=== PATIENT | female | born 1990 | race Caucasian/White ===

== ENCOUNTER 2023-05-10 10:51 | Outpatient (OUT) | payer OTHER, SELFPAY ==
--- NOTE | 2023-05-10 11:00 | XR_ITS ---
[address] [address] Patient Name: DERICK LUNA MRN: [id number] date: 1990 Sex: F Assigned Patient Location: [facility] Current Patient Location: [facility] Accession/Order Number: [id number] Exam Date: 05/10/2023 11:34 Report Date: 05/10/2023 11:56 At the request of: CASSIE AMAYA Procedure: XR chest 2V EXAM: XR chest 2V HISTORY: Preop exam COMPARISON: None. TECHNIQUE: PA and lateral views of the chest. FINDINGS: The cardiomediastinal silhouette is normal. No focal consolidation is identified. There is no pneumothorax. No pleural effusion is noted. The osseous structures are intact. XR/XR chest 2V IMPRESSION: No acute cardiopulmonary process. Electronically authenticated by: JESSE WARD Date: 05/10/2023 11:56
--- NOTE | 2023-05-10 11:00 | ECG_ITS ---
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
== END 2023-05-10 10:52 | disposition home or self-care (01) ==
PROVIDERS: Visit Provider Obstetrics & Gynecology
DX: Z01.810 Encounter for preprocedural cardiovascular examination (principal); R10.2 Pelvic and perineal pain; Z87.42 Personal history of other diseases of the female genital tract
CPT/HCPCS: 71046; 93005

== ENCOUNTER 2023-05-24 06:57 | Day surgery (SDC) | payer OTHER, SELFPAY ==
[2023-05-10 11:26] VITALS: BP 102/72; PULSE 80; RESP 18; TEMP 36.3; O2SAT 98; BMI 29.2
[2023-05-24] VITALS (9 sets, daily range): BP systolic 84–102; BP diastolic 48–75; PULSE 58–88; RESP 12–22; TEMP 36.5–36.7; O2SAT 95–100; BMI 29.2
[2023-05-24 07:09] LABS: Basophils Absolute Auto 0.1 10^3/uL (0.0-0.1); Basophils Percent Auto 1.8 % (0.2-2.0); Eosinophils Absolute Auto 0.5 10^3/uL (0.0-0.7); Eosinophils Percent Auto 6.9 % (0.9-7.0); Hematocrit 41.5 % (36.0-48.0); Immature Granulocytes Abs Auto 0.01 10^3/uL (0.00-0.03); Immature Granulocytes Pct Auto 0.1 % (0.0-0.5); Lymphocytes Absolute Auto 2.2 10^3/uL (1.2-3.8); Lymphocytes Percent Auto 27.8 % (20.5-60.0); Mean Corpuscular HGB Conc 33.7 g/dL (29.9-35.2); Mean Corpuscular Hemoglobin 29.5 pg (26.7-34.0); Mean Corpuscular Volume 87.4 fL (81.0-99.0); Mean Platelet Volume 9.8 fL (9.5-13.5); Monocytes Absolute Auto 0.6 10^3/uL (0.3-0.8); Monocytes Percent Auto 7.8 % (1.7-12.0); Neutrophils Absolute Auto 4.3 10^3/uL (1.4-6.5); Neutrophils Percent Auto 55.6 % (43.0-75.0); Platelet Count 275 10^3/uL (150-450); Red Blood Count 4.75 10^6/uL (4.20-5.40); Red Cell Distribution Width 12.5 % (11.0-15.0); White Blood Count 7.8 10^3/uL (4.0-11.0)
[2023-05-24 07:25] LABS: HCG Quantitative <1 mIU/mL
[2023-05-24] MEDS: LACTATED RINGER'S SOLUTION 1,000 ML 50 ML IV (07:30)
[2023-05-24] MEDS: SCOPOLAMINE 1 MG/3 DAYS TRANSDERM PATCH 1 PATCH TD (08:16)
[2023-05-24] MEDS: METHYLENE BLUE 50 MG/10 ML AMPULE INJ (09:20)
--- NOTE | 2023-05-24 09:37 | P.ON_ITS ---
Brief Operative Note Date of procedure: 05/24/23 Pre-op diagnosis: pelvic pain Post-op diagnosis: other (severe endometriosis of posterior culdesac and ovaries, adhesion of posterior uterus to rectum and ovaries, with gentle pressure was able to get spillage of dye from both tubes) Procedure: NAME OF PROCEDURE: [diagnostic laparoscopy with chromopertubation ] significant endometriosis with adhesion of rectum to uterus and ovaries, spillage of dye from both tubes PROCEDURE: The patient was taken back to the Operating Room where she was placed in dorsal lithotomy position after given general anesthesia. The patient was prepped and draped in normal sterile fashion. A humi maniupulator was placed into the uterus. Attention was turned to the patient's abdomen, where a small umbilical incision was made. The fascia was tented using Von clamps and the fascia was entered sharply. Confirmation of intraabdominal placement of the 10 mm port was confirmed under direct visualization using a laparoscope. The patient's abdomen was then insufflated using CO2 gas with approximately 4 liters. A second port was placed left laterally, this was done under direct visualization with a 5 mm port. Survey of the patient's abdomen demonstrated normal liver and gallbladder. Survey of the patient's pelvic anatomy demonstrated normal appearing rt and lt ovary and tubes as well as normal appearing uterus. posterior culdesac endometrial implants could be noted, adhesion of uterus to rectum and ovaries, spillage of dye seen from both tubes with gentle pressure during chromopertubation. . All instruments were removed from the patient's abdomen. The patient's abdomen was deinsufflated of CO2 gas. The patient tolerated the procedure well. Sponge stick was removed from the patient's vagina. The patient's infraumbilical fascia was closed using #0 Vicryl on a GI needle. The patient's skin was closed laterally and infraumbilically using 4-0 Vicryl. The patient tolerated the procedure well. Sponge, lap and needle counts were correct x 2. The patient was taken to Recovery Room in stable condition.Clips from prior surgery noted adhered to bladder, the clips were grasped and gently removed Anesthesia: RANDELL Surgeon: Stoney Chance Flat Knitter Helper: Hilary Deutsch Estimated blood loss (mL): 10 Pathology: none sent Condition: stable Disposition: PACU
[2023-05-24] MEDS: PROMETHAZINE HCL 25 MG/ML VIAL 12.5 MG IV (10:13)
[2023-05-24] MEDS: LACTATED RINGER'S SOLUTION 1,000 ML 150 ML IV (10:15)
--- NOTE | 2023-05-24 10:22 | PC.NURSE ---
Scant bloody drainage on peripad; IVcatheter kinked; untaped and catheter readjusted without difficulty and retaped
--- NOTE | 2023-05-24 10:27 | PC.NURSE ---
IV opened wide open
--- NOTE | 2023-05-24 10:30 | PC.NURSE ---
Nauseated; no emesis
--- NOTE | 2023-05-24 10:31 | PC.NURSE ---
Medicated for nausea as ordered
--- NOTE | 2023-05-24 10:35 | PC.NURSE ---
Scant drainage on peripad; still nauseated, but states it's better
--- NOTE | 2023-05-24 11:01 | PC.NURSE ---
no change in peripad assessment
[2023-05-24] MEDS: HYDROCODONE/ACET 5-325 MG TABLET 1 TAB PO (11:07)
--- NOTE | 2023-05-24 11:37 | PC.NURSE ---
Up to bathroom and voids clear yellow without difficulty; scant bloody drainage on peripad; clean pad applied; still slightly nauseated; taking sips without retching or emesis
--- NOTE | 2023-05-24 11:44 | PC.NURSE ---
Medicated for pain with oral medication; drinking sips H2O without emesis
--- NOTE | 2023-05-24 11:50 | PC.NURSE ---
Medicated for pain with oral medication; nauseated, but able to take fluids without emesis
== END 2023-05-24 11:30 | disposition home or self-care (01) ==
PROVIDERS: Visit Provider Obstetrics & Gynecology
PROC: (CPT 840; principal; 2023-05-24 08:05)
DX: R10.2 Pelvic and perineal pain (principal); N80.30 Endometriosis of pelvic peritoneum, unspecified; N83.9 Noninflammatory disorder of ovary, fallopian tube and broad ligament, unspecified; E03.9 Hypothyroidism, unspecified; F41.9 Anxiety disorder, unspecified; K21.9 Gastro-esophageal reflux disease without esophagitis; R53.82 Chronic fatigue, unspecified; M51.26 Other intervertebral disc displacement, lumbar region; E66.9 Obesity, unspecified; F17.290 Nicotine dependence, other tobacco product, uncomplicated; Z90.49 Acquired absence of other specified parts of digestive tract; Z68.28 Body mass index [BMI] 28.0-28.9, adult; Z87.42 Personal history of other diseases of the female genital tract; K66.0 Peritoneal adhesions (postprocedural) (postinfection)
CPT/HCPCS: 49320; 58350; 36415; 84702; 85025; J2704

== ENCOUNTER 2023-09-02 14:06 | Emergency (ER) | payer BC, OTHER, SELFPAY ==
[2023-09-02 14:12] VITALS: BP 111/80; PULSE 97; RESP 16; TEMP 36.8; O2SAT 98; BMI 27.4
--- OUTSIDE RECORDS SUMMARY | 2023-09-02 14:20 | XMS_ITS | CCD ---
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 Name Role Phone HENNY STERN Unavailable Unavailable HENNY STERN Unavailable Unavailable REQUEST, NONE LISTED Unavailable Unavailable HENNY STERN Unavailable Unavailable CHANG LAL V Unavailable Unavailable NovemberJacobo Primary Care Provider [phone] Timo Rodriguez Unavailable Harshad Julien Unavailable Unavailable Stefany Pena Unavailable Unavailable Sol Conti Primary Care Physician [phone] Caren Hogue Unavailable Unavailable Jana ZABALA Primary Care Physician DO Tony Hannon Emergency Provider [phone] RUMA Zabala Primary Care Provider [phone] DO Chaitanya Toure Emergency Provider [phone] RUMA Zabala Primary Care Provider [phone] Chaitanya Toure Admitting Unavailable Chaitanya Toure Attending Unavailable Jana Zabala Primary Care Unavailable Parvez, Tony Admitting Unavailable Tony Hannon Attending Unavailable Jana Zabala Primary Care Unavailable Tony Hannon Attending Unavailable Jana Zabala Primary Care Unavailable Parvez, Tony Admitting Unavailable Christian Juárez Unavailable PRITESH NY Attending Unavailable LUCRETIA GRAVES Attending Unavailable Shannon Golden Attending Unavailable Lucretia Graves Referring Unavailable Shannon Golden Admitting Unavailable Shannon Golden Attending Unavailable Jana ZABALA Referring Unavailable Curtis, Altagracia Admitting Unavailable Curtis, Altagracia Attending Unavailable Jana ZABALA Referring Unavailable Curtis, Altagracia Attending Unavailable Jana ZABALA Referring Unavailable Clyde Alcantar Attending Unavailable MD Clyde Alcantar Admitting Unavailable Curtis, RUMA Altagracia Admitting Unavailabl e Jana ZABALA Referring Unavailable Curtis, Altagracia Attending Unavailable RUMA Curtis Altagracia Admitting Unavailabl e SAGRARIOJANA ANDREW J Referring Unavailable Curtis, Altagracia Attending Unavailable Curtis, Altagracia Admitting Unavailable SAGRARIOJana ANDREW Referring Unavailable Curtis, Altagracia Attending Unavailable MD Clyde Alcantar Admitting Unavailable Clyde Alcantar Attending Unavailable Clyde Alcantar Referring Unavailable MD Clyde Alcantar Admitting Unavailable Clyde Alcantar Attending Unavailable Clyde Alcantar Referring Unavailable Curtis, Altagracia Admitting Unavailable Curtis, Altagracia Attending Unavailable Monika GAO Admitting Unavailab Monika Hua Attending Unavailab Monika Hua Referring Unavailab Kenn Ordoñez Attending Unavailable Kenn Zurita Attending Unavailable Allergies Allergy Classification Reported Allergen(s) Allergy Type Date of Onset Reaction(s) Facility Anticholinergics (3 sources) Dicyclomine Drug Allergy 02-16-20 13 [facility] DOPamine Antagonists (1 source) Metoclopramide Drug Allergy Other [facility] (3 sources) Dicyclomine; Translations: [Bentyl] Drug Allergy Hives/Urticari a [facility] (3 sources) Metoclopramide; Translations: [Reglan] Drug Allergy Other [facility] (20 sources) Bee/Wasp/Ant venom; Translations: [Bee Stings] Allergy to substance swollen at site [facility] (20 sources) Chocolate; Translations: [Chocolate] Propensity to adverse reactions to food Migraine [facility] (20 sources) Dicyclomine; Translations: [dicyclomine] Drug Allergy 01-20-20 22 [facility] (20 sources) Metoclopramide; Translations: [metoclopramide] Drug Allergy 01-20-20 22 twitching, Irritable, Unknown [facility] Comment on above: gives her shakes (19 sources) red sauces 1 Food allergy Migraine (disorder) [facility] Comment on above: migraines (1 source) Dicyclomine Drug Allergy 08-17-19 [facility] (1 source) Metoclopramide Drug Allergy 08-17-19 [facility] (1 source) red sauces; Translations: [red sauces] Food allergy (disorder) [facility] Medications Current Medications Medication Drug Class(es) Dates Sig (Normalized) Sig (Original) acetaminophen 325 mg / butalbital 50 mg oral tablet (8 sources) Barbiturate Start: 11-07-2021 acetaminophen-bu talbital 325 mg-50 mg oral tablet 1 tab(s), Oral, q4hr for headache, 6 tab(s), Refill(s) 0, [id number], 158, cm, 11/07/21 12:07:00 EDT, Height/Length Dosing, 68, kg, 11/07/21 12:07:00 EDT, Weight Dosing Start Date: 11/07/21 Status: Ordered acetaminophen 325 mg / butalbital 50 mg / caffeine 40 mg oral tablet (9 sources) Barbiturate, Central Nervous System Stimulant, Methylxanthine Start: 09-11-2021 take 1 tablet by mouth every four hours for headache APAP/butalbital/ caffeine 325 mg-50 mg-40 mg Tab 1 tab(s), Oral, q4hr for headache, 15 tab(s), Refill(s) 0, [id number], 158, cm, 09/11/21 8:41:00 EST, Height/Length Dosing, 68, kg, 09/11/21 8:41:00 EST, Weight Dosing Start Date: 09/11/21 Status: Ordered Excedrin Tension Headache (18 sources) Central Nervous System Stimulant, Methylxanthine Start: 02-18-2020 Excedrin Tension Headache Oral, q6hr, Refill(s) 0 Start Date: 02/18/20 Status: Ordered Excedrin Tension Headache Active azithromycin 250 mg oral tablet (3 sources) Macrolide Antimicrobial Start: 03-02-2021 take 2 tablets by mouth once, then take 1 tablet by mouth once daily azithromycin 250 mg oral tablet ; Take 2 tabs (500mg) x 1 days, then 1 tab (250mg) once daily x 4 days Quantity: 6 Refills: 0 Ordered: 02-Mar-2021 Harshad Julien Start: 02-Mar-2021 Status: Other Generic Substitution Allowed Comments: Do not take dairy products, antacids, or iron preparations within one hour of this medication.Finish all this medication unless otherwise directed by prescriber. Comment on above: Do not take dairy pr oducts, antacids, or iron preparations within one hour of this medication.Finish all this medication unless otherwise directed by prescriber. Brompheniramine / Pseudoephedrine (1 source) alpha-Adrenergic Agonist Start: 07-29-2020 take 10 mL by mouth four times daily Bromfed DM oral syrup 10 mL, Oral, QID for cold symptoms, 200 mL, Refill(s) 0, [id number], 157, cm, 07/29/20 12:13:00 EST, Height/Length Dosing, 70, kg, 07/29/20 12:13:00 EST, Weight Dosing Start Date: 07/29/20 Status: Ordered 12 hr buPROPion hydrochloride 100 mg extended release oral tablet (3 sources) Aminoketone take 1 tablet by mouth twice daily Wellbutrin SR 100 mg/12 hours oral tablet, extended release ; 1 tab(s) orally 2 times a day Quantity: 0 Refills: 0 Ordered: 28-Oct-2020 Sol Ross Status: Other Generic Substitution Allowed cetirizine hydrochloride 10 mg disintegrating oral tablet (1 source) Histamine-1 Receptor Antagonist Start: 08-17-2022 take 1 tablet by mouth once daily Cetirizine (Zyrtec) 10 mg Tablet,Disintegrating Active 10 MG PO Daily August 17, 2022 12:00am Emgality (1 source) Emgality Active Emgality Prefilled Pen (10 sources) Start: 06-25-2022 Emgality Prefilled Pen SubCutaneous, qMonth, Refills(s) 0 Start Date: 06/25/22 Status: Ordered Flonase Allergy Relief (19 sources) Start: 07-11-2021 Flonase Allergy Relief = 2 spray(s), Daily, Refills(s) 0 Start Date: 07/11/21 Status: Ordered fluconazole 150 mg oral tablet (3 sources) Azole Antifungal Start: 03-02-2021 Diflucan 150 mg oral tablet ; 1 tab(s) orally once a day today and then repeat on last day of antibiotics Quantity: 2 Refills: 0 Ordered: 02-Mar-2021 Harshad Julien Start: 02-Mar-2021 Status: Other Generic Substitution Allowed Comments: Do not take this drug if you are .Finish all this medication unless otherwise directed by prescriber. Comment on above: Do not take this jessica g if you are .Finish all this medication unless otherwise directed by prescriber. 1.5 ml fremanezumab-vfrm 150 mg/ml prefilled syringe (1 source) Start: 06-25-2023 Ajovy 225 mg/1.5 mL subcutaneous solution Refills(s) 0 Start Date: 06/25/23 Status: Ordered levothyroxine sodium 0.025 mg oral tablet (16 sources) l-Thyroxine Start: 04-13-2022 take 1 tablet by mouth once daily levothyroxine 25 mcg (0.025 mg) Tab 25 mcg = 1 tab(s), Oral, Daily, Refills(s) 0 Start Date: 04/13/22 Status: Ordered Start: 04-10-2022 take 25 ug by mouth once daily Levothyroxine Active 25 MCG PO Daily April 09, 2022 11:00pm Levothyroxine So dium Active Claritin (19 sources) Start: 06-07-2021 Claritin See Instructions, PRN allergies, Refills(s) 0 Start Date: 06/07/21 Status: Ordered naproxen 500 mg oral tablet (20 sources) Nonsteroidal Anti-inflammatory Drug Start: 11-17-2019 take 500 mg by mouth twice daily naproxen 500 mg, Oral, BID, Refills(s) 0 Start Date: 11/17/19 Status: Ordered Naproxen Active naproxen 500 mg oral tablet Quantity: 0 Refills: 0 Ordered: 04-Jul-2021 Julieta Yen Generic Substitution Allowed omeprazole 20 mg delayed release oral tablet (20 sources) Proton Pump Inhibitor Start: 01-19-2022 take 20 mg by mouth once daily Omeprazole Active 20 MG PO Daily January 18, 2022 11:00pm Start: 11-17-2019 take 20 mg by mouth once daily omeprazole 20 mg, Oral, Daily, Refills(s) 0 Start Date: 11/17/19 Status: Ordered Omeprazole Activ e take 1 tablet by ronnie once daily omeprazole 20 mg oral delayed release tablet ; 1 tab(s) orally once a day Quantity: 0 Refills: 0 Ordered: 28-Oct-2020 Sol Ross Status: Other Generic Substitution Allowed predniSONE 20 mg oral tablet (10 sources) Start: 10-15-2022 predniSONE 20 mg Tab Daily, PRN Allergy symptoms, Refills(s) 0 Start Date: 10/15/22 Status: Ordered Start: 08-17-2022 take 50 mg by mouth once daily Prednisone Active 50 MG PO Daily 11 23August 17, 2022 12:00am Start: 03-02-2021 End: 03-07-2021 take 6 tablets by mouth once daily at mealtime, then take 1 tablet by mouth once daily, then take 1 tablet by mouth once daily, then take 1 tablet by mouth once daily, then take 1 tablet by mouth once daily, then take 1 tablet by mouth once daily predniSONE 10 mg oral tablet ; 6 tab(s) orally once a day x 1 days5 tab(s) orally once a day x 1 days4 tab(s) orally once a day x 1 days3 tab(s) orally once a day x 1 days2 tab(s) orally once a day x 1 days1 tab(s) orally once a day x 1 days Quantity: 21 Refills: 0 Ordered: 02-Mar-2021 Harshad Julien Start: 02-Mar-2021 End: 07-Mar-2021 Status: Other Generic Substitution Allowed Comments: It is very important that you take or use this exactly as directed. Do not skip doses or discontinue unless directed by your doctor.Obtain medical advice before taking any non-prescription drugs as some may affect the action of this medication.Take with food or milk. Comment on above: It is very important that you take or use this exactly as directed. Do not skip doses or discontinue unless directed by your doctor.Obtain medical advice before taking any non-prescription drugs as some may affect the action of this medication.Take with food or milk. pregabalin 50 mg oral capsule (20 sources) Start: 02-05-20 End: 08-17-19 24 take 1 capsule by mouth once daily pregabalin 50 mg Cap 50 mg = 1 cap(s), Oral, Daily, X 30 day(s), # 30 cap(s), Refills(s) 5, Pharmacy: [id number], 158, cm, 02/18/23 10:35:00 EDT, Height/Length Dosing, 72.5, kg, 02/18/23 10:35:00 EDT, Weight Dosing Start Date: 02/18/23 Stop Date: 08/17/23 Status: Ordered Start: 07-11-2021 End: 11-07-2022 take 1 capsule by mouth once daily pregabalin 50 mg Cap 50 mg = 1 cap(s), Oral, Daily, X 30 day(s), # 30 cap(s), Refills(s) 5, Pharmacy: [id number], 158, cm, 05/11/22 14:58:00 EDT, Height/Length Dosing, 68.5, kg, 05/11/22 14:58:00 EDT, Weight Dosing Start Date: 05/11/22 Stop Date: 11/07/22 Status: Ordered take 1 capsule by mo ut every twelve hours Lyrica 50 MG 1 capsule Orally Twice a day Active promethazine hydrochloride 25 mg oral tablet (3 sources) Phenothiazine Start: 04-16-2017 take 25 mg by mouth every six hours Promethazine Active 25 MG PO Q6H April 15, 2017 11:51pm rimegepant 75 mg disintegrating oral tablet (11 sources) Start: 05-11-2022 Nurtec ODT 75 mg oral tablet, disintegrating Refills(s) 0 Start Date: 05/11/22 Status: Ordered tiZANidine 4 mg oral tablet (20 sources) Central alpha-2 Adrenergic Agonist Start: 02-18-2023 take 1 tablet by mouth three times daily tiZANidine 4 mg Tab 4 mg = 1 tab(s), Oral, TID, # 90 tab(s), Refills(s) 5, Pharmacy: [facility]/pharmacy #[id number], 158, cm, 02/18/23 10:35:00 EDT, Height/Length Dosing, 72.5, kg, 02/18/23 10:35:00 EDT, Weight Dosing Start Date: 02/18/23 Status: Ordered Start: 01-19-2022 take 4 mg by mouth o nce daily at bedtime Tizanidine Active 4 MG PO Daily at bedtime January 18, 2022 11:00pm Start: 06-07-2021 take 1 tablet by ronnie th three times daily tiZANidine 4 mg Tab 4 mg = 1 tab(s), Oral, TID, # 90 tab(s), Refills(s) 5, Pharmacy: [facility]/pharmacy [id number], 158, cm, 05/11/22 14:58:00 EDT, Height/Length Dosing, 68.5, kg, 05/11/22 14:58:00 EDT, Weight Dosing Start Date: 05/11/22 Status: Ordered take 2 capsules by m out three times daily tiZANidine 4 mg oral capsule ; 2 cap(s) orally 3 times a day Quantity: 0 Refills: 0 Ordered: 28-Oct-2020 Sol Ross Generic Substitution Allowed traMADol hydrochloride 50 mg oral tablet (3 sources) Opioid Agonist take 1 tablet by mouth every six hours Ultram 50 mg oral tablet ; 1 tab(s) orally every 6 hours Quantity: 0 Refills: 0 Ordered: 28-Oct-2020 Sol Ross Status: Other Generic Substitution Allowed Zofran ODT 4 mg Tab-Dis (18 sources) Start: 12-12-2022 take 1 tablet by mouth every eight hours as needed for nausea Zofran ODT 4 mg Tab-Dis 4 mg = 1 tab(s), Oral, q8hr, PRN Nausea/Vomiting, # 20 tab(s), Refills(s) 0, Pharmacy: [id number], 158, cm, 12/12/22 20:36:00 EDT, Height/Length Dosing, 74, kg, 12/12/22 20:36:00 EDT, Weight Dosing Start Date: 12/12/22 Status: Ordered Start: 11-07-2021 take 1 tablet by ronnie every eight hours as needed for nausea Zofran ODT 4 mg Tab-Dis 4 mg = 1 tab(s), Oral, q8hr, PRN Nausea/Vomiting, # 12 tab(s), Refills(s) 0, Pharmacy: [id number], 158, cm, 11/07/21 12:07:00 EDT, Height/Length Dosing, 68, kg, 11/07/21 12:07:00 EDT, Weight Dosing Start Date: 11/07/21 Status: Ordered Start: 09-11-2021 take 1 tablet by ronnie three times daily Zofran ODT 4 mg Tab-Dis 4 mg = 1 tab(s), Oral, TID, # 15 tab(s), Refills(s) 0, [id number], cm, 09/11/21 8:41:00 EST, Height/Length Dosing, 68, kg, 09/11/21 8:41:00 EST, Weight Dosing Start Date: 09/11/21 Status: Ordered Start: 12-29-2020 [facility] 1 tablet by [facility] daily Zofran ODT 4 mg Tab-Dis 4 mg = 1 tab(s), Oral, TID, # 15 tab(s), Refills(s) 0, [id number] 157.5, cm, 12/29/20 8:18:00 EDT, Height/Length Dosing, 75.4, kg, 12/29/20 8:18:00 EDT, Weight Dosing Start Date: 12/29/20 Status: Ordered Completed/Discontinued Medications Medication Drug Class(es) Dates Sig (Normalized) Sig (Original) [id number] 200 actuat albuterol 0.09 mg/actuat metered dose inhaler (2 sources) beta2-Adrenergic Agonist Start: 07-04-2021 End: 07-13-2021 take 2 puff(s) by inhalation every four to six hours as needed albuterol 90 mcg/inh inhalation aerosol ; 2 puff(s) inhaled every 4 to 6 hours, As Needed Quantity: 1 Refills: 0 Ordered: 04-Jul-2021 Stefany Pena Start: 04-Jul-2021 End: 13-Jul-2021 Generic Substitution Allowed Comments: For inhalation only.It is very important that you take or use this exactly as directed. Do not skip doses or discontinue unless directed by your doctor.Obtain medical advice before taking any non-prescription drugs as some may affect the action of this medication.Shake well before use. Comment on above: For inhalation only. It is very important that you take or use this exactly as directed. Do not skip doses or discontinue unless directed by your doctor.Obtain medical advice before taking any non-prescription drugs as some may affect the action of this medication.Shake well before use. brompheniramine maleate 0.4 mg/ml / dextromethorphan hydrobromide 2 mg/ml / pseudoephedrine hydrochloride 6 mg/ml oral solution (4 sources) alpha-Adrenergic Agonist, Uncompetitive E-aaoudb-H-aspartat e Receptor Antagonist, Sigma-1 Agonist Start: 07-04-2021 End: 07-13-2021 take 5 mL by mouth every four to six hours brompheniramine/p seudoephedrine/de xtromethorphan [id number]/5 mL oral syrup ; 5 milliliter(s) orally every 4 to 6 hours, As Needed Quantity: 120 Refills: 0 Ordered: 04-Jul-2021 Stefany Pena Start: 04-Jul-2021 End: 13-Jul-2021 Generic Substitution Allowed Comments: May cause drowsiness. Alcohol may intensify this effect. Use care when operating dangerous machinery.Obtain medical advice before taking any non-prescription drugs as some may affect the action of this medication. Start: 04-11-2021 End: 04-20-2021 take 5 mL by mouth every four to six hours brompheniramine/pseudoephedrine/dextrome thorphan [id number]/5 mL oral syrup ; 5 milliliter(s) orally every 4 to 6 hours, As Needed Quantity: 120 Refills: 0 Ordered: 11-Apr-2021 Stefany Pena Start: 11-Apr-2021 End: 20-Apr-2021 Generic Substitution Allowed Comments: May cause drowsiness. Alcohol may intensify this effect. Use care when operating dangerous machinery.Obtain medical advice before taking any non-prescription drugs as some may affect the action of this medication. Comment on above: May cause drowsiness . Alcohol may intensify this effect. Use care when operating dangerous machinery.Obtain medical advice before taking any non-prescription drugs as some may affect the action of this medication. COMPOUNDED PRESCRIPTION (2 sources) Start: 013 COMPOUNDED PRESCRIPTION Chest X ray PA and Lateral 1 Act 0 02/18/2013 Active Comment on above: Chest X ray PA and L ateral cyclobenzaprine hydrochloride 10 mg oral tablet (1 source) Muscle Relaxant Start: take 1 tablet by mouth once daily at bedtime Flexeril 10mg 1 Tablet Oral qhs for 10 days Sep, Not-Taking fluticasone propionate 0.05 mg/actuat metered dose nasal spray (2 sources) Corticosteroid Start: End: take 1 spray(s) nasal route once daily fluticasone 50 mcg/inh nasal spray ; 1 spray(s) in each nostril once a day Quantity: 1 Refills: 0 Ordered: 11-Apr-2021 Stefany Pena Start: 11-Apr-2021 End: 20-Apr-2021 Generic Substitution Allowed Comments: For the nose.It is very important that you take or use this exactly as directed. Do not skip doses or discontinue unless directed by your doctor. Comment on above: For the nose.It is v shraddha important that you take or use this exactly as directed. Do not skip doses or discontinue unless directed by your doctor. ondansetron 4 mg oral tablet (19 sources) Serotonin-3 Receptor Antagonist Start: take 1 tablet by mouth every six hours as needed for nausea Zofran 4 mg Tab 4 mg = 1 tab(s), Oral, q6hr, PRN Nausea, Take one tab by mouth every six hours as needed for nausea, # 10 tab(s), Refills(s) 0, Pharmacy: [id number], 158, cm, 02/05/22 16:14:00 EDT, Height/Length Dosing, 68, kg, 02/05/22 16:14:00 EDT, Weight D... Start Date: 02/05/22 Status: Ordered take 4 mg by mouth e very six hours as needed ondansetron (ZOFRAN) 4 mg/5 mL solution Take 4 mg by mouth every 6 hours as needed. 0 Active Comment on above: Take 4 mg by mouth e very 6 hours as needed. potassium chloride 20 meq extended release oral tablet (1 source) Start: 02-06-20 End: 02-13-20 take 1 tablet by mouth once daily potassium chloride 20 mEq ER Tab 20 mEq = 1 tab(s), Oral, Daily, X 7 day(s), # 7 tab(s), Refills(s) 0, Pharmacy: [facility]/pharmacy #[id number], 158, cm, 02/05/22 16:14:00 EDT, Height/Length Dosing, 68, kg, 02/05/22 16:14:00 EDT, Weight Dosing Start Date: 02/05/22 Stop Date: 02/12/22 Status: Ordered triamcinolone acetonide 1 mg/ml topical cream (3 sources) Corticosteroid Start: 10-29-19 End: 11-04-19 triamcinolone 0.1% topical cream ; Apply topically to affected area 3 times a day Quantity: 1 Refills: 0 Ordered: 28-Oct-2020 JeanBritney fernandezhel Start: 28-Oct-2020 End: 03-Nov-2020 Status: Other Generic Substitution Allowed Comments: For external use only. Comment on above: For external use onl y. Problems Active Problems Problem Classification Problem Date Documented Date Episodic/Chronic Abdominal pain (4 sources) Pelvic and perineal pain; Translations: [PELVIC AND PERINEAL PAIN] Onset: 04-09-2017 Allergic reactions (1 source) Allergic reaction; Translations: [Allergy, unspecified, initial encounter] 08-17-2022 Episodic Anxiety disorders (19 sources) Anxiety 11-17-2019 Chronic Cardiac dysrhythmias (2 sources) Cardiac arrhythmia; Translations: [Cardiac arrhythmia, unspecified] Onset: 02-15-2013 Chronic Deficiency and other anemia (19 sources) Anemia 11-17-2019 Episodic Esophageal disorders (19 sources) Gastroesophageal reflux disease 11-17-2019 Chronic Fluid and electrolyte disorders (1 source) Hypokalemia; Translations: [Hypokalemia] Onset: 02-05-2022 Episodic Headache; including migraine (20 sources) Migraine; Translations: [Migraine, unspecified, not intractable, without status migrainosus] Onset: 11-07-2021 10-02-2013 Chronic Headache; including migraine (20 sources) Headache; Translations: [Headache] 02-18-2020 Episodic Headache; including migraine (1 source) Headache; including migraine; Translations: [Headache, unspecified] Onset: 04-10-2022 Immunizations and screening for infectious disease (2 sources) Contact with or exposure to other viral diseases 07-04-2021 Episodic Mood disorders (19 sources) Depression 10-02-2013 Chronic Nausea and vomiting (20 sources) Vomiting; Translations: [Nausea] Onset: 02-05-2022 02-18-2020 Episodic Nonspecific chest pain (3 sources) Chest wall pain; Translations: [Other chest pain] 01-19-2022 Episodic Other nervous system disorders (1 source) Chronic pain; Translations: [Other chronic pain] Chronic Other screening for suspected conditions (not mental disorders or infectious disease) (1 source) Blood chemistry abnormal; Translations: [Other specified abnormal findings of blood chemistry] Onset: 02-05-2022 Episodic Other upper respiratory disease (2 sources) Loss of voice 03-02-2021 Episodic Comment on above: LOSS OF VOICE Other upper respiratory infections (10 sources) Acute laryngitis; Translations: [Acute laryngitis without mention of obstruction] 03-02-2021 Episodic Comment on above: URI Pneumonia (except that caused by tuberculosis or sexually transmitted disease) (19 sources) Pneumonia 12-16-2013 Episodic Spondylosis; intervertebral disc disorders; other back problems (1 source) Herniation of nucleus pulposus of lumbar intervertebral disc; Translations: [Other intervertebral disc displacement, lumbar region] Chronic Sprains and strains (5 sources) Strain of neck muscle; Translations: [Strain of muscle, fascia and tendon at neck level, initial encounter] 04-16-2017 Episodic Substance-related disorders (19 sources) Smoker 02-15-2014 Chronic Comment on above: Added secondary to d ocumentation in Social History. Unclassified (1 source) Exposure to COVID-19 virus 07-04-2021 Unclassified (2 sources) SOB, ST, DRAIANGE, COUGH X YESTERDAY 08-04-2021 Comment on above: SOB, ST, DRAIANGE, C OUGH X YESTERDAY Unclassified (1 source) Close exposure to COVID-19 virus 08-04-2021 Unclassified (1 source) Allergy, unspecified, initial encounter; Translations: [Allergy, unspecified, initial encounter] Onset: 08-17-2022 Unclassified (1 source) R07.9 - Chest pain, unspecified; Translations: [R07.9 - Chest pain, unspecified] Onset: 01-19-2022 Past or Other Problems Problem Classification Problem Date Documented Da te Episodic/Chronic Other lower respiratory disease (2 sources) Dyspnea; Translations: [Shortness of breath] Onset: 02-15-2013 Episodic Results Test Name Value Interpretation Reference Range Facility Consent for Treatmenton Consent for Treatment [id number] 31 [id number] [facility] Consultation Noteon 06-25-20 Consultation Note Patient: PRABHA LUNA Age: 32 years Sex: Female : 1990 Associated Diagnoses: None Author: Cortez CHEUNG, Clyde [place] Subjective Chief complaint 06/25/2023 7:58 EST Back Pain . 32-year-old female with a work-related injury resulting in lumbar disc displacement with recurrent pain. The pain is in the low back and radiates to the hips. Standing walking, bending twisting exacerbate the pain. Pain is very well-controlled with intermittent L4-5 epidural steroid injections. Her last procedure was done in January of this year which resulted in 80% relief until these past few weeks. During that period of time the patient was much more active and able to work. She currently rates her pain as a 5 out of 10 on the visual analog scale. It can be as bad as a 7 out of 10. MENDEL is 43. Denies red flag symptoms. Denies changes to her pattern of pain. Patient requested a repeat of the epidural steroid injection since it was so helpful for her in the past. The patient is no longer taking the Lyrica as it was causing drowsiness in the morning. Continues to use naproxen and tizanidine. Health Status Allergies: Allergic Reactions (All) Severity Not Documented Bee Stings- Swollen at site. Bentyl- Hives. Chocolate- Migraine. Red sauces- Migraine....... Nonallergic Reactions (All) Severity Not Documented Reglan- Twitching. Current medications: (Selected) Prescriptions Prescribed Zofran ODT 4 mg Tab-Dis: 4 mg = 1 tab(s), Oral, q8hr, PRN Nausea/Vomiting, # 20 tab(s), Refills(s) 0, Pharmacy: [facility]/pharmacy #[id number], 158, cm, 12/12/22 20:36:00 EDT, Height/Length Dosing, 74, kg, 12/12/22 20:36:00 EDT, Weight Dosing pregabalin 50 mg Cap: 50 mg = 1 cap(s), Oral, Daily, X 30 day(s), # 30 cap(s), Refills(s) 5, [id number], cm, 02/18/23 10:35:00 EDT, Height/Length Dosing, 72.5, kg, 02/18/23 10:35:00 EDT, Weight Dosing tiZANidine 4 mg Tab: 4 mg = 1 tab(s), Oral, TID, # 90 tab(s), Refills(s) 5, [id number] 158, cm, 02/18/23 10:35:00 EDT, Height/Length Dosing, 72.5, kg, 02/18/23 10:35:00 EDT, Weight Dosing Documented Medications Documented Ajovy 225 mg/1.5 mL subcutaneous solution: Refills(s) 0 Claritin: See Instructions, PRN allergies, Refills(s) 0 Emgality Prefilled Pen: SubCutaneous, qMonth, Refills(s) 0 Flonase Allergy Relief: = 2 spray(s), Daily, Refills(s) 0 Nurtec ODT 75 mg oral tablet, disintegrating: Refills(s) 0 levothyroxine 25 mcg (0.025 mg) Tab: 25 mcg = 1 tab(s), Oral, Daily, Refills(s) 0 naproxen: 500 mg, Oral, BID, Refills(s) 0 omeprazole: 20 mg, Oral, Daily, Refills(s) 0 Problem list: All Problems Acid reflux / SNOMED CT 161034818 / Confirmed Anemia / SNOMED CT 154254761 / Confirmed Anxiety / SNOMED CT 21158926 / Confirmed Headache / SNOMED CT 57271515 / Confirmed Smoker 21-JAN-2014 12:37:00<$> / SNOMED CT [id number]-[id number] / Confirmed Added secondary to documentation in Social History. Vomiting / SNOMED CT 0171589326 / Confirmed Objective Vital Signs 06/25/2023 7:58 EST Peripheral Pulse Rate 88 bpm Respiratory Rate 14 br/min Systolic Blood Pressure 118 mmHg Diastolic Blood Pressure 88 mmHg Mean Arterial Pressure, Cuff 98 mmHg General: No acute distress. Alert and oriented x 3. Well-nourished. Well-developed. Musculoskeletal: Rises easily from a seated position. No gross deformity or asymmetry. Good range of motion with minimal pain lumbar spine. Sacroiliac joints are nontender to palpation bilaterally. Neuro: 5/5 strength throughout bilateral lower extremities. Ankle clonus absent bilaterally. Straight leg raise bilaterally at 30 degrees creates low back pain. Able to tandem walk without difficulty. Able to heel and toe stand without difficulty. 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 Those procedures provided the patient relief of her pain for 4 months. The pain is returning. The patient experience significant improvement of quality life and activities of daily living as a result of the pain relief she was experiencing. I recommend repeating the injection. The patient will require Valium 10 mg prior to the procedure due to severe anxiety. Risk, benefits, and alternatives were reviewed with the patient. She wishes to proceed. Plan follow-up 2 weeks after the injection to assess response. Patient agrees with plan of care. [facility] Comment on above: Result Comment: Elec tronically Signed By: Cortez CHEUNG, Clyde [place]\.br\Date and Time Signed: 06/25/23 08:46 EST Office/Clinic Note-Physician on 06-25-2023 Office/Clinic Note-Physician [id number] #1.00TIFF [facility] Patient Correspondenceon Patient Correspondence [id number] #1.00TIFF [facility] Patient Correspondence [id number] #1.00TIFF [facility] Patient History Officeon Patient History Office [id number] #1.00TIFF [facility] Prescriptions/Work Noteson 1 08-26-2022 Prescriptions/Work Notes [id number] 9#1.00TIFF [facility] Consent for Treatmenton 01-21 Consent for Treatment ..121.79 [id number] 5#1.00CD:127 [facility] Consultation Noteon 02-19-20 Consultation Note Patient: PRABHA LUNA Age: 32 years Sex: Female : 1990 Associated Diagnoses: None Author: Altagracia Curtis PA-C Subjective Chief complaint 02/18/2023 10:29 EDT low back pain . Patient is a 32 year old female with a past medical history significant for a [facility]. The approved codes are m51.26 and S39.012A. Lumbar annular tear and lumbar strain. She presents today for a follow-up after undergoing an L4-5 epidural steroid injection. This was done on 02/04/2023 and at this time has given her 70% relief. She has had this injection multiple times all with good relief. She has some lower back pain that she rates a 2/10. She states that this is well controlled with her Lyrica 50 mg 3 times daily and tizanidine 4 mg up to 3 times daily as needed pain. She feels at this time things are comfortable and happy. She is overall doing better. She is pleased with how much relief she got from the injection and is back to her normal activities. Health Status Allergies: Allergic Reactions (Selected) Severity Not Documented Bee Stings- Swollen at site. Bentyl- Hives. Chocolate- Migraine. Red sauces- Migraine....... Nonallergic Reactions (Selected) Severity Not Documented Reglan- Twitching., Allergies (5) Active Reaction Bee Stings swollen at site Bentyl Hives Chocolate Migraine red sauces Migraine...... Reglan twitching Current medications: (Selected) Prescriptions Prescribed Zofran 4 mg Tab: 4 mg = 1 tab(s), Oral, q6hr, PRN Nausea, Take one tab by mouth every six hours as needed for nausea, # 10 tab(s), Refills(s) 0, Pharmacy: [facility] #[id number], 158, cm, 02/05/22 16:14:00 EDT, Height/Length Dosing, 68, kg, 02/05/22 16:14:00 EDT, Weight D... Zofran ODT 4 mg Tab-Dis: 4 mg = 1 tab(s), Oral, q8hr, PRN Nausea/Vomiting, # 20 tab(s), Refills(s) 0, [id number], cm, 12/12/22 20:36:00 EDT, Height/Length Dosing, 74, kg, 12/12/22 20:36:00 EDT, Weight Dosing pregabalin 50 mg Cap: 50 mg = 1 cap(s), Oral, Daily, X 30 day(s), # 30 cap(s), Refills(s) 5, [id number] 158, cm, 02/18/23 10:35:00 EDT, Height/Length Dosing, 72.5, kg, 02/18/23 10:35:00 EDT, Weight Dosing tiZANidine 4 mg Tab: 4 mg = 1 tab(s), Oral, TID, # 90 tab(s), Refills(s) 5, [id number] 158, cm, 02/18/23 10:35:00 EDT, Height/Length Dosing, 72.5, kg, 02/18/23 10:35:00 EDT, Weight Dosing Documented Medications Documented Claritin: See Instructions, PRN allergies, Refills(s) 0 Emgality Prefilled Pen: SubCutaneous, qMonth, Refills(s) 0 Flonase Allergy Relief: = 2 spray(s), Daily, Refills(s) 0 Lyrica 50 mg Cap: 50 mg = 1 cap(s), Oral, Daily, Refills(s) 0 Nurtec ODT 75 mg oral tablet, disintegrating: Refills(s) 0 levothyroxine 25 mcg (0.025 mg) Tab: 25 mcg = 1 tab(s), Oral, Daily, Refills(s) 0 naproxen: 500 mg, Oral, BID, Refills(s) 0 omeprazole: 20 mg, Oral, Daily, Refills(s) 0 predniSONE 20 mg Tab: Daily, PRN Allergy symptoms, Refills(s) 0 Problem list: All Problems Smoker 21-JAN-2014 12:37:00<$> / SNOMED CT [id number] [id number] / Confirmed Added secondary to documentation in Social History. Acid reflux / SNOMED CT 772415720 / Confirmed Anxiety / SNOMED CT 63527680 / Confirmed Anemia / SNOMED CT 919476706 / Confirmed Vomiting / SNOMED CT 4413106594 / Confirmed Headache / SNOMED CT 84330682 / Confirmed Resolved: Migraine / SNOMED CT 56764526 Resolved: Depression / SNOMED CT 113210554 Resolved: Pneumonia / SNOMED CT [id number] Canceled: Biliary dyskinesia / SNOMED CT 969560582 Objective Vital Signs 02/18/2023 10:29 EDT Peripheral Pulse Rate 93 bpm Respiratory Rate 16 br/min Systolic Blood Pressure 111 mmHg Diastolic Blood Pressure 78 mmHg Mean Arterial Pressure, Cuff 89 mmHg General: Alert and oriented, No acute distress. Eye: Normal conjunctiva. HENT: Normocephalic, Normal hearing. Cardiovascular: No edema. Musculoskeletal Normal range of motion. Normal strength. 5/5 lower extremity strength Integumentary: Warm, Dry, [place]. Injection site well-healed Neurologic: Alert, Oriented. Psychiatric: Cooperative, Appropriate mood & affect. Impression and Plan Patient is a 32-year-old female with a past medical history significant for a [facility]. The approved codes are m51.26 and S39.012A. Lumbar annular tear and lumbar strain. She presents today for a follow-up after undergoing an L4-5 epidural steroid injection. This was done on 02/04/2023 and at this time has given her 70% relief. She is overall very pleased. She is comfortable and happy. She is back to normal activities. She is continuing on her medications. She is using Lyrica and tizanidine. She is requesting refills of both. A refill of Lyrica 50 mg 3 times daily will be sent to her pharmacy as well as tizanidine 4 mg 3 times daily as needed pain. At this time she will call when she requires any other refills. She is going to follow-up in 2 mo (more content not included)... [facility] Comment on above: Result Comment: Elec tronically Signed By: Altagracia Curtis PA-C\.br\Date and Time Signed: 02/18/23 10:57 EDT\.br\Electronically Co-Signed By: Clyde Alcantar MD\.br\Date and Time Co-Signed: 02/26/23 11:40 EDT Office/Clinic Note-Physician on 02-18-2023 Office/Clinic Note-Physician [id number] 9#1.00CD:127 [facility] Patient Correspondenceon Patient Correspondence [id number] 2#1.00CD:127 [facility] Patient Correspondence [id number] 307 [id number] 4#1.00CD:127 [facility] Patient History Officeon Patient History Office [id number] 307 [id number] 5#1.00CD:127 [facility] Operative Reporton 3 Operative Report Patient: PRABHA LUNA Age: 32 years Sex: Female : 1990 Associated Diagnoses: None Author: Clyde Alcantar MD Procedure Procedure: Lumbar Epidural Steroid Injection with Fluoroscopic Guidance at L4/5 Diagnosis: Lumbar Disc Bulge Anesthesia: Local with Valium 10mg PO prior to the procedure for anxiolysis The patient was identified in the pre-op area. The procedure, including risks benefits and alternatives was discussed with the patient. The patient agreed to proceed. Informed consent was obtained and the site(s) marked. The patient was brought to the procedure room and placed in the prone position with padding under the abdomen to reduce lumbar lordosis. Time out was taken. The back was prepped and draped in sterile fashion with Chloraprep. Skin and subcutaneous tissues were anesthetized with 6 mL of Lidocaine 2% through a 25G needle. An 18G Touhy needle was then advanced under fluoroscopic guidance (A/P and contralateral oblique views) onto the inferior lamina and then advanced cephalad into the L4/5 epidural space using loss of resistance technique with a plastic MELA syringe. Isovue 2mL was injected under live fluoroscopy which demonstrated appropriate epidural spread without vascular uptake. After confirmation of negative aspiration, 6mL of PF normal saline and 10mg of PF dexamethasone (in 1mL) were injected. The needle was removed and a bandage applied. The patient was brought to the recovery area in stable condition and then monitored for an appropriate period of time. The patient was discharged home in good condition with post-procedure instructions. No apparent complications. Epidural injection procedure Physical Exam: vital signs Vital Signs 02/04/2023 10:43 EDT Heart Rate Monitored 76 bpm SpO2 99 % 02/04/2023 10:43 EDT Systolic Blood Pressure 115 mmHg Diastolic Blood Pressure 83 mmHg Mean Arterial Pressure, Monitered 93 mmHg 02/04/2023 10:42 EDT Temperature Oral 36.5 DegC 02/04/2023 10:42 EDT Respiratory Rate 12 br/min LOW . Correction: Dx: Other intervertebral disc displacement, lumbar region AND Srain of muscle, fascia, and tendon of lower back [facility] Comment on above: Result Comment: Elec tronically Signed By: Cortez CHEUNG, Clyde [place]\.br\Date and Time Signed: 02/12/23 12:13 EDT Consent for Procedure/Surger yon 02-04-2023 Consent for Procedure/Surgery [id number] 0#1.00CD:127 [facility] Consent for Treatmenton 01-19 Consent for Treatment [id number] 4#1.00CD:127 [facility] Discharge Instructionson Discharge Instructions [id number] 1#1.00CD:127 [facility] IntraOperative Documentson 0 02-04-2023 IntraOperative Documents [id number] 5#1.00CD:127 [facility] Main OR Intraoperative Recor don 02-04-2023 Main OR Intraoperative Record IntraOp Document Type FTPM Summary Primary Physician: Clyde Alcantar MD Finalized Date/Time: 02/04/23 11:10:40 Pt. Name: PRABHA LUNA Abbie PackB./Sex: 1990 Female Med Rec #: [id number] Physician: Clyde Alcantar MD Financial #: [id number] Pt. Type: P Room/Bed: / Admit/Disch: 02/04/23 10:37:53 - Institution: Case Times FTPM Entry 1 Patient Times In Room 02/04/23 11:03:00 Out Room 02/04/23 11:09:00 Procedure Times Start 02/04/23 11:06:00 Stop 02/04/23 11:08:00 Anesthesia Times Last Modified By: Steffany Benson RN 02/04/23 11:09:03 Case Attendance FTPM Entry 1 Entry 2 Entry 3 Case Attendee Clyde Alcantar MD, RN, Steffany Vasques RN, Kasey Dangelo Role Performed Surgeon - Primary Glue Sprayer - Primary Scrub - Primary Time In 02/04/23 11:03:00 02/04/23 11:03:00 02/04/23 11:03:00 Time Out 02/04/23 11:09:00 02/04/23 11:09:00 02/04/23 11:09:00 Procedure LUMBAR EPIDURAL STEROID LUMBAR EPIDURAL STEROID LUMBAR EPIDURAL STEROID INJECTION(.) INJECTION(.) INJECTION(.) Comments Last Modified By: Marcelino STRINGER, Steffany Benson RN, Steffany Armendariz RN 02/04/23 11:09:03 02/04/23 11:09:03 02/04/23 11:09:03 Entry 4 Case Attendee Chetan Linder Role Performed Music Historian Time In 02/04/23 11:03:00 Time Out 02/04/23 11:09:00 Procedure LUMBAR EPIDURAL STEROID INJECTION(.) Comments Last Modified By: Steffany Benson RN 02/04/23 11:09:03 Perioperative Protocols FTPM Pre-Care Text: Implements protective measures prior to operative or invasive procedure, confirms identity before the operative or invasive procedure, verifies operative procedure, surgical site, and laterality Entry 1 Procedure(s) LUMBAR EPIDURAL STEROID Patient Identity Birthday, ID Band INJECTION(.) Verified (select at Check, Patient least 2): Participation Consents / H and P HandP, Surgery/Procedure Operative Site Present Verified Consent Marking Verified Surgical Site Yes Laterality Verified Yes Verified Procedure Verified Yes Correct Patient Yes Position Verified Availability Equipment, Medication, Prep Dry Yes Verified (If X-ray Applicable) PreOp Antibiotic No Time Out Steffany Benson RN, Myers RN, Cortez Ryder MD, Niyah Ferguson Bryce Time Out Complete 02/04/23 11:04:00 Outcomes Met? Yes Last Modified By: Steffany Benson RN 02/04/23 11:04:08 Post-Care Text: The patient is free from signs and symptoms of injury caused by extraneous objects Allergy Information FTPM Pre-Care Text: Verifies allergies Entry 1 Allergies Reviewed? Yes Allergies Reviewed Self/Patient With Outcomes Met? Yes Last Modified By: Steffany Benson RN 02/04/23 10:49:09 Post-Care Text: The patient received appropriate medication(s) safely administered during the perioperative period Surgical Procedures FTPM Entry 1 Procedure Description Procedure LUMBAR EPIDURAL STEROID Modifiers . INJECTION Surgeon Description L4-5 FLACO Primary Procedure Yes Primary Surgeon Cortez CHEUNG, Clyde [place] Start 02/04/23 11:06:00 Stop 02/04/23 11:08:00 Anesthesia Type None Surgical Service Pain Management Wound Class 1 - Clean Last Modified By: Steffany Benson RN 02/04/23 11:09:05 General Case Data FTPM Pre-Care Text: Classifies surgical wound, implements aseptic technique, initiates traffic control Entry 1 Case Information OR Pain Proc Room Case Level Level 2 Wound Class 1 - Clean Specialty Pain Management Preop Diagnosis M51.26, S39.012A Postop Same As Preop Yes Postop Diagnosis M51.26, S39.012A Outcomes Met? Yes Last Modified By: Steffany Benson RN 02/04/23 11:04:18 Post-Care Text: The patient is free from signs and symptoms of infection Skin Assessment (Pre Procedure) FTPM Pre-Care Text: Implements protective measures to prevent skin/ tissue injury due to thermal or mechanical sources Evaluates for signs and symptoms of physical injury to skin and tissue Entry 1 Skin Integrity Intact, [place], Warm, and Skin Abnormality No Dry Outcomes Met? Yes Last Modified By: Steffany Benson RN 02/04/23 10:49:19 Post-Care Text: The patient is free from signs and symptoms of injury caused by extraneous objects Patient Positioning FTPM Pre-Care Text: Identifies physical alterations that require additional precautions for procedure-specific positioning, verifies presence of prosthetics or corrective devices, positions the patient, evaluates the patient for signs and symptoms of injury as a result of positioning Entry 1 Procedure LUMBAR EPIDURAL STEROID Body Position Prone INJECTION(.) Feet Uncrossed? Yes Left Arm Position Resting at Side Right Arm Position Resting at Side Left Leg Position Extended Right Leg Position Extended Positioning Device Pillow Under Head Large, Safety Strap, Pillow Large Under Knees Press Points Checked Yes By Steffany Benson RN Outcomes (more content not included)... [facility] Main OR Preoperative Recordo n 02-04-2023 Main OR Preoperative Record Holding Area Document Type FTPM Summary Primary Physician: Clyde Alcantar MD Finalized Date/Time: 02/04/23 10:42:56 Pt. Name: JEREMYPRABHA D.O.B./Sex: 1990 Female Med Rec #: [id number] Physician: Clyde Alcantar MD Financial #: [id number] Pt. Type: P Room/Bed: / Admit/Disch: 02/04/23 10:37:53 - Institution: Case Times Holding FTPM Pre-Care Text: Verifies consent for planned procedure, identifies individual values and wishes concerning care, includes family members in perioperative teaching Secures patient's records' belongings, and valuables, maintains patient's dignity and privacy, and maintains patient confidentiality Entry 1 In Holding 02/04/23 10:41:00 Outcomes Met? Yes Last Modified By: Mariah Cates RN 02/04/23 10:41:09 Post-Care Text: The patient participates in decisions affecting his or her perioperative plan of care The patient's right to privacy is maintained Surgery Checklist FTPM Entry 1 Patient Birthday, ID Band Procedure History and Physical, Identification: Check, Patient Verification: Surgical Consent, With Participation Patient NPO after Midnight: Yes Date/Time: 02/04/23 10:41:00 Results Reviewed N/A Personal Items: Jewelry Comments: Personal Items Pt. wearing two rings, Complaints of Pain: Yes Comment: belly button piercing and bilateral earrings. Pain Comment: 01/28 lower back pain Operative Site Yes Marking: Marked By: Dr. Alcantar Location: L4-L5 Availability Equipment, X-Ray Verified: Does Patient Smoke Yes If Yes to Smoking. vapes daily Cigars or Cigarettes. How much per day? Patient states Yes Comment - Adult mom-Alie postop adult Supervision supervision available Case Cancelled in No Holding Area see comments below for reason Last Modified By: Mariah Cates RN 02/04/23 10:42:55 Finalized By: Mariah Cates RN Document Signatures Signed By: Mariah Cates RN 02/04/23 10:42 [facility] Consent for Treatmenton 01-19 Consent for Treatment [id number] #1.00CD:127 [facility] Physician Orderon 01-31-2023 Physician Order [id number] #1.00CD:127 [facility] US Pelvis Non-OB Completeon 01-31-2023 US Pelvis Non-OB Complete Exam Date/Time: 01/31/2023 13:05 EDT Reason for Exam: R10.2 Report IMPRESSION: RETROFLEXED UTERUS WITH NORMAL OVARIES. CLINICAL HISTORY: R10.2. Pelvic pain. History of endometriosis. COMPARISON: 04/12/2016 COMMENT: Transabdominal images were obtained. The uterus measurements and an estimated volume are: Uterus Length: 7.4 cm Uterus Width: 5.0 cm Uterus Height: 3.3 cm Uterus Volume: 64.4 cm3 Endometrium Thickness: 0.5 cm The uterus is retroflexed. No uterine mass is evident. The right ovary measurements and an estimated volume are: Right Ovary Length: 4.9 cm Right Ovary Width: 2.0 cm Right Ovary Height: 3.2 cm Right Ovary Volume: 16.4 cm3 The left ovary measurements and an estimated volume are: Left Ovary Length: 3.4 cm Left Ovary Width: 3.5 cm Left Ovary Height: 1.6 cm Left Ovary Volume: 10.0 cm3 There are small follicular ovarian cysts. No large cyst nor adnexal mass is evident. There is no free fluid in the cul-de-sac. There is color flow into the both ovaries. Ordering Provider: Monika GAO FINAL REPORT Dictated: 01/31/2023 1:21 pm Zack Broderick M.D. Signed (Electronic Signature): 01/31/2023 1:21 pm Signed by: Zack Broderick M.D. Transcribed by: ALFRED Technologist: GONSALO Technical Comments Transabdominal Ultrasound Performed Uterus Position Retroflexed [facility] ED Clinical Summaryon 2022 ED Clinical Summary [place] [id number] ED Clinical Summary Person Information Name: PRABHA LUNA [facility] Age: 32 Years : 1990 Sex: Female Language: Zimbabwean PCP: Jana ZABALA PA-C Marital Status: Single Phone: [phone] Visit Id: Visit Reason: Vomiting; Nausea; Headache; ABDOMINAL PAIN AND HEADACHE Speciality: Acuity: 3 Enc Type: Emergency Med Service: Emergency Arrival: 01/27/2023 21:50:52 Discharge: 01/27/2023 23:02:51 LOS: 000 01:12 Checkin: 01/27/2023 21:50:52 Checkout: 01/27/2023 23:02:51 Dispo Type: Left Without Being Seen EVENTS: Event Name Event Status Request Date/Time Start Date/Time Complete Date/Time Arrive Complete 01/27/2023 21:50:52 01/27/2023 21:50:52 01/27/2023 21:50:52 Document Home Meds Request 01/27/2023 21:50:52 Triage Complete 01/27/2023 21:50:52 01/27/2023 22:23:10 01/27/2023 22:23:10 Registration Complete 01/27/2023 21:55:22 01/27/2023 21:55:22 01/27/2023 21:55:22 Reg Complete Request 01/27/2023 21:55:22 Reg Bed Request Complete 01/27/2023 21:55:22 01/27/2023 21:55:22 01/27/2023 21:55:22 Discharge Complete 01/27/2023 23:03:17 01/27/2023 23:03:17 01/27/2023 23:03:17 Transfer Complete 01/27/2023 23:03:17 01/27/2023 23:03:17 01/27/2023 23:03:17 ADDRESS: [facility] [place] [address] [phone] PHYS DOC NOTES: MEDICAL INFORMATION: Prescriptions Given: Medications to Continue with No Changes Other Medications acetaminophen-caffei ne (Excedrin Tension Headache) By Mouth every 6 hours. fluticasone nasal (Flonase Allergy Relief) 2 Sprays every day. galcanezumab (Emgality Prefilled Pen) Subcutaneous once a month. levothyroxine (levothyroxine 25 mcg (0.025 mg) Tab) 1 Tablets By Mouth every day. loratadine (Claritin) PRN allergies. naproxen 500 Milligram By Mouth 2 times a day. omeprazole 20 Milligram By Mouth every day. ondansetron (Zofran 4 mg Tab) 1 Tablets By Mouth every 6 hours as needed Nausea. Take one tab by mouth every six hours as needed for nausea. Refills: 0. ondansetron (Zofran ODT 4 mg Tab-Dis) 1 Tablets By Mouth every 8 hours as needed Nausea/Vomiting. Refills: 0. predniSONE (predniSONE 20 mg Tab) every day as needed Allergy symptoms. rimegepant (Nurtec ODT 75 mg oral tablet, disintegrating) tizanidine (tiZANidine 4 mg Tab) 1 Tablets By Mouth 3 times a day. Refills: 5. PATIENT EDUCATION INFORMATION: Instructions: Follow up: DIAGNOSIS: [facility] ED Patient Education Noteon 01-28-2023 ED Patient Education Note [facility] ED Patient Summaryon 023 ED Patient Summary [address] [address] Patient Discharge Instructions Person Information Name: PRABHA LUNA Age: 32 Years Arrival Date: 01/27/2023 21:50:52 Discharge Diagnosis: Primary Care Physician: Jana ZABALA PA-C Provider Information Primary Provider: Advanced Tie Loader:None The exam and treatment you received in the Emergency Department were for an urgent problem and are not intended as complete care. It is important that you follow up with a doctor, nurse practitioner, or physician?s assistant center manager for ongoing care. If your symptoms become worse or you do not improve as expected and you are unable to reach your usual health care provider, you should return to the Emergency Department. We are available 24 hours a day. MELISSAPRABHA Mancuso has been given the following list of patient education materials, prescriptions and follow-up instructions: Follow-up Instructions: In the event that this physician does not participate in your insurance network, please consult with your insurance company to find a nearby participating provider. Patient Education Materials: A MESSAGE TO ALL PATIENTS REGARDING OPIOIDS PRESCRIPTION OPIOIDS: WHAT YOU NEED TO KNOW Prescription opioids can be used to help relieve pgvsymop-nl-peaddk pain and are often prescribed following a surgery or injury, or for certain health conditions. These medications can be an important part of the treatment but also come with serious risks. It is important to work with your healthcare provider to make sure you are getting the safest, most effective care. WHAT ARE THE RISKS AND SIDE EFFECTS OF OPIOID USE? Prescription opioids carry serious risks of addiction and overdose, especially with prolonged use. An opioid overdose, often marked by slowed breathing, can cause sudden . The use of prescription opioids can have a number of side effects as well, even when taken as directed: ? Tolerance?meaning you might need to take more of the medication for the same pain relief ? Physical dependence?meaning you have symptoms of withdrawal when a medication is stopped ? Increased sensitivity to pain ? Constipation ? Nausea, vomiting, and dry mouth ? Sleepiness and dizziness ? Confusion ? Depression ? Low levels of testosterone that can result in lower sex drive, energy, and strength ? Itching and sweating RISKS ARE GREATER WITH: ? History of drug misuse, substance use disorder, or overdose ? Mental health conditions (such as depression or anxiety) ? Sleep apnea ? Older age (65 years and older) ? Avoid alcohol while taking prescription opioids. Also, unless specifically advised by your health care provider, medications to avoid include: ? Benzodiazepines (such as Xanax or Valium) ? Muscle relaxants (such as Soma or Flexeril) ? Hypnotics (such as Ambien or Lunesta) ? Other prescription opioids KNOW YOUR OPTIONS Talk to your health care provider about ways to manage your pain that don?t involve prescription opioids. Some of these options may actually work better and have fewer risks and side effects. Options may include: ? Pain relievers such as acetaminophen, ibuprofen, and naproxen ? Some medication that are also used for depression or seizures ? Physical therapy and exercise ? Cognitive behavioral therapy, a psychological, goal-directed approach, in which patients learn how to modify physical, behavioral, and emotional triggers of pain and stress. IF YOU ARE PRESCRIBED OPIOIDS FOR PAIN: ? Never take opioids in greater amounts or more often than prescribed. ? Follow up with your primary health care provider. o Work together to create a plan on how to manage your pain. o Talk about ways to help manage your pain that don?t involve prescription opioids. o Talk about any and all concerns and side effects. ? Help prevent misuse and abuse o Never sell or share prescription opioids. o Never use another person?s prescription opioids. ? Store prescription opioids in a secure place and out of reach of others (this may include visitors, children, friends, and family). ? Safely dispose of unused prescription opioids: Find your community drug take-back program or your pharmacy mail-back program, or flush them down the toilet, following guidance from the Food and Drug Administration (www.fda.gov/Drugs/R esourcesForYou). ? Visit www.cdc.gov/drugover dose to learn about the risks of opioids abuse and overdose. ? If you believe you may be struggling with addiction, tell your health geriatric care manager and ask for guidance or call SAMHSA?S National Helpline at 4-893-564-HELP. v Source: US Department of Health and Human Services/Center for Disease Control & Prevention [facility] Medications Given: Medication Dose Route No medications found. Medication Information: Medica (more content not included)... [facility] Consent for Treatmenton Consent for Treatment [id number] #1.00CD:127 [facility] Patient Correspondenceon Patient Correspondence [id number] #1.00CD:127 [facility] Workers' Comp Officeon 01-10 Workers' Comp Office [id number] 6#2.00CD:127 [facility] Consent for Treatmenton 12-20 Consent for Treatment [id number] 3#1.00CD:127 [facility] Consultation Noteon 01-01-20 Consultation Note Patient: PRABHA LUNA Age: 32 years Sex: Female : 1990 Associated Diagnoses: None Author: Altagracia Curtis PA-C Subjective Chief complaint 12/31/2022 8:45 EDT mid low back pain . Patient is a 32 year old female with a past medical history significant for a [facility]. The approved codes are m51.26 and S39.012A. Lumbar annular tear and lumbar strain. She presents today for a second follow-up after undergoing a repeat L4-5 epidural steroid injection. This was done on 10/15/2022 and gave her 80% relief followed by a continued 50% relief. She still feels at least 50% relief but is noticing that the pain is returning and she wants to stay on top of this. She wants to feel well for the summer. Her lower back pain with intermittent buttock pain is a 5/10. Up from a 2/10. She states that this is always how it starts. She intermittently uses tizanidine with improvement. She feels that since the previous injections worked so well for her she just wants to repeat this. She wants her activities to be improved for the summer. She cannot stand for more than 30 minutes and cannot walk for more than a mile at this time. She feels that it is getting worse as it normally does. Health Status Allergies: Allergic Reactions (Selected) Severity Not Documented Bee Stings- Swollen at site. Bentyl- Hives. Chocolate- Migraine. Red sauces- Migraine....... Nonallergic Reactions (Selected) Severity Not Documented Reglan- Twitching., Allergies (5) Active Reaction Bee Stings swollen at site Bentyl Hives Chocolate Migraine red sauces Migraine...... Reglan twitching Current medications: (Selected) Prescriptions Prescribed Zofran 4 mg Tab: 4 mg = 1 tab(s), Oral, q6hr, PRN Nausea, Take one tab by mouth every six hours as needed for nausea, # 10 tab(s), Refills(s) 0, [id number], cm, 02/05/22 16:14:00 EDT, Height/Length Dosing, 68, kg, 02/05/22 16:14:00 EDT, Weight D... Zofran ODT 4 mg Tab-Dis: 4 mg = 1 tab(s), Oral, q8hr, PRN Nausea/Vomiting, # 20 tab(s), Refills(s) 0, [id number] 158, cm, 12/12/22 20:36:00 EDT, Height/Length Dosing, 74, kg, 12/12/22 20:36:00 EDT, Weight Dosing tiZANidine 4 mg Tab: 4 mg = 1 tab(s), Oral, TID, # 90 tab(s), Refills(s) 5, [id number] 158, cm, 05/11/22 14:58:00 EDT, Height/Length Dosing, 68.5, kg, 05/11/22 14:58:00 EDT, Weight Dosing Documented Medications Documented Claritin: See Instructions, PRN allergies, Refills(s) 0 Emgality Prefilled Pen: SubCutaneous, qMonth, Refills(s) 0 Excedrin Tension Headache: Oral, q6hr, Refill(s) 0 Flonase Allergy Relief: = 2 spray(s), Daily, Refills(s) 0 Nurtec ODT 75 mg oral tablet, disintegrating: Refills(s) 0 levothyroxine 25 mcg (0.025 mg) Tab: 25 mcg = 1 tab(s), Oral, Daily, Refills(s) 0 naproxen: 500 mg, Oral, BID, Refills(s) 0 omeprazole: 20 mg, Oral, Daily, Refills(s) 0 predniSONE 20 mg Tab: Daily, PRN Allergy symptoms, Refills(s) 0 Problem list: All Problems Smoker 21-JAN-2014 12:37:00<$> / SNOMED CT [id number] / Confirmed Added secondary to documentation in Social History. Acid reflux / SNOMED CT 052725674 / Confirmed Anxiety / SNOMED CT 67739194 / Confirmed Anemia / SNOMED CT 804011189 / Confirmed Vomiting / SNOMED CT 3044119177 / Confirmed Headache / SNOMED CT 36682672 / Confirmed Resolved: Migraine / SNOMED CT 58849415 Resolved: Depression / SNOMED CT 668621206 Resolved: Pneumonia / SNOMED CT [id number] Canceled: Biliary dyskinesia / SNOMED CT 097554138 Objective Vital Signs 12/31/2022 8:45 EDT Peripheral Pulse Rate 78 bpm Respiratory Rate 16 br/min Systolic Blood Pressure 106 mmHg Diastolic Blood Pressure 75 mmHg Mean Arterial Pressure, Cuff 85 mmHg General: Alert and oriented, No acute distress. Has a mask on. Eye: Normal conjunctiva. HENT: Normocephalic, Normal hearing. Cardiovascular: No edema. Musculoskeletal Normal range of motion. Normal strength. 5/5 lower extremity strength Integumentary: Warm, Dry, [place]. Neurologic: Alert, Oriented. Psychiatric: Cooperative, Appropriate mood & affect. Impression and Plan Patient is a 32 year old female with a past medical history significant for a [facility] claim. The approved codes are m51.26 and S39.012A. Lumbar annular tear and lumbar strain. Patient underwent previous L4-5 epidural steroid injection. This was done on 10/15/2022 and gave her 80% relief followed by a continued 50% relief. She still feels at least 50% relief but is noticing that the pain is returning. Same pain pattern as previously. It is in the lower back and intermittently into the buttock. She rates it a 5/10. It has increased from her last appointment to now. She wants to feel well for the summer. She states that this is normally how her pain returns Based on her previous imaging findings, her pain pattern, and the significant improvement she got from the pr (more content not included)... [facility] Comment on above: Result Comment: Elec tronically Signed By: Altagracia Curtis PA-C\.br\Date and Time Signed: 12/31/22 09:09 EDT\.br\Electronically Co-Signed By: Clyde Alcantar MD\.br\Date and Time Co-Signed: 01/01/23 14:06 EDT Office/Clinic Note-Physician on 12-31-2022 Office/Clinic Note-Physician [id number] 8#1.00CD:127 [facility] Office/Clinic Note-Physician [id number] 1#1.00CD:127 [facility] Patient Correspondenceon Patient Correspondence [id number] 5#1.00CD:127 [facility] Patient Correspondence [id number] 6#1.00CD:127 [facility] Patient History Officeon Patient History Office [id number] 4#1.00CD:127 [facility] Discharge Instructionson Discharge Instructions [id number]#1.00CD:127 [facility] ED Clinical Summaryon 2022 ED Clinical Summary [place] [id number] ED Clinical Summary Person Information Name: PRABHA LUNA [place] Age: 32 Years : 1990 Sex: Female Language: Zimbabwean PCP: Jana ZABALA PA-C Marital Status: Single Phone: [phone] Visit Id: Visit Reason: Vomiting; Diarrhea; Abdominal pain; ABD PAIN Speciality: Acuity: 3 Enc Type: Emergency Med Service: Emergency Arrival: 12/12/2022 20:29:27 Discharge: 12/12/2022 23:25:38 LOS: 000 02:56 Checkin: 12/12/2022 20:29:27 Checkout: 12/12/2022 23:25:38 Dispo Type: Home (Routine DC) EVENTS: Event Name Event Status Request Date/Time Start Date/Time Complete Date/Time Arrive Complete 12/12/2022 20:29:27 12/12/2022 20:29:27 12/12/2022 20:29:27 Document Home Meds Request 12/12/2022 20:29:27 Triage Complete 12/12/2022 20:29:27 12/12/2022 20:36:47 12/12/2022 20:36:47 Bed Assign Complete 12/12/2022 20:31:39 12/12/2022 20:31:39 12/12/2022 20:31:39 Dr Exam Complete 12/12/2022 20:31:39 12/12/2022 20:34:01 12/12/2022 20:34:01 RN Exam Complete 12/12/2022 20:31:39 12/12/2022 21:07:37 12/12/2022 21:07:37 Registration Complete 12/12/2022 20:31:49 12/12/2022 20:31:49 12/12/2022 20:31:49 Reg Complete Request 12/12/2022 20:31:49 Reg Bed Request Complete 12/12/2022 20:31:49 12/12/2022 20:31:49 12/12/2022 20:31:49 Registration Complete 12/12/2022 20:34:01 12/12/2022 20:45:05 12/12/2022 20:45:05 Meds Admin Complete 12/12/2022 20:50:40 12/12/2022 21:02:25 Pending Labs Complete 12/12/2022 20:50:40 12/12/2022 21:46:58 Lab Complete 12/12/2022 20:50:40 12/12/2022 21:32:33 Urine Collect Complete 12/12/2022 20:50:40 12/12/2022 21:19:07 Pending Labs Complete 12/12/2022 21:10:09 12/12/2022 21:10:09 12/12/2022 21:32:34 Lab Complete 12/12/2022 21:10:09 12/12/2022 21:10:09 12/12/2022 21:32:34 Pending Labs Complete 12/12/2022 21:15:39 12/12/2022 21:15:39 12/12/2022 21:15:48 Lab Complete 12/12/2022 21:15:39 12/12/2022 21:15:39 12/12/2022 21:15:48 Meds Admin Complete 12/12/2022 21:32:17 12/12/2022 22:08:26 Discharge Complete 12/12/2022 23:08:51 12/12/2022 23:25:45 12/12/2022 23:25:45 Transfer Complete 12/12/2022 23:25:45 12/12/2022 23:25:45 12/12/2022 23:25:45 ADDRESS: [employer] [address] [place] [phone] PHYS DOC NOTES: MEDICAL INFORMATION: Prescriptions Given: Medications to Continue Taking That Have Changed [facility]/pharmacy #[id number], [address] [place], [place] [id number], [phone] START: ondansetron (Zofran ODT 4 mg Tab-Dis) 1 Tablets By Mouth every 8 hours as needed Nausea/Vomiting. Refills: 0. Other Medications START: ondansetron (Zofran 4 mg Tab) 1 Tablets By Mouth every 6 hours as needed Nausea. Take one tab by mouth every six hours as needed for nausea. Refills: 0. Medications to Continue with No Changes Other Medications acetaminophen-caffei ne (Excedrin Tension Headache) By Mouth every 6 hours. fluticasone nasal (Flonase Allergy Relief) 2 Sprays every day. galcanezumab (Emgality Prefilled Pen) Subcutaneous once a month. levothyroxine (levothyroxine 25 mcg (0.025 mg) Tab) 1 Tablets By Mouth every day. loratadine (Claritin) PRN allergies. naproxen 500 Milligram By Mouth 2 times a day. omeprazole 20 Milligram By Mouth every day. predniSONE (predniSONE 20 mg Tab) every day as needed Allergy symptoms. rimegepant (Nurtec ODT 75 mg oral tablet, disintegrating) tizanidine (tiZANidine 4 mg Tab) 1 Tablets By Mouth 3 times a day. Refills: 5. PATIENT EDUCATION INFORMATION: Instructions: Nausea and Vomiting, Adult; Abdominal Pain, Adult Follow up: With: Address: When: Jana ZABALA [address] [place] [address] Business (1) In 3 days DIAGNOSIS: AP (abdominal pain); Diarrhea; N&V (nausea and vomiting) [facility] ED Note-Physicianon 12-14-19 ED Note-Physician Basic Information Time Seen: Kenn Zurita DO 12/12/2022 20:34 Chief Complaint Pt started having abdominal pain this morning. Mainly in RUQ. Started with diarrhea and vomiting as well. Stated tonight noticed stool had mucus and red in it. History of Present Illness HPI: Patient is a 32-year-old female with medical history of GERD, anemia, anxiety who presents the ED for abdominal pain nausea and diarrhea. Patient states that this woke her up early this morning and has been persistent throughout the day. She states that she has had multiple loose bowel movements that are slightly mucousy in nature. She states that she is having abdominal discomfort in her mid to right upper abdomen. She is also had nausea but no vomiting throughout the day. She tried taking Pepto-Bismol which did seem to slightly help. This afternoon she then took a dose of Imodium a few hours ago and has not had any bowel movement since that time. She denies any urinary symptoms. She denies any fevers that she is aware of. She reports a past surgical history of prior cholecystectomy. ROS: Pertinent review of systems conducted and is negative except as noted above. Physical exam: General: nontoxic appearing and in no distress HEENT: Mucous membranes moist Neuro: awake and alert Neck: supple, trachea midline Card: Heart regular rate and rhythm no murmur Resp: Lungs clear to auscultation no wheeze or rhonchi Abd: Soft and nondistended. Mild epigastric and right upper quadrant tenderness without rebound or guarding. Ext: No gross deformity or edema Physical Exam Vitals & Measurements T: 36.6 ?C(Tympanic) HR: 84(Peripheral) RR: 16 BP: 127/77 SpO2: 100% HT: 158 cm WT: 74 kg BMI: 29.64 Medical Decision Making MEDICAL DECISION MAKING Number and Complexity of Problems Differential Diagnosis: [] [facility] Data External documents reviewed: N/A My EKG interpretation: Noted in chart if applicable My CT interpretation: N/A My X-ray interpretation: Noted in chart if applicable My Ultrasound interpretation: N/A Decision rules/scores evaluated: N/A Discussed with: N/A Treatment and Disposition ED Course: Patient is nontoxic-appearing and in no distress. She has some mild epigastric and right upper quadrant tenderness without rebound or guarding. She is status postcholecystectomy. We will obtain the lab work and give her IV fluids as well as Zofran. Labs are overall reassuring other than a mild hypokalemia which we will replete here in the ED. We will also give her a GI cocktail for comfort. On my reevaluation she is feeling much better. We discussed the results of her testing tonight. At this time I feel she is stable for discharge with a prescription for Zofran. She will continue oral hydration and eat a easy to digest diet. She will follow-up with her primary care physician on outpatient basis. Shared decision making: As above Code status: N/A Assessment/Plan AP (abdominal pain) (R10.9: Unspecified abdominal pain) Diarrhea (R19.7: Diarrhea, unspecified) N&V (nausea and vomiting) (R11.2: Nausea with vomiting, unspecified) Orders: Al hydroxide/Mg hydroxide/simethicon e, 30 mL, Susp-Oral, Oral, Once, Stop date 12/12/22 21:31:00 EDT, STAT, Start date 12/12/22 21:31:00 EDT famotidine, 20 mg = 2 mL, Soln-IV, IV Push, Once, Stop date 12/12/22 20:50:00 EDT, STAT, Start date 12/12/22 20:50:00 EDT, 12/12/22 20:50:00 EDT famotidine, Soln-IV, Misc, Once, Stop date 12/12/22 20:55:11 EDT, Physician Stop, 12/12/22 20:55:11 EDT lidocaine topical, 200 mg, 10 mL, Soln-Oral, Oral, Once, Stop date 12/12/22 21:31:00 EDT, STAT, Start date 12/12/22 21:31:00 EDT ondansetron, 4 mg = 2 mL, Injection, IV Push, Once, Stop date 12/12/22 20:50:00 EDT, STAT, Start date 12/12/22 20:50:00 EDT, 12/12/22 20:50:00 EDT ondansetron, 4 mg = 1 tab(s), Oral, q8hr, PRN Nausea/Vomiting, # 20 tab(s), Refills(s) 0, Pharmacy: [facility]/pharmacy #[id number], 158, cm, 12/12/22 20:36:00 EDT, Height/Length Dosing, 74, kg, 12/12/22 20:36:00 EDT, Weight Dosing potassium chloride, 40 mEq = 2 tab(s), Tab-ER, Oral, Once, Stop date 12/12/22 21:31:00 EDT, STAT, Start date 12/12/22 21:31:00 EDT, 12/12/22 21:31:00 EDT Sodium Chloride 0.9% intravenous solution, 1,000 mL, Soln-IV, IV, Once, Stop date 12/12/22 20:50:00 EDT, STAT, Start date 12/12/22 20:50:00 EDT, Infuse over 61, minute(s) Automated Diff Basic Metabolic Panel Beta hCG Qual CBC w/ Auto Diff eGFR Hepatic Function Panel Lipase Level UA With Cult Reflex Medications Administered Given Al hydroxide/Mg hydroxide/simethicon e 200 mg-200 mg-20 mg/5 mL oral suspension, 30 mL, Oral famotidine 10 mg/mL IV Josefa, 20 mg, IV Push lidocaine Viscous Top 2% Josefa 15 mL, 200 mg, Oral NS 1000 ml Bolus, 1000 mL, IV ondansetron 4 mg/2 mL Inj, 4 mg, IV Push potassium chloride 20 mEq ER Tab, 40 mEq, Oral Disposition Plan Discharge Prescription List Prescriptions Zofran ODT 4 mg Tab-Dis, 4 mg= 1 tab(s), Oral, q8hr, PRN Follow-up With When Contac (more content not included)... [facility] Comment on above: Result Comment: Elec tronically Signed By: Kenn Zurita DO\.br\Date and Time Signed: 12/12/22 23:10 EDT ED Patient Education Noteon 12-13-2022 ED Patient Education Note Gastroenterology Nausea and Vomiting, Adult Nausea is the feeling that you have an upset stomach or that you are about to vomit. As nausea gets worse, it can lead to vomiting. Vomiting is when stomach contents forcefully come out of your mouth as a result of nausea. Vomiting can make you feel weak and cause you to become dehydrated. Dehydration can make you feel tired and thirsty, cause you to have a dry mouth, and decrease how often you urinate. Older adults and people with other diseases or a weak disease-fighting system (immune system) are at higher risk for dehydration. It is important to treat your nausea and vomiting as told by your health care provider. Follow these instructions at home: Watch your symptoms for any changes. Tell your health care provider about them. Eating and drinking ? Take an oral rehydration solution (ORS). This is a drink that is sold at pharmacies and retail stores. ? Drink clear fluids slowly and in small amounts as you are able. Clear fluids include water, ice chips, low-calorie sports drinks, and fruit juice that has water added (diluted fruit juice). ? Eat bland, rtzd-ny-enfeny foods in small amounts as you are able. These foods include bananas, applesauce, rice, lean meats, toast, and crackers. ? Avoid fluids that contain a lot of sugar or caffeine, such as energy drinks, sports drinks, and soda. ? Avoid alcohol. ? Avoid spicy or fatty foods. General instructions ? Take [place] and prescription medicines only as told by your health care provider. ? Drink enough fluid to keep your urine pale yellow. ? Wash your hands often using soap and water for at least 20 seconds. If soap and water are not available, use hand practical nursing faculty. ? Make sure that everyone in your household washes their hands well and often. ? Rest at home while you recover. ? Watch your condition for any changes. ? Take slow and deep breaths when you feel nauseous. ? Keep all follow-up visits. This is important. Contact a health care provider if: ? Your symptoms get worse. ? You have new symptoms. ? You have a fever. ? You cannot drink fluids without vomiting. ? Your nausea does not go away after 2 days. ? You feel light-headed or dizzy. ? You have a headache. ? You have muscle cramps. ? You have a rash. ? You have pain while urinating. Get help right away if: ? You have pain in your chest, neck, arm, or jaw. ? You feel extremely weak or you faint. ? You have persistent vomiting. ? You have vomit that is bright red or looks like black coffee grounds. ? You have bloody or black stools (feces) or stools that look like tar. ? You have a severe headache, a stiff neck, or both. ? You have severe pain, cramping, or bloating in your abdomen. ? You have difficulty breathing, or you are breathing very quickly. ? Your heart is beating very quickly. ? Your skin feels cold and clammy. ? You feel confused. ? You have signs of dehydration, such as: ? Dark urine, very little urine, or no urine. ? Cracked lips. ? Dry mouth. ? Sunken eyes. ? Sleepiness. ? Weakness. These symptoms may be an emergency. Get help right away. Call 911. ? Do not wait to see if the symptoms will go away. ? Do not drive yourself to the hospital. Summary ? Nausea is the feeling that you have an upset stomach or that you are about to vomit. As nausea gets worse, it can lead to vomiting. Vomiting can make you feel weak and cause you to become dehydrated. ? Follow instructions from your health care provider about eating and drinking to prevent dehydration. ? Take onls-lwe-ibeiauo and prescription medicines only as told by your health care provider. ? Contact your health care provider if your symptoms get worse, or you have new symptoms. ? Keep all follow-up visits. This is important. This information is not intended to replace advice given to you by your health care provider. Make sure you discuss any questions you have with your health care provider. Document Revised: 01/12/2022 Document Reviewed: 01/12/2022 [employer] Patient Education ? 2022 [employer] Abdominal Pain, Adult Pain in the abdomen (abdominal pain) can be caused by many things. Often, abdominal pain is not serious and it gets better with no treatment or by being treated at home. However, sometimes abdominal pain is serious. Your health care provider will ask questions about your medical history and do a physical exam to try to determine the cause of your abdominal pain. Follow these instructions at home: Medicines ? Take palk-vny-bmaysor and prescription medicines only as told by your health care provider. ? Do not take a laxative unless told by your health care provider. General instructions ? Watch your condition for any changes. ? Drink enough fluid to keep your urine pale yellow. ? Keep all follow-up visits as told by your h (more content not included)... Normal [facility] ED Patient Summaryon 023 ED Patient Summary [address] [address] Patient Discharge Instructions Person Information Name: PRABHA LUNA Age: 32 Years Arrival Date: 12/12/2022 20:29:27 Discharge Diagnosis: AP (abdominal pain); Diarrhea; N&V (nausea and vomiting) Primary Care Physician: Jana ZABALA PA-C Provider Information Primary Provider: Kenn Zurita DO Advanced Tie Loader:None The exam and treatment you received in the Emergency Department were for an urgent problem and are not intended as complete care. It is important that you follow up with a doctor, nurse practitioner, or physician?s assistant center manager for ongoing care. If your symptoms become worse or you do not improve as expected and you are unable to reach your usual health care provider, you should return to the Emergency Department. We are available 24 hours a day. PRABHA LUNA has been given the following list of patient education materials, prescriptions and follow-up instructions: Follow-up Instructions: With: Address: When: Jana ZABALA [address] [place] [address] Business (1) In 3 days In the event that this physician does not participate in your insurance network, please consult with your insurance company to find a nearby participating provider. Patient Education Materials: Nausea and Vomiting, Adult; Abdominal Pain, Adult A MESSAGE TO ALL PATIENTS REGARDING OPIOIDS PRESCRIPTION OPIOIDS: WHAT YOU NEED TO KNOW Prescription opioids can be used to help relieve jfoljfkg-nv-fdwuxh pain and are often prescribed following a surgery or injury, or for certain health conditions. These medications can be an important part of the treatment but also come with serious risks. It is important to work with your healthcare provider to make sure you are getting the safest, most effective care. WHAT ARE THE RISKS AND SIDE EFFECTS OF OPIOID USE? Prescription opioids carry serious risks of addiction and overdose, especially with prolonged use. An opioid overdose, often marked by slowed breathing, can cause sudden . The use of prescription opioids can have a number of side effects as well, even when taken as directed: ? Tolerance?meaning you might need to take more of the medication for the same pain relief ? Physical dependence?meaning you have symptoms of withdrawal when a medication is stopped ? Increased sensitivity to pain ? Constipation ? Nausea, vomiting, and dry mouth ? Sleepiness and dizziness ? Confusion ? Depression ? Low levels of testosterone that can result in lower sex drive, energy, and strength ? Itching and sweating RISKS ARE GREATER WITH: ? History of drug misuse, substance use disorder, or overdose ? Mental health conditions (such as depression or anxiety) ? Sleep apnea ? Older age (65 years and older) ? Avoid alcohol while taking prescription opioids. Also, unless specifically advised by your health care provider, medications to avoid include: ? Benzodiazepines (such as Xanax or Valium) ? Muscle relaxants (such as Soma or Flexeril) ? Hypnotics (such as Ambien or Lunesta) ? Other prescription opioids KNOW YOUR OPTIONS Talk to your health care provider about ways to manage your pain that don?t involve prescription opioids. Some of these options may actually work better and have fewer risks and side effects. Options may include: ? Pain relievers such as acetaminophen, ibuprofen, and naproxen ? Some medication that are also used for depression or seizures ? Physical therapy and exercise ? Cognitive behavioral therapy, a psychological, goal-directed approach, in which patients learn how to modify physical, behavioral, and emotional triggers of pain and stress. IF YOU ARE PRESCRIBED OPIOIDS FOR PAIN: ? Never take opioids in greater amounts or more often than prescribed. ? Follow up with your primary health care provider. o Work together to create a plan on how to manage your pain. o Talk about ways to help manage your pain that don?t involve prescription opioids. o Talk about any and all concerns and side effects. ? Help prevent misuse and abuse o Never sell or share prescription opioids. o Never use another person?s prescription opioids. ? Store prescription opioids in a secure place and out of reach of others (this may include visitors, children, friends, and family). ? Safely dispose of unused prescription opioids: Find your community drug take-back program or your pharmacy mail-back program, or flush them down the toilet, following guidance from the Food and Drug Administration (www.fda.gov/Drugs/R esourcesForYou). ? Visit www.cdc.gov/drugover dose to learn about the risks of opioids abuse and overdose. ? If you believe you may be struggling with addiction, tell your health geriatric care manager and ask for guidance or call [facility]?S National Helpline at 1 (more content not included)... Normal [facility] Auto Diffon 12-12-2022 Basophils/100 WBC (Bld) 1.4 % Normal 0.0-2.0 [facility] Comment on above: Order Comment: Order Added by Discern Expert. Performed By: #### 2 419039, 52890883, 9824593, 09794733, 4665397, 4031076, 0955913 ####[facility] [address] [place] [address] Basophils/Leukocytes Auto (Bld) [Pure # fraction] 0.1 E9/L Normal 0.0-0.2 [facility] Comment on above: Order Comment: Order Added by Discern Expert. Performed By: #### 2 872802, 85812842, 1555555, 18226696, 2942219, 2704238, 1085342 ####[facility] [address] [place] [address] Eosinophils/100 WBC (Bld) 3.3 % Normal 0.0-8.0 [facility] Comment on above: Order Comment: Order Added by Discern Expert. Performed By: #### 2 779670, 84014620, 5627922, 66099738, 5814500, 0498440, 9068835 ####[facility] [address] [place] [address] Eosinophils/Leukocytes Auto (Bld) [Pure # fraction] 0.3 E9/L Normal 0.0-0.5 [facility] Comment on above: Order Comment: Order Added by Chavez Expert. Performed By: #### 2 430645, 61722464, 7332784, 39776677, 3942536, 8616565, 7288120 ####[facility] [address] [place] [address] Lymphocytes/100 WBC (Bld) 24.0 % Normal 14.0-50.0 [facility] Comment on above: Order Comment: Order Added by Discern Expert. Performed By: #### 2 365476, 33484024, 1043104, 54585483, 6209665, 4096445, 4076243 ####[address] [place] [address] Lymphocytes/Leukocytes Auto (Bld) [Pure # fraction] 2.5 E9/L Normal 1.0-4.0 [facility] Comment on above: Order Comment: Order Added by Chavez Expert. Performed By: #### 2 098856, 65982067, 6871396, 42045108, 5077191, 6532243, 6271668 ####[address] [place] [address] Monocytes/100 WBC (Bld) 8.9 % Normal 4.0-14.0 [facility] Comment on above: Order Comment: Order Added by Chavez Expert. Performed By: #### 2 195266, 93613893, 4154594, 76538599, 6247659, 7555206, 4049243 ####[address] [address] Monocytes/Leukocytes Auto (Bld) [Pure # fraction] 0.9 E9/L Normal 0.2-1.0 [facility] Comment on above: Order Comment: Order Added by Chavez Expert. Performed By: #### 2 077247, 11729501, 6080920, 85470098, 1314010, 0157687, 7202254 ####[address] [place] [address] Neutrophils/100 WBC (Bld) 62.4 % Normal 36.0-75.0 [facility] Comment on above: Order Comment: Order Added by Discern Expert. Performed By: #### 2 084994, 52052249, 1117235, 44507988, 3031053, 7851783, 7713911 ####[facility] [address] [place] [address] Neutrophils/Leukocytes Auto (Bld) [Pure # fraction] 6.6 E9/L Normal 2.0-7.5 [facility] Comment on above: Order Comment: Order Added by Discern Expert. Performed By: #### 2 981208, 66031087, 2766730, 42323865, 6019312, 0212432, 6053741 ####[address] [place] [address] B hCG Qualon 12-12-2022 Beta hCG Ql Negative Normal [facility] Comment on above: Performed By: #### 2 619527, 45660335, 1138197, 14039972, 8365101, 5605348, 4070317 ####[facility] [address] [place] [address] BMPon 12-12-2022 Creatinine [Mass/Vol] 1.0 mg/dL Normal 0.5-1.3 [facility] Comment on above: Performed By: #### 2 225882, 13320566, 8420242, 89135377, 3248713, 1242098, 5691877 ####[facility] [address] [place] [address] Urea nitrogen [Mass/Vol] 15 mg/dL Normal 5-21 [facility] Comment on above: Performed By: #### 2 407456, 88260013, 0037976, 61439874, 6047465, 2034892, 1523320 ####[facility] [address] [place] [address] Urea nitrogen/Creatinine [Mass ratio] 15 No Units Normal 10-20 [facility] Comment on above: Performed By: #### 2 124849, 21448946, 2656748, 23089342, 5555938, 8748207, 5116979 ####[facility] [address] [place] [address] Anion gap [Moles/Vol] 11 mmol/L Normal 6-16 [facility] Comment on above: Performed By: #### 2 396517, 07918102, 0694512, 56530440, 1595011, 2069345, 6388825 ####[facility] [address] [place] [place] [address] Calcium [Mass/Vol] 9.1 mg/dL Normal 8.9-11.1 [facility] Comment on above: Performed By: #### 2 957423, 20219208, 0694122, 72246553, 8419833, 6637991, 3261399 ####[facility] [address] [place] [address] Chloride [Moles/Vol] 109 mmol/L Normal 101-111 [facility] Comment on above: Performed By: #### 2 417120, 19199554, 1394037, 94967138, 5497770, 1402490, 6234396 ####[facility] [address] [place] [place] [address] CO2 [Moles/Vol] 24 mmol/L Normal 21-31 [facility] Comment on above: Performed By: #### 2 023523, 02121166, 4249356, 32678894, 1849453, 7425885, 7244681 ####[facility] [address] [address] Glucose [Mass/Vol] 94 mg/dL Normal 55-199 [facility] Comment on above: Result Comment: If t his glucose result represents a fasting glucose, interpretation should refer to the following reference range: 55-99 mg/dL Performed By: #### 2 423667, 86845336, 6020480, 42189914, 3420338, 4916190, 6606015 ####[facility] [address] [address] Potassium [Moles/Vol] 3.2 mmol/L Low 3.5-5.3 [facility] Comment on above: Performed By: #### 2 580645, 01669401, 1782321, 18142788, 3583237, 2950406, 7043134 ####[facility] [address] [place] [address] Sodium [Moles/Vol] 141 mmol/L Normal 135-145 [facility] Comment on above: Performed By: #### 2 755253, 30964175, 9061161, 84711165, 2551521, 5485199, 8224633 ####[address] [address] CBC w/ Auto Diffon 3 Erythrocyte distribution width (RBC) [Ratio] 13.2 % Normal 10.9-14.2 [facility] Comment on above: Performed By: #### 2 681592, 23620265, 2937276, 16000616, 1981186, 7071376, 4188725 ####[address] [place] [address] Hematocrit (Bld) [Volume fraction] 41.6 % Normal 34.0-46.0 [facility] Comment on above: Performed By: #### 2 136063, 73084355, 1935581, 93034819, 1270637, 2171100, 5889466 ####[address] [place] [address] Hemoglobin (Bld) [Mass/Vol] 13.9 g/dL Normal 12.0-16.0 [facility] Comment on above: Performed By: #### 2 185641, 83722518, 1759645, 38760899, 9615968, 5719645, 3718429 ####[address] [place] [address] MCH (RBC) [Entitic mass] 29.2 pg Normal 27.0-34.0 [facility] Comment on above: Performed By: #### 2 002692, 00815187, 0057139, 91658561, 2934099, 4716805, 6184378 ####[facility] [address] [place] [address] MCHC (RBC) [Mass/Vol] 33.5 g/dL Normal 31.4-36.0 [facility] Comment on above: Performed By: #### 2 879710, 53095429, 6482898, 95076828, 1808306, 5393252, 4458857 ####[place] [address] MCV (RBC) [Entitic vol] 86.9 fL Normal 80.0-100.0 [facility] Comment on above: Performed By: #### 2 518445, 72840629, 2790858, 07354740, 6669182, 2578994, 0680630 ####[address] [address] Platelet mean volume (Bld) [Entitic vol] 7.9 fL Normal 6.4-10.8 [facility] Comment on above: Performed By: #### 2 119939, 16363867, 6662084, 60160711, 8962544, 5176245, 0129413 ####[address] [address] Platelets (Bld) [#/Vol] 261.0 E9/L Normal 150.0-500.0 [facility] Comment on above: Performed By: #### 2 146176, 76943543, 5907675, 78308062, 7744875, 7402100, 8599665 ####[address] [address] RBC (Bld) [#/Vol] 4.8 E12/L Normal 4.3-5.9 [facility] Comment on above: Performed By: #### 2 010386, 24668946, 6586837, 96063698, 2261454, 4596443, 7861617 ####[address] [address] WBC corrected for nucl RBC Auto (Bld) [#/Vol] 10.5 E9/L Normal 4.0-11.0 [facility] Comment on above: Performed By: #### 2 907940, 15961252, 7082248, 50262573, 6174706, 2379462, 3727134 ####[facility] [address] [place] [address] Consent for Treatmenton 11-20 Consent for Treatment [id number] 30 [id number] #1.00CD:127 Normal [facility] Hep Func Panelon 12-12-2022 Albumin [Mass/Vol] 4.0 g/dL Normal 3.3-5.0 [facility] Comment on above: Performed By: #### 2 480626, 29095461, 5670443, 19563505, 0281832, 8406482, 1089767 ####[address] [place] [address] Albumin/Globulin (S) [Mass conc ratio] 1.4 Normal 1.1-2.2 [facility] Comment on above: Performed By: #### 2 832261, 54455801, 0924713, 71740258, 4915623, 3761540, 5212520 ####[facility] [address] [place] [address] ALP [Catalytic activity/Vol] 46 Int._Unit/L Normal 21-98 [facility] Comment on above: Performed By: #### 2 866057, 78046772, 7036606, 88314457, 8912262, 5202281, 9448496 ####[facility] [address] [place] [address] ALT No additional P-5'-P [Catalytic activity/Vol] 10 Int._Unit/L Normal 6-46 [facility] Comment on above: Performed By: #### 2 177178, 79630275, 7015754, 53384598, 3066452, 9960476, 3593843 ####[address] [place] [address] AST [Catalytic activity/Vol] 14 Int._Unit/L Normal 5-43 [facility] Comment on above: Performed By: #### 2 175098, 62542365, 7394710, 37454519, 7113470, 9680500, 3319660 ####[facility] [address] [place] [address] Bilirubin [Mass/Vol] 0.7 mg/dL Normal 0.0-1.1 [facility] Comment on above: Performed By: #### 2 903917, 66246909, 1526492, 28736834, 4752971, 8046844, 9603259 ####[facility] [address] [place] [address] Bilirubin.direct [Mass/Vol] 0.1 mg/dL Normal 0.1-0.4 [facility] Comment on above: Performed By: #### 2 405913, 31924417, 6539791, 26551398, 4317115, 6452655, 9641334 ####[address] [address] Bilirubin.indirect [Mass or moles/Vol] 0.6 mg/dL Normal 0.1-0.9 [facility] Comment on above: Performed By: #### 2 022526, 48148484, 1974379, 91793667, 1874317, 1388762, 9135513 ####[address] [address] Globulin (S) [Mass/Vol] 2.8 g/dL Normal 1.4-4.0 [facility] Comment on above: Performed By: #### 2 551795, 43791833, 3858061, 32098941, 2361684, 3962605, 0493420 ####[facility] [address] [place] [address] Protein [Mass/Vol] 6.8 g/dL Normal 6.0-7.8 [facility] Comment on above: Performed By: #### 2 052823, 32740626, 8517846, 75422499, 8133223, 9933121, 0884003 ####[facility] [address] [place] [address] Lipase Levelon 12-12-2022 Lipase [Catalytic activity/Vol] 27 U/L Normal 13-58 [facility] Comment on above: Performed By: #### 2 711447, 23537948, 1782120, 57435566, 5506127, 6603401, 3266961 ####[facility] [address] [place] [address] UA With Cult Reflexon 2022 Bacteria LM Ql (Urine sed) 1+ /HPF Abnormal Trace [facility] Comment on above: Performed By: #### 1 8920210 ####[address] [address] Bilirubin Ql (U) Negative Normal Negative [facility] Comment on above: Performed By: #### 1 0308165 ####[address] [address] Clarity (U) CLEAR Normal Clear [facility] Comment on above: Performed By: #### 1 1320261 ####[address] [address] Color (U) YELLOW Normal Yellow [facility] Comment on above: Performed By: #### 1 6278736 ####[address] [address] Crystals LM Ql (Urine sed) Present Normal [facility] Comment on above: Performed By: #### 1 4482042 ####[address] [place] [address] Epithelial cells.squamous LM.HPF (Urine sed) [#/Area] 0-2 Normal 0-2 [facility] Comment on above: Performed By: #### 1 9773464 ####[facility] [address] [place] [address] Glucose Test strip (U) [Mass/Vol] Negative Normal Negative [facility] Comment on above: Performed By: #### 1 6778534 ####[address] [address] Hemoglobin Ql (U) 1+ Abnormal Negative [facility] Comment on above: Performed By: #### 1 3682553 ####[address] [address] Ketones (U) [Mass/Vol] Negative Normal Negative [facility] Comment on above: Performed By: #### 1 9891867 ####[address] [address] Skelp.plasma/Skelp .RBC (Bld) [Mass ratio] 0-3 Normal 0-3 [facility] Comment on above: Performed By: #### 1 5560470 ####[address] [address] Mucus Ql (Urine sed) 1+ Normal Fish [facility] Comment on above: Performed By: #### 1 6447663 ####[address] [address] Nitrite Ql (U) Negative Normal Negative [facility] Comment on above: Performed By: #### 1 6859513 ####[address] [address] pH (U) 5.5 [pH] Invalid Interpretation Code 5.0-9.0 [facility] Comment on above: Performed By: #### 1 5330687 ####[address] [address] Protein (U) [Mass/Vol] Negative Normal Negative [facility] Comment on above: Performed By: #### 1 7963845 ####[address] [address] Specific gravity (U) [Rel density] 1.025 Invalid Interpretation Code 1.005-1.030 [facility] Comment on above: Performed By: #### 1 8258600 ####[address] [address] Type of Urine collection method Clean Catch Normal [facility] Comment on above: Performed By: #### 1 8930958 ####[facility] [address] [place] [address] Urobilinogen Qn (U) 0.2 {Lc'U}/dL Normal 0.0-1.0 [facility] Comment on above: Performed By: #### 1 6083743 ####[facility] [address] [place] [address] WBC Auto Ql (U) Negative Normal Negative [facility] Comment on above: Performed By: #### 1 5814506 ####[facility] [address] [place] [address] WBC LM.HPF (Urine sed) [#/Area] 0-5 Normal 0-5 [facility] Comment on above: Performed By: #### 1 1995471 ####[facility] [address] [place] [address] eGFRon 12-12-2022 GFR/1.73 sq M.predicted among non-blacks MDRD (S/P/Bld) [Vol rate/Area] 76 mL/min/1.73 m2 Normal >=59 [facility] Comment on above: Order Comment: Order added by Discern Expert. Result Comment: [employer] jeramie kidney disease could be indicated at eGFR's of less than 60 mL/min/1.73m2. Kidney failure is indicated at less than 15 mL/min/1.73m2. Performed By: #### 2 868653, 83937714, 6637618, 60463681, 5679732, 6712816, 1548167 ####[facility] [address] [place] [address] HST Home Sleep Testingon HST Home Sleep Testing Please click on l ink to see report [id number] 5ATLyVVDZN5JmdjZmxmT zIDUg QGYHQ55uBSraMv78XWaw SEPqUlBaJRi8Dz7dOgSu e4LzY5KoYZqmYi6idPj8 D3RDLNNMSOS7RKEb Hz1INKEPLgNoYRYfNYHM W2EWAVQHQuHtDwNvOOKm LzIVPYZVRHE3QXJxDx8Y FWXEF8HpHfPyNAET J2PKHEXCQuZaEDUsUVO+ On4WS3BtARJ7CBczMFAt NiAwIFI+Pj4+H7aoj2Tv JUe4L6X6fLPdT4Cb hSKgMa8XkrEtk2GlbxVo P4rrC4IsSGM1kMVuAxaN Pj4+Hi8ZCV9wh3KeNXt7 SPJxf3JuCEk8JM0P HF3siLrjOeyhUYWJT5Nk bHRlciAvRmxhdGVEZWNv ZGU+JkS9xoMweM5WxWoa DnjX4HAqSg3SddaE pVll3GfbTGZTyU7dZ37U 5Ju9FrudY/J6KWaoYdP/ 0G87AyLpRCPYRz36ndq2 KVEaFJBVlfdVRbkQ 2RkasZ96SRlpQqI5jExI 9AL7hAWRahjAVDr7Ud/E YrOwHv+7Tv+NtjBGCKGM rRb5Ef1lpbxqzILK lbSFMxGGRViIQqRfLXh4 BRSBi5eWVeYqra2KdjIa R/oTfPDsP+Ec7A7jS/g9 TDB56+PP1ccSJ+DX k7MLz1pL4u7EoCgTlMXq aFDmCYRlHgI61hTO38zA KxzvB8i46+OFUo1Fjood 4Sc9ngFgwJmmxajE o9n0qOHHK6b4eZv7K11/ lr2RAgTW9cQAM3vou1Fw bkZkzT2WtQ9Nijy1ZMeI N5lZ6Jg/5SAXYW1e naD8HHqqzTpDF6we70BN C4DvRhWnWvMmLrQnd0it FR7/tHjyL/+xb2x7Lwve B/LIm50vbGm/9fth XJ6KCanZsda8/v4/8Ll0 +Oz74I3v9gMsDLvGSFNG +KEPUE3BH/pn2ksr4ETK NyPv03o6gJ9WcOnt PQ0nu8IFUx1jWzGHgKBI SeA5fHj06HOSxggeHRxV Dv6gv5HLkt2bN53JzPdL Aa+9k6PVdD7ZMtwG cikHCVJaVuhYTpYeNp4g 5Ys/aeWr5/YUM6SWZJ8D iEUaWsahxRdv2uP787Xa CG89+NyAHa5c6+v6 Zk+vuBh7S8Fo08tJ0SV8 WFgPYFXm+HfVsdlRGLvm BE2k8dv+iWyj2uAvfLQl JQLO5ZggJ02A+/jg qCC//CNoEbZJqWKhvYsx qFVShY6RnfIk62F9GsYH eKbQLOUMme2T6ODpCYp6 I82jW09ijSwMAJt8 PmsXS55Qa78wSbIQKRIo JswMAfq7rArQKzUgbJOt l+30AykEquhA6LjP0lGl 3mEjJHxeS8V7mxEP j1mHPMnII1MtxFWDGuKn 1O68u8dxF4e0vfSi5j80 d8M+KKulkWPXtxy9Sb7m f3j/5VSMHML7NPRd 4f8D7zH2dbPEKyr772U6 CorRS7P7YoYhAQoFeoP1 A8ZbQhgkB5u+GIQyHZ6b oniv6ID26mYvSfGB MGUPk/TUXZQfWuaM5vPA +VRj6it6FXqXoQKIOxWo xiAb0enkbrUwgxTViZVM MSFGsMAqr1VH5XWR bg/QKWE2gKwKhsokGWEF 2CY/LSZHyPAZRsyn2AZo MiIVReHzP2gduMG5A582 gDVYXQas3ZyzFWkN THK0w8exkKf7bxQRNciz HM9g941W5wLA2hCbXwrX MhTdD+vmN1xMMm61s/mz akIRXEz2IDEKvORV miR4FM9g14kg5hWF/RF1 B2+QIHNSmLQned1Sm+p5 Krl64yTN1TwlcWGmMXmj YLu3bcjUPh3HIhuL W3z/7vV/EbdC+cKCXQRd 3FryGj1+fUz4FeGAMnKK HwE4DLcFMmKz/9BtatTX qESsGm/5Mfg5iqYr gHRjrg2hPmVUFosrsYaI hzcjVjA8NWNhv6KQk6Zc EM64sHHGjcfjd1pbLRGu c8Hw6P+WC+wz/Qxc Um89MGMRV119yu+wwRUC GBqKreCWuH7grgdUVQIa rS1LJbH/POdtpcFLib8A Rrt6+ffBys1t5BdY xfH0CA9Mifwr9X2WNuB5 niLjqUjb3d5OUy4wRbb2 Ylr4TiyNpM2bPV2+fS6H YOf3zHsV2LPKGeL6 eLmX2XIMEGT4Ug5/qdqu quZ3x+hDxMFJ66y+B59e QUgBsfTEi/7l/4lwSBdP ODm9iDlE55+ydCiH XvAJ3uNvwCkgw0zhu0yr vSQxwuTSHES6fX2i59x3 5H9HSbUfFJICteo+IRCX CK/TCRpkn4Spynir 2DXp98zKQ33eBYZJXNGl SMkedLjDREffQ7I6U1KZ l+W+9aLRQoLuBvQI42N5 /blcrcrVSG5/ezpE TStQnbHCb9pZHVa9pmZd gvPLhfurMJGZnjN9BBJ3 DS1TPYT8X8cDRoCm/x8N LTEBKTOPikpIV8M9 biibZciPpRkT/0Q4+uQ8 6bIMlXZ47Lw2YmaDyRUs YNgvSDyjuIM57tKEtZU0 6SZA8sakyJo4Og/O KVNkWZx8n6VlWCE1EslJ 1hwUIzYbOo/aHBQjNxt6 MJ5fxu0rIeQ0Cw2bWYCu 5LbWOx59ZSLZd5nN MVcsVarnC37gXJHfjqT0 7OEFkMHgxyaQaOCjB3BO Ojs1qqCTNRH64VfdwPwV NORc1ZpMJdfdaUbP XnTAxnlRORTuRpUOHPWg PkAcgmBOzVxVLBaWFsXe Hvxi6wy22QHcx7oFeTvL DcoSw5CB3yUp+sAH lyWnabi2blA0jZYJYm6R P2ddg74wJhGVayOpAYer KpzvqyLl67so4iDUOPKP h50b/SSfyQwSiIyF WiYDmIRk9XfeBB9+H7vZ rW9TgY+X3uX9MbzLvu+6 y92uoe4pGGfyNEdmEmCh ezM89uNFA2DaTk+j qnEJrXXRZpmHMFTnl0v9 7iur+pgCUlfkt0rcoaa3 rQVqiEyN/XZHi/wKq6NS UHJKWQ2tKz8khV8P KhL74xKi/vtvuDT9FTuv RB+iHfedkw/bNEoKJaxc vGhEYloT9JWHNlawF37S 816UrFNSbjtpLu70 SPFpeNqyMfEVA1SqBgQU 3iFd1aNiqtLnx/vVcVk1 DyLp5kX5c99sSUOdFfzV Yena3SLl+MLaPx7P ftl78L6SpU2h0WnB/uXJ o8w5TCDlVQVOAGvGfjT3 m1WafIwCuhpRgCvSWSh6 0b/1lz+QkAmGVWat V3MUB+LeB5Dxgss6jcES Q2U2hkcfINWuQADXYPK5 myPamnHPEbttfdhxlsCw VK0OUH4qnfuLBN/7 6Svwq0jq3dPNf2gULIke nKjImQUYbqF4Ha+vdpt6 55FQLrTpE8dAma1BsYvF KRB9qQ+mBAzcdvwQ qKOL3JKW/Gfrt7rr5uFj EXaJsVHQi4Hqv3UQceLM sN9ghBu0pOIuMQBU7Yos bLQ6H4GkzJg5w8FY ofAWwteZT+otyNSh/lKx RYAEwpZcVtdrsB+3+65r nfBjdURgdDudfpANll1Z aabeUiIgjhq3uKgr qAyPeobgXw/2xLXGsjeD D+xXkUEWElsGjEw+FPJ2 c04imT5jg2pW2KSbKrs2 rIyGZrpWJIQQrgf8 uDoBw15gvgkcCNcqEN4e i/wKox3KS6rL0QaT6SJD av7net/T+8dmdiH67SBZ wsPbWuzQuzJDpGHs mHit2msKSDa7YNi5nHxm ZM3PNvYzozNj4Xa7tsZN Q7/Am4CMP4/d5yuvDrR7 1Gcsm62031tdWZVY 2sNVCwUg1w9pIGF0MTsU udTl1MhPlTvreGR2lG7O SFT6HzCKxpLpkgn5TZKc f4cqJ/as/SIp01yI Wyi+Cq4JUV2F6MzOC1yD mVHrOh2Veyamtog/L8Co kkjn6sYMexl/1MvOCGkL GZneXrqkSm1liby5 ZYH/gAHPkiku6cpokiei UapGpm07cGaqLrCAqG8w Bij5nnFRJGf6XByxnRMF 0txK43NFZDKZ+mBH B6VAhjvT02C/Vgy8HHTu a5Om/Y3zL6/KnyH26vo4 eKIi6wJ7GMOKTMnaWZU2 3WRnoMVn294Q1mEc ZvIamJyZCmkpB9NDGjDo qoJoWITjbzm2rU3PAKPR e30E3w2TNXMqoewYRi64 M/UBx9xRozcmxzlt Zgg0qkg12X7BQOxT/Lv5 0kTw4U0pu3GqIZMKuDO7 9qM+7w/P4TTknX5mBpmR L0yMskUitVme+xY3 32otUv79ZuGF0JDjoT0v oKyPBQqBJ2WD1OHkeSJR VhBfWYMNsSkRwkDyoRkD rALZCzsRC3faP28J OqfuERDL8b1YnttCV6/P nl6l3HZuniUlcJ1LKIhj 8+ciHyJoMXpPo2rC5Ujj gOvbzW38Lz5JG4sn 5urzJJre9aHSoelgCbaJ pNtiPfm5pPXZHlfm2rcx ecGLdB8vXBW7/SfMMBAF erGnUuz8l825lH70 mI1vCk1vGQwDvndM/SUx jHhgBoajzqkd/4bZB0or r2GYMmacAFHQr8vLEsrO bTHV5qe3ZKd2DoC5 6AxbPh10IbLDDRGzV8NR 951WUxS7PpNISgLWtxon Dh/g1zv0WC9D7ec4WYg3 ip2U6YIOJ3hNasn5 S1QsExC1woQ4V0ng4i9R JEZBtD6+FvV5qy9FTdOC LSUseHIdGNa7cY5BuSv3 cL/Bfwm/Ie/RGYL+ dFgmGgGxawrVo7s7KyFK nBvlXELCsfqI1I/7HfEB u2sxSgREBrDRL9vdV82k eLZNYqldxNrg5IsY dGErQsOXaSisBbi0KjfW qt5jKM/dDwJHVd1jEKbp vanKwzVbikHXzGFe (more content not included)... [facility] 11-21-2022 Consent [id number] #1.00CD:127 [facility] Consent for Treatmenton Consent for Treatment [id number] #1.00CD:127 [facility] Patient Eval Forms Officeon 11-21-2022 Patient Eval Forms Office [id number] #1.00CD:127 [facility] Coding Summary.on 11-13-2022 Coding Summary. CD:[id number] Ww+PGhlYWQ+JX9DKPLcC 69doZWmvL0cB5KBDUhGM ywgQVBQTElOSyIgbmFtZ D6jgSYsZUOs IC8+ML0jWVLiRdwowZHe v5M5uXT9R34jpv6gTAdo aJO9ZIFxUbFcrxzou3hu uBr1HGkdQcjqDmDg FCDknQ90QMD2iA53Gr16 vNFtmZIbj2ehoXv5OtEt KKYgOOC6zUvhPAkcu7Gk FIAzG09upXNgc0Q5 IGNvbGxhcHNlOyBlbXB0 xQ2oAMjjonkqf1rgxvxa Ngi3tg93zXEzp5O1zVB0 V0YxqxC3LMAlzBNl HfemxGYOhL3ynrqii6ri peyuEnGjTBBdACv1WIc4 FFWrvGjiOmWfPA02PNT6 QSYdzbZyO4CiEULz iNupKhY5v9Q4Rm9SY2WE IrgrF0RSDZPUTBxicVO+ CF74dq86B6QxQxjgAer0 CHMzAFW6hYA1fU0y CSIhFIghe6T1mVG2J8Xq xkGynm3ek4wsWYCkEObb F11ceVGvr3F7BHChkQT4 TALkrXqiYsSqlQ02 Oyc+RXAeuTjqx2BpLvrg d3sxc5kjkRd9SljoSSWf kuKcyZbkRYN9l7XlEy8o LVQnkQN3gPH3jA1x GuIwQtB7PRhpS439TzKt bULhUvsjW03zP2GazUS+ LGOhRbj0ZRQjgXlaTN2n K7XhIWMycigepKVv jAarOS1zCTZfwmfdHATb fY7qUAKiY2u7BlQwZzL0 VLtqF3NnTWHcvicdZn14 dE2qCcSmEtU3UWdn P1XlgrG8XXMkxTLnFMex MIK8F42kr2F4FFZxFUNj ZTW1wYS3iV0mdHhiotqx bGVmdDsgdmVydGlj OMzpJCpnP294CEQueQmv PkNvZGluZyBEYXRlOiAg MDQvMjUvMjAyMzwvdGQ+ PITwDIM6yNchMKFx cABlNOsvAw3rtHzfnUww CK2wNQGcawmpCIGgvQ6l ATHrzTQcbNotUE3qHGXb ncwui927XrBvIYW2 ZIGbzEYsE5QsrZ0eLbXn IBAmQDRrI2NjfTShZAix V381FHliRfP5ZHImdbFo L9SxVHLwxKevKoG6 c6S6Lm2Js5HxeghfN9Mw kICdRlTsIuhhHQi2H8Xl PjwvdHI+QL08UMUxFK61 FVo9VJY9rVzkWMgf AJLtZ4AlwG4bPsVnOZXz ZGRkOyc+PHRhYmxlIHdp ZHRoPScxMDAlJyBzdHls RZ2uEl6aSAQlTSKn xOnliQYbPfTff0jlWPBm IMtfME4xbHpjC7GvzIT6 SAIow7y4Iv84M73eV9Nu dXA+PNYwhKI7iKP1 fT3mDcBjQhC7CAcfK966 XkXpjSDlUtois6nyt3bx cXd1NhU0WLZzmxPptDpb YXF0u9IiTq75U72e IHdpZHRoPSIxNSUiIHZh bEeprv3tbC4tIo5+PGNv eUF4gLG1eZ6oKnZoIdB1 FTgkF937VpKwbKBq Jjokw6hcd2kieOj4RuPs WHPdpySdpGnhXNI9e7Ub Um97C6PzvHccx4PhGug0 pk18tUNbw4A7aVS2 V3QvTWMovtozrMTdfEtx VQ0mIZTldhszZYTmnT2v FCWaB1t9HeTrHjW2ZLon L5EwgeJ7LVJeuQAj EVCkvKCUtZ9qvfmyp8mt woydSwOpVJVaEAa7LIt0 PANqdEmiFpTsHXK3AeF8 KXM4kARgdC1fvSqu ylgvkF6lYxh+SCE5iYDf mLKNPC9dVpsezNU+PHRk SBY2iRzgZQhoZDXxmV3e ADRpV6y4AuVcTpY9 QFwkI2QaslH1BWGndLBh AGJioOBJxD4drggai2xb urdsUkIuXFEfQJg0SVv2 LWFsaWduOiBsZWZ0 XnF8RMK4cGQufZ3hiJom zdjdkJ4xWhz+QmlydGgg OXD7CTb3Q6ArJnh9FNVr tLicYK6kySQaPIeo Hz0poYagjHbqUE5uPLAs ziexr682OkCre4ymNLWy qHQvVKfaDZY8P74ja1E0 TWMwVPCnJON0kDU7 zH8wiVsmhnyxeSCooLtv thBrzNefEZdyQFmvK332 BXLcmWqsMnWmCFr1P4Wd Qsy7GENffGedMC6t cCVkJXfsLe5xxHtnhGsw UJ5qDBEsacstv222SiSu p3dwCUBdvFDkTPdxTPE8 C95gb0M3FBIdZBHn GLV1fTO5gU7ovKiogzru bGVmdDsgdmVydGljYWwt OUquT438NZHsoTjrMzNz rRv8P6ErAjy2KRSs aImhSQ7pvXVoQPjvWx1z rLvkeMohDY0rAXYibuqd a340AkWou8omPBVgzPBh TKzsIEC4K95jq8A7 SAUcZNCpKIM7sVM2rQ7n bGlnbjogbGVmdDsgdmVy lCltDJmwIWmpS866QDMk cDsnPlBhdGllbnQg EDhmZTa8F9HdDbfymDM+ EB35MQAiNR33rPCskRIx g6afxUx3LpWbXOAhJDH7 sMacNAfts4DgTWFq Z34umNHrn8T8CSAixIgn uOPwLjOtjDN1zE1oUNwc angci0lhwufzYfiws9kf ti23xU82G71nTRml ZHRoPSIzMCUiIHZhbGln il9jbD3dSh4+PGNvbCB3 lHL7aP6tZYBkMlC7YHql S953ZoVswMCdHdpy t2vtf5annHy1JrI9UGLd yqEjjNxxDAS7v8IyVy14 G59wZHylXWGyRBGoXVPt XSQlmXudye5xtC8l Ii8+LRRkxFL6hJB9mB3v VqVjShY7KMouS558OwYz iKRuMjkxH09gX0EdhJD+ OILdOvb0UJQnuGqp FH1wdVCbNPzrUk0mXDG4 LpNoBbYtNGcuH9SwCGVu cfcasapvjFR1EOGnWMVz xU37Sm3ngQsrAXZi cTHEoZ4ljlfrs1bbeulh QjRhCWEiSAq9ISv2VXBr jMjaDtTiSJS8LyM1ZZU8 fZYqsN3lwPhuaxrz cA4zD8GgWYXfxxtfUn62 qG2oSpOkIbX1CCasSvc+ K69VPNjrOEFQXwPUCE45 UE23qUNwv9O8wNE1 P4SqJNQhnemeislgcRT3 SVJhDNBmaM51eSWlTEcw Bh1rb3U8f216LFFiFAWn oY55Ub5piNkuTYGp xDLNoJ3wasxsl4mjsgvw ScLuOTQgRXo8SQo2NSPw aJjbYgLcEPG1WdJ9BZT4 rEFhkT6hrDbzkiay hV5tEuf+MTIvMjIvMTk4 OTwvdGQ+CTAtPJP2fOjw FWjcFSDxiN8cIUQjF1z2 QvAeCxB0CJojL7Uo AWXlgremTu16eY1rAiXv BsO1RXcpZ1QecnR1BIYz oBDjHHbsCKH4Y60wl4H0 UVLgCKEiTWC5yUR3 mJ5caHvizvsdwOKacKjb swNazWauNHkzNMhtH325 IHRvcDsnPjMzIFllYXJz VR12KA11oXAjg2L1 fBN4D4ZuAOSbjgbstqyu bWX9QKMbCKXkxA00nUTc NGbeKm0kw2O8t008HPWg TSPwsS53Vx3mzCrw TSKbgSJDoG2kunbnx2ii ldbxFoUaTQBbMHu8EHz4 COJrbVnjBqAjHLS9NsS8 UIL4rWBzvR9wzKib mfbboU9rBlb+RmVtYWxl GG79DH68nHFvk8U8iVO3 D4VeGERuznnkekjbeTX8 JHJuWVAzeG85uFDs QTxzLq3bs3M5z409VNKs GADsfT29Vf4lpMmyKXJm hHGOjA6rqdfkc4hvdqms ViEfQODmBBw9EEs7 OFRagOqzXfDyHFI5LyM4 BJT0aPQvuS9exQceybxt xG6dCiz+DWGhaePCTN2b L1UlDE55UG26LH06 E4DrKtwceTAgiCO+PHRh YmxlIHdpZHRoPScxMDAl JaMhaNyqMB4nHe6xSQWr LWNvbGxhcHNlOiBj y9izUUJsQWfxBJ1knBqi A6WrmBG6YJQgp5y3Vm57 V36sV4UdfOY+PGNvbCB3 yRD1oT1sHwQaSoE7 MUcuH080RhEwlPAlEnoq z1lkr6jlfWs1EyEbTRBk bhBtoDueAVC7a0RpZt20 S15aJYxpNUEbRSMc IBQqASZlmMgrsf8pnH9s Ii8+CEVheIS5zYJ3qC7q AvQcEpK1EMqmQ456IeQp pZTxVdtsE64zQ9Cm dXA+QKIvOsa0TITtrMbi BU2bwVCjXVxdMf1rEHB6 VhCwAhPxHYmvU3CqWQGu cmwnihheiTI0BCHo XMPhoX90Ne2zjHzuCz4f YKCeEQK3HZVgiUKjD5Fn sK1qBmEzZEJnQBWbX3Lg rGDiXWexH962YFqn PmW5ALVmudKxW8KnNPTa yEbvCkK3e5B4Cf3YeDkd xZBfNE6dZqWgSKw2C8Wl Oln3XPJlpAtmWU2j aMAtPIybHu1wmBlsgTqw MW8eYTGkdfriw505LiAi f0cbGUSioORvDJvwZKY8 S83jx6N0ARTtEELd KLT5sVH3pM5mnYczbhlc bGVmdDsgdmVydGljYWwt NMesY238WMWdwQdwJkVY Aae2A5ZuPvz3HQPz dPveIR8uuCQaAThkMj0x iVobfLfqLO1dKUWzjolm z677YwDqu6qaNHJepJHc KOpfLFG0D67gr4A9 GTWtSKHoIKR6tTK7cX2m bGlnbjogbGVmdDsgdmVy rTyhDJuxWAlrO199ILHc cGiaJc5VQls0A0Nh Yxv5QZVmtWhpQX8gfHPz ZEcxSm2xjQpzlQnyQS7i HKDowjoqg268QtVvu6sp IDEwcHQgVGltZXM7 F16kv9P0FQUxTZZrWNJ8 bJS9tF3shSipkkuxsNNa dDsgdmVydGljYWwtYWxp S381YBDhsEbmAsYh eWVyOjwvdGQ+AH60lh50 B1PpTcssXek6RWRtUNV0 cDS6jN2iOPFoVLxio7Y3 bXM0B5WtwtRmnq5p p7kqCXUf (more content not included)... [facility] Consent for Treatmenton 10-21 Consent for Treatment [id number] 0#1.00CD:127 [facility] Consultation Noteon 11-10-19 23 Consultation Note Patient: PRABHA LUNA Age: 32 years Sex: Female : 1990 Associated Diagnoses: None Author: Altagracia Curtis PA-C Subjective Chief complaint 11/09/2022 15:27 EDT lower back pain . Patient is a 32 year old female with a past medical history significant for a [facility] claim. The approved codes are m51.26 and S39.012A. Lumbar annular tear and lumbar strain. She presents today for follow-up after undergoing a repeat L4-5 epidural steroid injection. This was done on 10/15/2022 and has given her 80% relief. Patient states that all of the injections that she has had have given her relief but unfortunate, she only makes it approximately 8 to 10 weeks. The last few weeks are usually fairly miserable for her. At this time she only has back pain that she rates a 2/10. She intermittently uses tizanidine with improvement. She feels that since the injections worked so well for her she just wants to continue to keep a very close eye on this that way we can repeat it when necessary. She states that with the relief she gets from the injections and the tizanidine she is better able to participate in activities and this helps to improve her quality of life. Health Status Allergies: Allergic Reactions (Selected) Severity Not Documented Bee Stings- Swollen at site. Bentyl- Hives. Chocolate- Migraine. Red sauces- Migraine....... Nonallergic Reactions (Selected) Severity Not Documented Reglan- Twitching., Allergies (5) Active Reaction Bee Stings swollen at site Bentyl Hives Chocolate Migraine red sauces Migraine...... Reglan twitching Current medications: (Selected) Prescriptions Prescribed Zofran 4 mg Tab: 4 mg = 1 tab(s), Oral, q6hr, PRN Nausea, Take one tab by mouth every six hours as needed for nausea, # 10 tab(s), Refills(s) 0, Pharmacy: [facility]/pharmacy #[id number], 158, cm, 02/05/22 16:14:00 EDT, Height/Length Dosing, 68, kg, 02/05/22 16:14:00 EDT, Weight D... tiZANidine 4 mg Tab: 4 mg = 1 tab(s), Oral, TID, # 90 tab(s), Refills(s) 5, Pharmacy: [facility]/pharmacy #[id number], 158, cm, 05/11/22 14:58:00 EDT, Height/Length Dosing, 68.5, kg, 05/11/22 14:58:00 EDT, Weight Dosing Documented Medications Documented Claritin: See Instructions, PRN allergies, Refills(s) 0 Emgality Prefilled Pen: SubCutaneous, qMonth, Refills(s) 0 Excedrin Tension Headache: Oral, q6hr, Refill(s) 0 Flonase Allergy Relief: = 2 spray(s), Daily, Refills(s) 0 Nurtec ODT 75 mg oral tablet, disintegrating: Refills(s) 0 levothyroxine 25 mcg (0.025 mg) Tab: 25 mcg = 1 tab(s), Oral, Daily, Refills(s) 0 naproxen: 500 mg, Oral, BID, Refills(s) 0 omeprazole: 20 mg, Oral, Daily, Refills(s) 0 predniSONE 20 mg Tab: Daily, PRN Allergy symptoms, Refills(s) 0 Problem list: All Problems Smoker 21-JAN-2014 12:37:00<$> / SNOMED CT [id number] / Confirmed Added secondary to documentation in Social History. Acid reflux / SNOMED CT 724476619 / Confirmed Anxiety / SNOMED CT 21872726 / Confirmed Anemia / SNOMED CT 800034670 / Confirmed Vomiting / SNOMED CT 7312425854 / Confirmed Headache / SNOMED CT 71818821 / Confirmed Resolved: Migraine / SNOMED CT 91710215 Resolved: Depression / SNOMED CT 071808547 Resolved: Pneumonia / SNOMED CT [id number] Canceled: Biliary dyskinesia / SNOMED CT 223697743 Objective Vital Signs 11/09/2022 15:27 EDT Peripheral Pulse Rate 86 bpm Respiratory Rate 12 br/min LOW Systolic Blood Pressure 104 mmHg Diastolic Blood Pressure 73 mmHg Mean Arterial Pressure, Cuff 83 mmHg General: Alert and oriented, No acute distress. Eye: Normal conjunctiva. HENT: Normocephalic, Normal hearing. Cardiovascular: No edema. Musculoskeletal Normal range of motion. Normal strength. Integumentary: Warm, Dry, [place]. Injection site well-healed Neurologic: Alert, Oriented. Psychiatric: Cooperative, Appropriate mood & affect. Impression and Plan Patient is a 32 year old female with a past medical history significant for a [facility] claim. The approved codes are m51.26 and S39.012A. Lumbar annular tear and lumbar strain. Recent repeat L4-5 epidural steroid injection gave her very significant relief. She states that since undergoing the injection her walking and standing are no longer limited. She can do the things she wants to do and she is overall very pleased. She is comfortable and happy. At this time, she is going to follow-up in mid December [address] that [address] we can repeat discussing the injection should it be necessary. We had a long discussion about how often the injections can be repeated if necessary. She wants to stay on top of this. Follow-up as above mentioned Call the clinic sooner if necessary MENDEL score: 32 [facility] Comment on above: Result Comment: Elec tronically Signed By: Altagracia Curtis PA-C\.br\Date and Time Signed: 11/09/22 15:39 EDT\.br\Electronically Co-Signed By: Cortez CHEUNG, Clyde [place]\.br\Date and Time Co-Signed: 11/20/22 13:24 EDT Office/Clinic Note-Physician on 11-09-2022 Office/Clinic Note-Physician [id number] 0#1.00CD:127 [facility] Patient Correspondenceon Patient Correspondence [id number]#1.00CD:127 [facility] Patient Correspondence [id number] 9#1.00CD:127 [facility] Physician Orderon 10-30-2022 Physician Order [id number] 0#1.00CD:127 [facility] Pre-Certification Formon Pre-Certification Form [id number] #1.00CD:127 [facility] Coding Summary.on 10-23-2022 Coding Summary. CD:[id number] Ww+PGhlYWQ+DM0DWRUzB 10kiIWukZ1mO6HFYOvOQ ywgQVBQTElOSyIgbmFtZ A3yqNVvWIPf IC8+AW8bQCBeJzvpgQIx k8H7cUF4Q49uff8bVVxm iQX9XOPrVjOrkpmgd5dz rIy2GWygGogtYsEq PJBgnK93DFF0oH11Wd44 aWLtxCOco8eqtKw4TqJb KPCaUHL3kAugUCyzy8Ic NPGaE42kgYVsz6P4 IGNvbGxhcHNlOyBlbXB0 sS2sGLeeksncb7wojuiw Qdg1cg15eVKda6I7qQT3 A9QmerE4HRBdkYQk OggrcLHKnR5qgorsy1vr vbejIuBgAOKtWBo9DEj3 IFLdgVaoXbSoHM25ODV9 LIJzcsGqS6RsXGVp fNodJiK7w8U3Do7RM8EM PmriR4YRYQRVPPxpaWJ+ HB68xs68W0SpIjytYys2 XVUwJPL9mBB7bG8o OWOrPWspl7V6sCQ7V9He itBelb9bm1imVWXyZUoa L25fpIOwz8L5NRPhtGM4 HIQigXnfOfVkzB01 Oyc+CJLhpYgxc7UqXthm m3cxm9iujZt7LvrtXZPn idNtfMxqCBK8l7AyAo8d CQRlkUB7vKA6lB5u BrWwQpM2RWkbL242UkJm pMQaRhbxD52iH5NblCQ+ ZSPlXtd7UCYfmZudBC3f P7AxQOHgakiwvHKx aXljDX7mDIBiriufHTXl wR1uBTDdL3i0LqQhAiI9 ZUltV6KfFTPbkhkdSm21 vQ1kTaQhCvE3FDpk F6CafpW7OPCobFJuGXli GMT0N02nn4S5QGFhWQNz DVV3cKG6bO7waOyiaqmr bGVmdDsgdmVydGlj JZpsCAedZ199ZPMvxHau PkNvZGluZyBEYXRlOiAg MDQvMDQvMjAyMzwvdGQ+ DKFiJMZ6qQubDJBj qQQiOIftDi6prQmsvExs CF8lIEVrymziSLWwzG9m FKRqdWZeyWxmIJ0lOHMq iodel277GwZaMVX6 RMSnlNGkS2VbwA6uYoPw DJLyNOEmA9SjuODxOIda A427DBndPxS9NRLfhtGv I1IgKUEsbOjvOvS6 s6A7Zl5Gh5UrdjbfR0Un gEVfOsYySvzdOMl6G8Zf PjwvdHI+MQ30ELUzFK35 SXh1IMX2bVmoPQyu AFBaS2KjcE3uZaNqGYIp ZGRkOyc+PHRhYmxlIHdp ZHRoPScxMDAlJyBzdHls DQ5fAi7oNJRjQOGg jAvrtYNbQoZlu3nbFNMl DJpmOF5kqKmcF0QdzQJ1 QWDow1e5Kn87A67gI8Iv dXA+JWFfkTN0tAG4 eP3fXrInUcH8TYdmZ106 JhHkhTSyYxbga1jyh4pd hDc7JwY6MFRxjvWfwOqm JBM6n7RpWp16O23g IHdpZHRoPSIxNSUiIHZh aYkglj7wcI5zNd6+PGNv mGF4bIL2zM1bFsFmEpY6 UOtkZ367YhVfoWDx Vjhwo6mai3gsjLl0EbQo WSWjbwEznIfaDDF0f5Se Xh03P6GsgZllj9WiSld8 vh40oPEwt3E2zPQ1 H2RpJERevzzexDAozCvy IS0wKXGkzmnsHPNvlJ2l PFVqJ0h1IyDbCwY2GVhj D8BrapO6OKMipHFw QRWqsPHEiD8gryume8bu hktuLqJxSOJpGDc9AAa4 ZSFobHyvIgHkVTK5PdE4 QJP6qBHmaD3ogHdj syayiE6rFxj+YOX3gLTe wAZBVI7nUujnbSW+PHRk YDC2qJxbKXrfUSDewY1c SLTaQ7v5IdExZmB1 OLlpE3LdksI9ZFXykTJt ZKJvhGYKuH3obuvwz5mk elgnHgThRCAuRFx1CKk6 LWFsaWduOiBsZWZ0 BuD5LIV3pEZsbO7hfThf mpoipA8qHiz+QmlydGgg KCN5TAb0E0QjIbc5TQVg sExeRE7lhNUqXGei Hj5yfQuldGtrAB6zXGJi oesfl884KoTzq9ujETNf uAIlOQuqPUV5Y03mj6C7 MICbQJKyHDI4sGM4 iE1hxJhnqhogzSUydTxr wpWbvToqMUwgREcuH807 CHPhcTjnMpYnPKv0K8Qc Rhi2UNQavVieSF1e sUItLCnkCn7sqXfxoUac BM6dCXWrmwqzc682TsDj s4ujVHHxdIHhICqvVFY7 T39sm0D1OZShFWGs QDA4jYL6sD8qcRxmwyca bGVmdDsgdmVydGljYWwt FNfaR567LBNmmDvxBxBg uCn8E6IgUum0KJEy mAofQH7nbGIdSVkaIn4a qVrluNzfPE1iBLLrhpae n984BiZjz0ivMCMdaSYt GOldNFV7D73hk2P7 HAFeBYXiQEZ9rUL2cN4p bGlnbjogbGVmdDsgdmVy lNitYAkaDVjvP417XCUj cDsnPlBhdGllbnQg UImpKBz9D3YvCvdpeGT+ OH60QCWsTZ98jWGtpUXy b9mppJa3ZcFaVEKkAYD8 vWviTHejg4HmRFHw U94nfLQfi1O8WUCswSoc kRXrMnUqxFZ8bC1zCBlg kfmfx4zfopfcTnqen9un di89pV19D52jZJca ZHRoPSIzMCUiIHZhbGln kd8imR9mWg3+PGNvbCB3 bQW5rD2sPXGaHmR7OFqb O538CdZemBAsQhxt b1efz1mjpHc2TsU9ZHMf mmQlkDisGAW9r7NeUt94 A59uJOdkXJNiCMYzDLWo JYMzeRblft7wfI4h Ii8+KDSbxCV2pXP5qE6x FdFjSkZ7KKcuI279DfZl cVTiVvyjW06zV3IrtTE+ VUDlRin5CYJbvCdj WT3wyFWwKTkdZi0aBYU5 JdLvLkBjNHftU8JdOONh omyevsgzoLW8VIAfOHTj wZ61Bg3seReuYXOw wISRkS0ijtytg4oxdncv JwByDAQiIBh5GOk2EMZf qDggObHnCAU5UlA7QKP5 kDPypD6unQhhkysw vY8oG6QsEPNkdxkySd16 jK5mMqVlBvN8XZaqEtu+ Y12KMNfbTZGKQtFKLE10 NU40qUJfl9L3pDL9 F5UqJFWchpsajiqidJE6 CANhFUNseL71oKAaJQvj Rl0ey6M6k265NPXnPEJb bL48Jq9zrMhvSXUf jIZXyV9yvnphb5kolclp BpWqSNWyRXb3MLk3VWGk hBwnDrVnTHD8VzG3GQA8 tMSrbC5wqYdhxloh wO8rYnq+MTIvMjIvMTk4 OTwvdGQ+DKNfFRP5tXgz LVfzRCDckO2yDUXeY3z9 MqXfDdI4MCorH3Sv LHQptrmhNw03dD5uHkRx ZtX5QMfoN4DgycM3KIBk iFHjHLnfVRD5E95yl3U1 FVXsAMDzQJR9lZE9 pE3zyNtwbpwzrWIcdQwk syYwnQecUWnnFItwW871 IHRvcDsnPjMzIFllYXJz QF91PQ65mWGah0O3 oJT6J8XbERLcqvzrwwdc sNL9XURxQVNwyZ38rWLd LOwcQm8hf0I8k258ZFFg YOXxkX53Hm9ugIqt INVikKDSyV7iaikrx3zv zvlpWyUeEFEeQDj5UNw0 IQRqxAbxDnWyMHZ5AjH9 QKB7qSLtlS0yaOqr vgwyiV4hSwd+RmVtYWxl VH26QS19kMMqb5R3bEZ3 S6RwZKOdmeanobxfyUR6 PTMtJOXjoO44sPOi IKllUg1ej9L0g395ZOSs ORXnhN35Qw4meShnKMOn dRWNtL6smzmcc6qpmtol ItIgMJUiXMu9DVl2 IVWueEqdQnQqGRP0CjV4 PKC1uKNgrI3ceKlyjywc gO6hMft+MACjkrZPKH5z P5PkIU14TA81CW66 F8PnKihgrMSdfCK+PHRh YmxlIHdpZHRoPScxMDAl WzRlaQjjMQ7gHs4dXOZh LWNvbGxhcHNlOiBj e1zkPCDfWInpOG0taCcg S8YrjSP6OXEfl6v3Sx33 X96lH6YynWZ+PGNvbCB3 zBG5aY9aGaRfDqJ8 LWlyB955WsSahKInIzih j6ywt6kqySb7ObPyMEEx nmKwsZivISD7j7CsYq38 K05qTDhvWEVcMHWs PHSgRDTnxSeghh3msG0m Ii8+DGXrpRP0sVV4oD2q LeIkVcE0RCauA912NtTm oMZnPwejP17pJ0Uq dXA+HSBjOnn3OKPwcEab XR4vzMDyQSswSz4kKOD0 SvFbUkYcMUueM2HiCNTw nonpkyjdiWJ6ZDLv WQLehI05Qd9lrQhiAy9t NSVlYUU4ZCIwbRUfH4Lr jO1aZrVsHIKnHOUkP6Hs uRBaRKyqE558TKav JrE3TUDrogSyT6BxZWGg bBwyJqX1i5M6Kw5KpQlh oRHbIQ0tKsNyNKc5D6Ak Zqv4CJUkfUpmTI4n bDXvSJqhEo0nvVxlpGlw AT9bJBQmuaggz905AqOb b3xqMSYcwKQhRRseYKM0 K38dp4V9RCHxCIGw OAB9zCB5cS4siWfjoegd bGVmdDsgdmVydGljYWwt XMdsU217XSKnjEylGmJI Wii4T1KdLof7KJHc iMbpGP2xdOWoFSpiFv2h hPhcdSqnJX8tTDYmszvq l551RmXbs2hsCLEsuUQl KBsxSVS3X74ed6M8 OQZxDGNcCYG6pNM6iX0b bGlnbjogbGVmdDsgdmVy rQjgPTdbPOywM875PGZw sVkcOu2CWwl4L2Ml Rfb2OAKndTzfFE2gdOMz RWqsGc7xcHjijGptXA4n VZBgfdeyq316VcMht5ie IDEwcHQgVGltZXM7 J94nl3R9WJMfUZAxTCM9 wEU8eS7dpVjsrgfinPFn dDsgdmVydGljYWwtYWxp T299SERsxQfmPhZb eWVyOjwvdGQ+WH18up46 U9HjUaosVny8KNYyCMC4 cRX1aP8zVTYeTSnog7E7 rFO1B2FcgsFbfz2f f3azGVVc (more content not included)... [facility] Operative Reporton Operative Report Patient: PRABHA LUNA Age: 32 years Sex: Female : 1990 Associated Diagnoses: None Author: Clyde Alcantar MD Procedure Procedure: Lumbar Epidural Steroid Injection with Fluoroscopic Guidance at L4/5 Diagnosis: Lumbar radiculitis Anesthesia: Local The patient was identified in the pre-op area. The procedure, including risks benefits and alternatives was discussed with the patient. The patient agreed to proceed. Informed consent was obtained and the site(s) marked. The patient was brought to the procedure room and placed in the prone position with padding under the abdomen to reduce lumbar lordosis. Time out was taken. The back was prepped and draped in sterile fashion with Chloraprep. Skin and subcutaneous tissues were anesthetized with 6 mL of Lidocaine 2% through a 25G needle. An 18G Touhy needle was then advanced under fluoroscopic guidance (A/P and contralateral oblique views) onto the inferior lamina and then advanced cephalad into the L4/5 epidural space using loss of resistance technique with a plastic MELA syringe. Isovue 2mL was injected under live fluoroscopy which demonstrated appropriate epidural spread without vascular uptake. After confirmation of negative aspiration, 2mL of 2% PF lidocaine, 4mL of PF normal saline, and 10mg of PF dexamethasone (in 1mL) were injected. The needle was removed and a bandage applied. The patient was brought to the recovery area in stable condition and then monitored for an appropriate period of time. The patient was discharged home in good condition with post-procedure instructions. No apparent complications. Epidural injection procedure Physical Exam: vital signs Vital Signs 10/15/2022 9:41 EDT Heart Rate Monitored 72 bpm SpO2 98 % 10/15/2022 9:41 EDT Systolic Blood Pressure 95 mmHg Diastolic Blood Pressure 65 mmHg Mean Arterial Pressure, Monitered 75 mmHg 10/15/2022 9:41 EDT Temperature Oral 36.6 DegC 10/15/2022 9:41 EDT Respiratory Rate 12 br/min LOW . Dx correction: lumbar disc displacement Valium 10mg po prior to procedure Correction: Diagnosis is lumbar strain. (S32.012A) [facility] Comment on above: Result Comment: Elec tronically Signed By: Clyde Alcantar MD\.br\Date and Time Signed: 10/19/22 11:44 EDT Consent for Procedure/Surger yon 10-15-2022 Consent for Procedure/Surgery [id number] 4#1.00CD:127 [facility] Consent for Treatmenton 09-20 Consent for Treatment [id number] 4#1.00CD:127 [facility] Discharge Instructionson Discharge Instructions [id number] 5#1.00CD:127 [facility] IntraOperative Documentson 0 10-15-2022 IntraOperative Documents [id number] 9#1.00CD:127 [facility] Main OR Intraoperative Recor don 10-15-2022 Main OR Intraoperative Record IntraOp Document Type FTPM Summary Primary Physician: Clyde Alcantar MD Finalized Date/Time: 10/15/22 10:29:46 Pt. Name: PRABHA LUNAO.B./Sex: 1990 Female Med Rec #: [id number] Physician: Clyde Alcantar MD Financial #: [id number] Pt. Type: P Room/Bed: / Admit/Disch: 10/15/22 09:18:31 - Institution: Case Times FTPM Entry 1 Patient Times In Room 10/15/22 10:20:00 Out Room 10/15/22 10:25:00 Procedure Times Start 10/15/22 10:23:00 Stop 10/15/22 10:24:00 Anesthesia Times Last Modified By: Steffany Benson RN 10/15/22 10:24:38 Case Attendance FTPM Entry 1 Entry 2 Entry 3 Case Attendee Clyde Alcantar MD, RN, Steffany Vasques RN, Kasey Dangelo Role Performed Surgeon - Primary Glue Sprayer - Primary Scrub - Primary Time In 10/15/22 10:20:00 10/15/22 10:20:00 10/15/22 10:20:00 Time Out 10/15/22 10:25:00 10/15/22 10:25:00 10/15/22 10:25:00 Procedure LUMBAR EPIDURAL STEROID LUMBAR EPIDURAL STEROID LUMBAR EPIDURAL STEROID INJECTION(.) INJECTION(.) INJECTION(.) Comments Last Modified By: Steffany Benson RN, RN, Madison A Pritchard RN, Madison A 10/15/22 10:24:38 10/15/22 10:24:38 10/15/22 10:24:38 Entry 4 Case Attendee Chetan Linder Role Performed Music Historian Time In 10/15/22 10:20:00 Time Out 10/15/22 10:25:00 Procedure LUMBAR EPIDURAL STEROID INJECTION(.) Comments Last Modified By: Steffany Benson RN 10/15/22 10:24:38 Perioperative Protocols FTPM Pre-Care Text: Implements protective measures prior to operative or invasive procedure, confirms identity before the operative or invasive procedure, verifies operative procedure, surgical site, and laterality Entry 1 Procedure(s) LUMBAR EPIDURAL STEROID Patient Identity Birthday, ID Band INJECTION(.) Verified (select at Check, Patient least 2): Participation Consents / H and P HandP, Surgery/Procedure Operative Site Present Verified Consent Marking Verified Surgical Site Yes Laterality Verified Yes Verified Procedure Verified Yes Correct Patient Yes Position Verified Availability Equipment, Medication, Prep Dry Yes Verified (If X-ray Applicable) PreOp Antibiotic No Time Out Steffany Benson RN, Caprice STRINGER, Cortez Ryder MD, Niyah Ferguson Bryce Time Out Complete 10/15/22 10:20:00 Outcomes Met? Yes Last Modified By: Steffany Benson RN 10/15/22 10:20:38 Post-Care Text: The patient is free from signs and symptoms of injury caused by extraneous objects Allergy Information FTPM Pre-Care Text: Verifies allergies Entry 1 Allergies Reviewed? Yes Allergies Reviewed Self/Patient With Outcomes Met? Yes Last Modified By: Steffany Benson RN 10/15/22 09:39:41 Post-Care Text: The patient received appropriate medication(s) safely administered during the perioperative period Surgical Procedures FTPM Entry 1 Procedure Description Procedure LUMBAR EPIDURAL STEROID Modifiers . INJECTION Surgeon Description L4-5 FLACO Primary Procedure Yes Primary Surgeon Clyde Alcantar MD Start 10/15/22 10:23:00 Stop 10/15/22 10:24:00 Anesthesia Type None Surgical Service Pain Management Wound Class 1 - Clean Last Modified By: Steffany Benson RN 10/15/22 10:24:41 General Case Data FTPM Pre-Care Text: Classifies surgical wound, implements aseptic technique, initiates traffic control Entry 1 Case Information OR Pain Proc Room Case Level Level 2 Wound Class 1 - Clean Specialty Pain Management Preop Diagnosis M51.26, S39.012A Postop Same As Preop Yes Postop Diagnosis M51.26, S39.012A Outcomes Met? Yes Last Modified By: Steffany Benson RN 10/15/22 10:20:51 Post-Care Text: The patient is free from signs and symptoms of infection Skin Assessment (Pre Procedure) FTPM Pre-Care Text: Implements protective measures to prevent skin/ tissue injury due to thermal or mechanical sources Evaluates for signs and symptoms of physical injury to skin and tissue Entry 1 Skin Integrity Intact, [place], Warm, and Skin Abnormality No Dry Outcomes Met? Yes Last Modified By: Steffany Benson RN 10/15/22 09:39:49 Post-Care Text: The patient is free from signs and symptoms of injury caused by extraneous objects Patient Positioning FTPM Pre-Care Text: Identifies physical alterations that require additional precautions for procedure-specific positioning, verifies presence of prosthetics or corrective devices, positions the patient, evaluates the patient for signs and symptoms of injury as a result of positioning Entry 1 Procedure LUMBAR EPIDURAL STEROID Body Position Prone INJECTION(.) Feet Uncrossed? Yes Left Arm Position Resting at Side Right Arm Position Resting at Side Left Leg Position Extended Right Leg Position Extended Positioning Device Pillow Under Head Large, Safety Strap, Pillow Large Under Knees Press Points Checked Yes By Steffany Benson RN Outcomes (more content not included)... [facility] Main OR Preoperative Recordo n 10-15-2022 Main OR Preoperative Record Holding Area Document Type FTPM Summary Primary Physician: Clyde Alcantar MD Finalized Date/Time: 10/15/22 09:51:03 Pt. Name: PRABHA LUNAO.B./Sex: 1990 Female Med Rec #: [id number] Physician: Clyde Alcantar MD Financial #: [id number] Pt. Type: P Room/Bed: / Admit/Disch: 10/15/22 09:18:31 - Institution: Case Times Holding FTPM Pre-Care Text: Verifies consent for planned procedure, identifies individual values and wishes concerning care, includes family members in perioperative teaching Secures patient's records' belongings, and valuables, maintains patient's dignity and privacy, and maintains patient confidentiality Entry 1 In Holding 10/15/22 09:48:00 Outcomes Met? Yes Last Modified By: Lexi Pena RN 10/15/22 09:48:50 Post-Care Text: The patient participates in decisions affecting his or her perioperative plan of care The patient's right to privacy is maintained Surgery Checklist FTPM Entry 1 Patient Birthday, ID Band Procedure History and Physical, Identification: Check, Patient Verification: Surgical Consent, With Participation Patient NPO after Midnight: Yes Personal Items: Jewelry Personal Items 2 rings 2 earrings nose Complaints of Pain: Yes Comment: ring belly ring dermal in chest Pain Comment: 01/28 low back Operative Site Yes Marking: Marked By: cortez Location: lumbar Availability Equipment, X-Ray Verified: Does Patient Smoke No If Yes to Smoking. 1/4 pk Cigars or Cigarettes. How much per day? Patient states Yes Comment - Adult dad fauzia postop adult Supervision supervision available Case Cancelled in No Holding Area see comments below for reason Last Modified By: Lexi Pena RN 10/15/22 09:50:39 Finalized By: Lexi Pena RN Document Signatures Signed By: Lexi Pena RN 10/15/22 09:51 [facility] Prescriptions/Work Noteson 0 10-15-2022 Prescriptions/Work Notes [id number] 9#1.00CD:127 [facility] Patient Correspondenceon Patient Correspondence [id number] 7#1.00CD:127 [facility] Workers' Comp Officeon 09-19 Workers' Comp Office [id number] 2#2.00CD:127 [facility] Coding Summary.on 08-24-2022 Coding Summary. CD:[id number] Gh0bWw+PGhlYWQ+PE1FV NPsZ02ebQNhxX8ZZ5bUL Z2HYINEABNNDS4WTA2ep LC2AYeeK9AbweFu QmaroPNlDM10QNe4YGY3 tVtuLMqpmJ5xiABoM1l0 SfJnWP53fP74GXrcRTXb UkC7WcAdavufqZJz P3saIsLriDDsFwu+PHRh YmxlIHdpZHRoPScxMDAl YlDatDpuJV3hNx2aYBGw LWNvbGxhcHNlOiBj d5tqMADzFWvlIH0anIcc U5JdlSD5EWAnk0g4Nm64 dHI+WSZjZPA7uAsvFXjv o137StPjm1mcTCV1 hROkQOmuPFU6I74js4Z7 SUMyQOKaVSN4uVP4rF5y yIsnxsqhQ1EdoPBbXcT5 KZF2nZWzzF5usDsb iotaqK1hUdl+S97VHA1X GETLMY9YLfo3U3DkAvyt dHI+RU92IKNfWJ75iBIf eKIra4zbaIe2HrSj PMVcDQT6lOtfWOjry2Ef UZObB54fzCMrn2E6AETi dBjndAPvExEwqBZ4qX9n KDnnyyfck5jtytoa Pchsi7clto20hO58O67g GBcyCPUkOPH0HCKmUSCd aMfcjy1iqT7cOr9+IDxj t0esb0kyuSq2EoMl SDQfxmFfnPnjXIH1r4Ar Oq23E3LlxQcom1YiBbu1 vi94eHRzj8D4bXK5XPgs WXMllK5nYTevUnS5 XTAbXjImwT31hRNtJIkw Ok3tiGkvjCxlIA2jTOVa wpgsGWQbkF6xAGXftQUj pPtxFS0jSDMwkvsj s154JjAkVZP6ZZYhaEVk X8ItwP5qPnXoQULfRYFd N7EtrOVtYSqeH573FNag AnG4NFLmjhMtX2Kt FOJyaUudRgW5j7D2Yw1W z2KzjwpoMGO2WSfhHZQa SlRlOfZcQlM7D8KbFej7 XLZclSdxNF0iL9Uc TWCcbsyenzcsoEG5TMFy STQvwF00lMBuNWegPc4z v1L9j889LMAlJHXbfR05 Ob1xoOooBNCcfXQV xB6iqygbo6hivbyrYgJg RKGkJCt2BYn3OWZqrQxa LsBfDIU2ClS3SED9pHGm rS2dwQyuviymvK4t Oyc+D90euM1qWUK5TPX5 tuquDHLnzkQrXX10BD84 J2BkYagvaCJotYG+PGRp jfZrwOntGI9mNvNg z2iaa8AhMYipQ2KbIRJm TCbdDxr8SVTsZPZ9hKY0 hL7wODXgAIult9S1tHC7 U3TplcAwol7mv2xg IMJyYHxyT30ydPCvz9R7 YMBplDT9OFUqpGqaLyMx aB81Msi+GSMjrSion3Hh Mbbce4gpm3tqsQa4 IjMwJSIgdmFsaWduPSJ0 t1QvGw35Q01hCDsoVYZx ALUrVCPhHLOwoZhmre5m jZ9qYs9+PGNvbCB3 iPB8uW6xWPNrRiC3PSek R970DiTvgCSuQdzsh4gs z2kraUt4KtVrHGKsoyWa nDfhRTL4x5QsQp31 Q37kWHqsMNXbFUOoIMHg GOTcgOuhxe3ipC7bQz9+ ST7lz3msff02sC53oYI+ PGHtFYI5aUhmQYsn ILNfbP0pGGapNoU1KOVa FuKhtS72aVZzEQigHn3e pFnbxKkeZI0bPLHzicev l326BbOdl3egVYLc dJNuVGdsCCY8R80tl4V7 CYPaVRRyAPK1vEA9iK2a bGlnbjogbGVmdDsgdmVy sFnjRKagXZrdK694 IHRvcDsnPlBhdGllbnQg JlYaNGa8W5RtHnn5YIUe vBotSL0rxDAaLQrvXm3u pNlhyAgfRK2vQPXe zzumr238CzZlh0quCBMk jPJvVOhqXVW1F03os6S4 FMQnFDXuGRN5rES7mH9f bGlnbjogbGVmdDsg uySnuLxnPUrfGTveA288 IHRvcDsnPkJpcnRoIERh tXO0MQ92PI24qXXtp3B3 hEF8M1MrAYPbuqam hcjcoEN9FFRoBVPffK44 Wk2gtZzzOk8qDLXvJXS6 GYGsrEKgH3WfbP5hKbGr LARtISZsB2NupYLb DAdwR480SCtaFwL7IMIo zlHaS9XyQVWiuMiwMoJ8 l1W4Pw6YI3G0DN27RL92 bQDdw2W9xOG5L6Ge GFQapeemhigqaTX6VEAg ENGwuV27Fg7xpDrdTk7c AUQxTTO5YMLmmEZcH2Hr kD5hRlOgOUKoGXVd I5FqbXLiFSykO494SUbw AwG9LVBskpIaJ6FeSHCa cIkcWyY1k0F2Gi6QGEv8 IL73QF74jDFgy2D0 rIK1P6RmFQVefrvvihla uLT1SRArREIkyI01Wo2y jTgoTh6qIPLlKOK1KTZt qQDoU4VnsX3oUpNp HTAuOJSfL5PwwJAeQMpi S350WHnpQgH3LXDwwiHv S8XzAHGzqTqqNxO8i1M9 Bh1HPSZqIW99OXG6 mZH1HR85SI73P2TvGjzx dGFibGU+PHRhYmxlIHdp ZHRoPScxMDAlJyBzdHls HZ1cDm9qDAKhPGBu xJtydVFhNdLmz1bhENUi EMbrCQ8erGamJ0DnySX2 LYFzw3j8Cb90K73qZ5Cq dXA+GOWlqVH4aYD4 vD7aGaEnOxK7CGjaJ924 RlFzyQEaNszly8lyu1yr aTx3VfT1CCJjkxWlrRis GUY1j8IgEi14Q40u IHdpZHRoPSIxNSUiIHZh bCqfza5bzJ5tIw7+PGNv aXV8bND7hT6uIzKsFrS8 VTlhH866GlJbjMHr Rcmbk3gaq4lzeIb9ScAz OYDdpnMumYmiOPV2b7Hr Ne93W8ZxjZbvo4HkYmv6 um49hGBao9K3zUR7 Y3JlDJTcwrvwyWHjhJxn QF4jXOYcrbblZSMvuX5u NYVkD8r3YeShCoL0QQrf L1VjcmT3PADpjOZm HRbuOGD1O47fo1H1CZLe MHVxGXV4rTA4qW9vxZfa bjogbGVmdDsgdmVydGlj AVimAQgoR689PJNk rTwiFBYekU5mZOZteMLx tXilOY4mGPWekbvwRq4V JRgdAYWRP82yEPgklPN+ QGHvWFT0yVbcRVjy PYLvoF1zLJSeE4h1NoPc QsI0IFxdD7ZhHJTxqkos Hq44oB1sJlKlWhH9BHnv A8YflzO6TNEtpYKo VKatJQA3J30et4S9PQOx UNGkZKM5oAD7nT4miIcl bjogbGVmdDsgdmVydGlj SVweMNygJ055YHLm gImmShDlEbClTaJ7GOc7 U6NqKqf4WRCuuJtvNW9y uNWbWTheQt8gaMefnDpl LU0fQCKmvmqkWROz mA7dMXDxbIBacIbgKS3j OVJmqbhnv853BsKtFCE5 CRUspOJsM8OkvC9kJjGr EUGdDJPbG6MnoPEd VMmbI823MMfjFtX8QIAh wbBeD5IbIXGmzYyqCbT7 u8O1Ma2eUqZQPAUfforp dGQ+MNDpBHW6tTrl EOuyCYExwE3jFQQjV1s2 UrJaJiY3FWeoG5PtATIq vtsoSj59hA1eNeItXzF3 QGcjR6WrsaH3ZNBv wHFaEShwXUU9D18jw1B2 APQjODXaTEF7lFP2lM7p bGlnbjogbGVmdDsgdmVy nQusRAlcBJugH359 IHRvcDsnPkZlbWFsZTwv dGQ+QWLiJUK3lZxtZUnb XYEedI0bCIBbH9x0BxRt ZiE4PFghB5HbSDWv ovrcPl39iS4jIuQrOtH4 AWtxA9OmaqN7DFLblVXn SXyzQXY7X93io7Y4YRWk JPImUCU3vIL2eZ6b bGlnbjogbGVmdDsgdmVy vDnmUIbmNEkbN491KWCs xEisCrXdoC2rSEEsXLuw bWVudDwvdGQ+PC90 wj57H8XmGxkyTcg4CCIy OKU5iVX1qT4wBWUcAMkc f7O5sWV0N2JuzkHxgr2o h9ikYANmZUpfG80h bBPhz3E7YYBooNB9YLCk eXugHgDgcS55Fuz+PGNv bSrlg8UrKyxny4kob0lt dVm0ZoQgTDDkqkPr vWgcRMS6d0JmDr19P41o IHdpZHRoPSIzMCUiIHZh dVupid6ftO8yKp3+PGNv zFK4uJI3gN9sGuSi UcJ0IShiO778NhTcfXVw Maaty6jcv0vveZu2HiRw WZFtdvWltYclQDK8n7Bz Ib69M2BynPejv0Jz Hcd4ek11oZDec6L1eFD2 F1YyVVZsiuimaHQtaUec BX9dLHUtuusjTSMjtY3y KZShC2g3TwMkYpD3 KSczG6LtmpB7CSDvmVIl ADLjgEJHrZ3kojeaa5hr ctguJdJkJHDmVJn5NKm8 LWFsaWduOiBsZWZ0 CdZ5GPO1vSFkzJ8qgIlv vovhmC3hZdh+FNm1b1qi sYZhIG3shPG4VW37ME89 xYTcn2I4iNJ8C9Fw SWCxpfnsfbgkdMU9ZWUf HIXgvS65Re8ebJgfXz6s RCBpSTS5JKBqdRTsD4Sy oO4mJiRtWXKlCXMd W0QaiSVqVIexG774FBbm VmH9NMZzsrEiR4JgZRLx uLkqKdB8v0O2Ul7ZHR62 QR53KV86jYMjf6Y9 zRN7F7UtDVBczltxxydy nKH6HBJfEWKimR63Dy2u kOdoSz7eWVYpTFD3OTMj oBHdT0DxdR5vOaPf PFOgDSQpM9HvlCSbDYui E186ATblZcY2IGJxqtTu S6LzGXSwbSgxFjF3n6V2 Ek3KXt29DQ11SF41 lIXoh9Q6zXL8S3FdQREc fwfjvqsczPV6CIBvWAWg jS98Lx4hcSzmAg5qONEh LLJ0ZBPldLCiV8Kk uX9xCuIaJJXvOVNeM6Xk fWTyQWneE427CLjjIgE8 URVxlaFoQ7KjUQMlxUtc CgI8n4C3Og2AAFbv tuh1T9OzXlgvuZI+PC90 FGLxCS91dMZkbLAzg6xh fFn7UoDyNBQmQRO3oQuw KUpdj7KzSPYrN46s bGFw (more content not included)... [facility] Consent for Treatmenton 07-24 Consent for Treatment [id number] 9#1.00CD:127 [facility] Consultation Noteon 08-20-19 Consultation Note Patient: PRABHA LUNA Age: 32 years Sex: Female : 1990 Associated Diagnoses: None Author: Altagracia Curtis PA-C Subjective Chief complaint 08/20/2022 14:57 EST Middle of back pain . Patient is a 32 year old female with a past medical history significant for a [facility] claim. The approved codes are m51.26 and S39.012A. Lumbar annular tear and lumbar strain. She is here today after seeing Dr. Christian Juárez. She states that surgery was not recommended to her. She continues to have back pain and intermittent left-sided lumbar neuritis. She continues to use Lyrica 50 mg twice daily and tizanidine 4 mg as needed pain. These do slightly help. She underwent previous L4-5 epidural steroid injection done on 06/25/2022 that gave her 80% relief for about a month. She still has 50 to 60% relief at this time. She does notices some lower back pain with intermittent left leg pain. She rates it a 3/10. She states that she has difficulty performing certain maneuvers and difficulty doing certain things. Otherwise it is still well controlled with the medications and the intermittent injections. Health Status Allergies: Allergic Reactions (Selected) Severity Not Documented Bee Stings- Swollen at site. Bentyl- Hives. Chocolate- Migraine. Red sauces- Migraine....... Nonallergic Reactions (Selected) Severity Not Documented Reglan- Twitching., Allergies (5) Active Reaction Bee Stings swollen at site Bentyl Hives Chocolate Migraine red sauces Migraine...... Reglan twitching Current medications: (Selected) Prescriptions Prescribed Zofran 4 mg Tab: 4 mg = 1 tab(s), Oral, q6hr, PRN Nausea, Take one tab by mouth every six hours as needed for nausea, # 10 tab(s), Refills(s) 0, [id number], [facility], 02/05/22 16:14:00 EDT, Height/Length Dosing, 68, kg, 02/05/22 16:14:00 EDT, Weight D... Zofran ODT 4 mg Tab-Dis: 4 mg = 1 tab(s), Oral, q8hr, PRN Nausea/Vomiting, # 12 tab(s), Refills(s) 0, [id number], cm, 11/07/21 12:07:00 EDT, Height/Length Dosing, 68, kg, 11/07/21 12:07:00 EDT, Weight Dosing pregabalin 50 mg Cap: 50 mg = 1 cap(s), Oral, Daily, X 30 day(s), # 30 cap(s), Refills(s) 5, [id number], , 05/11/22 14:58:00 EDT, Height/Length Dosing, 68.5, kg, 05/11/22 14:58:00 EDT, Weight Dosing tiZANidine 4 mg Tab: 4 mg = 1 tab(s), Oral, TID, # 90 tab(s), Refills(s) 5, [id number], , 05/11/22 14:58:00 EDT, Height/Length Dosing, 68.5, kg, 05/11/22 14:58:00 EDT, Weight Dosing Documented Medications Documented Claritin: See Instructions, PRN allergies, Refills(s) 0 Emgality Prefilled Pen: SubCutaneous, qMonth, Refills(s) 0 Excedrin Tension Headache: Oral, q6hr, Refill(s) 0 Flonase Allergy Relief: = 2 spray(s), Daily, Refills(s) 0 Nurtec ODT 75 mg oral tablet, disintegrating: Refills(s) 0 levothyroxine 25 mcg (0.025 mg) Tab: 25 mcg = 1 tab(s), Oral, Daily, Refills(s) 0 naproxen: 500 mg, Oral, BID, Refills(s) 0 omeprazole: 20 mg, Oral, Daily, Refills(s) 0 Problem list: All Problems Smoker 21-JAN-2014 12:37:00<$> / SNOMED CT [id number] / Confirmed Added secondary to documentation in Social History. Acid reflux / SNOMED CT 903436625 / Confirmed Anxiety / SNOMED CT 67570130 / Confirmed Anemia / SNOMED CT 025205388 / Confirmed Vomiting / SNOMED CT 6407729745 / Confirmed Headache / SNOMED CT 94617926 / Confirmed Resolved: Migraine / SNOMED CT 81578323 Resolved: Depression / SNOMED CT 594853981 Resolved: Pneumonia / SNOMED CT [id number] Canceled: Biliary dyskinesia / SNOMED CT 443275118 Objective Vital Signs 08/20/2022 14:57 EST Peripheral Pulse Rate 79 bpm Respiratory Rate 14 br/min Systolic Blood Pressure 118 mmHg Diastolic Blood Pressure 75 mmHg Mean Arterial Pressure, Cuff 89 mmHg General: Alert and oriented, No acute distress. Eye: Normal conjunctiva. HENT: Normocephalic, Normal hearing. Cardiovascular: No edema. Musculoskeletal Normal range of motion. Normal strength. Slight pain with compression left-sided sacroiliac joint Slightly positive ELYSIA test on the left Integumentary: Warm, Dry, [place]. Neurologic: Alert, Oriented. Psychiatric: Cooperative, Appropriate mood & affect. Impression and Plan Patient is a 32 year old female with a past medical history significant for a [facility] claim. The approved codes are m51.26 and S39.012A. Lumbar annular tear and lumbar strain. At this time she uses tizanidine as needed and Lyrica 50 mg twice daily. She feels that these help her. The intermittent injections also helped her. Her last injection was almost 2 months ago and she still notices improvement from this. We had a long discussion about this. She is going to call our services should she require a repeat injection. Orders were written for an L4-5 epidural steroid injection every 3 months as needed. She will call should she feel the need to rep (more content not included)... [facility] Comment on above: Result Comment: Elec tronically Signed By: Altagracia Curtis PA-C\.br\Date and Time Signed: 08/20/22 15:19 EST\.br\Electronically Co-Signed By: Cortez CHEUNG, Clyde [place]\.br\Date and Time Co-Signed: 08/28/22 11:53 EST Legal Correspondence Officeo n 08-20-2022 Legal Correspondence Office [id number] 6#1.00CD:127 [facility] Office/Clinic Note-Physician on 08-20-2022 Office/Clinic Note-Physician [id number] 2#1.00CD:127 [facility] Patient Correspondenceon Patient Correspondence [id number] 0#1.00CD:127 [facility] Patient Correspondence [id number] 7#1.00CD:127 [facility] Patient Correspondence [id number] 6#1.00CD:127 [facility] Patient History Officeon Patient History Office [id number] 6#1.00CD:127 [facility] Prescriptions/Work Noteson 0 08-20-2022 Prescriptions/Work Notes [id number] 7#1.00CD:127 [facility] Outside Records Officeon Outside Records Office [id number] #1.00CD:127 [facility] Coding Summary.on 08-03-2022 Coding Summary. CD:[id number] Gh0bWw+PGhlYWQ+PE1FV TClI22ovTBmiH4CT6pEC Y2VDAUVZHHIRI3TYF1ju VU5BXssN4OtvgZf VsyccOCmGJ75ODw7MLR5 pUmdJHmotF8zdWIqK8b2 VgSsDY02wR01ZHdcSXSp BiP4RpOzsqocaICl C4phNnAkmVUnOkc+PHRh YmxlIHdpZHRoPScxMDAl KrHwcPlgSP3kUh4oYEVv LWNvbGxhcHNlOiBj d4kuGKJpZZbrKC0gbYqp A3TodPN4YJMzm4w1Us36 dHI+XRWmUIW1lLncCTvo e916JvMqn4mlWEH5 fKWiXUiwFIS9S64qz2R2 SWLzXHCzCWC0jZV1rL8f pAxiwianD9UneVAmYeC6 WNO8wKPleO2kaIpj ydfdoM3mScg+A33QGZ9U LUFDBV7GUdg4Q6JiBcjk dHI+LL20BTSjSF51gBBa kCFjt2qqsGw9XwWm ROUpWJR3jVwoTAvrt3Qe KIFiH75csUMoq7C8PQJu eXtxaLHwZnPisTM1wY1z UFvzaumyp1tinotu Hezlr4aoir02kV16I74l QJqwXIHrEZL6PADjPVVz yTqqwh0mqC4bZg5+IDxj q5vrh5ijgMv6NzRd WPMmjqHueTrrJSO7d4Yv Aj41H8RnjRdwz0PdEpq1 nt58wYRfa3E3uEK2CQrb CYUhcQ4iZYgwViT5 QCTaStSjyF22fKTeZBxv Nq7jlTkdbAuvKC9eOPWq wxznKHEhoW5rWDSyzMXb aNvfDT9zHQJrozry i792SrUyXLB8JXEjvJHm D7IyaN6fOmLuNMPpPTQt Q7WmoCUoHZzhD014HVlc GgN4DHFsvpPtC4Fl PPBepRrsVsH6n4C3Qt9F x4JnbroeBCS0TPlhCBTi SjUlCwToOgG4M4UlReg5 EWQmhIeoDZ1iE8Tc ITEpbzzwernyhZC9JAOg CVFcoW89pVWwPLpmZx8r t1S1x777FLMjSOFejY23 Sq4pkCsnNJTddSXI sU0wvzpao5euzsqnAsIe PGSpVPx5VMl5AVGzgUws WrCeJTL2LbV9DST6fYZm wJ9jvRcsodvzqZ8c Oyc+Q04neU1kODT6DNT8 tmryETPaviHpPI51DG48 M3LcLfuxsNKacYT+PGRp opLndPuaHY4xVmIy x2xnz9UwYChrX5VrNOGr XBdkQrf2MKRgKHI9kXU0 gV4bFRMeLIyve1R3kBS2 L3XqwcFeeb0ez5hq VXJoFNtgX89qtCMdy0C4 UJHrlDO7CSGhwLycSwYc nI34Iko+EEMitXszv5Yk Rfezj4rug4tkxQn6 IjMwJSIgdmFsaWduPSJ0 s1EsLm82Q49gNRgiSQAy YSNbMGUuVCNeyVntyk4r lA0yZj8+PGNvbCB3 xFE5aR8hLFSkPvE0VHwc S690QzItsJVyYocsq9ov a2vxqKi2AxXfHUBflcGs mNnkBVP7i9IbHq87 R34uJWawYNIvDSWnNPCc BLYvwBjhsh8lqI3zTe8+ FC2kw2dels61oJ53gFE+ QXRtSMP2wAxfDBsp VJOdpL6dFTjbLyD8NZIl XgQgeQ39eAAjRVjxYw5p iZntnFbqZA1rTNHizzxc o830KpSsp4qfLETl xDOsNVvjJQA8T86iq5Q6 QBGlJDHaVKI6kKG5zK4g bGlnbjogbGVmdDsgdmVy lFzlVRgiZMnfS955 IHRvcDsnPlBhdGllbnQg TeElWZk7S5JtXag6SWOp sUawYL8oqAIoFQclRk1s cJdrrTheZB1hPUPe ealtn033TnQtm8gpIEYd qBCxTQkyCVO0H15zy0M2 WTQdXQXcPYD8mVM1eM1l bGlnbjogbGVmdDsg poFflFiwIVulSCwlB242 IHRvcDsnPkJpcnRoIERh uUY7BU23FI50rMMjg8Q2 jQK8G4WeUWCiuyhd ntohePQ8FCQqSUBzgM56 Ep0rtQecEd4yPWFhILY4 HZWcxSBrC7QrjU1pJpJl OPTnWVRkW9JteNNx OSjoF700OFtjVqB5SRKs qaThN5HxJTXsuOtzIjU7 t9U3Px8OX3V8IL03KV39 sZYrz1U6qUC7D5Tl XQYoxdqifuhggES4WIYm TFGfwP19Vs7ebCuwZz3p MTByDAZ7PYFtvONiL1Tm hX3eKxZvKTBiBEHa C0AqiTIpJVszK899HQif YvM2DKHqmtSlW7CmXKUr lXkqPqT1r8N1Jc0YPId3 FP82GW08sDAjl5P0 jJJ4G1VaRKJoeawgcwwb zQN2DTTgYUWlcK03Vq3v vQemKp3qAIPbITS5LLUc oCViF0IbcV0xPmDq NANaOFPwI9YbpTPqGSaf C001CKmfVeP8AFLekgIv H9SbQTGakMlfXpI0r5V9 Cx4BDDVwQI33PAQ9 gBF4ZH96UV90D1XtSmhl dGFibGU+PHRhYmxlIHdp ZHRoPScxMDAlJyBzdHls SQ9bUw9wREVzUMZs fFycfRKcYkUnc7rmDAUf SKtwIU7hqFjjJ4TseGR9 PNDtb0g8Tr28M84jC3Ly dXA+KMNwhEX2dJQ8 mT4qYeUtKeD9MPdhE206 FiQrdGPwIvlni5qhb5qm iVr7XeR6XHVkgrRigZvp LZR6z7RlPi51Y43i IHdpZHRoPSIxNSUiIHZh nTlfnf8dxO8cFt0+PGNv sNP8zRC4rS0dDhNmFuJ5 NPjqX153JqMmmFJs Yjnbf5ayd2tmaQn9EsEn SYYsytOemLvmVFN0n6Cu Nh09D7DlvJskf8PtHyr0 wk93rHNvd0K8aIA8 Q6CcWQSatpxdfXLbxLeo JZ3bSFBgdrrvRBDhjM1c WFEcW6e8WaCtWhP9ETxk Y2DnkdB7ZSFmeNIc KCneVNI1Z33sb8Y1RUPh QMYnMVB8fXP0hT2waFmq bjogbGVmdDsgdmVydGlj NUijEMmaH400JYOo oOaeDJFafO9jEIGlgIZp gLrlLY1uQLFznwbtTp7A WSspZIRTF60fNEzawFZ+ XLZhAQD7tSklYGoy HMDhpZ4cBGQuQ0h8AaQa YsR4ZGodS3AvMWOwntie Fn43rF6iPkUeWzT4BMmc S6YgmzZ9TPGurKBp TJeeLAM3I99se6P5DKLm LXTdDEX3oHH7eG2iyJbw bjogbGVmdDsgdmVydGlj LMjcTUymQ642KTEy uZxcDgHyBxHqFgC2MIo5 I4YjEcn4RWRaqDttYT3e lUHcEOwpSy4xnBdefRjr HQ8mVJWevjmaKSAz yZ3kZJAvcHIocWxdVZ3l DCWmaivoe077VvNzRGF6 QVTfyPCrZ2MigJ2vSjYk GJRkWAUtM0JdzKUz KJomC327FZegJxS4CAAy kiUsX5UfUZIfbLdcOuC4 h3K5Xr0qQaKKUNKjkuxr dGQ+YHCzUOS1zCzw VWbbJUBpzU7yBLBvA9s4 PxJgRkU8RQddA6JiZIJf eictIi47xC9aDgNcLeZ0 VEqbX8PauaM0KKUr oIGqXQjzXTJ6I33nh7N5 XUWhAITlFZM8bKZ5xE5s bGlnbjogbGVmdDsgdmVy mKrgVYxwEIxjR651 IHRvcDsnPkZlbWFsZTwv dGQ+QUEaVMF2nYhjRWkt MWJiwN9aELKlN3j4PmRm HxM1UYdfY6GvXDDg ecwlEl10pT9lBkGyGjT2 HEkaR6GqthR6ABEuxYXl CHusBJQ7T82zg6I8LWMg XZNdLXY3pNY4xE9c bGlnbjogbGVmdDsgdmVy jVokGYblHBonL180VVBc aFvhRc74oAFucCfqpgE1 K2PyCvqzfTR+PC90 JKEsEH73wAFvlXUkq0bl fMe6CrTmOHQjCYX6kEaa FGyfw7AoEZMpS64woVZs l4F4GHRjeWdviVJw XhXehVZ5bF5oKCdynnlt n6qjiotgZlram1ojwi29 iL28A58eVTxyBJHfVGWd YSNnTQOrlGsowr9r pH5vWr9+GEHwhZE7dST6 xE8mRqLdKpS2EOtsP564 NsTdaJJzDefdg5ofd6pz bMg2HkGiZUQtleSp xWjbCPS2i4ZhZr80P90u IHdpZHRoPSIyMCUiIHZh mEuvwc2usX9bXc2+PC9j j4pekb54oG99bRI+ CHJmHQB9rHfzTRbyOMAs lJ7dEXiqFkD3EFEeFlTd sO70uQSbXKxcQf3avAnd wApiIK5oIYIagtgx g393CqCvl3fnVMZmsNYb CIcyTII7I84qd9T1QGMx BYZiMCM5iOL5pZ5yjNhe bjogbGVmdDsgdmVy iYsuBCocIZzgY369NMXx oIkdMkQmxVQnO7ppyeFX OF0zPuhlqZO+PHRkIHN0 rOmuSRsbSBXbwK8j NGQlU5x7PlHlAaW9UKwf Z1HysaI9ATFqlGBdPNXl fMCIpX0exirdu8raacxn ChNbTBPvJPr4VGn4 ZYSpzLzkCyPpEZX9EiY5 BBR1mXWouL9ajSgskwzd aO4hYya+RklOOjwvdGQ+ OKGhSZO7lYcvZHgm GLGloH6lASTvM7a3DwMf BuJ5WVhlD5EptiQ0PGRo zYEwIWJtnQSUrG9tlsdm r1kxcvggXnUpPRAt TOi3ORa3YUAbrDucNvLb HYS8BsS5PWJ6uCRblS3r wXuvpkbjpG3jRmm+TVJO OjwvdGQ+PHRkIHN0 hWbrGJkwUFDeoI6yCQZz B6l6KoYoBuP6BEeiH9Bo wgL7EDRcbWJpENZsmQCN cM1krpxyg6ursgsd BkAvCUIhESc5FNf3DOZg hFouLaZaWBA9TgF2RDS6 kQMmjI0cvKslbedbpS0l Oyc+SWB8DHY0NP98 SL23A4HcPjehwJZnkQP+ PHRhYmxlIHdpZHRoPScx MGBiDxNgkSsfNV3tZq0m ZGVyLWNvbGxhcHNl OiBj (more content not included)... [facility] XR Spine Lumbar Complete Inc macie Bendion 08-01-2022 XR Spine Lumbar Complete Including Bendi Exam Date/Time: 07/31/2022 19:42 EST Reason for Exam: Pain, Non Traumatic Report IMPRESSION: NO SIGNIFICANT ABNORMALITY IS EVIDENT. CLINICAL HISTORY: Pain, Non Traumatic. Chronic low back pain. COMPARISON: 05/07/2022. COMMENT: Eight views. The lumbar spine is unremarkable in appearance. No interspace narrowing is noted. The lumbar vertebral bodies are maintained in height. The facet joints are unremarkable. No significant hypertrophic degenerative changes are noted. No fracture nor subluxation is noted. There is normal motion of the lumbar spine on the flexion and extension lateral views. Of incidental note, there are surgical clips in the right lower quadrant of the abdomen. FINAL REPORT Dictated: 08/01/2022 1:36 pm Madi Tee M.D. Signed (Electronic Signature): 08/01/2022 1:36 pm Signed by: Madi Tee M.D. Transcribed by: ALFRED Technologist: SHERRY [facility] Consent for Treatmenton 07-22 Consent for Treatment [id number] #1.00CD:127 [facility] Physician Orderon 07-31-2022 Physician Order [id number] 1#1.00CD:127 [facility] Physician Order [id number] 0#1.00CD:127 [facility] Workers' Comp Officeon 07-31 Workers' Comp Office [id number] 1#2.00CD:127 [facility] Referrals Officeon Referrals Office [id number] 9#1.00CD:127 [facility] Insurance Correspondence Off iceon 07-20-2022 Workers' Comp Office [id number] #2.00CD:127 [facility] Coding Summary.on 07-13-2022 Coding Summary. CD:[id number] Gh0bWw+PGhlYWQ+PE1FV XHrD00soRZkaB3XW6lJK O2WQBLUSWPTPG4IDI8nq LA1DDieO8SqdcSy PgpnnFTbFE32SZo3KWY6 dXolAKahkX1ltIJkI2m8 MtXyBM92fM51OYugZLPt TaQ7GjSnopfslKQy B9hkOwXguVObGza+PHRh YmxlIHdpZHRoPScxMDAl UgTkcJzxXR4iUw1oBAYr LWNvbGxhcHNlOiBj x2gfIXLgVXltFZ2fmArz G1EncDY2OAUkn1z2Ny93 dHI+CJAzKOJ6pRrhCVwh b661VsSho2wkCRB6 yBDbMKfpPNH2B38rf8Z6 UXRaQTUrYNO2aHR9pD3c nClpywjvJ3BjoLEnYhU7 OOM2lRJsqE1mwKap oorjjL5yUxp+A47BQY0F GWNRFI6LWil0N0NtScha dHI+QN97ZMUcYN21dWHj lNNcb6zpfRx4YoJm SDLfUKD1mEnwOPrkq6Dk QLFiL41mhCJid0F3CEIp mYqrvQYfNdPzvPO8bC9z QZctrchay0yeechm Gyynj5oppk93gG98W92r CZpmULMyKLM3PNTrNGJu qRktqt1bwD2rBp2+IDxj n8srp3agdRp7KzPd OBWrngDlfSqyHNS1y6Tu Ex01Y4EmnYpxs5VpKeu2 ac80cDQwx0Y9uKJ3SHsu SZFlkT4vQNocXvZ5 EWHnLgLhtC16jJRgPJwj Ic4jvMflkUffRV6nHOAz cwkdIUKeiR2nGMTrpERj uOpyTG5yLLZdjwam i459RlHcKDT5TEQgnGTp L1UraW7pFqAiANGcHULh B7XqqBBqRUzxV711HXpb EzQ2MKBvkvChC2Jp KNUxwBkyQdV5h3V1Ij2F r4AavlfsQDQ4PQmnFUEl HcToRjYhShK8G8QsMnp5 OBEceStzJB4bD4Ro YFYmdesvtxytlWN8IWHo NOOsvF92yQZaMYpvYi5y h5P0p528CBMlDOFswC33 Gk8hoSbbMDTqyNHE jG8gyymrs9syscgtPmPc BVWoOIq6VEg4SDSmbWzd YiSfSEC9XsZ6QFS8gYNn qP9iqSicrketcT6a Oyc+Q53qoF5qOVJ4BCR1 kjskAINxrwJnKA18WL69 Q1JpBlmriVRuqGM+PGRp qcJxkImsQU8tCvRk e2yku6MtBIjsA6PjCPUi ALtoAeq8QNTtNPP3wEC2 yR0vBDVaNGpnc6M4tQP7 R8LebrUqfg5ii2un UZKpGYpqI18lqUPpo9D2 ILCmlCP1YSWzkAytAaWn mL53Wxq+YYZczQiyl1Gp Rsyyn1ecb7rbqZh1 IjMwJSIgdmFsaWduPSJ0 f5WlEq94F30fAFmxETPf SVMlZNBuUUIkgMmeow9h iB8gRy3+PGNvbCB3 gUX6nY2eVXUmRzP0AEid H119ClPbhIFeZugxh0ua f0enqPx5XvEbGDBsssLq kWurYZK6c9MxNn70 O71mFWluSNOeFGLxJKCj CEFteTrjuk1vsU0vUg3+ OL6oo7rwpy48kW54wRY+ HMFyTCM2eIycRFvi CCYfqZ1lZChyEtS6UNDc YdTgdQ50lAXhOOxmZi0h zHkxdOgkJT0lFGBjdiwt f663EqVsu4ijUBKb kNKpWVnxZVQ1Q41jn1O2 HZFmTBAxIUX7jNV8qK6a bGlnbjogbGVmdDsgdmVy aKexVVneHQrzD148 IHRvcDsnPlBhdGllbnQg IoTjYHr2P3GlWic1RPFv xAegIJ8lqBGwWPjdVh6n dUadaCnrEC9xIIRo tvlad335IgIhl9raQIXh cKMfFHgcHPB2K54vi4W5 VMVpQCTyEZW4pFH4bE0t bGlnbjogbGVmdDsg cuUkwMipGZtdNKuqP848 IHRvcDsnPkJpcnRoIERh eXL4JG08VA62uHNxl5I4 rZQ7K0MuSRThrvgd lcldjGH1PWPiLLHhhB20 Rf8ndVtrVa7pMNRoHBL0 ZLZrrVRlL7FsgN7iRzRc PTFrLZYsW2QoiVNe GIhoH077NTouNbA2EWVu mrJkY2EwOURwuEurUaT6 p3K1Gb7UJ5Q9MT63HK06 iOBpp1O3aCA1R8Rk XGTlcacyvhdqoYT8HRKb LODtgM75Pl9dmTiuVs4p KAQvGVX7FWOzeNFnK5Se tD8gCvYuVFLkJPLd A3KepKNvRHydY162VTuf BzW0ESTuuxSaW2WpERGe tEbfExF6t3L5Ob0KBBi4 VO73MA67lXHqn8P4 pDV3I5AjMGFndjxcygfg eQC0YFPnXUDxxA31Rn3t fFbyAx8dGAAnVTU7KRUg mZCnO9NvaL2sEfKu BQHvOSNhM9AepQZuTUlo O901LQhmWdI3GIQfonAt N6EjNKOngTzvMnQ6r6P6 Bd2SJDBjTS96DZO6 gEY5PZ23SK89U1NfErvo dGFibGU+PHRhYmxlIHdp ZHRoPScxMDAlJyBzdHls FO2dSn9sFQIjMEEh aXlvxTAuOkWdq5ciOTPm VVdnSA8lrTsgG5FrjUY7 BVBlj6x7Me39P11oL6Zx dXA+WTZkkKG1uMP0 gB2tWqPqKoN8EPabS492 OfCqzUKdEinue1pps3aa eEg9GcU7AMAfisQhnViw RYD8z0OjUs86C59w IHdpZHRoPSIxNSUiIHZh aXiiwe4jdT0tLm5+PGNv qEJ9sSS9cO6vReZgVpH6 RMohM651RoPdaNNn Jetml0igg5oynPr1GqTt YLBttcQttQicDFZ1k7Ze Yh82G2FakOozc6YtQta5 cl67kXFhs5G8iCB8 R8IqVALndxlimKIquBkk IF6uEPYtxkulQOFefM6k NJNtR4r9IlXbZmJ8SQrk L0ZhopO6VIWgzDRg OTjdUDM2Q47mx8X7GJMt HOHtPHA7cZE6eQ5vpXkc bjogbGVmdDsgdmVydGlj MQelWTubE165KLZj tFcbIARtzN4cYZAywBUp hQupZN2yJECjmedaOo1H HGqyQGZME37yHSlqoQG+ KFJfVJR9nNawFOrp GPKisD1nNUCwN0r0NuXi WxM9CRrhI8UiYRIhtqco Dy77aQ1uZrBrDxL8YTfh Z8OyvuH7WUVfoSKh UEdrVUJ1U68oi8O8BQUr OUIyIDB6eUC9dW7guEwe bjogbGVmdDsgdmVydGlj GWwaNGelC030XHVe zFldIaZlTkIfQbR4RBm5 T5SfHog3FDQgwYioMO0t dNIlXOxpWc7huEqtjAtw AH8cGVFrtrbqBRKc zQ5jEMMbuDIxrNlqUQ8t HPEmvwozn112GkAuNAO7 GTSzyMXbY4MlwX3yOlXo AEBoXCTwO5JzfMGi NMmlP631DQkpHdY3YRRv zxOnW1CeMHGxwDkrQwM1 q3Q1Wj3aVtTNIANxihlg dGQ+KWDkIQG2nPiw NXkeGBMcnN6mADKqY8s1 KoCyOdC5OIwiO2SqDJGj psevQc17uR6kTjHnWwO4 DQskB8XmkgU7FJRh yGRsESmjRWY0K30og8R7 XBFfUVKnGGZ2gWF7gA3e bGlnbjogbGVmdDsgdmVy aWdeGJxtMQxdN958 IHRvcDsnPkZlbWFsZTwv dGQ+LQMpYQJ4bNhnPBqv SSZpjO4dTQZjG6y6QuFh LgY1PNkoG7SjXWSd opfqMv89cZ8eXcViXqO4 GAzdF1UkfxM7FDMgsRYy QHekVTE0S41gt2I3LMNy JYDmAZE1aCC8tS5j bGlnbjogbGVmdDsgdmVy gTbiKMptSNuaU811YNTu jSjnKuOiuQ6sJISdGVbh bWVudDwvdGQ+PC90 bm59G1BiVpfpVjp4MOTc DDB8qTG1sI0aODIzICan l6F0wEP6E7BlteBchs1u n2ueBEVrADiqM95v gNJtu3U6RSZxlQP2GFOl jYliUxPstQ23Pvs+PGNv aUqlr5SjZniuj5odh7qv kJn0GbSjLYMnqwPh oHejNAF1w4ItRf17P06h IHdpZHRoPSIzMCUiIHZh tFxkre7grX4gFs0+PGNv oJV2uER8gN2gZsTw GrL6XNwlO561ZfUgxHUo Zkrwj6zfb1fjsTc8TzCt RBQrkhNxeJunXRO6s9Ua Zp89A2KurTtwb6Ej Hfh3xe71dHKoj8U3aJO7 Q4OoFEAnieezxSMjbImo GU9rQVAjugypZDFtxM7i JAMtM8g6AdSzNwR6 OEjkY6ElgzC7LYOsxMOh WWDpkONHnM3sguguj4da rqjlYiIoXSAbBNp2JTu5 LWFsaWduOiBsZWZ0 McW0VER9yWSosV5swJks cfyjtA2hHpd+RZo2f1gv qTMtWU3ttAK9OZ86WI99 gCGcq0U5xEF5U7Rj ENPgcafvwtkohIW0XIZp PYVlcL45Vq2reDbnWe1w BEQdEWS3QAEhzSCeJ4Ur gS3wIyYyHUUiUMBg D5XofVRlSUaqD242EAeq ZuM7DAGeumPmY3UdNFTm kAxdSwR3e0K1Ub0GCJ46 NO85JT44pHOdr3L8 rMR6K8EdJKNpaqdpclcb oPR4UHUoSWPxaN33Zw5m mQxdSx9vNYBvXNE6CZEp jSQtP1AatK2bHsLp JFCkMAJsV5MlaLIcZUfr Q614RJljXfZ3UCBvsvCg H9GxPUFbhOaeCbH1h1D8 Ba1MNo17FQ66SW89 iXMeo5Z9oDR1P7RtWGQy lvyucjndkSA3VBEpNKKg fG41Wk8geNetJu0uOFGs SSL6EKGpjSMhX3Xc lZ8nYgYdCCMqUIEeC1Rb bYMaOWzuL909RHmoUqP1 ZMRxxiEjV1YfEYLneZqz HzV3i6S9Do2GMKtm por6H2AgRmphzKE+PC90 JENkIZ51fMBlqVDlv4ka bAf2SpWzPYImHIE0yUra WAiuy4BkVLRfX70v bGFw (more content not included)... [facility] Insurance Correspondence Off iceon 07-10-2022 Insurance Correspondence Office [id number] #1.00CD:127 [facility] Consent for Treatmenton 06-21 Consent for Treatment [id number] #1.00CD:127 [facility] Consultation Noteon 07-09-20 Consultation Note Patient: PRABHA LUNA Age: 31 years Sex: Female : 1990 Associated Diagnoses: None Author: Altagracia Curtis PA-C Subjective Chief complaint 07/09/2022 7:44 EST lower back pain . Patient is a 31 year old female with a past medical history significant for a [facility] claim. The approved codes are m51.26 and S39.012A. Lumbar annular tear and lumbar strain. She is here today for follow-up after undergoing L4-5 epidural steroid injection. She states that this gave her 75 to 80% relief. She has some minimal back pain but she states that she is overall doing very well. She is much more comfortable. She is much happier. She continues to use Lyrica 50 mg twice daily and tizanidine 4 mg as needed pain. She rates her discomfort a 3/10 in her back only. She unfortunately did not ever hear anything about seeing Dr. Juárez. She would still like to do this. She states that she does not want to have to do injections for forever. She would like to get a more long-term plan in place. She is once again requesting a referral to see a surgeon. Health Status Allergies: Allergic Reactions (Selected) Severity Not Documented Bee Stings- Swollen at site. Bentyl- Hives. Chocolate- Migraine. Red sauces- Migraine....... Nonallergic Reactions (Selected) Severity Not Documented Reglan- Twitching., Allergies (5) Active Reaction Bee Stings swollen at site Bentyl Hives Chocolate Migraine red sauces Migraine...... Reglan twitching Current medications: (Selected) Prescriptions Prescribed Zofran 4 mg Tab: 4 mg = 1 tab(s), Oral, q6hr, PRN Nausea, Take one tab by mouth every six hours as needed for nausea, # 10 tab(s), Refills(s) 0, Pharmacy: [facility]/pharmacy #[id number], 158, cm, 02/05/22 16:14:00 EDT, Height/Length Dosing, 68, kg, 02/05/22 16:14:00 EDT, Weight D... Zofran ODT 4 mg Tab-Dis: 4 mg = 1 tab(s), Oral, q8hr, PRN Nausea/Vomiting, # 12 tab(s), Refills(s) 0, Pharmacy: [facility]/pharmacy #[id number], 158, cm, 11/07/21 12:07:00 EDT, Height/Length Dosing, 68, kg, 11/07/21 12:07:00 EDT, Weight Dosing pregabalin 50 mg Cap: 50 mg = 1 cap(s), Oral, Daily, X 30 day(s), # 30 cap(s), Refills(s) 5, Pharmacy: [facility]/pharmacy #[id number], 158, cm, 05/11/22 14:58:00 EDT, Height/Length Dosing, 68.5, kg, 05/11/22 14:58:00 EDT, Weight Dosing tiZANidine 4 mg Tab: 4 mg = 1 tab(s), Oral, TID, # 90 tab(s), Refills(s) 5, Pharmacy: [facility]/pharmacy #[id number], 158, cm, 05/11/22 14:58:00 EDT, Height/Length Dosing, 68.5, kg, 05/11/22 14:58:00 EDT, Weight Dosing Documented Medications Documented Claritin: See Instructions, PRN allergies, Refills(s) 0 Emgality Prefilled Pen: SubCutaneous, qMonth, Refills(s) 0 Excedrin Tension Headache: Oral, q6hr, Refill(s) 0 Flonase Allergy Relief: = 2 spray(s), Daily, Refills(s) 0 Nurtec ODT 75 mg oral tablet, disintegrating: Refills(s) 0 levothyroxine 25 mcg (0.025 mg) Tab: 25 mcg = 1 tab(s), Oral, Daily, Refills(s) 0 naproxen: 500 mg, Oral, BID, Refills(s) 0 omeprazole: 20 mg, Oral, Daily, Refills(s) 0 Problem list: All Problems Smoker 21-JAN-2014 12:37:00<$> / SNOMED CT [id number]-5970-95A4-4 [id number] / Confirmed Added secondary to documentation in Social History. Acid reflux / SNOMED CT 142454942 / Confirmed Anxiety / SNOMED CT 45470622 / Confirmed Anemia / SNOMED CT 750701940 / Confirmed Vomiting / SNOMED CT 2257640864 / Confirmed Headache / SNOMED CT 20878355 / Confirmed Resolved: Migraine / SNOMED CT 02975092 Resolved: Depression / SNOMED CT 522935287 Resolved: Pneumonia / SNOMED CT [id number] Canceled: Biliary dyskinesia / SNOMED CT 390775410 Objective Vital Signs 07/09/2022 7:44 EST Peripheral Pulse Rate 90 bpm Respiratory Rate 16 br/min Systolic Blood Pressure 116 mmHg Diastolic Blood Pressure 72 mmHg Mean Arterial Pressure, Cuff 87 mmHg General: Alert and oriented, No acute distress. Eye: Normal conjunctiva. HENT: Normocephalic, Normal hearing. Cardiovascular: No edema. Musculoskeletal Normal range of motion. Normal strength. Integumentary: Warm, Dry, [place]. Injection site well-healed Neurologic: Alert, Oriented. Psychiatric: Cooperative, Appropriate mood & affect. Impression and Plan Patient is a 31 year old female with a past medical history significant for a [facility] claim. The approved codes are m51.26 and S39.012A. Lumbar annular tear and lumbar strain. She is here today for follow-up after undergoing L4-5 epidural steroid injection. She states that this gave her 75 to 80% relief. She continues to use Lyrica 50 mg twice daily and tizanidine 4 mg as needed pain. [place]AR[place] was reviewed. She does not require any refills. At this time she states that she is doing much better. She is much more comfortable and happier. At this time, she is going to follow-up with her services in 3 months. She will continue on her medications and call us should she require anything. We once again facilitate a referral to Dr. Juárez. [facility] Comment on above: Result Comment: Elec tronically Signed By: Altagracia Curtis PA-C\.br\Date and Time Signed: 07/09/22 08:01 EST\.br\Electronically Co-Signed By: Cortez CHEUNG, Clyde [place]\.br\Date and Time Co-Signed: 07/17/22 15:22 EST Office/Clinic Note-Physician on 07-09-2022 Office/Clinic Note-Physician [id number]#1.00CD:127 [facility] Patient Correspondenceon Patient Correspondence [id number]#1.00CD:127 [facility] Patient History Officeon Patient History Office [id number]#1.00CD:127 [facility] Prescriptions/Work Noteson 1 09-09-2021 Prescriptions/Work Notes [id number] 3#1.00CD:127 [facility] CHEMISTRYOrdered By: Lab ROP User on 02-05-2022 Glucose [Mass/Vol] 91 mg/dL Normal 55 - 99 mg/dL [facility] POC Subsection Comment on above: Result Comment: Laura owens RN/ POC Device SN [id number] Invalid Interpretation Code [facility] POC Subsection POC User ID [id number] Invalid Interpretation Code [facility] POC Subsection POC Username FELY FOUNTAIN Invalid Interpretation Code [facility] POC Subsection CHEMISTRYOrdered By: SYSTEM SYSTEM on 02-05-2022 Albumin [Mass/Vol] 4.5 g/dL Normal 3.3 - 5.0 gm/dL [facility] Albumin/Globulin [Mass ratio] 1.5 {ratio} Normal 1.1 - 2.2 [facility] ALP [Catalytic activity/Vol] 41 [iU]/d Normal 21 - 98 Int._Unit/L [facility] ALT No additional P-5'-P [Catalytic activity/Vol] 12 [iU]/d Normal 6 - 46 Int._Unit/L [facility] Anion gap [Moles/Vol] 13 mmol/L Normal 6 - 16 mEq/L [facility] AST [Catalytic activity/Vol] 18 [iU]/d Normal 5 - 43 Int._Unit/L [facility] Bilirubin [Mass/Vol] 0.7 mg/dL Normal 0.0 - 1 .1 mg/dL [facility] Bilirubin.direct [Mass/Vol] 0.1 mg/dL Normal 0.1 - 0.4 mg/dL [facility] Bilirubin.indirect [Mass or moles/Vol] 0.6 mg/dL Normal 0.1 - 0.9 mg/dL [facility] Calcium [Mass/Vol] 9.6 mg/dL Normal 8.9 - 11. 1 mg/dL [facility] Chloride [Moles/Vol] 104 mmol/L Normal 101 - 1 11 mmol/L [facility] CO2 [Moles/Vol] 22 mmol/L Normal 21 - 31 mmol/L [facility] Creatinine [Mass/Vol] 0.8 mg/dL Normal 0.5 - 1.3 mg/dL [facility] Free T4 [Mass/Vol] 0.96 ng/dL Normal 0.58 - 1. 64 ng/dL [facility] GFR/1.73 sq M.predicted among blacks MDRD (S/P/Bld) [Vol rate/Area] mL/min/1.73 m2 Normal >=59mL/min/1 .73 m2 [facility] Chem S GFR/1.73 sq M.predicted among non-blacks MDRD (S/P/Bld) [Vol rate/Area] mL/min/1.73 m2 Normal >=59mL/min/1 .73 m2 [facility] Chem S Globulin (S) [Mass/Vol] 3.0 g/dL Normal 1.4 - 4.0 gm/dL [facility] Glucose [Mass/Vol] 92 mg/dL Normal 55 - 199 mg/dL [facility] Lipase [Catalytic activity/Vol] 27 U/L Normal 13 - 58 unit/L [facility] Potassium [Moles/Vol] 3.3 mmol/L Low 3.5 - 5.3 mmol/L [facility] Protein [Mass/Vol] 7.5 g/dL Normal 6.0 - 7.8 gm/dL [facility] Sodium [Moles/Vol] 136 mmol/L Normal 135 - 145 mmol/L [facility] TSH Qn 6.74 m[IU]/L High 0.34 - 5.60 mcIU/mL [facility] Urea nitrogen [Mass/Vol] 13 mg/dL Normal 5 - 21 mg/dL [facility] Urea nitrogen/Creatinine [Mass ratio] 16 mg/mg Normal 10 - 20 [facility] HEMATOLOGYOrdered By: SYSTEM SYSTEM on 02-05-2022 Basophils/100 WBC (Bld) 0.9 % Normal 0.0 - 2.0 % [facility] Basophils/Leukocytes Auto (Bld) [Pure # fraction] 0.1 E9/L Normal 0.0 - 0.2 E9/L [facility] Eosinophils/100 WBC (Bld) 1.5 % Normal 0.0 - 8.0 % [facility] Eosinophils/Leukocytes Auto (Bld) [Pure # fraction] 0.2 E9/L Normal 0.0 - 0.5 E9/L [facility] Lymphocytes/100 WBC (Bld) 19.1 % Normal 14.0 - 50.0 % [facility] Lymphocytes/Leukocytes Auto (Bld) [Pure # fraction] 2.4 E9/L Normal 1.0 - 4.0 E9/L [facility] Monocytes/100 WBC (Bld) 5.6 % Normal 4.0 - 14.0 % [facility]eAuto[facility] Monocytes/Leukocytes Auto (Bld) [Pure # fraction] 0.7 E9/L Normal 0.2 - 1.0 E9/L [facility] Neutrophils/100 WBC (Bld) 72.9 % Normal 36.0 - 75.0 % [facility] Neutrophils/Leukocytes Auto (Bld) [Pure # fraction] 9.0 E9/L High 2.0 - 7.5 E9/L [facility] HEMATOLOGYOrdered By: Stefany Beaulieu on 02-05-2022 Erythrocyte distribution width (RBC) [Ratio] 13.2 % Normal 10.9 - 14.2 % [facility] Hematocrit (Bld) [Volume fraction] 43.6 % Normal 34.0 - 46.0 % [facility] Hemoglobin (Bld) [Mass/Vol] 15.1 g/dL Normal 12.0 - 16.0 gm/dL [facility] MCH (RBC) [Entitic mass] 29.9 pg Normal 27.0 - 34.0 pg [facility] MCHC (RBC) [Mass/Vol] 34.6 g/dL Normal 31.4 - 36.0 gm/dL [facility] MCV (RBC) [Entitic vol] 86.5 fL Normal 80.0 - 100.0 fL [facility] Platelet mean volume (Bld) [Entitic vol] 8.7 fL Normal 6.4 - 10.8 fL [facility] Platelets (Bld) [#/Vol] 246.0 E9/L Normal 150.0 - 500.0 E9/L [facility] RBC (Bld) [#/Vol] 5.0 E12/L Normal 4.3 - 5.9 E12/L [facility] WBC corrected for nucl RBC Auto (Bld) [#/Vol] 12.4 E9/L High 4.0 - 11.0 E9/L [facility] SEROLOGYOrdered By: Mari Miller lps on 02-05-2022 Beta hCG Ql Negative (02/05/22 4:45 PM) Normal [facility] Heterophile Ab LA Ql (S) Negative (02/05/22 4:45 PM) Normal Negative [facility] URINALYSISOrdered By: Mari dai on 02-05-2022 Bacteria LM Ql (Urine sed) Trace /HPF Normal Trace/HPF [facility] UA Auto SS Bilirubin Ql (U) Negative (02/05/22 5:00 PM) Normal Negative [facility] UA Auto SS Clarity (U) Clear (02/05/22 5:00 PM) Normal Clear [facility] UA Auto SS Color (U) STRAW Invalid Interpretation Code [facility] UA Auto SS Epithelial cells.squamous LM.HPF (Urine sed) [#/Area] 0-2 /HPF Normal 0-2/HPF [facility] UA Aut o SS Glucose Test strip (U) [Mass/Vol] Negative (02/05/22 5:00 PM) Normal Negative [facility] UA Auto SS Hemoglobin Ql (U) Negative (02/05/22 5:00 PM) Normal Negative [facility] UA Auto SS Ketones (U) [Mass/Vol] Negative (02/05/22 5:00 PM) Normal Negative [facility] UA Auto SS Skelp.plasma/Skelp .RBC (Bld) [Mass ratio] 0-3 /HPF Normal 0-3/HPF [facility] UA Auto SS Nitrite Ql (U) Negative (02/05/22 5:00 PM) Normal Negative [facility] UA Auto SS pH (U) 5.0 *NA* (02/05/22 5:00 PM) Invalid Interpretation Code 5.0 - 9.0 [facility] UA Auto SS Protein (U) [Mass/Vol] Negative (02/05/22 5:00 PM) Normal Negative [facility] UA Auto SS Specific gravity (U) [Rel density] 1.020 *NA* (02/05/22 5:00 PM) Invalid Interpretation Code 1.005 - 1.030 [facility] UA Auto SS UA Spec Desc Clean Catch (02/05/22 5:00 PM) Normal [facility] UA Auto SS Urobilinogen Qn (U) 0.4981249 {Lc'U}/dL Normal 0.0 - 1.0 EU/dL [facility] UA Auto SS WBC Auto Ql (U) Negative (02/05/22 5:00 PM) Normal Negative [facility] UA Auto SS WBC LM.HPF (Urine sed) [#/Area] 0-5 /HPF Normal 0-5/HPF [facility] UA Auto SS Activated partial thrombopla stin time (aPTT) in platelet poor plasma by coagulation aOrdered By: Tony Hannon on 01-19-2022 aPTT Coag (PPP) [Time] 34.8 s 25.1-36.5 [facility] B-Type Natriuretic Peptideon 01-19-2022 Natriuretic peptide B (Bld) [Mass/Vol] 13.0 pg/mL Normal 5-100 [facility] Comment on above: Result Comment: PERF ORMED BY: [place] [address] PATHOLOGIST MEETING FACILITATOR MIKY WANG M.D. Performed By: #### H S TROP, CBC, PT, PTT, BMP, BNP #### [address] Basic Metabolic Panelon Calcium [Mass/Vol] 9.7 mg/dL Normal 8.2-10.2 [facility] Comment on above: Performed By: #### H S TROP, CBC, PT, PTT, BMP, BNP #### [facility] [address] [place] [address] Chloride [Moles/Vol] 105 mmol/L Normal 95-114 [facility] Comment on above: Performed By: #### H S TROP, CBC, PT, PTT, BMP, BNP #### [address] CO2 [Moles/Vol] 23.2 mmol/L Normal 22.0-30.0 [facility] Comment on above: Performed By: #### H S TROP, CBC, PT, PTT, BMP, BNP #### [facility] [address] [place] [address] Creatinine [Mass/Vol] 1.00 mg/dL Normal 0.44-1.03 [facility] Comment on above: Performed By: #### H S TROP, CBC, PT, PTT, BMP, BNP #### [facility] [address] [place] [address] Creatinine Clr Calc Pharmacy 77.95 Normal [facility] Comment on above: Result Comment: PERF ORMED BY: [place] [address] PATHOLOGIST MEETING FACILITATOR MIKY WANG M.D. Performed By: #### H S TROP, CBC, PT, PTT, BMP, BNP #### [address] Estimated GFR ( [place] > 60 [facility] Comment on above: Result Comment: GFR estimated reference range: According to KDOQI guidelines, <60 ml/min/1.73m2 is sufficient to diagnose a patient with chronic kidney disease. Performed By: #### H S TROP, CBC, PT, PTT, BMP, BNP #### [facility] [address] Estimated GFR (Non- Am > 60 [facility] Comment on above: Performed By: #### H S TROP, CBC, PT, PTT, BMP, BNP #### [address] Glucose [Mass/Vol] 101 mg/dL High 70-100 [facility] Comment on above: Result Comment: [place] Glucose Reference Range is dependent on time and content of last meal. Glucose of more than 200 mg/dL in a nonstressed, ambulatory subject supports the diagnosis of Diabetes Mellitus. ADA recommended reference range Performed By: #### H S TROP, CBC, PT, PTT, BMP, BNP #### [address] Potassium [Moles/Vol] 3.8 mmol/L Normal 3.5-5.1 [facility] Comment on above: Performed By: #### H S TROP, CBC, PT, PTT, BMP, BNP #### [address] Sodium [Moles/Vol] 137 mmol/L Normal 136-146 [facility] Comment on above: Performed By: #### H S TROP, CBC, PT, PTT, BMP, BNP #### [address] Urea nitrogen [Mass/Vol] 15 mg/dL Normal 9-23 [facility] Comment on above: Performed By: #### H S TROP, CBC, PT, PTT, BMP, BNP #### [place] [address] [facility] Basophils Auto (Bld) [#/Vol] Ordered By: Tony Hannon on 01-19-2022 Basophils (Bld) [#/Vol] 0.1 10*3/uL 0.0-0.2 [facility] Basophils/100 WBC Auto (Bld) Ordered By: Tony Hannon on 01-19-2022 Basophils/100 WBC (Bld) 0.7 % . [facility] Blood hemoglobin measurement (mass/volume)Ordered By: Tony Hannon on 01-19-2022 Hemoglobin (Bld) [Mass/Vol] 14.9 g/dL 11.8-15.4 [facility] Blood leukocytes automated c ount (number/volume)Ordered By: Tony Hannon on 01-19-2022 WBC (Bld) [#/Vol] 8.3 10*3/uL 4.5-11.0 [facility] COVID-19 Antigenon COVID-19 Antigen Healthcare Worker?: N Reference Range: Negative Negative results, from patients with symptom onset beyond five days, should be treated as presumptive and confirmation with a molecular assay, if necessary, for patient management, may be performed. Negative results do not rule out COVID-19 and should not be used as the sole basis for treatment or patient management decisions, including infection control decisions. Negative results should be considered in the context of a patient's recent exposures, history and the presence of clinical signs and symptoms consistent with COVID-19. The Brad SARS Antigen OLIVA does not differentiate between SARS-CoV and SARS-CoV-2. This test was developed and its performance characteristic determined by [employer] and validated at [facility]. This test has not been FDA cleared or approved. This test has been authorized by FDA under an Emergency Use Authorization (EUA). This test has been validated in accordance with the FDA's Guidance Document (Policy for Diagnostics Testing in Laboratories Certified to Perform High Complexity Testing under CLIA prior to Emergency Use Authorization for Coronavirus Disease-2019 during the Public Health Emergency) issued on October 22, 2019. This test is only authorized for the duration of time the declaration that circumstances exist justifying the authorization of the emergency use of in vitro diagnostic tests for detection of SARS-CoV-2 virus and/or diagnosis of COVID-19 infection under section 564(b)(1) of the Act, 21 U.S.C. 360bbb-3(b)(1), unless the authorization is terminated or revoked sooner. SARS-CoV+SARS-CoV-2 (COVID-19) Ag [Presence] in Respiratory specimen by Rapid immunoassay Negative for SARS Antigen by [facility] PERFORMED BY: [place] [address] PATHOLOGIST MEETING FACILITATOR MIKY WANG M.D. Normal [facility] Comment on above: Performed By: #### C OVID-19 BRAD, SOFIANEG #### [facility] [address] [place] [address] COVID-19 SOFIAOrdered By: Cecilio Hannon on 01-19-2022 SARS-CoV+SARS-CoV-2 (COVID-19) Ag IA.rapid Ql (Resp) Negative Negative [facility] Comment on above: This is a duplicate Brad SARS Antigen (OLIVA) result to be used for statistical tracking purpose only. Complete Blood Count Auto Di ffon 01-19-2022 Basophils (Bld) [#/Vol] 0.1 10*3/uL Normal 0.0-0.2 [facility] Comment on above: Result Comment: PERF ORMED BY: [place] [address] PATHOLOGIST MEETING FACILITATOR MIKY WANG M.D. Performed By: #### H S TROP, CBC, PT, PTT, BMP, BNP #### [facility] [address] [place] [address] Basophils/100 WBC (Bld) 0.7 % Normal . [facility] Comment on above: Performed By: #### H S TROP, CBC, PT, PTT, BMP, BNP #### [facility] [address] [place] [address] Eosinophils (Bld) [#/Vol] 0.3 10*3/uL Normal 0.0-0.45 [facility] Comment on above: Performed By: #### H S TROP, CBC, PT, PTT, BMP, BNP #### [address] Eosinophils/100 WBC (Bld) 3.3 % Normal . [facility] Comment on above: Performed By: #### H S TROP, CBC, PT, PTT, BMP, BNP #### [address] Erythrocyte distribution width (RBC) [Ratio] 13.4 % Normal 11.9-15.3 [facility] Comment on above: Performed By: #### H S TROP, CBC, PT, PTT, BMP, BNP #### [address] Hematocrit (Bld) [Volume fraction] 43.5 % Normal 34.0-46.4 [facility] Comment on above: Performed By: #### H S TROP, CBC, PT, PTT, BMP, BNP #### [address] Hemoglobin (Bld) [Mass/Vol] 14.9 g/dL Normal 11.8-15.4 [facility] Comment on above: Performed By: #### H S TROP, CBC, PT, PTT, BMP, BNP #### [address] Lymphocytes (Bld) [#/Vol] 1.5 10*3/uL Normal 1.00-4.8 [facility] Comment on above: Performed By: #### H S TROP, CBC, PT, PTT, BMP, BNP #### [address] Lymphocytes/100 WBC (Bld) 17.7 % Normal . [facility] Comment on above: Performed By: #### H S TROP, CBC, PT, PTT, BMP, BNP #### [address] MCH (RBC) [Entitic mass] 30.1 pg Normal 24.7-34.3 [facility] Comment on above: Performed By: #### H S TROP, CBC, PT, PTT, BMP, BNP #### [place] [id number] [place] MCV (RBC) [Entitic vol] 88.2 fL Normal 80-100 [facility] Comment on above: Performed By: #### H S TROP, CBC, PT, PTT, BMP, BNP #### [address] Mean Corpuscular HGB Conc 34.2 g/dL Normal 32.0-35.0 [facility] Comment on above: Performed By: #### H S TROP, CBC, PT, PTT, BMP, BNP #### [address] Monocytes (Bld) [#/Vol] 0.6 10*3/uL Normal 0.0-0.8 [facility] Comment on above: Performed By: #### H S TROP, CBC, PT, PTT, BMP, BNP #### [address] Monocytes/100 WBC (Bld) 7.7 % Normal . [facility] Comment on above: Performed By: #### H S TROP, CBC, PT, PTT, BMP, BNP #### [address] Neutrophils (Bld) [#/Vol] 5.8 10*3/uL Normal 1.8-7.7 [facility] Comment on above: Performed By: #### H S TROP, CBC, PT, PTT, BMP, BNP #### [address] Neutrophils/100 WBC (Bld) 70.6 % Normal . [facility] Comment on above: Performed By: #### H S TROP, CBC, PT, PTT, BMP, BNP #### [address] Nucleated RBC/100 WBC (Bld) [Ratio] 0.0 % Normal 0-0.5 [facility] Comment on above: Performed By: #### H S TROP, CBC, PT, PTT, BMP, BNP #### [address] Platelet mean volume (Bld) [Entitic vol] 9.1 fL Normal 6.3-10.7 [facility] Comment on above: Performed By: #### H S TROP, CBC, PT, PTT, BMP, BNP #### [facility] [address] [place] [address] [place] Platelets (Bld) [#/Vol] 227 10*3/uL Normal 150-450 [facility] Comment on above: Performed By: #### H S TROP, CBC, PT, PTT, BMP, BNP #### [facility] [address] RBC (Bld) [#/Vol] 4.93 10*6/uL Normal 3.60-5.00 [facility] Comment on above: Performed By: #### H S TROP, CBC, PT, PTT, BMP, BNP #### [facility] [address] WBC (Bld) [#/Vol] 8.3 10*3/uL Normal 4.5-11.0 [facility] Comment on above: Performed By: #### H S TROP, CBC, PT, PTT, BMP, BNP #### [address] Creatinine and Glomerular fi ltration rate.predicted panel (S/P/Bld)Ordered By: Tony Hannon on 01-19-2022 Creatinine [Mass/Vol] 1.00 mg/dL 0.44-1.03 [facility] ECG 12 lead ECGon 01-19-2022 ECG 12 lead ECG [facility] [address] [place] [address] [place] [address] Electrocardiograph Report Signed Patient: Prabha Luna MR#: [id number] : 1990 Acct:[id number] Age/Sex: 31 / F ADM Date: 01/19/22 Loc: ER Room: Type: [facility] ER Attending Dr: Ordering Provider: Tony Hannon DO Date of Service: 01/19/2208/12/702 ECG/ECG 12 lead ECG: Chest Pain Copies to: Test Reason : Blood Pressure : 114/070 mmHG Vent. Rate : 077 BPM Atrial Rate : 077 BPM P-R Int : 116 ms QRS Dur : 074 ms QT Int : 364 ms P-R-T Axes : 061 072 052 degrees QTc Int : 411 ms Normal sinus rhythm Normal ECG When compared with ECG of 23-AUG-2016 04:34, No significant change was found Confirmed by TONY HANNON DO ([id number]) on 01/19/2022 4:07:17 PM Referred By: Electronically Signed By:TONY HANNON DO Transcribed By: MUS Signed By Tony Hannon DO 01/19 1607 Normal [facility] Eosinophils Auto (Bld) [#/Vo l]Ordered By: Tony Hannon on 01-19-2022 Eosinophils (Bld) [#/Vol] 0.3 10*3/uL 0.0-0.45 [facility] Eosinophils/100 WBC Auto (Bl d)Ordered By: Tony Hannon on 01-19-2022 Eosinophils/100 WBC (Bld) 3.3 % . [facility] Erythrocyte distribution wid th Auto (RBC) [Ratio]Ordered By: Tony Hannon on 01-19-2022 Erythrocyte distribution width (RBC) [Ratio] 13.4 % 11.9-15.3 [facility] Estimated glomerular filtrat ion rate (GFR) non- AmericanOrdered By: Tony Hannon on 01-19-2022 GFR/1.73 sq M.predicted among non-blacks MDRD (S/P/Bld) [Vol rate/Area] > 60 mL/Min [facility] Hematocrit Auto (Bld) [Volum e fraction]Ordered By: Tony Hannon on 01-19-2022 Hematocrit (Bld) [Volume fraction] 43.5 % 34.0-46.4 [facility] Laboratory - Chemistry and C hemistry - challengeOrdered By: Tony Hannon on 01-19-2022 Natriuretic peptide B (Bld) [Mass/Vol] 13.0 pg/mL 5-100 [facility] Laboratory - CoagulationOrde red By: Tony Hannon on 01-19-2022 PT Coag (PPP) [Time] 13.4 s 9.0-12.9 [facility] Laboratory - Hematology and Cell countsOrdered By: Tony Hannon on 01-19-2022 Nucleated RBC/100 WBC (Bld) [Ratio] 0.0 % 0-0.5 [facility] Lymphocytes Auto (Bld) [#/Vo l]Ordered By: Tony Hannon on 01-19-2022 Lymphocytes (Bld) [#/Vol] 1.5 10*3/uL 1.00-4.8 [facility] Lymphocytes/100 WBC Auto (Bl d)Ordered By: Tony Hannon on 01-19-2022 Lymphocytes/100 WBC (Bld) 17.7 % . [facility] MCH Auto (RBC) [Entitic mass ]Ordered By: Tony Hannon on 01-19-2022 MCH (RBC) [Entitic mass] 30.1 pg 24.7-34.3 [facility] MCHC Auto (RBC) [Mass/Vol]Or dered By: Tony Hannon on 01-19-2022 MCHC (RBC) [Mass/Vol] 34.2 g/dL 32.0-35.0 [facility] MCV Auto (RBC) [Entitic vol] Ordered By: Tony Hannon on 01-19-2022 MCV (RBC) [Entitic vol] 88.2 fL 80-100 [facility] Monocytes Auto (Bld) [#/Vol] Ordered By: Tony Hannon on 01-19-2022 Monocytes (Bld) [#/Vol] 0.6 10*3/uL 0.0-0.8 [facility] Monocytes/100 WBC Auto (Bld) Ordered By: Tony Hannon on 01-19-2022 Monocytes/100 WBC (Bld) 7.7 % . [facility] Neutrophils Auto (Bld) [#/Vo l]Ordered By: Tony Hannon on 01-19-2022 Neutrophils (Bld) [#/Vol] 5.8 10*3/uL 1.8-7.7 [facility] Neutrophils/100 WBC Auto (Bl d)Ordered By: Tony Hannon on 01-19-2022 Neutrophils/100 WBC (Bld) 70.6 % . [facility] No Panel InformationOrdered By: Tony Hannon on 01-19-2022 SARS Antigen (LFIA) [facility] Estimated GFR () > 60 mL/Min [facility] Comment on above: GFR estimated refere nce range: According to KDOQI guidelines, <60 ml/min/1.73m2 is sufficient to diagnose a patient with chronic kidney disease. Pharmacy Creatinine Clearance (Chem 77.95 [facility] SARS Antigen (LFIA) [facility] Partial Thromboplastin Timeo n 01-19-2022 aPTT Coag (Bld) [Time] 34.8 s Normal 25.1-36.[address] [facility] Comment on above: Result Comment: PERF ORMED BY: [facility] [address] [place] [address] PATHOLOGIST MEETING FACILITATOR MIKY WANG M.D. Performed By: #### H S TROP, CBC, PT, PTT, BMP, BNP #### [facility] [address] Platelet mean volume Auto (B ld) [Entitic vol]Ordered By: Tony Hannon on 01-19-2022 Platelet mean volume (Bld) [Entitic vol] 9.1 fL 6.3-10.7 [facility] Platelet poor plasma interna tional normalized ratio (INR) by coagulation assay (relatOrdered By: Tony Hannon on 01-19-2022 INR Coag (PPP) [Relative time] 1.2 {INR} [facility] Comment on above: INR Therapeutic Rang e A) Pre- and Peroperative OAT started two weeks before surgery. NOT HIP SURGERY: 1.5 - 2.5 HIP SURGERY: 2 - 3 B) Primary and secondary prevention of venous THROMBOSIS: 2 - 3 C) Active venous thrombosis, pulmonary embolism and prevention of recurrent venous thrombosis: 2 - 3 D) Prevention of arterial thromboembolism including patients with mechanical heart valves: 3 - 4.5 Platelets Auto (Bld) [#/Vol] Ordered By: Tony Hannon on 01-19-2022 Platelets (Bld) [#/Vol] 227 10*3/uL 150-450 [facility] Prothrombin Time INRon 01-19 INR Coag (PPP) [Relative time] 1.2 {INR} Normal [facility] Comment on above: Result Comment: INR Therapeutic Range A) Pre- and Peroperative OAT started two weeks before surgery. NOT HIP SURGERY: 1.5 - 2.5 HIP SURGERY: 2 - 3 B) Primary and secondary prevention of venous THROMBOSIS: 2 - 3 C) Active venous thrombosis, pulmonary embolism and prevention of recurrent venous thrombosis: 2 - 3 D) Prevention of arterial thromboembolism including patients with mechanical heart valves: 3 - 4.5 Performed By: #### H S TROP, CBC, PT, PTT, BMP, BNP #### [facility] [address] PT Coag (PPP) [Time] 13.4 s High 9.0-12.9 [facility] Comment on above: Performed By: #### H S TROP, CBC, PT, PTT, BMP, BNP #### [facility] [address] RBC Auto (Bld) [#/Vol]Ordere d By: Tony Hannon on 01-19-2022 RBC (Bld) [#/Vol] 4.93 10*6/uL 3.60-5.00 [facility] Serum or plasma calcium ernesto urement (mass/volume)Ordered By: Tony Hannon on 01-19-2022 Calcium [Mass/Vol] 9.7 mg/dL 8.2-10.2 [facility] Serum or plasma chloride syl surement (moles/volume)Ordered By: Tony Hannon on 01-19-2022 Chloride [Moles/Vol] 105 mmol/L 95-114 [facility] Serum or plasma glucose ernesto urement (mass/volume)Ordered By: Tony Hannon on 01-19-2022 Glucose [Mass/Vol] 101 mg/dL 70-100 [facility] Comment on above: ADA recommended refe rence range Random Glucose Reference Range is dependent on time and content of last meal. Glucose of more than 200 mg/dL in a nonstressed, ambulatory subject supports the diagnosis of Diabetes Mellitus. Serum or plasma potassium me asurement (moles/volume)Ordered By: Tony Hannon on 01-19-2022 Potassium [Moles/Vol] 3.8 mmol/L 3.5-5.1 [facility] Serum or plasma sodium measu rement (moles/volume)Ordered By: Tony Hannon on 01-19-2022 Sodium [Moles/Vol] 137 mmol/L 136-146 [facility] Serum or plasma total carbon dioxide measurement (moles/volume)Ordered By: Tony Hannon on 01-19-2022 CO2 [Moles/Vol] 23.2 mmol/L 22.0-30.0 [facility] Serum or plasma urea nitroge n measurement (mass/volume)Ordered By: Tony Hannon on 01-19-2022 Urea nitrogen [Mass/Vol] 15 mg/dL 04-13 [facility] Brad Ag Negativeon 01-20-20 Brad Ag Negative Negative Normal Negative [facility] Comment on above: Result Comment: This is a duplicate Brad SARS Antigen (OLIVA) result to be used for statistical tracking purpose only. PERFORMED BY: [place] [address] PATHOLOGIST MEETING FACILITATOR MIKY WANG M.D. Performed By: #### C OVID-19 BRAD, SOFIANEG #### [facility] [address] [place] [address] [place] Troponin I High Sensitivityo n 01-19-2022 Troponin I High Sensitivity < 3 Normal 0-15 [facility] Comment on above: Result Comment: PERF ORMED BY: [place] [address] PATHOLOGIST MEETING FACILITATOR MIKY WANG M.D. Performed By: #### H S TROP, CBC, PT, PTT, BMP, BNP #### [facility] [address] [place], [place] [id number] [place] Troponin I High Sensitivity < 3 Normal 0-15 [facility] Comment on above: Result Comment: PERF ORMED BY: [place] [address] PATHOLOGIST MEETING FACILITATOR MIKY WANG M.D. Performed By: #### H S TROP, CBC, PT, PTT, BMP, BNP #### [facility] [address] [place] [address] [place] Troponin I.cardiac [Mass/vol ume] in Serum or Plasma by High sensitivity methodOrdered By: Tony Hannon on 01-19-2022 Troponin I.cardiac High sensitivity method [Mass/Vol] < 3 pg/mL 0-15 [facility] XR chest 2V*on 01-19-2022 XR chest 2V* [facility] [address] [place] [address] [place] [id number] XRay Report Signed Patient: Prabha Luna MR#: [id number] : 1990 Acct:[id number] Age/Sex: 31 / F ADM Date: 01/19/22 Loc: ER Room: Type: [facility] ER Attending Dr: Copies to: Tony Hannon DO Ordering Provider: Tony Hannon DO Date of Service: 01/19/22 XR/XR chest 2V*: Chest Pain Plain film chest2 view HISTORY:Midsternal chest pain COMPARISON:08/23/16 FINDINGS: The cardiac, mediastinal and hilar silhouettes are within normal limits. No acute lung process, pleural effusion or pneumothorax identified. Bony structures are intact. XR/XR chest 2V* IMPRESSION: No acute process. Impression dictated by: Sanchez Raza M.D.01/19/2022 8:11 AM Dictation Location: [place] [address] Transcribed By: [facility] 01/19/22 0811 Dictated By: Sanchez Raza DO 01/19/22 0811 Signed By: 01/19/22 0811 Normal [facility] Covid 19 Resultson 2 SARS-CoV-2 (COVID-19) RNA MARIFER+probe Ql (Unsp spec) POSITIVE COVID-19 Test Coronaviruses are common world-wide and are the cause of many common colds. SARS-COV2 is a new coronavirus that began circulating worldwide in 2019 so we are calling it COVID-19. It has been estimated that four out of five patients with COVID-19 will recover at home without the need for medical attention. Symptoms of COVID-19 may include cough, fever, shortness of breath, loss of taste or smell and other flu-like symptoms including chills, sore muscles, sore throat, and headache. Severe illness is more common in older people and people with other health problems such as high blood pressure, obesity, and immune system problems. If the test is positive, you have COVID-19. You will be contacted by the ordering physicians office and instructed to remain on home isolation, in accordance with CDC guidelines. You may also be contacted by the [facility] to see if any of your close contacts may have been exposed to the virus and need to quarantine. If the test is negative, you likely do not have COVID-19 at this time, but you still may have a different illness that can spread to other people (like Influenza, or the Flu) and could still be at risk for getting COVID-19. We recommend that you stay away from other people to limit the spread of illness until your symptoms are improving and you are fever-free for 24 hours without the use of fever lowering medications such as acetaminophen or ibuprofen. No test is 100% accurate so if you are still concerned you may have COVID-19, talk to your doctor about the need to continue to stay away from others. Medicines Unless your provider told you not to use the following: Acetaminophen (Tylenol and others) is generally safe. Anti-inflammatory medications, such as Ibuprofen (Advil or Motrin) or Naproxen (Aleve) can also be used. Gtbi-the-ptqupwu cough and cold medicines can be used according to the instructions on the package. Some akib-kxs-nmeqvzp medicines also contain acetaminophen. Make sure you are not taking more than your recommended dose. For those not hospitalized, there is no specific treatment available for this illness. Antibiotics do not treat Coronaviruses. Follow-Up Follow up with your doctor by scheduling a virtual visit or consider follow-up at one of our urgent care fever clinics. If you are having difficulty breathing, or are very weak and having difficulty standing, this is a medical emergency. Call 911 or have someone take you to the nearest emergency room immediately. If possible, wear a facemask. Additional guidance from the CDC for patients who tested POSITIVE for COVID-19 How to isolate: Isolate yourself in a specific room at home and limit your contact with others. Use a separate bathroom from other members of the household, when possible. Leave home only to get essential medical care. Do not go to work, school or public areas. Avoid using public transportation, ride-sharing, or taxis. Restrict contact with pets and other animals. If you must care for your pet or be around animals while you are sick, wash your hands before and after your interaction and wear a facemask. Make sure that shared spaces in the home have good airflow, such as by an air conditioner or an opened window, weather permitting. Personal Hygiene Procedures: Wear a face mask when in the same room as other people or pets. If a face mask interferes with your breathing, others should wear a mask when sharing space with you. Frequent hand-washing: wash your hands with soap and water for at least 20 seconds. If soap and water are not available, use alcohol-based hand practical nursing faculty. Avoid touching your eyes, nose, and mouth with unwashed hands. Household Hygiene Procedures: Avoid sharing personal household items such as dishes, glassware, cups, eating utensils, towels or bedding with other people or pets in your home. After use, these items should be washed with soap and hot water. Disinfect all high-touch surfaces every day with antibacterial cleaning solutions such as Lysol wipes, bleach, cleansers, etc. High-touch surfaces include tabletops, doorknobs, bathroom fixtures, toilets, phones, keyboards, tablets and bedside tables. Immediately clean any surfaces that may have blood, poop or body fluids on them, using antibacterial cleaning solutions such as Lysol wipes, bleach, cleansers, etc. If clothing or bedding come into contact with blood, poop or body fluids, they should be washed immediately. Follow the directions on the laundry detergent and clothing labels but hot water is recommended when possible. Stopping home isolation precautions: If possible, consult your doctor before stopping home isolation precautions. According to the CDC, you can discontinue home isolation precautions when you have met both of these criteria: Your fever and respiratory symptoms have been gone for 24 arlette (more content not included)... Normal [facility] INFLUENZA A/B, COVID 2019 PC R,SYMPTOMATICon 08-05-2021 INFLUENZA A, PCR Not detected Normal Not Detected [facility] Comment on above: Result Comment: Resp iratory virus testing is performed routinely by PCR for Influenza A/B and RSV. If Influenza and RSV PCR are negative, testing for parainfluenza 1,2,3 viruses and adenovirus is routinely performed for oncology inpatients and intensive care unit patients at [facility] and is available on request on other patients by calling Laboratory Client Services at [phone]. Not Detected results do not preclude Influenza A/B or RSV infections since the adequacy of sample collection or low viral burden may impact the clinical sensitivity of this test method. Performed By: #### C OINP #### [facility] [address] [place] [address] INFLUENZA B, PCR Not detected Normal Not Detected [facility] Comment on above: Result Comment: Resp iratory virus testing is performed routinely by PCR for Influenza A/B and RSV. If Influenza and RSV PCR are negative, testing for parainfluenza 1,2,3 viruses and adenovirus is routinely performed for oncology inpatients and intensive care unit patients at [facility] and is available on request on other patients by calling Laboratory Client Services at [phone] Not Detected results do not preclude Influenza A/B or RSV infections since the adequacy of sample collection or low viral burden may impact the clinical sensitivity of this test method. . The TaqManTM SARS-CoV-2, Flu A, Flu B Multiplex Assay is a multiplex, real-time RT-PCR assay for the detection of RNA from the SARS-CoV-2, Influenza A, and Influenza B viruses. A negative result does not preclude the possibility of SARS-CoV-2, Influenza A, or Influenza B infections, and should not be used as the sole basis for patient management decision as a negative result may be caused by very low levels of infection, collection errors, or testing errors. . This test was developed and its performance characteristics were determined by the Microbiology Laboratory, Department of Pathology, [place], [place]. It has not been cleared or approved by the US Food and Drug Administration; however, FDA clearance or approval is not currently required for clinical use. This test should not be regarded as investigational or for research purposes. Performed By: #### C OINP #### [facility] [address] [place] [address] SARS-CoV-2 (COVID-19) RNA MARIFER+probe Ql (Unsp spec) Detected Abnormal Not Detected [facility] Comment on above: Result Comment: . This assay is designed to detect the N, ORF1ab and/or S genes of SARS-CoV-2 via nucleic acid amplification. A Negative (NOT DETECTED) result does not preclude 2019-nCoV infection since the adequacy of sample collection and/or low viral burden may result in presence of viral nucleic acids below the clinical sensitivity of this test method. Negative (NOT DETECTED) result should not be used as the sole basis for treatment or other patient management decisions. Rather negative results should be combined with clinical observations, patient history, and epidemiological information to make patient management decisions. Fact sheet for providers: https://www.fda.gov/media/266735/download Fact sheet for patients: https://www.fda.gov/media/021962/download This test has received FDA Emergency Use Authorization (EUA) and has been verified by [facility] ([facility]). This test is only authorized for the duration of time that circumstances exist to justify the authorization of the emergency use of in vitro diagnostic tests for the detection of SARS-CoV-2 virus and/or diagnosis of COVID-19 infection under section 564(b)(1) of the Act, 21 U.S.C. 360bbb-3(b)(1), unless the authorization is terminated or revoked sooner. [facility] is certified under CLIA-88 as qualified to perform high complexity testing. Testing is performed in the [facility] laboratories located at [address] [place] [address]. Performed By: #### C OINP #### [address] [place] [address] INFLUENZA A/B, COVID 2019 PC R,SYMPTOMATICon 08-04-2021 DATE OF SYMPTOM ONSET [YYYYMMDD]? [id number] Normal [facility] Comment on above: Performed By: #### C OINP #### [address] [place] [address] Lab Specimen Source Nasal, Nasopharyngeal Normal [facility] Comment on above: Performed By: #### C OINP #### [address] [place] [address] Provider Note - ED v3on 07-22 Provider Note - ED v3 Provider Note: Chart Review HISTORY OF PRESENTING ILLNESS PRABHA is a 31 year old Female and was seen by me at 04-Aug-2021 11:01 for a chief complaint of cold symptoms. The historian is the patient. Additional Details: Patient presents with 1-day history of cold symptoms, and exposure. Patient endorses cough, sinus congestion/drainage, sore throat, headache. Patient denies fever, chills, nausea, vomiting, diarrhea, chest pain, shortness of breath, body aches, loss of sense of smell/taste. She's taken bromfed and albuterol for s/s. Triage Information: Most recent Vital Sign Value Date PAST MEDICAL HISTORY ALLERGIES/INTOLERANC ES: Allergy Allergen: Bentyl Type: Drug Reaction: Hives/Urticaria Allergen: Reglan Type: Drug Reaction: Other HEALTH HISTORY: No documented data. OUTPATIENT MEDICATIONS: Home Medications Review Status for Reconciliation: N/A Med Status: Patient Currently Takes Medications Drug Name: tiZANidine 4 mg oral capsule Instructions: 2 cap(s) orally 3 times a day Drug Name: Lyrica 50 mg oral capsule Instructions: 1 cap(s) orally once a day (at bedtime) Drug Name: brompheniramine/pseu doephedrine/dextrome thorphan [id number]/5 mL oral syrup Instructions: 5 milliliter(s) orally every 4 to 6 hours, As Needed Drug Name: fluticasone 50 mcg/inh nasal spray Instructions: 1 spray(s) in each nostril once a day Drug Name: naproxen 500 mg oral tablet Instructions: null Drug Name: albuterol 90 mcg/inh inhalation aerosol Instructions: 2 puff(s) inhaled every 4 to 6 hours, As Needed Drug Name: brompheniramine/pseu doephedrine/dextrome thorphan [id number]-[id number]/5 mL oral syrup Instructions: 5 milliliter(s) orally every 4 to 6 hours, As Needed SIGNIFICANT EVENTS: Other Description:SMOKER Additional Notes:2-3 EACH A DAY Past Medical History Description:NO CHRONIC HEALTH ISSUE Additional Notes:02/2021 Past Surgical History Description:Cholecys tectomy REVIEW OF SYSTEMS CONSTITUTIONAL: POSITIVE for: malaise Negative for: chills, diaphoresis and fever ENMTNose: POSITIVE for: congestion and discharge Throat/Neck: POSITIVE for: throat pain CARDIOVASCULAR: Negative for: chest pain RESPIRATORY: POSITIVE for: cough Negative for: dyspnea and wheezing GASTROINTESTINAL: Negative for: diarrhea, nausea and vomiting; MUSCULOSKELETAL: Negative for: pain NEUROLOGICAL: POSITIVE for: headache; All other systems reviewed and are negative PHYSICAL EXAM CONSTITUTIONAL: Appearance: well appearing Development: well developed Distress: no apparent Manner: appropriate for situation Mentation: awake and alert Mood: appropriate Nourishment: well HENMT: Head Examination: atraumatic Face: no signs of abnormality Throat: THROAT RED (posterior pharynx injected, cobblestone appearance, no vesicles, no exudates, no uvular deviation) EYES: Bilateral Eyes: clear CARDIOVASCULAR: Cardiac Rhythm: regular Cardiac Rate: normal RESPIRATORY: Respiratory Distress: no respiratory distress Breath Sounds: normal breath sounds Rales: no rales Wheezes: no wheezes Rhonchi: no rhonchi NEUROLOGICAL: Level of Consciousness: alert and follows commands Memory: memory/cognition intact Speech: clear Gait and Weight Bearing: normal SKIN: Skin normal color for race, warm, dry and intact. No evidence of trauma. PSYCHIATRIC: Alert and oriented to person, place, time/situation. normal mood and affect. No apparent risk to self or others. CRITICAL CARE VITAL SIGNS: T PRBP SpO2O2(LPM) %FiO2 Method 04-Aug-2021 10:50:[id number]/ 70 100 MDM MDM/ED COURSE: Differential Diagnosis: (URI, COVID, sinusitis, flu) Discussed Findings with: patient Data Reviewed: vital signs Awaiting: lab results Treatment Plan: Discussed supportive measures, and symptom management. Discussed etiology of more routine viral infection versus COVID infection. Pt declined rx meds. Swabbed for COVID/flu, advised pt turnaround time is about 24 hours, advised self-isolation until results come back. Advised pt to continue monitoring symptoms. Discussed s/s of respiratory distress, and advised f/u if patient develops these s/s or if current s/s increase/worsen. Patient verbalized understanding. The pt's clinical presentation is otherwise unremarkable at this time. Based on exam and clinical findings the pt is stable for discharge with instructions to follow up with primary care or seek emergency medical attention for worsening symptoms or any new concerns. DISPOSITION Diagnosis/Annotation : ED Dx Name:URI (upper respiratory infection) Code:J06.9 Name:Close exposure to COVID-19 virus Code:Z20.822 Disposition: discharged Type: home CONSULT CRITICAL CARE TIME Is this a critically ill patient: no Electronic Signatures for Addendum Section: Stefany Pena (MEDICAL TRANSLATOR-SAP FUNCTIONAL ANALYST) (Signed Addendum 08-Aug-2021 09:38) left voicemail for pt to c (more content not included)... Normal [facility] CORONAVIRUS 2019 BY PCRon DATE OF SYMPTOM ONSET [[id number]]? Canceled Normal [facility] Comment on above: Order Comment: TEST CORONAVIRUS 2019 BY PCR WAS CANCELLED, 07/05/2021 00:58 DUPLICATE ORDER SEE [id number]. Performed By: #### C OV19 #### [facility] [address] [place] [address] SARS-CoV-2 (COVID-19) RNA MARIFER+probe Ql (Unsp spec) Canceled Normal [facility] Comment on above: Order Comment: TEST CORONAVIRUS 2019 BY PCR WAS CANCELLED, 07/05/2021 00:58 DUPLICATE ORDER SEE [id number]. Result Comment: . This assay is designed to detect the N, ORF1ab and/or S genes of SARS-CoV-2 via nucleic acid amplification. A Negative (NOT DETECTED) result does not preclude 2019-nCoV infection since the adequacy of sample collection and/or low viral burden may result in presence of viral nucleic acids below the clinical sensitivity of this test method. Negative (NOT DETECTED) result should not be used as the sole basis for treatment or other patient management decisions. Rather negative results should be combined with clinical observations, patient history, and epidemiological information to make patient management decisions. Fact sheet for providers: https://www.fda.gov/media/489866/download Fact sheet for patients: https://www.fda.gov/media/368699/download This test has received FDA Emergency Use Authorization (EUA) and has been verified by [facility] ([facility]). This test is only authorized for the duration of time that circumstances exist to justify the authorization of the emergency use of in vitro diagnostic tests for the detection of SARS-CoV-2 virus and/or diagnosis of COVID-19 infection under section 564(b)(1) of the Act, 21 U.S.C. 360bbb-3(b)(1), unless the authorization is terminated or revoked sooner. [facility] is certified under CLIA-88 as qualified to perform high complexity testing. Testing is performed in the [facility] laboratories located at [address] [place] [address]. Performed By: #### C OV19 #### [facility] [address] [address] Covid 19 Resultson 1 SARS-CoV-2 (COVID-19) RNA MARIFER+probe Ql (Unsp spec) NEGATIVE COVID-19 Test Coronaviruses are common world-wide and are the cause of many common colds. SARS-COV2 is a new coronavirus that began circulating worldwide in 2019 so we are calling it COVID-19. It has been estimated that four out of five patients with COVID-19 will recover at home without the need for medical attention. Symptoms of COVID-19 may include cough, fever, shortness of breath, loss of taste or smell and other flu-like symptoms including chills, sore muscles, sore throat, and headache. Severe illness is more common in older people and people with other health problems such as high blood pressure, obesity, and immune system problems. If the test is positive, you have COVID-19. You will be contacted by the ordering physicians office and instructed to remain on home isolation, in accordance with CDC guidelines. You may also be contacted by the [facility] to see if any of your close contacts may have been exposed to the virus and need to quarantine. If the test is negative, you likely do not have COVID-19 at this time, but you still may have a different illness that can spread to other people (like Influenza, or the Flu) and could still be at risk for getting COVID-19. We recommend that you stay away from other people to limit the spread of illness until your symptoms are improving and you are fever-free for 24 hours without the use of fever lowering medications such as acetaminophen or ibuprofen. No test is 100% accurate so if you are still concerned you may have COVID-19, talk to your doctor about the need to continue to stay away from others. Medicines Unless your provider told you not to use the following: Acetaminophen (Tylenol and others) is generally safe. Anti-inflammatory medications, such as Ibuprofen (Advil or Motrin) or Naproxen (Aleve) can also be used. Bloi-cus-bkolktc cough and cold medicines can be used according to the instructions on the package. Some awno-jls-raqhcuv medicines also contain acetaminophen. Make sure you are not taking more than your recommended dose. For those not hospitalized, there is no specific treatment available for this illness. Antibiotics do not treat Coronaviruses. Follow-Up Follow up with your doctor by scheduling a virtual visit or consider follow-up at one of our urgent care fever clinics. If you are having difficulty breathing, or are very weak and having difficulty standing, this is a medical emergency. Call 911 or have someone take you to the nearest emergency room immediately. If possible, wear a facemask. Additional guidance from the CDC for patients who tested POSITIVE for COVID-19 How to isolate: Isolate yourself in a specific room at home and limit your contact with others. Use a separate bathroom from other members of the household, when possible. Leave home only to get essential medical care. Do not go to work, school or public areas. Avoid using public transportation, ride-sharing, or taxis. Restrict contact with pets and other animals. If you must care for your pet or be around animals while you are sick, wash your hands before and after your interaction and wear a facemask. Make sure that shared spaces in the home have good airflow, such as by an air conditioner or an opened window, weather permitting. Personal Hygiene Procedures: Wear a face mask when in the same room as other people or pets. If a face mask interferes with your breathing, others should wear a mask when sharing space with you. Frequent hand-washing: wash your hands with soap and water for at least 20 seconds. If soap and water are not available, use alcohol-based hand practical nursing faculty. Avoid touching your eyes, nose, and mouth with unwashed hands. Household Hygiene Procedures: Avoid sharing personal household items such as dishes, glassware, cups, eating utensils, towels or bedding with other people or pets in your home. After use, these items should be washed with soap and hot water. Disinfect all high-touch surfaces every day with antibacterial cleaning solutions such as Lysol wipes, bleach, cleansers, etc. High-touch surfaces include tabletops, doorknobs, bathroom fixtures, toilets, phones, keyboards, tablets and bedside tables. Immediately clean any surfaces that may have blood, poop or body fluids on them, using antibacterial cleaning solutions such as Lysol wipes, bleach, cleansers, etc. If clothing or bedding come into contact with blood, poop or body fluids, they should be washed immediately. Follow the directions on the laundry detergent and clothing labels but hot water is recommended when possible. Stopping home isolation precautions: If possible, consult your doctor before stopping home isolation precautions. According to the CDC, you can discontinue home isolation precautions when you have met both of these criteria: Your fever and respiratory symptoms have been gone for 24 arlette (more content not included)... Normal [facility] INFLUENZA A/B, COVID 2019 PC R,SYMPTOMATICon 07-05-2021 INFLUENZA A, PCR Not detected Normal Not Detected [facility] Comment on above: Result Comment: Resp iratory virus testing is performed routinely by PCR for Influenza A/B and RSV. If Influenza and RSV PCR are negative, testing for parainfluenza 1,2,3 viruses and adenovirus is routinely performed for oncology inpatients and intensive care unit patients at [facility] and is available on request on other patients by calling Laboratory Client Services at [phone]. Not Detected results do not preclude Influenza A/B or RSV infections since the adequacy of sample collection or low viral burden may impact the clinical sensitivity of this test method. Performed By: #### C OINP #### [facility] [address] [place] [address] INFLUENZA B, PCR Not detected Normal Not Detected [facility] Comment on above: Result Comment: Resp iratory virus testing is performed routinely by PCR for Influenza A/B and RSV. If Influenza and RSV PCR are negative, testing for parainfluenza 1,2,3 viruses and adenovirus is routinely performed for oncology inpatients and intensive care unit patients at [facility] and is available on request on other patients by calling Laboratory Client Services at [phone] Not Detected results do not preclude Influenza A/B or RSV infections since the adequacy of sample collection or low viral burden may impact the clinical sensitivity of this test method. . The TaqManTM SARS-CoV-2, Flu A, Flu B Multiplex Assay is a multiplex, real-time RT-PCR assay for the detection of RNA from the SARS-CoV-2, Influenza A, and Influenza B viruses. A negative result does not preclude the possibility of SARS-CoV-2, Influenza A, or Influenza B infections, and should not be used as the sole basis for patient management decision as a negative result may be caused by very low levels of infection, collection errors, or testing errors. . This test was developed and its performance characteristics were determined by the Microbiology Laboratory, Department of Pathology, [facility], [place], [place]. It has not been cleared or approved by the US Food and Drug Administration; however, FDA clearance or approval is not currently required for clinical use. This test should not be regarded as investigational or for research purposes. Performed By: #### C OINP #### [facility] [address] [place] [address] SARS-CoV-2 (COVID-19) RNA MARIFER+probe Ql (Unsp spec) Not detected Normal Not Detected [facility] Comment on above: Result Comment: . This assay is designed to detect the N, ORF1ab and/or S genes of SARS-CoV-2 via nucleic acid amplification. A Negative (NOT DETECTED) result does not preclude 2019-nCoV infection since the adequacy of sample collection and/or low viral burden may result in presence of viral nucleic acids below the clinical sensitivity of this test method. Negative (NOT DETECTED) result should not be used as the sole basis for treatment or other patient management decisions. Rather negative results should be combined with clinical observations, patient history, and epidemiological information to make patient management decisions. Fact sheet for providers: https://www.fda.gov/media/576792/download Fact sheet for patients: https://www.fda.gov/media/493021/download This test has received FDA Emergency Use Authorization (EUA) and has been verified by [facility] ([facility]). This test is only authorized for the duration of time that circumstances exist to justify the authorization of the emergency use of in vitro diagnostic tests for the detection of SARS-CoV-2 virus and/or diagnosis of COVID-19 infection under section 564(b)(1) of the Act, 21 U.S.C. 360bbb-3(b)(1), unless the authorization is terminated or revoked sooner. [facility] is certified under CLIA-88 as qualified to perform high complexity testing. Testing is performed in the [facility] laboratories located at [address] [place] [address]. Performed By: #### C OINP #### [facility] [address] [place] [address] CORONAVIRUS 2019 BY PCRon Lab Specimen Source Nasal, Nasopharyngeal Normal [facility] Comment on above: Order Comment: TEST CORONAVIRUS 2019 BY PCR WAS CANCELLED, 07/05/2021 00:58 DUPLICATE ORDER SEE [id number]. Performed By: #### C OV19 #### [place] [address] [place] [address] INFLUENZA A/B, COVID 2019 PC R,SYMPTOMATICon 07-04-2021 Lab Specimen Source Nasal, Nasopharyngeal Normal [facility] Comment on above: Performed By: #### C OINP #### [place] [address] [place] [address] Provider Note - ED v3on 06-21 Provider Note - ED v3 Provider Note: Chart Review HISTORY OF PRESENTING ILLNESS PRABHA is a 30 year old Female and was seen by me at 04-Jul-2021 15:26 for a chief complaint of cold symptoms. The historian is the patient. Additional Details: Patient presents with 3-day history of cold symptoms, and Covid exposure. Patient endorses cough, sinus congestion/drainage, fatigue, headache. Patient denies fever, chills, nausea, vomiting, diarrhea, chest pain, shortness of breath, body aches, loss of sense of smell/taste. She's taken bromfed, allergy medication, and vitamins for her symptoms. She's been caring for COVID sick family members at home. Triage Information: Most recent Vital Sign Value Date PAST MEDICAL HISTORY ALLERGIES/INTOLERANC ES: Allergy Allergen: Bentyl Type: Drug Reaction: Hives/Urticaria Allergen: Reglan Type: Drug Reaction: Other HEALTH HISTORY: No documented data. OUTPATIENT MEDICATIONS: Home Medications Review Status for Reconciliation: Not Done Med Status: Patient Currently Takes Medications Drug Name: tiZANidine 4 mg oral capsule Instructions: 2 cap(s) orally 3 times a day Drug Name: Lyrica 50 mg oral capsule Instructions: 1 cap(s) orally once a day (at bedtime) Drug Name: brompheniramine/pseu doephedrine/dextrome thorphan [id number]/5 mL oral syrup Instructions: 5 milliliter(s) orally every 4 to 6 hours, As Needed Drug Name: fluticasone 50 mcg/inh nasal spray Instructions: 1 spray(s) in each nostril once a day Drug Name: naproxen 500 mg oral tablet Instructions: null Drug Name: albuterol 90 mcg/inh inhalation aerosol Instructions: 2 puff(s) inhaled every 4 to 6 hours, As Needed Drug Name: brompheniramine/pseu doephedrine/dextrome thorphan [id number]/5 mL oral syrup Instructions: 5 milliliter(s) orally every 4 to 6 hours, As Needed SIGNIFICANT EVENTS: Other Description:SMOKER Additional Notes:2-3 EACH A DAY Past Medical History Description:NO CHRONIC HEALTH ISSUE Additional Notes:02/2021 Past Surgical History Description:Cholecys tectomy HOSPICE ADMINISTRATOR: Is : no Is : no REVIEW OF SYSTEMS CONSTITUTIONAL: POSITIVE for: malaise Negative for: chills, diaphoresis and fever ENMTNose: POSITIVE for: congestion and discharge Throat/Neck: POSITIVE for: throat pain CARDIOVASCULAR: Negative for: chest pain RESPIRATORY: POSITIVE for: cough Negative for: dyspnea and wheezing GASTROINTESTINAL: Negative for: diarrhea, nausea and vomiting; MUSCULOSKELETAL: Negative for: pain NEUROLOGICAL: POSITIVE for: headache; All other systems reviewed and are negative PHYSICAL EXAM CONSTITUTIONAL: Appearance: well appearing Development: well developed Distress: no apparent Manner: appropriate for situation Mentation: awake and alert Mood: appropriate Nourishment: well HENMT: Head Examination: atraumatic Face: no signs of abnormality EYES: Bilateral Eyes: clear Left Conjunctiva: clear Right Conjunctiva: clear CARDIOVASCULAR: Cardiac Rhythm: regular Cardiac Rate: normal RESPIRATORY: Respiratory Distress: no respiratory distress Breath Sounds: normal breath sounds Rales: no rales Wheezes: no wheezes Rhonchi: no rhonchi NEUROLOGICAL: Level of Consciousness: alert and follows commands Memory: memory/cognition intact Speech: clear Gait and Weight Bearing: normal SKIN: Skin normal color for race, warm, dry and intact. No evidence of trauma. PSYCHIATRIC: Alert and oriented to person, place, time/situation. normal mood and affect. No apparent risk to self or others. CRITICAL CARE VITAL SIGNS: T PRBP SpO2O2(LPM) %FiO2 Method 04-Jul-2021 15:05:00-36.72327/64 98 MDM MDM/ED COURSE: Differential Diagnosis: (URI, COVID, sinusitis, influenza) Discussed Findings with: patient Data Reviewed: vital signs Awaiting: lab results Treatment Plan: Discussed supportive measures, and symptom management. Discussed etiology of more routine viral infection versus COVID infection. Ordered bromfed and albuterol. Swabbed for COVID/flu, advised pt turnaround time is about 24 hours, advised self-isolation until results come back. Advised pt to continue monitoring symptoms. Discussed s/s of respiratory distress, and advised f/u if patient develops these s/s or if current s/s increase/worsen. Patient verbalized understanding. The pt's clinical presentation is otherwise unremarkable at this time. Based on exam and clinical findings the pt is stable for discharge with instructions to follow up with primary care or seek emergency medical attention for worsening symptoms or any new concerns. DISPOSITION Diagnosis/Annotation : ED Dx Name:URI (upper respiratory infection) Code:J06.9 Name:Exposure to COVID-19 virus Code:Z20.822 Disposition: discharged Type: home CONSULT CRITICAL CARE TIME Is this a critically ill patient: no Electronic Signatures for Addendum Section: Stefany Pena (more content not included)... Normal [facility] CORONAVIRUS 2019 BY PCRon SARS-CoV-2 (COVID-19) RNA MARIFER+probe Ql (Unsp spec) Not detected Normal Not Detected [facility] Comment on above: Result Comment: . This assay is designed to detect the N, ORF1ab and/or S genes of SARS-CoV-2 via nucleic acid amplification. A Negative (NOT DETECTED) result does not preclude 2019-nCoV infection since the adequacy of sample collection and/or low viral burden may result in presence of viral nucleic acids below the clinical sensitivity of this test method. Negative (NOT DETECTED) result should not be used as the sole basis for treatment or other patient management decisions. Rather negative results should be combined with clinical observations, patient history, and epidemiological information to make patient management decisions. Fact sheet for providers: https://www.fda.gov/media/115158/download Fact sheet for patients: https://www.fda.gov/media/083280/download This test has received FDA Emergency Use Authorization (EUA) and has been verified by [facility] ([facility]). This test is only authorized for the duration of time that circumstances exist to justify the authorization of the emergency use of in vitro diagnostic tests for the detection of SARS-CoV-2 virus and/or diagnosis of COVID-19 infection under section 564(b)(1) of the Act, 21 U.S.C. 360bbb-3(b)(1), unless the authorization is terminated or revoked sooner. [facility] is certified under CLIA-88 as qualified to perform high complexity testing. Testing is performed in the [facility] laboratories located at [address] [place] [address]. Performed By: #### C OV19 #### [address] [place] [address] Covid 19 Resultson 1 SARS-CoV-2 (COVID-19) RNA MARIFER+probe Ql (Unsp spec) NEGATIVE COVID-19 Test Coronaviruses are common world-wide and are the cause of many common colds. SARS-COV2 is a new coronavirus that began circulating worldwide in 2019 so we are calling it COVID-19. It has been estimated that four out of five patients with COVID-19 will recover at home without the need for medical attention. Symptoms of COVID-19 may include cough, fever, shortness of breath, loss of taste or smell and other flu-like symptoms including chills, sore muscles, sore throat, and headache. Severe illness is more common in older people and people with other health problems such as high blood pressure, obesity, and immune system problems. If the test is positive, you have COVID-19. You will be contacted by the ordering physicians office and instructed to remain on home isolation, in accordance with CDC guidelines. You may also be contacted by the [facility] to see if any of your close contacts may have been exposed to the virus and need to quarantine. If the test is negative, you likely do not have COVID-19 at this time, but you still may have a different illness that can spread to other people (like Influenza, or the Flu) and could still be at risk for getting COVID-19. We recommend that you stay away from other people to limit the spread of illness until your symptoms are improving and you are fever-free for 24 hours without the use of fever lowering medications such as acetaminophen or ibuprofen. No test is 100% accurate so if you are still concerned you may have COVID-19, talk to your doctor about the need to continue to stay away from others. Medicines Unless your provider told you not to use the following: Acetaminophen (Tylenol and others) is generally safe. Anti-inflammatory medications, such as Ibuprofen (Advil or Motrin) or Naproxen (Aleve) can also be used. Zwja-ykh-yamhfgc cough and cold medicines can be used according to the instructions on the package. Some zslg-taz-sorugfy medicines also contain acetaminophen. Make sure you are not taking more than your recommended dose. For those not hospitalized, there is no specific treatment available for this illness. Antibiotics do not treat Coronaviruses. Follow-Up Follow up with your doctor by scheduling a virtual visit or consider follow-up at one of our urgent care fever clinics. If you are having difficulty breathing, or are very weak and having difficulty standing, this is a medical emergency. Call 911 or have someone take you to the nearest emergency room immediately. If possible, wear a facemask. Additional guidance from the CDC for patients who tested POSITIVE for COVID-19 How to isolate: Isolate yourself in a specific room at home and limit your contact with others. Use a separate bathroom from other members of the household, when possible. Leave home only to get essential medical care. Do not go to work, school or public areas. Avoid using public transportation, ride-sharing, or taxis. Restrict contact with pets and other animals. If you must care for your pet or be around animals while you are sick, wash your hands before and after your interaction and wear a facemask. Make sure that shared spaces in the home have good airflow, such as by an air conditioner or an opened window, weather permitting. Personal Hygiene Procedures: Wear a face mask when in the same room as other people or pets. If a face mask interferes with your breathing, others should wear a mask when sharing space with you. Frequent hand-washing: wash your hands with soap and water for at least 20 seconds. If soap and water are not available, use alcohol-based hand practical nursing faculty. Avoid touching your eyes, nose, and mouth with unwashed hands. Household Hygiene Procedures: Avoid sharing personal household items such as dishes, glassware, cups, eating utensils, towels or bedding with other people or pets in your home. After use, these items should be washed with soap and hot water. Disinfect all high-touch surfaces every day with antibacterial cleaning solutions such as Lysol wipes, bleach, cleansers, etc. High-touch surfaces include tabletops, doorknobs, bathroom fixtures, toilets, phones, keyboards, tablets and bedside tables. Immediately clean any surfaces that may have blood, poop or body fluids on them, using antibacterial cleaning solutions such as Lysol wipes, bleach, cleansers, etc. If clothing or bedding come into contact with blood, poop or body fluids, they should be washed immediately. Follow the directions on the laundry detergent and clothing labels but hot water is recommended when possible. Stopping home isolation precautions: If possible, consult your doctor before stopping home isolation precautions. According to the CDC, you can discontinue home isolation precautions when you have met both of these criteria: Your fever and respiratory symptoms have been gone for 24 arlette (more content not included)... [facility] CORONAVIRUS 2019 BY PCRon DATE OF SYMPTOM ONSET [YYYYMMDD]? [id number] [facility] Comment on above: Performed By: #### C OV19 #### [facility] [address] [place] [id number] Lab Specimen Source Nasal, Nasopharyngeal [facility] Comment on above: Performed By: #### C OV19 #### [facility] [address] [place] [address] Provider Note - ED v2on 03-23 Provider Note - ED v2 Provider Note - ED v2: Chart Review: HISTORY OF PRESENTING ILLNESS PRABHA is a 30 year old Female and was seen by me at 11-Apr-2021 12:34 for a chief complaint of cold symptoms. The historian is the patient. Additional Details: Patient presents with 4-day history of cold symptoms. Patient endorses sinus congestion/drainage, fatigue, headache, diarrhea, cough. She denies fever, chills, nausea, vomiting, body aches, chest pain, shortness of breath. She is taking Claritin for her symptoms. She is not vaccinated. Triage Information: Most recent Vital Sign Value Date PAST MEDICAL HISTORY ATTESTATION: I have reviewed and confirmed nurse's/medic's notes for patient's medications, allergies, and medical, surgical, family and social history ALLERGIES/INTOLERANC ES: Allergy Allergen: Bentyl Type: Drug Reaction: Hives/Urticaria Allergen: Reglan Type: Drug Reaction: Other HEALTH HISTORY: No documented data. OUTPATIENT MEDICATIONS: Home Medications Review Status for Reconciliation: Complete Med Status: Patient Currently Takes Medications Drug Name: tiZANidine 4 mg oral capsule Instructions: 2 cap(s) orally 3 times a day Drug Name: Lyrica 50 mg oral capsule Instructions: 1 cap(s) orally once a day (at bedtime) Drug Name: brompheniramine/pseu doephedrine/dextrome thorphan [id number]/5 mL oral syrup Instructions: 5 milliliter(s) orally every 4 to 6 hours, As Needed Drug Name: fluticasone 50 mcg/inh nasal spray Instructions: 1 spray(s) in each nostril once a day SIGNIFICANT EVENTS: Other Description:SMOKER Additional Notes:2-3 EACH A DAY Past Medical History Description:NO CHRONIC HEALTH ISSUE Additional Notes:02/2021 Past Surgical History Description:Cholecys tectomy HOSPICE ADMINISTRATOR: Is : no Is : no REVIEW OF SYSTEMS CONSTITUTIONAL: POSITIVE for: malaise Negative for: chills, diaphoresis and fever ENMT Nose: POSITIVE for: congestion and discharge Throat/Neck: Negative for: throat pain CARDIOVASCULAR: Negative for: chest pain RESPIRATORY: POSITIVE for: cough Negative for: dyspnea and wheezing GASTROINTESTINAL: POSITIVE for: diarrhea; Negative for: nausea and vomiting; MUSCULOSKELETAL: Negative for: pain NEUROLOGICAL: POSITIVE for: headache; All other systems reviewed and are negative RESULTS/VITAL SIGNS VITAL SIGNS: T PRBP SpO2O2(LPM) %FiO2 Method 11-Apr-2021 12:27:[id number] /[id number] PHYSICAL EXAM CONSTITUTIONAL: Appearance: well appearing Development: well developed Distress: no apparent Manner: appropriate for situation Mentation: awake and alert Mood: appropriate Nourishment: well HENMT: Head Examination: atraumatic Face: no signs of abnormality EYES: Bilteral Eyes: clear and PERRL Left Conjunctiva: clear Right Conjunctiva: clear CARDIOVASCULAR: Cardiac Rhythm: regular Cardiac Rate: normal RESPIRATORY: Respiratory Distress: no respiratory distress Breath Sounds: normal breath sounds Rales: no rales Wheezes: no wheezes Rhonchi: no rhonchi NEUROLOGICAL: Level of Consciousness: alert and follows commands Memory: memory/cognition intact Speech: clear Gait and Weight Bearing: normal SKIN: Skin normal color for race, warm, dry and intact. No evidence of trauma. PSYCHIATRIC: Alert and oriented to person, place, time/situation. normal mood and affect. No apparent risk to self or others. MEDICAL DECISION MAKING/ED COURSE MDM/ED COURSE: Differential Diagnosis: (URI, COVID, sinusitis) Discussed Findings with: patient Data Reviewed: vital signs Awaiting: lab results Treatment Plan: Discussed supportive measures, and symptom management. Discussed etiology of more routine viral infection versus COVID infection. Ordered bromfed DM and fluticasone nasal. Swabbed for COVID, advised pt turnaround time is about 24 hours, advised self-isolation until results come back. Advised pt to continue monitoring symptoms. Discussed s/s of respiratory distress, and advised f/u if patient develops these s/s or if current s/s increase/worsen. Patient verbalized understanding. The pt's clinical presentation is otherwise unremarkable at this time. Based on exam and clinical findings the pt is stable for discharge with instructions to follow up with primary care or seek emergency medical attention for worsening symptoms or any new concerns. CLINICAL IMPRESSION Diagnosis/Annotation : ED Dx Name:URI (upper respiratory infection) Code:J06.9 Disposition: discharged Type: home ATTESTATION CRITICAL CARE TIME Is this a critically ill patient: no Electronic Signatures: Stefany Pena (MEDICAL TRANSLATOR-SAP FUNCTIONAL ANALYST) (Signed 11-Apr-2021 13:02) Authored: HPI, PMH, ROS, PE, Results/Vital Signs, MDM/ED Course, Clinical Impression, Attestation, Chart Review, Scores Last Updated: 11-Apr-2021 13:02 by Stefany Pena (MEDICAL TRANSLATOR-SAP FUNCTIONAL ANALYST) [facility] CORONAVIRUS 2019 BY PCRon SARS-CoV-2 (COVID-19) RNA MARIFER+probe Ql (Unsp spec) Not detected Normal Not Detected [facility] Comment on above: Result Comment: . This assay is designed to detect the N, ORF1ab and/or S genes of SARS-CoV-2 via nucleic acid amplification. A Negative (NOT DETECTED) result does not preclude 2019-nCoV infection since the adequacy of sample collection and/or low viral burden may result in presence of viral nucleic acids below the clinical sensitivity of this test method. Negative (NOT DETECTED) result should not be used as the sole basis for treatment or other patient management decisions. Rather negative results should be combined with clinical observations, patient history, and epidemiological information to make patient management decisions. Fact sheet for providers: https://www.fda.gov/media/987221/download Fact sheet for patients: https://www.fda.gov/media/466930/download This test has received FDA Emergency Use Authorization (EUA) and has been verified by [facility] ([facility]). This test is only authorized for the duration of time that circumstances exist to justify the authorization of the emergency use of in vitro diagnostic tests for the detection of SARS-CoV-2 virus and/or diagnosis of COVID-19 infection under section 564(b)(1) of the Act, 21 U.S.C. 360bbb-3(b)(1), unless the authorization is terminated or revoked sooner. [facility] is certified under CLIA-88 as qualified to perform high complexity testing. Testing is performed in the [facility] laboratories located at [address] [place] [address]. Performed By: #### C OV19 #### [address] [place] [address] Covid 19 Resultson SARS-CoV-2 (COVID-19) RNA MARIFER+probe Ql (Unsp spec) NEGATIVE COVID-19 Test Coronaviruses are common world-wide and are the cause of many common colds. SARS-COV2 is a new coronavirus that began circulating worldwide in 2019 so we are calling it COVID-19. It has been estimated that four out of five patients with COVID-19 will recover at home without the need for medical attention. Symptoms of COVID-19 may include cough, fever, shortness of breath, loss of taste or smell and other flu-like symptoms including chills, sore muscles, sore throat, and headache. Severe illness is more common in older people and people with other health problems such as high blood pressure, obesity, and immune system problems. If the test is positive, you have COVID-19. You will be contacted by the ordering physicians office and instructed to remain on home isolation, in accordance with CDC guidelines. You may also be contacted by the [facility] to see if any of your close contacts may have been exposed to the virus and need to quarantine. If the test is negative, you likely do not have COVID-19 at this time, but you still may have a different illness that can spread to other people (like Influenza, or the Flu) and could still be at risk for getting COVID-19. We recommend that you stay away from other people to limit the spread of illness until your symptoms are improving and you are fever-free for 24 hours without the use of fever lowering medications such as acetaminophen or ibuprofen. No test is 100% accurate so if you are still concerned you may have COVID-19, talk to your doctor about the need to continue to stay away from others. Medicines Unless your provider told you not to use the following: Acetaminophen (Tylenol and others) is generally safe. Anti-inflammatory medications, such as Ibuprofen (Advil or Motrin) or Naproxen (Aleve) can also be used. Dqxc-kry-aaqwmse cough and cold medicines can be used according to the instructions on the package. Some feia-vsy-kmfynkz medicines also contain acetaminophen. Make sure you are not taking more than your recommended dose. For those not hospitalized, there is no specific treatment available for this illness. Antibiotics do not treat Coronaviruses. Follow-Up Follow up with your doctor by scheduling a virtual visit or consider follow-up at one of our urgent care fever clinics. If you are having difficulty breathing, or are very weak and having difficulty standing, this is a medical emergency. Call 911 or have someone take you to the nearest emergency room immediately. If possible, wear a facemask. Additional guidance from the CDC for patients who tested POSITIVE for COVID-19 How to isolate: Isolate yourself in a specific room at home and limit your contact with others. Use a separate bathroom from other members of the household, when possible. Leave home only to get essential medical care. Do not go to work, school or public areas. Avoid using public transportation, ride-sharing, or taxis. Restrict contact with pets and other animals. If you must care for your pet or be around animals while you are sick, wash your hands before and after your interaction and wear a facemask. Make sure that shared spaces in the home have good airflow, such as by an air conditioner or an opened window, weather permitting. Personal Hygiene Procedures: Wear a face mask when in the same room as other people or pets. If a face mask interferes with your breathing, others should wear a mask when sharing space with you. Frequent hand-washing: wash your hands with soap and water for at least 20 seconds. If soap and water are not available, use alcohol-based hand practical nursing faculty. Avoid touching your eyes, nose, and mouth with unwashed hands. Household Hygiene Procedures: Avoid sharing personal household items such as dishes, glassware, cups, eating utensils, towels or bedding with other people or pets in your home. After use, these items should be washed with soap and hot water. Disinfect all high-touch surfaces every day with antibacterial cleaning solutions such as Lysol wipes, bleach, cleansers, etc. High-touch surfaces include tabletops, doorknobs, bathroom fixtures, toilets, phones, keyboards, tablets and bedside tables. Immediately clean any surfaces that may have blood, poop or body fluids on them, using antibacterial cleaning solutions such as Lysol wipes, bleach, cleansers, etc. If clothing or bedding come into contact with blood, poop or body fluids, they should be washed immediately. Follow the directions on the laundry detergent and clothing labels but hot water is recommended when possible. Stopping home isolation precautions: If possible, consult your doctor before stopping home isolation precautions. According to the CDC, you can discontinue home isolation precautions when you have met both of these criteria: Your fever and respiratory symptoms have been gone for 24 arlette (more content not included)... [facility] CORONAVIRUS 2019 BY PCRon DATE OF SYMPTOM ONSET [YYYYMMDD]? [id number] [facility] Comment on above: Performed By: #### C OV19 #### [facility] [address] [place] [address] Lab Specimen Source Nasal, Nasopharyngeal [facility] Comment on above: Performed By: #### C OV19 #### [facility] [address] [place] [address] Provider Note - ED v3on 02-19 Provider Note - ED v3 Provider Note: Chart Review: ED NOTES ED NOTES: Patient presents for evaluation of hoarseness, cough and sore throat has been present for 1 week. Sh denies any recent excessive voice use. She denies any fever, fatigue, nasal congestion, nausea/vomiting/diar alton, headache or any other constitutional symptoms or complaints. She has not tried any OTC remedies for symptom management. She is not aware of exposure to any sick contacts either. 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 HISTORY OF PRESENTING ILLNESS PRABHA is a 30 year old Female and was seen by me at 02-Mar-2021 16:48. Triage Information: Most recent Vital Sign Value Date PAST MEDICAL HISTORY ALLERGIES/INTOLERANC ES: Allergy Allergen: Bentyl Type: Drug Reaction: Hives/Urticaria Allergen: Reglan Type: Drug Reaction: Other HEALTH HISTORY: No documented data. OUTPATIENT MEDICATIONS: Home Medications Review Status for Reconciliation: Complete Med Status: Patient Currently Takes Medications Drug Name: tiZANidine 4 mg oral capsule Instructions: 2 cap(s) orally 3 times a day Drug Name: triamcinolone 0.1% topical cream Instructions: Apply topically to affected area 3 times a day Drug Name: azithromycin 250 mg oral tablet Instructions: Take 2 tabs (500mg) x 1 days, then 1 tab (250mg) once daily x 4 days SIGNIFICANT EVENTS: Other Description:SMOKER Additional Notes:2-3 EACH A DAY Past Medical History Description:NO CHRONIC HEALTH ISSUE Additional Notes:02/2021 Past Surgical History Description:Cholecys tectomy HOSPICE ADMINISTRATOR: Is : no Is : no REVIEW OF SYSTEMS All other systems reviewed and are negative REVIEW OF SYSTEMS: Comments See HPI PHYSICAL EXAM CONSTITUTIONAL: Hoarse voice noted during exam, well nourished, awake, alert, oriented to person, place, time/situation and in no apparent distress. HENMT: Airway patent, ears with clear tympanic membranes bilaterally. Nasal mucosa clear. Mouth with normal mucosa. Throat has no vesicles, no oropharyngeal exudates and uvula is midline. Face with no lymph node enlargement. EYES: Clear bilaterally, pupils equal, round and reactive to light. CARDIOVASCULAR: Normal rate, regular rhythm. Heart sounds S1, S2. No murmurs, rubs or gallops. PMI non-displaced. RESPIRATORY: Breath sounds clear and equal bilaterally. NEUROLOGICAL: Alert and oriented, no focal deficits, no motor or sensory deficits. SKIN: Skin normal color for race, warm, dry and intact. No evidence of trauma. PSYCHIATRIC: Alert and oriented to person, place, time/situation. normal mood and affect. No apparent risk to self or others. MDM MDM/ED COURSE: Exam consistent with acute pharyngitis. Rx for a Z-kevin and prednisone. Nasal swab obtained for COVID testing. Advised patient Covid result turnaround time is about 24 hours, advised self-isolation until results come back. Discussed signs and symptoms of worsening illness and to seek immediate medical attention if these occur. Patient verbalized understanding and agrees with treatment plan. The patient's clinical presentation is otherwise unremarkable at this time. Based on exam and clinical findings the patient is stable for discharge with instructions to follow-up with primary care or seek immediate medical attention for worsening symptoms or any new concerns. DISPOSITION Diagnosis/Annotation : ED Dx Name:Acute laryngitis Code:J04.0 Name:Acute pharyngitis Code:J02.9 Disposition: discharged Type: home CONSULT CRITICAL CARE TIME Is this a critically ill patient: no Electronic Signatures: Harshad Julien (MEDICAL TRANSLATOR-SAP FUNCTIONAL ANALYST) (Signed 02-Mar-2021 17:06) Authored: ED Notes, HPI, PMH, ROS, PE, MDM/ED Course, Clinical Impression, Attestation, Chart Review, Scores Last Updated: 02-Mar-2021 17:06 by Harshad Julien (MEDICAL TRANSLATOR-SAP FUNCTIONAL ANALYST) [facility] Provider Note - ED v2on 04-0 Provider Note - ED v2 Provider Note - ED v2: Chart Review: HISTORY OF PRESENTING ILLNESS PRABHA is a 30 year old Female and was seen by me at 28-Oct-2020 15:41 for a chief complaint of insect bite. The historian is the patient. Additional Details: Patient presents with concerns for bug bites. She endorses multiple bug bites on the back of her legs, and a couple on her arms. She suspects it may be fleas from her dog as the dog sleeps behind her legs and this seems to be the predominant area for the bug bites. She endorses significant itching that has been keeping her awake at night, she is tried Benadryl oral, and Benadryl cream. With limited improvement. She denies any associated symptoms such as fever, chills, nausea, vomiting, chest pain, shortness of breath. She has treated her down for fleas, washed her bedding vacuumed, and placed a protective mattress cover her bed. Triage Information: Most recent Vital Sign Value Date PAST MEDICAL HISTORY ATTESTATION: I have reviewed and confirmed nurse's/medic's notes for patient's medications, allergies, and medical, surgical, family and social history ALLERGIES/INTOLERANC ES: Allergy Allergen: Bentyl Type: Drug Reaction: Hives/Urticaria Allergen: Reglan Type: Drug Reaction: Other HEALTH HISTORY: No documented data. OUTPATIENT MEDICATIONS: Home Medications Review Status for Reconciliation: Complete Med Status: Patient Currently Takes Medications Drug Name: Wellbutrin SR 100 mg/12 hours oral tablet, extended release Instructions: 1 tab(s) orally 2 times a day Drug Name: Ultram 50 mg oral tablet Instructions: 1 tab(s) orally every 6 hours Drug Name: tiZANidine 4 mg oral capsule Instructions: 2 cap(s) orally 3 times a day Drug Name: omeprazole 20 mg oral delayed release tablet Instructions: 1 tab(s) orally once a day Drug Name: triamcinolone 0.1% topical cream Instructions: Apply topically to affected area 3 times a day SIGNIFICANT EVENTS: Past Surgical History Description:Cholecys tectomy HOSPICE ADMINISTRATOR: Is : no Is : no Order Test: no REVIEW OF SYSTEMS CONSTITUTIONAL: Negative for: chills and fever CARDIOVASCULAR: Negative for: chest pain RESPIRATORY: Negative for: dyspnea GASTROINTESTINAL: Negative for: nausea and vomiting; MUSCULOSKELETAL: Negative for: pain INTEGUMENTARY: POSITIVE for: hives (posterior thighs) and lesions; All other systems reviewed and are negative RESULTS/VITAL SIGNS VITAL SIGNS: T PRBP SpO2O2(LPM) %FiO2 Method 28-Oct-2020 15:20:[id number]/ [id number] 97 PHYSICAL EXAM CONSTITUTIONAL: Appearance: well appearing Distress: no apparent Mentation: awake and alert HENMT: Head Examination: atraumatic Face: no signs of abnormality EYES: Bilteral Eyes: clear and PERRL CARDIOVASCULAR: Cardiac Rhythm: regular Cardiac Rate: normal RESPIRATORY: Respiratory Distress: no respiratory distress Breath Sounds: normal breath sounds SKIN: Skin Color: normal for race Skin Temperature: warm and dry Capillary Refill: less than 2 seconds Signs of Infection: no drainage, no hair loss at the site, INFLAMMATION, REDNESS and WARMTH AT THE SITE Rash Description: BLANCHING; PAPULAR; RAISED; REDDENED and WHEAL Rash Location: several individual raised circular lesions on her lower extremities, one larger on her left upper arm consistent with bug bites. MEDICAL DECISION MAKING/ED COURSE MDM/ED COURSE: Differential Diagnosis: (insect bites, hives, contact dermatitis) Discussed Findings with: patient Data Reviewed: vital signs Treatment Plan: Advised patient I can't say for sure what kind of insect is biting her, but concurrent is likely fleas from her dog. Discussed methods of checking for what kind of bug and is, including sticky traps, expecting her mattress, etc. Provided prescription for steroid cream, discussed oral antihistamines to help reduce itching. Discussed signs and symptoms of infection and advised to follow-up if she experiences them. Patient verbalized understanding. The pt's clinical presentation is otherwise unremarkable at this time. Based on exam and clinical findings the pt is stable for discharge with instructions to follow up with primary care or seek emergency medical attention for worsening symptoms or any new concerns. CLINICAL IMPRESSION Diagnosis/Annotation : ED Dx Name:Insect bite Code:W57.XXXA Disposition: discharged Type: home ATTESTATION CRITICAL CARE TIME Is this a critically ill patient: no Electronic Signatures: Stefany Pena (MEDICAL TRANSLATOR-SAP FUNCTIONAL ANALYST) (Signed 28-Oct-2020 15:55) Authored: HPI, PMH, ROS, PE, Results/Vital Signs, MDM/ED Course, Clinical Impression, Attestation, Chart Review, Scores Last Updated: 28-Oct-2020 15:55 by Stefany Pena (MEDICAL TRANSLATOR-SAP FUNCTIONAL ANALYST) [facility] US PELVIS AND TRANSVAGon PELVIS AND TRANSVAG [address] [place] [id number] Patient: PRABHA LUNA Exam Date: 04/09/2017DOB: 1990 Gender:F : DR HENNY STERN . Admission #: [id number] : Order #: [id number] HERE TO VIEW EXAM RADIOLOGY REPORT PROCEDURE: ULTRASOUND PELVIS AND TRANSVAGINAL COMPARISON: None. INDICATIONS: Chronic pelvic pain R10.2 TECHNIQUE: Transabdominal sonographic examination. Transvaginal sonographic examination.FINDINGS : UTERUS: Normal size and appearance. Uterus: 7.6 x 3.4 x 5.0 cm (66.9 cc) ENDOMETRIUM: Normal homogeneous appearance. Endometrial thickness: 4 mm RIGHT OVARY: Normal size and appearance. Blood flow present within ovary on color Doppler. Right ovary: 3.7 x 1.8 x 3.3 cm (11.3 cc) LEFT OVARY: Small anechoic area noted measuring 15. x 1.4 x 1.2cm Blood flow is present within ovary on Color Doppler. Left ovary: 3.4 x 1.7 x 1.8 cm (5.5 cc) OTHER: None. CONCLUSION: Normal examination. 1. Dictated by: Chang Lal M.D. on 04/09/2017 at 13:31 Approved by: Chang Lal M.D. on 04/09/2017 at 13:32 Normal [facility] Vital Signs Date Time Vital Sign Value Performing Clinician Facility 06-25-2023 07:58-0500 Diastolic blood pressure 88 mm[Hg] [facility] 06-25-2023 07:58-0500 Heart rate 88 /min [facility] 06-25-2023 07:58-0500 Mean blood pressure 98 mm[Hg] [facility] 06-25-2023 07:58-0500 Respiratory rate 14 /min [facility] 06-25-2023 07:58-0500 Systolic blood pressure 118 mm[Hg] [facility] 02-18-2023 10:29-0400 Diastolic blood pressure 78 mm[Hg] [facility] 02-18-2023 10:29-0400 Heart rate 93 /min [facility] 02-18-2023 10:29-0400 Mean blood pressure 89 mm[Hg] [facility] 02-18-2023 10:29-0400 Respiratory rate 16 /min [facility] 02-18-2023 10:29-0400 Systolic blood pressure 111 mm[Hg] [facility] 01-27-2023 22:00-0400 Body temperature 97.88 [degF] [facility] 01-27-2023 22:00-0400 Diastolic blood pressure 69 mm[Hg] [facility] 01-27-2023 22:00-0400 Heart rate 78 /min [facility] 01-27-2023 22:00-0400 Respiratory rate 18 /min [facility] 01-27-2023 22:00-0400 SaO2% (BldA) [Mass fraction] 100 % [facility] 01-27-2023 22:00-0400 Systolic blood pressure 96 mm[Hg] [facility] 11-09-2022 15:27-0400 Diastolic blood pressure 73 mm[Hg] [facility] 11-09-2022 15:27-0400 Heart rate 86 /min [facility] 11-09-2022 15:27-0400 Mean blood pressure 83 mm[Hg] [facility] 11-09-2022 15:27-0400 Respiratory rate 12 /min [facility] 11-09-2022 15:27-0400 Systolic blood pressure 104 mm[Hg] [facility] 10-15-2022 10:27-0400 Heart rate 76 /min [facility] 10-15-2022 10:27-0400 SaO2% (BldA) [Mass fraction] 99 % [facility] 10-15-2022 10:27-0400 Diastolic blood pressure 67 mm[Hg] [facility] 10-15-2022 10:27-0400 Mean blood pressure 77 mm[Hg] [facility] 10-15-2022 10:27-0400 Systolic blood pressure 98 mm[Hg] [facility] 10-15-2022 10:27-0400 Respiratory rate 14 /min [facility] 10-15-2022 10:23-0400 Diastolic blood pressure 73 mm[Hg] [facility] 10-15-2022 10:23-0400 Heart rate 69 /min [facility] 10-15-2022 10:23-0400 Respiratory rate 14 /min [facility] 10-15-2022 10:23-0400 SaO2% (BldA) [Mass fraction] 98 % [facility] 10-15-2022 10:23-0400 Systolic blood pressure 100 mm[Hg] [facility] 10-15-2022 09:41-0400 Heart rate 72 /min [facility] 10-15-2022 09:41-0400 SaO2% (BldA) [Mass fraction] 98 % [facility] 10-15-2022 09:41-0400 Diastolic blood pressure 65 mm[Hg] [facility] 10-15-2022 09:41-0400 Mean blood pressure 75 mm[Hg] [facility] 10-15-2022 09:41-0400 Systolic blood pressure 95 mm[Hg] [facility] 10-15-2022 09:41-0400 Body temperature 97.88 [degF] [facility] 10-15-2022 09:41-0400 Respiratory rate 12 /min [facility] 08-20-2022 14:57-0500 Diastolic blood pressure 75 mm[Hg] [facility] 08-20-2022 14:57-0500 Heart rate 79 /min [facility] 08-20-2022 14:57-0500 Mean blood pressure 89 mm[Hg] [facility] 08-20-2022 14:57-0500 Respiratory rate 14 /min [facility] 08-20-2022 14:57-0500 Systolic blood pressure 118 mm[Hg] [facility] 08-17-2022 11:51-0500 Diastolic blood pressure 66 mm[Hg] DO Chaitanya Tejal Work Phone: [facility] 08-17-2022 11:51-0500 Heart rate 68 /min DO Chaitanya Tejal Work Phone: [facility] 08-17-2022 11:51-0500 Respiratory rate 18 /min DO Chaitanya Tejal Work Phone: [facility] 08-17-2022 11:51-0500 SaO2% (BldA) [Mass fraction] 99 % DO Chaitanya Tejal Work Phone: [facility] 08-17-2022 11:51-0500 Systolic blood pressure 118 mm[Hg] DO Chaitanya Tejal Work Phone: [facility] 08-17-2022 10:40-0500 Body height 157.48 cm DO Chaitanya Tejal Work Phone: [facility] 08-17-2022 10:40-0500 Body temperature 98.2 [degF] DO Chaitanya Tejal Work Phone: [facility] 08-17-2022 10:40-0500 Body weight 73.4 kg DO Chaitanya Tejal Work Phone: [facility] 07-09-2022 07:44-0500 Diastolic blood pressure 72 mm[Hg] [facility] 07-09-2022 07:44-0500 Heart rate 90 /min [facility] 07-09-2022 07:44-0500 Mean blood pressure 87 mm[Hg] [facility] 07-09-2022 07:44-0500 Respiratory rate 16 /min [facility] 07-09-2022 07:44-0500 Systolic blood pressure 116 mm[Hg] [facility] 06-25-2022 09:49-0500 Diastolic blood pressure 75 mm[Hg] [facility] 06-25-2022 09:49-0500 Heart rate 75 /min [facility] 06-25-2022 09:49-0500 Mean blood pressure 87 mm[Hg] [facility] 06-25-2022 09:49-0500 SaO2% (BldA) [Mass fraction] 100 % [facility] 06-25-2022 09:49-0500 Systolic blood pressure 110 mm[Hg] [facility] 06-25-2022 09:44-0500 Diastolic blood pressure 79 mm[Hg] [facility] 06-25-2022 09:44-0500 Heart rate 69 /min [facility] 06-25-2022 09:44-0500 Respiratory rate 16 /min [facility] 06-25-2022 09:44-0500 SaO2% (BldA) [Mass fraction] 98 % [facility] 06-25-2022 09:44-0500 Systolic blood pressure 104 mm[Hg] [facility] 06-25-2022 08:42-0500 Body temperature 98.24 [degF] [facility] 06-25-2022 08:42-0500 Diastolic blood pressure 72 mm[Hg] [facility] 06-25-2022 08:42-0500 Heart rate 85 /min [facility] 06-25-2022 08:42-0500 Mean blood pressure 85 mm[Hg] [facility] 06-25-2022 08:42-0500 Respiratory rate 14 /min [facility] 06-25-2022 08:42-0500 SaO2% (BldA) [Mass fraction] 98 % [facility] 06-25-2022 08:42-0500 Systolic blood pressure 111 mm[Hg] [facility] 04-13-2022 15:21-0400 Diastolic blood pressure 76 mm[Hg] [facility] 04-13-2022 15:21-0400 Heart rate 81 /min [facility] 04-13-2022 15:21-0400 Mean blood pressure 90 mm[Hg] [facility] 04-13-2022 15:21-0400 Respiratory rate 16 /min [facility] 04-13-2022 15:21-0400 Systolic blood pressure 117 mm[Hg] [facility] 04-10-2022 08:50-0400 Diastolic blood pressure 65 mm[Hg] DO Tony Hannon Work Phone: [facility] 04-10-2022 08:50-0400 Heart rate 89 /min DO Tony Hannon Work Phone: [facility] 04-10-2022 08:50-0400 Respiratory rate 20 /min DO Tony Hannon Work Phone: [facility] 04-10-2022 08:50-0400 SaO2% (BldA) [Mass fraction] 99 % DO Tony Hannon Work Phone: [facility] 04-10-2022 08:50-0400 Systolic blood pressure 109 mm[Hg] DO Tony Hannon Work Phone: [facility] 04-10-2022 06:38-0400 Body temperature 97.2 [degF] DO Tony Hannon Work Phone: [facility] 04-10-2022 06:37-0400 Body height 157.48 cm DO Tony Hannon Work Phone: [facility] 04-10-2022 06:37-0400 Body weight 71 kg DO Tony Hannon Work Phone: [facility] 02-05-2022 17:58-0400 Heart rate 73 /min [facility] 02-05-2022 17:58-0400 Respiratory rate 16 /min [facility] 02-05-2022 17:47-0400 Diastolic blood pressure 77 mm[Hg] [facility] 02-05-2022 17:47-0400 Heart rate 70 /min [facility] 02-05-2022 17:47-0400 Mean blood pressure 90 mm[Hg] [facility] 07-18-2022 17:47-0400 Respiratory rate 16 /min [facility] 02-05-2022 17:47-0400 SaO2% (BldA) [Mass fraction] 100 % [facility] 02-05-2022 17:47-0400 Systolic blood pressure 115 mm[Hg] [facility] 02-05-2022 17:11-0400 Diastolic blood pressure 79 mm[Hg] [facility] 02-05-2022 17:11-0400 Heart rate 72 /min [facility] 02-05-2022 17:11-0400 Hourly Rounding [facility] 02-05-2022 17:11-0400 Mean blood pressure 92 mm[Hg] [facility] 02-05-2022 17:11-0400 Promise to Return [facility] 02-05-2022 17:11-0400 Respiratory rate 16 /min [facility] 02-05-2022 17:11-0400 Respiratory rate 79 /min [facility] 02-05-2022 17:11-0400 SaO2% (BldA) [Mass fraction] 97 % [facility] 02-05-2022 17:11-0400 Systolic blood pressure 119 mm[Hg] [facility] 02-05-2022 16:15-0400 gluc 91 mg/dL [facility] 02-05-2022 16:15-0400 gluc [facility] 02-05-2022 16:11-0400 Body temperature 98.6 [degF] [facility] 02-05-2022 16:11-0400 Diastolic blood pressure 80 mm[Hg] [facility] 02-05-2022 16:11-0400 Heart rate 83 /min [facility] 02-05-2022 16:11-0400 SaO2% (BldA) [Mass fraction] 97 % [facility] 02-05-2022 16:11-0400 Systolic blood pressure 115 mm[Hg] [facility] 01-19-2022 10:30-0400 Diastolic blood pressure 63 mm[Hg] DO Tony Hannon Work Phone: [facility] 01-19-2022 10:30-0400 Heart rate 73 /min DO Tony Hannon Work Phone: [facility] 01-19-2022 10:30-0400 Respiratory rate 18 /min DO Tony Hannon Work Phone: [facility] 01-19-2022 10:30-0400 SaO2% (BldA) [Mass fraction] 98 % DO Tony Hannon Work Phone: [facility] 01-19-2022 10:30-0400 Systolic blood pressure 105 mm[Hg] DO Tony Hannon Work Phone: [facility] 01-19-2022 07:02-0400 Body temperature 98.2 [degF] DO Tony Hannon Work Phone: [facility] 01-19-2022 06:58-0400 Body height 157.48 cm DO Tony Hannon Work Phone: [facility] 01-19-2022 06:58-0400 Body mass index (BMI) [Ratio] 31.3 kg/m2 DO Tony Hannon Work Phone: [facility] 01-19-2022 06:58-0400 Body weight 77.7 kg DO Tony Hannon Work Phone: [facility] 12-08-2021 15:00-0400 Diastolic blood pressure 74 mm[Hg] [facility] 12-08-2021 15:00-0400 Heart rate 96 /min [facility] 12-08-2021 15:00-0400 Mean blood pressure 85 mm[Hg] [facility] 12-08-2021 15:00-0400 Respiratory rate 16 /min [facility] 12-08-2021 15:00-0400 Systolic blood pressure 106 mm[Hg] [facility] 11-21-2021 09:43-0400 Diastolic blood pressure 72 mm[Hg] [facility] 11-21-2021 09:43-0400 Heart rate 82 /min [facility] 11-21-2021 09:43-0400 Mean blood pressure 83 mm[Hg] [facility] 11-21-2021 09:43-0400 SaO2% (BldA) [Mass fraction] 99 % [facility] 11-21-2021 09:43-0400 Systolic blood pressure 106 mm[Hg] [facility] 11-21-2021 09:39-0400 Diastolic blood pressure 88 mm[Hg] [facility] 11-21-2021 09:39-0400 Heart rate 78 /min [facility] 11-21-2021 09:39-0400 SaO2% (BldA) [Mass fraction] 100 % [facility] 11-21-2021 09:39-0400 Systolic blood pressure 110 mm[Hg] [facility] 11-21-2021 09:06-0400 Body temperature 98.24 [degF] [facility] 11-21-2021 09:06-0400 Diastolic blood pressure 80 mm[Hg] [facility] 11-21-2021 09:06-0400 Heart rate 78 /min [facility] 11-21-2021 09:06-0400 Mean blood pressure 90 mm[Hg] [facility] 11-21-2021 09:06-0400 Respiratory rate 16 /min [facility] 11-21-2021 09:06-0400 SaO2% (BldA) [Mass fraction] 98 % [facility] 11-21-2021 09:06-0400 Systolic blood pressure 110 mm[Hg] [facility] 11-07-2021 14:32-0400 Diastolic blood pressure 65 mm[Hg] [facility] 11-07-2021 14:32-0400 Heart rate 77 /min [facility] 11-07-2021 14:32-0400 Respiratory rate 16 /min [facility] 11-07-2021 14:32-0400 SaO2% (BldA) [Mass fraction] 100 % [facility] 11-07-2021 14:32-0400 Systolic blood pressure 95 mm[Hg] [facility] 11-07-2021 11:59-0400 Body temperature 98.06 [degF] [facility] 11-07-2021 11:59-0400 Diastolic blood pressure 68 mm[Hg] [facility] 11-07-2021 11:59-0400 Heart rate 78 /min [facility] 11-07-2021 11:59-0400 Respiratory rate 18 /min [facility] 11-07-2021 11:59-0400 SaO2% (BldA) [Mass fraction] 100 % [facility] 11-07-2021 11:59-0400 Systolic blood pressure 111 mm[Hg] [facility] 10-27-2021 11:16-0400 Diastolic blood pressure 73 mm[Hg] [facility] 10-27-2021 11:16-0400 Heart rate 84 /min [facility] 10-27-2021 11:16-0400 Mean blood pressure 89 mm[Hg] [facility] 10-27-2021 11:16-0400 Respiratory rate 18 /min [facility] 10-27-2021 11:16-0400 Systolic blood pressure 121 mm[Hg] [facility] 08-04-2021 12:50-0500 Body height 157.4 cm Timo Rodriguez Other Phone: [facility] 08-04-2021 12:50-0500 Body temperature 98.06 [degF] Timo Rodriguez Other Phone: [facility] 08-04-2021 12:50-0500 Diastolic blood pressure 70 mm[Hg] Timo Rodriguez Other Phone: [facility] 08-04-2021 12:50-0500 Heart rate 105 /min Timo Rodriguez Other Phone: [facility] 08-04-2021 12:50-0500 SaO2% (BldA) [Mass fraction] 100 % Timo Rodriguez Other Phone: [facility] 08-04-2021 12:50-0500 Systolic blood pressure 103 mm[Hg] Timo Rodriguez Other Phone: [facility] 07-04-2021 17:05-0500 Body height 157.4 cm Timo Rodriguez Other Phone: [facility] 07-04-2021 17:05-0500 Body temperature 98.24 [degF] Timo Rodriguez Other Phone: [facility] 07-04-2021 17:05-0500 Diastolic blood pressure 64 mm[Hg] Timo Rodriguez Other Phone: [facility] 07-04-2021 17:05-0500 Heart rate 95 /min Timo Rodriguez Other Phone: [facility] 07-04-2021 17:05-0500 SaO2% (BldA) [Mass fraction] 98 % Timo Rodriguez Other Phone: [facility] 07-04-2021 17:05-0500 Systolic blood pressure 94 mm[Hg] Timo Rodriguez Other Phone: [facility] 03-02-2021 18:47-0400 Body height 157.4 cm Timo Rodriguez Other Phone: [facility] 03-02-2021 18:47-0400 Body temperature 98.06 [degF] Timo Rodriguez Other Phone: [facility] 03-02-2021 18:47-0400 Diastolic blood pressure 78 mm[Hg] Timo Rodriguez Other Phone: [facility] 03-02-2021 18:47-0400 Heart rate 102 /min Timo Rodriguez Other Phone: [facility] 03-02-2021 18:47-0400 Respiratory rate 20 /min Timo Rodriguez Other Phone: [facility] 03-02-2021 18:47-0400 SaO2% (BldA) [Mass fraction] 97 % Timo Rodriguez Other Phone: [facility] 03-02-2021 18:47-0400 Systolic blood pressure 137 mm[Hg] Timo Rodriguez Other Phone: [facility] Encounters Encounter Date Encounter Type Care Provider Facility Start: 06-25-2023 End: 06-26-2023 ambulatory Jana ZABALA Facility:[facility] Start: 06-25-2023 End: 06-25-2023 Pain Management [facility] Start: 06-17-2023 End: 06-17-2023 ambulatory LUCRETIA GRAVES Not Available Start: 06-06-2023 End: 06-06-2023 ambulatory PRITESH [place] Not Available Start: 02-18-2023 End: 02-19-2023 ambulatory PA-C Altagracia Curtis Facility:[facility] Start: 02-18-2023 End: 02-18-2023 [facility] Management [facility] Start: 02-04-2023 End: 02-05-2023 ambulatory MD Clyde Alcantar Facility:[facility] Start: 01-31-2023 End: 02-01-2023 ambulatory Monika GAO Facility:[facility] Start: 01-31-2023 End: 01-31-2023 Patient encounter procedure [facility] Start: 01-27-2023 End: 01-28-2023 Emergency department patient visit Kenn Zurita Facility:[facility] Start: 01-27-2023 End: 01-27-2023 Emergency department patient visit [facility] Start: 12-31-2022 End: 01-01-2023 ambulatory PA-C Altagracia Curtis Facility:[facility] Start: 12-12-2022 End: 12-13-2022 Emergency department patient visit Kenn Zurita Facility:[facility] Start: 11-21-2022 End: 11-22-2022 ambulatory Lucretia Graves Facility:[facility] Start: 11-21-2022 End: 11-22-2022 Pre-admission assessment [facility] Start: 11-09-2022 End: 11-10-2022 ambulatory Altagracia Curtis Facility:[facility] Start: 11-09-2022 End: 11-09-2022 Pain Management [facility] Start: 10-30-2022 ambulatory Shannon Golden Facilit y:[facility] Start: 10-15-2022 End: 10-16-2022 ambulatory MD Clyde Alcantar Facility:[facility] Start: 10-15-2022 End: 10-15-2022 Pain Management [facility] Start: 08-20-2022 End: 08-21-2022 ambulatory Jana ZABALA Facility:[facility] Start: 08-20-2022 End: 08-20-2022 Pain Management [facility] Start: 08-17-2022 End: 08-17-2022 Emergency department patient visit Chaitanya Toure Facility:[facility] Start: 08-17-2022 End: 08-17-2022 Emergency department patient visit DO Chaitanya Toure Work Phone: [facility] Work Phone: Start: 08-06-2022 End: 08-06-2022 ambulatory Christian Juárez Other [facility] [employer] Other Start: 08-06-2022 Telephone encounter Christian Juárez [facility] Start: 07-31-2022 End: 08-01-2022 ambulatory Altagracia Curtis Facility:[facility] Start: 07-09-2022 End: 07-10-2022 ambulatory Jana ZABALA Facility:[facility] Start: 07-09-2022 End: 07-09-2022 Pain Management [facility] Start: 06-25-2022 End: 06-25-2022 Pain Management [facility] Start: 05-08-2022 End: 05-08-2022 Patient encounter procedure [facility] Start: 05-07-2022 End: 05-07-2022 Patient encounter [facility] Start: 04-13-2022 End: 04-13-2022 Pain Management [facility] Start: 04-10-2022 End: 04-10-2022 Emergency department patient visit Tony Hannon Facility:[facility] Start: 04-10-2022 End: 04-10-2022 Emergency department patient visit DO Tony Hannon Work Phone: [facility] Start: 02-14-2022 End: 02-14-2022 Patient encounter [facility] Start: 02-05-2022 End: 02-05-2022 Emergency department patient visit [facility] Start: 01-19-2022 End: 01-19-2022 Emergency department patient visit Tony Hannon Facility:[facility] Start: 01-19-2022 End: 01-19-2022 Emergency department patient visit DO Tony Hannon Work Phone: [facility] Start: 12-08-2021 End: 12-08-2021 Pain Management [facility] Start: 11-21-2021 End: 11-21-2021 Pain Management [facility] Start: 11-07-2021 End: 11-07-2021 Emergency department patient visit [facility] Start: 10-27-2021 End: 10-27-2021 Pain Management [facility] Start: 08-04-2021 End: 08-04-2021 Emergency department patient visit Stefany Pena [facility] Start: 07-04-2021 End: 07-04-2021 Emergency department patient visit Stefany Pena [facility] 01 Start: 03-02-2021 End: 03-02-2021 Emergency department patient visit Harshad Julien [facility] Start: 04-09-2017 End: 04-10-2017 Ambulatory HENNY STERN Facility:[facility] Start: 02-19-2013 End: 02-19-2013 Telephone encounter Otilio Castillo Work Phone: Internal Medicine [facility] Comment on above: Refill Request Procedures Date Procedure Procedure Detail Performing Clinician Start: 05-24-2023 Destructive procedure Noah Alcantar Start: 02-04-2023 Lumbar epidural ster oid injection [employer] Comment on above: L4/5-70% relief. Start: 06-25-2022 Epidural injection o f lumbar spine using fluoroscopic guidance [employer] Comment on above: L4-L5 80% relief Start: 01-19-2022 SARS Antigen (LFIA) DO Tony Hannon Work Phone: Start: 01-19-2022 Plain chest X-ray DO Cecilio Hannon Work Phone: Start: 11-21-2021 Epidural injection o f lumbar spine using fluoroscopic guidance [employer] Comment on above: L4/5 FLACO-50% relief Start: 06-26-2021 Epidural injection o f lumbar spine using fluoroscopic guidance [employer] Comment on above: 50% relief Start: 12-26-2020 Epidural injection o f lumbar spine using fluoroscopic guidance [employer] Comment on above: 50% relief Start: 04-12-2020 Epidural injection o f lumbar spine using fluoroscopic guidance Altagracia Curtis Comment on above: L4/5 50% relief Start: 12-08-2019 Epidural injection o f lumbar spine using fluoroscopic guidance Altagracia Curtis Comment on above: 5% relief if any Start: 03-16-2014 Laparoscopic cholecystectomy Altagracia Curtis Cholecystectomy Altagracia quezada Epidural injection o f lumbar spine using fluoroscopic guidance Altagracia Curtis Comment on above: L4-L5 80% relief Plan of Treatment Date Care Activity Detail Author Patient Education [facility] Work Phone: Patient referral [facility] Work Phone: Immunizations Immunization Date Immunization Notes Care Provider Fa cility NEGATED: Highlighted row has not occurred!02-15-2013 pneumococcal polysaccharide vaccine, 23 valent Otilio Castillo Jr. Work Phone: [facility] Payers Date Payer Category Payer Medicaid [id number] 2022 Private Health Insurance [id number] 2022 Worker's Compensation [id number] 2022 Worker's Compensation [id number] 2022 Medicaid [id number] 2022 Self-pay [id number] 1989 Unknown [id number] 1989 Unknown [id number] 1989 Unknown [id number] 1989 Unknown [id number] 1990 Unknown [id number] 2.16.8 40.1.869624.3.579.2.727 1989 Unknown [id number] 2.16.8 40.1.087713.3.579.2.727 1989 Unknown [id number] 2.16.8 40.1.483249.3.579.2.727 1989 Unknown [id number] 2.16.8 40.1.359728.3.579.2.727 1989 Unknown [id number] 2.16.8 40.1.406095.3.579.2.727 1989 Unknown [id number] 2.16.8 40.1.241332.3.579.2.727 1989 Unknown [id number] 2.16.8 40.1.661249.3.579.2.727 1989 Unknown [id number] 2.16.8 40.1.755835.3.579.2.727 1989 Unknown [id number] 2.16.8 40.1.401440.3.579.2.727 1989 Unknown [id number] 2.16.8 40.1.825164.3.579.2.727 1989 Unknown [id number] 2.16.8 40.1.964787.3.579.2.727 1989 Unknown [id number] 2.16.8 40.1.260327.3.579.2.727 1959 Private Health Insurance [id number] Unknown Unknown [id number] 2.16.8 40.1.412784.3.579.2.531 Unknown [id number] 2.16.8 40.1.438580.3.579.2.531 Unknown [id number] 2.16.8 40.1.350706.3.579.2.531 Unknown [id number] 2.16. 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 alcohol (finding) [facility] Start: 1990 Sex Assigned At Not on file [facility] Tobacco smoking consumption unknown [facility] Start: 09-11-2021 End: 05-11-2022 Tobacco smoking status Light tobacco smoker (finding) [facility] Sex Assigned At Female [facility] Start: 1990 Sex Assigned At Female F [facility] Tobacco [facility] Comment on above: former smoker Start: 04-10-2022 End: 08-17-2022 Tobacco smoking status NHIS Smoker (finding) [facility] Tobacco smoking status No Smoking Status Entered [facility] Start: 11-09-2022 Tobacco smoking status Heavy tobacco smoker (finding) [facility] Functional Status Date Assessment Result Facility 06-25-2023 Functional Status N/A [facility] 02-18-2023 Functional Status N/A [facility] 01-27-2023 Functional Status N/A [facility] 11-09-2022 Functional Status N/A [facility] 10-15-2022 Functional Status N/A [facility] 08-20-2022 Functional Status N/A [facility] 07-09-2022 Functional Status N/A [facility] 06-25-2022 Functional Status N/A [facility] 04-13-2022 Functional Status N/A [facility] 02-05-2022 Functional Status N/A [facility] Clinical Notes 10-27-2021 to 06-25-2023 Note Date & Type Note Facility 06-25-2023 Evaluation + Plan note Extrac danyel from: Title:[facility]UV Author:Clyde Alcantar MD Date :06/25/23 Impression and Plan 32-year-old female with work-related 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 Those procedures provided the patient relief of her pain for 4 months. The pain is returning. The patient experience significant improvement of quality life and activities of daily living as a result of the pain relief she was experiencing. I recommend repeating the injection. The patient will require Valium 10 mg prior to the procedure due to severe anxiety. Risk, benefits, and alternatives were reviewed with the patient. She wishes to proceed. Plan follow-up 2 weeks after the injection to assess response. Patient agrees with plan of care. [facility]07-31-2023 Evaluation + Plan noteExtracted from: Title:Pain Managment Follow up Author:Altagracia Kirby Date:02/18/23 Impression and Plan Patient is a 32-year-old female with a past medical history significant for a [facility]. The approved codes are m51.26 and S39.012A. Lumbar annular tear and lumbar strain. She presents today for a follow-up after undergoing an L4-5 epidural steroid injection. This was done on 02/04/2023 and at this time has given her 70% relief. She is overall very pleased. She is comfortable and happy. She is back to normal activities. She is continuing on her medications. She is using Lyrica and tizanidine. She is requesting refills of both. A refill of Lyrica 50 mg 3 times daily will be sent to her pharmacy as well as tizanidine 4 mg 3 times daily as needed pain. At this time she will call when she requires any other refills. She is going to follow- up in 2 months. She will call the clinic sooner if necessary or should she require anything from our services in the meantime. MENDEL score: 28% [facility]07-17-2023 Note [id number]#[id number]:127[facility] 11-09-2022 Evaluation + Plan noteExtracted from: Title:Pain Managment Follow up Author:Altagracia Kirby Date:11/09/22 Impression and Plan Patient is a 32 year old female with a past medical history significant for a [facility] claim. The approved codes are m51.26 and S39.012A. Lumbar annular tear and lumbar strain. Recent repeat L4-5 epidural steroid injection gave her very significant relief. She states that since undergoing the injection her walking and standing are no longer limited. She can do the things she wants to do and she is overall very pleased. She is comfortable and happy. At this time, she is going to follow-up in mid December [address] we can repeat discussing the injection should it be necessary. We had a long discussion about how often the injections can be repeated if necessary. She wants to stay on top of this. Follow-up as above mentioned Call the clinic sooner if necessary MENDEL score: 32 Future Appointments Appointment Date:11/21/2022 07:45:00 PM Scheduled Provider: Location:.SLEEP LAB_ Appointment Type:[employer] Sleep Study HST () Appointment Date:01/04/2023 03:15:00 PM Scheduled Provider:Altagracia Curtis PA-C Location:.[facility] [place] Appointment Type:Pain Management - Workmans Comp Follow [facility]03-27-2023 Evaluation + Plan noteExtracted from: Title:Epidural Steroid Injec ion - LUMBAR - [place] Author:Clyde Alcantar MD Date:10/15/22 Patient: PRABHA LUNA Age: 32 years Sex: Female : 1990 Associated Diagnoses: None Author: Clyde Alcantar MD Procedure Procedure: Lumbar Epidural Steroid Injection with Fluoroscopic Guidance at L4/5 Diagnosis: Lumbar radiculitis Anesthesia: Local The patient was identified in the pre-op area. The procedure, including risks benefits and alternatives was discussed with the patient. The patient agreed to proceed. Informed consent was obtained and the site(s) marked. The patient was brought to the procedure room and placed in the prone position with padding under the abdomen to reduce lumbar lordosis. Time out was taken. The back was prepped and draped in sterile fashion with Chloraprep. Skin and subcutaneous tissues were anesthetized with 6 mL of Lidocaine 2% through a 25G needle. An 18G Touhy needle was then advanced under fluoroscopic guidance (A/P and contralateral oblique views) onto the inferior lamina and then advanced cephalad into the L4/5 epidural space using loss of resistance technique with a plastic MELA syringe. Isovue 2mL was injected under live fluoroscopy which demonstrated appropriate epidural spread without vascular uptake. After confirmation of negative aspiration, 2mL of 2% PF lidocaine, 4mL of PF normal saline, and 10mg of PF dexamethasone (in 1mL) were injected. The needle was removed and a bandage applied. The patient was brought to the recovery area in stable condition and then monitored for an appropriate period of time. The patient was discharged home in good condition with post-procedure instructions. No apparent complications. Epidural injection procedure Physical Exam: vital signs Vital Signs 10/15/2022 9:41 EDT Heart Rate Monitored 72 bpm SpO2 98 % 10/15/2022 9:41 EDT Systolic Blood Pressure 95 mmHg Diastolic Blood Pressure 65 mmHg Mean Arterial Pressure, Monitered 75 mmHg 10/15/2022 9:41 EDT Temperature Oral 36.6 DegC 10/15/2022 9:41 EDT Respiratory Rate 12 br/min LOW . Addendum by Minh Alcantar MD on October 15, 2022 10:25 EDT Dx correction: lumbar disc displacement Addendum by Minh Alcantar MD on October 15, 2022 10:49 EDT Valium 10mg po prior to procedure Future Appointments Appointment Date:11/09/2022 03:15:00 PM Scheduled Provider:Altagracia Curtis PA-C Location:[facility] Appointment Type:Pain Management - Workmans Comp Follow [facility]03-27-2023 Note [id number]:127[facility] 08-20-2022 Evaluation + Plan noteExtracted from: Title:Pain Managment Follow up Author:Altagracia Kirby Date:08/20/22 Impression and Plan Patient is a 32 year old female with a past medical history significant for a [facility]. The approved codes are m51.26 and S39.012A. Lumbar annular tear and lumbar strain. At this time she uses tizanidine as needed and Lyrica 50 mg twice daily. She feels that these help her. The intermittent injections also helped her. Her last injection was almost 2 months ago and she still notices improvement from this. We had a long discussion about this. She is going to call our services should she require a repeat injection. Orders were written for an L4-5 epidural steroid injection every 3 months as needed. She will call should she feel the need to repeat this. Otherwise she is going to follow-up in 3 months for medication management. She will call the clinic when necessary OARRS reviewed MENDEL score: 23 Future Appointments Appointment Date:11/09/2022 03:15:00 PM Scheduled Provider:Altagracia Curtis PA-C Location[facility] [place] Appointment Type:Pain Management - Workmans Comp Follow [facility]12-19-2022 Evaluation + Plan noteExtracted from: Title:Pain Managment Follow up Author:Altagracia Kirby Date:07/09/22 Impression and Plan Patient is a 31 year old female with a past medical history significant for a [facility]. The approved codes are m51.26 and S39.012A. Lumbar annular tear and lumbar strain. She is here today for follow-up after undergoing L4-5 epidural steroid injection. She states that this gave her 75 to 80% relief. She continues to use Lyrica 50 mg twice daily and tizanidine 4 mg as needed pain. OARRS was reviewed. She does not require any refills. At this time she states that she is doing much better. She is much more comfortable and happier. At this time, she is going to follow- up with her services in 3 months. She will continue on her medications and call us should she require anything. We once again facilitate a referral to Dr. Juárez. Future Appointments Appointment Date:10/08/2022 07:45:00 AM Scheduled Provider:Altagracia Curtis PA-C [facility] [place] App[facility] Type:Pain Management - Workmans Comp Follow [facility]09-23-2022 Evaluation + Plan noteExtracted from: Title:Pain management follow-up Author:Altagracia Curtis PA-C Date:04/13/22 Impression and Plan Patient is a 31 year old female with a past medical history significant for a [facility]. The approved codes are m51.26 and S39.012A. Lumbar annular tear and lumbar strain. She is also noticing increasing lower back pain and lumbar neuritis. She is using tizanidine and Lyrica. These do slightly help but unfortunate, not quite enough. Previous injection also helped but once again not quite enough. She is very bothered by this. She has lower back pain with intermittent left radiating leg pain. She wonders about seeing a surgeon. If we are questioning seeing a surgeon and her pain is changed I would recommend obtaining updated lumbar MRI with follow-up after for possible injection options versus referral to that surgeon. In the meantime she will continue on her medications. OARRS reviewed. She is going to follow-up in 4 months. She will call the clinic sooner if necessary. [facility]07-18-2022 Hospital Discharge instructions Patient Education 02/05/2022 18:02:35 Hypothyroidism Hypothyroidism Hypothyroidism is when the thyroid gland does not make enough of certain hormones (it is underactive). The thyroid gland is a small gland located in the lower front part of the neck, just in front ofthe windpipe (trachea). This gland makes hormones that help control how the body uses food for energy (metabolism) as well as how the heart and brain function. These hormones also play a role in keeping your bones strong. When the thyroid is underactive, it produces too little of the hormones thyroxine (T4) and triiodothyronine (T3). What are the causes? This condition may be caused by: Mark's disease. This is a disease in which the body's disease-fighting system (immune system) attacks the thyroid gland. This is the most common cause. Viral infections. . Certain medicines. defects. Past radiation treatments to the head or neck for cancer. Past treatment with radioactive iodine. Past exposure to radiation in the environment. Past surgical removal of part or all of the thyroid. Problems with a gland in the center of the brain (pituitary gland). Lack of enough iodine in the diet. What increases the risk? You are more likely to develop this condition if: You are female. You have a family history of thyroid conditions. You use a medicine called lithium. You take medicines that affect the immune system (immunosuppressants). What are the signs or symptoms? Symptoms of this condition include: Feeling as though you have no energy (lethargy). Not being able to tolerate cold. Weight gain that is not explained by a change in diet or exercise habits. Lack of appetite. Dry skin. Coarse hair. Menstrual irregularity. Slowing of thought processes. Constipation. Sadness or depression. How is this diagnosed? This condition may be diagnosed based on: Your symptoms, your medical history, and a physical exam. Blood tests. You may also have imaging tests, such as an ultrasound or MRI. How is this treated? This condition is treated with medicine that replaces the thyroid hormones that your body does not make. After you begin treatment, it may take several weeks for symptoms to go away. Follow these instructions at home: Take hvcf-qbt-hfzzcyx and prescription medicines only as told by your health care provider. If you start taking any new medicines, tell your health care provider. Keep all follow-up visits as told by your health care provider. This is important. ?As your condition improves, your dosage of thyroid hormone medicine may change. ?You will need to have blood tests regularly so that your health care provider can monitor your condition. Contact a health care provider if: Your symptoms do not get better with treatment. You are taking thyroid replacement medicine and you: ?Sweat a lot. ?Have tremors. ?Feel anxious. ?Lose weight rapidly. ?Cannot tolerate heat. ?Have emotional swings. ?Have diarrhea. ?Feel weak. Get help right away if you have: Chest pain. An irregular heartbeat. A rapid heartbeat. Difficulty breathing. Summary Hypothyroidism is when the thyroid gland does not make enough of certain hormones (it is underactive). When the thyroid is underactive, it produces too little of the hormones thyroxine (T4) and triiodothyronine (T3). The most common cause is Mark's disease, a disease in which the body's disease-fighting system(immune system) attacks the thyroid gland. The condition can also be caused by viral infections, medicine, , or past radiation treatment to the head or neck. Symptoms may include weight gain, dry skin, constipation, feeling as though you do not have energy,and not being able to tolerate cold. This condition is treated with medicine to replace the thyroid hormones that your body does not make. This information is not intended to replace advice given to you by your health care provider. Make sure you discuss any questions you have with your health care provider. Document Released: 07/08/2006 Document Revised: 06/20/2018 Document Reviewed: 06/18/2018 [employer] Patient Education 2020 [employer]. 02/05/2022 18:02:35 Nausea, Adult, Kzmu-gz-Pmyj Nausea, Adult Nausea is feeling sick to your stomach or feeling that you are about to throw up (vomit). Feeling sick to your stomach is usually not serious, but it may be an early sign of a more serious medical problem. As you feel sicker to your stomach, you may throw up. If you throw up, or if you are not able to drink enough fluids, there is a risk that you may lose too much water in your body (get dehydrated). If you lose too much water in your body, you may: Feel tired. Feel thirsty. Have a dry mouth. Have cracked lips. Go pee (urinate) less often. Older adults and people who have other diseases or a weak body defense system (immune system) have a higher risk of losing too much water in the body. The main goals of treating this condition are: To relieve your nausea. To ensure your nausea occurs less often. To prevent throwing up and losing too much fluid. Follow these instructions at home: Watch your symptoms for any changes. Tell your doctor about them. Follow these instructions as toldby your doctor. Eating and drinking Take an ORS (oral rehydration solution). This is a drink that is sold at pharmacies and stores. Drink clear fluids in small amounts as you are able. These include: ?Water. ?Ice chips. ?Fruit juice that has water added (diluted fruit juice). ?Low-calorie sports drinks. Eat bland, omer-cm-kdkvfl foods in small amounts as you are able, such as: ?Bananas. ?Applesauce. ?Rice. ?Low-fat (lean) meats. ?[place]. ?Crackers. Avoid drinking fluids that have a lot of sugar or caffeine in them. This includes energy drinks, sports drinks, and soda. Avoid alcohol. Avoid spicy or fatty foods. General instructions Take hewz-rag-gljsnrm and prescription medicines only as told by your doctor. Rest at home while you get better. Drink enough fluid to keep your pee (urine) pale yellow. Take slow and deep breaths when you feel sick to your stomach. Avoid food or things that have strong smells. Wash your hands often with soap and water. If you cannot use soap and water, use hand practical nursing faculty. Make sure that all people in your home wash their hands well and often. Keep all follow-up visits as told by your doctor. This is important. Contact a doctor if: You feel sicker to your stomach. You feel sick to your stomach for more than 2 days. You throw up. You are not able to drink fluids without throwing up. You have new symptoms. You have a fever. You have a headache. You have muscle cramps. You have a rash. You have pain while peeing. You feel light-headed or dizzy. Get help right away if: You have pain in your chest, neck, arm, or jaw. You feel very weak or you pass out (faint). You have throw up that is bright red or looks like coffee grounds. You have bloody or black poop (stools) or poop that looks like tar. You have a very bad headache, a stiff neck, or both. You have very bad pain, cramping, or bloating in your belly (abdomen). You have trouble breathing or you are breathing very quickly. Your heart is beating very quickly. Your skin feels cold and clammy. You feel confused. You have signs of losing too much water in your body, such as: ?Dark pee, very little pee, or no pee. ?Cracked lips. ?Dry mouth. ?Sunken eyes. ?Sleepiness. ?Weakness. These symptoms may be an emergency. Do not wait to see if the symptoms will go away. Get medical help right away. Call your local emergency services (911 in the [place] Do not drive yourself to the hospital. Summary Nausea is feeling sick to your stomach or feeling that you are about to throw up (vomit). If you throw up, or if you are not able to drink enough fluids, there is a risk that you may lose too much water in your body (get dehydrated). Eat and drink what your doctor tells you. Take cyre-fjp-gvycmxx and prescription medicines only as told by your doctor. Contact a doctor right away if your symptoms get worse or you have new symptoms. Keep all follow-up visits as told by your doctor. This is important. This information is not intended to replace advice given to you by your health care provider. Make sure you discuss any questions you have with your health care provider. Document Released: 06/26/2012 Document Revised: 12/16/2018 Document Reviewed: 12/16/2018 [employer] Patient Education 2020 [employer]. 02/05/2022 18:02:35 Hypokalemia Hypokalemia Hypokalemia means that the amount of potassium in the blood is lower than normal. Potassium is a chemical (electrolyte) that helps regulate the amount of fluid in the body. It also stimulates muscle tightening (contraction) and helps nerves work properly. Normally, most of the body's potassium is inside cells, and only a very small amount is in the blood. Because the amount in the blood is so small, minor changes to potassium levels in the blood can be life-threatening. What are the causes? This condition may be caused by: Antibiotic medicine. Diarrhea or vomiting. Taking too much of a medicine that helps you have a bowel movement (laxative)can cause diarrhea and lead to hypokalemia. Chronic kidney disease (CKD). Medicines that help the body get rid of excess fluid (diuretics). Eating disorders, such as bulimia. Low magnesium levels in the body. Sweating a lot. What are the signs or symptoms? Symptoms of this condition include: Weakness. Constipation. Fatigue. Muscle cramps. Mental confusion. Skipped heartbeats or irregular heartbeat (palpitations). Tingling or numbness. How is this diagnosed? This condition is diagnosed with a blood test. How is this treated? This condition may be treated by: Taking potassium supplements by mouth. Adjusting the medicines that you take. Eating more foods that contain a lot of potassium. If your potassium level is very low, you may need to get potassium through an IV and be monitored in the hospital. Follow these instructions at home: Take vnrr-yrg-ndttjfk and prescription medicines only as told by your health care provider. This includes vitamins and supplements. Eat a healthy diet. A healthy diet includes fresh fruits and vegetables, whole grains, healthy fats, and lean proteins. If instructed, eat more foods that contain a lot of potassium. This includes: ?Nuts, such as peanuts and pistachios. ?Seeds, such as sunflower seeds and pumpkin seeds. ?Peas, lentils, and san beans. ?Whole grain and bran cereals and breads. ?Fresh fruits and vegetables, such as apricots, avocado, bananas, cantaloupe, kiwi, oranges, tomatoes, asparagus, and potatoes. ?Stone juice. ?Tomato juice. ?Red meats. ?Yogurt. Keep all follow-up visits as told by your health care provider. This is important. Contact a health care provider if you: Have weakness that gets worse. Feel your heart pounding or racing. Vomit. Have diarrhea. Have diabetes (diabetes mellitus) and you have trouble keeping your blood sugar (glucose) in your target range. Get help right away if you: Have chest pain. Have shortness of breath. Have vomiting or diarrhea that lasts for more than 2 days. Faint. Summary Hypokalemia means that the amount of potassium in the blood is lower than normal. This condition is diagnosed with a blood test. Hypokalemia may be treated by taking potassium supplements, adjusting the medicines that you take, or eating more foods that are high in potassium. If your potassium level is very low, you may need to get potassium through an IV and be monitored in the hospital. This information is not intended to replace advice given to you by your health care provider. Make sure you discuss any questions you have with your health care provider. Document Released: 07/08/2006 Document Revised: 02/18/2019 Document Reviewed: 02/18/2019 [employer] Patient Education 2020 [employer]. Follow Up Care 02/05/2022 16:06:23 With:Jana ZABALA Address: [address] [place] [id number] Business (1) When:Within 3 Day(s) [facility]07-18-2022 Evaluation + Plan noteExtracted from: Title:ED Note Author:Noel Acosta DO Date:01/19 03/12 Abnormal thyroid blood test (R79.89: Other specified abnormal findings of blood chemistry) Hypokalemia (E87.6: Hypokalemia) Nausea (R11.0: Nausea) Orders: ondansetron, 4 mg = 1 tab(s), Oral, q6hr, PRN Nausea, Take one tab by mouth every six hours as needed for nausea, # 10 tab(s), Refills(s) 0, Pharmacy: [facility]/pharmacy #[id number], 158, cm, 02/05/22 16:14:00 EDT, Height/Length Dosing, 68, kg, 02/05/22 16:14:00 EDT, Weight D... ondansetron, 4 mg = 2 mL, Injection, IV Push, Once, Stop date 02/05/22 16:31:00 EDT, STAT, Start date 02/05/22 16:31:00 EDT, 02/05/22 16:31:00 EDT potassium chloride, 20 mEq = 1 tab(s), Oral, Daily, X 7 day(s), # 7 tab(s), Refills(s) 0, Pharmacy: [facility]/pharmacy #[id number], 158, cm, 02/05/22 16:14:00 EDT, Height/Length Dosing, 68, kg, 02/05/22 16:14:00 EDT, Weight Dosing Sodium Chloride 0.9% intravenous solution 1,000 mL, 1,000 mL, IV, 20 mL/hr, STAT, Start date 02/05/22 16:31:00 EDT, 50 hour(s), Total volume (mL): 1,000, 68 kg, 1.73, m2 Automated Diff Basic Metabolic Panel Beta hCG Qual Capillary Glucose POC CBC w/ Auto Diff eGFR Free T4 Hepatic Function Panel Lipase Level Mononucleosis Screen TSH With T4fr Reflex UA With Cult Reflex Future Appointments Appointment Date:02/13/2022 08:00:00 AM Scheduled Provider: Location:FT.[facility] Appointment Type:CV Holter/Event (FT) Appointment Date:04/13/2022 03:15:00 PM Scheduled Provider:Altagracia Curtis PA-C Location:[facility] [place] Appointment Type:Pain Management - Workmans Comp [facility]05-20-[facility] Evaluation + Plan noteExtracted from: Title:Pain management follow-up Author:Altagracia Curtis PA-C Date:12/08/21 Impression and Plan Patient is a 31 year old female with a past medical history significant for a [facility]. The approved codes are m51.26 and S39.012A. Lumbar annular tear and lumbar strain. She presents today for follow-up after undergoing L4-5 epidural steroid injection done on 11/21/2021 that she states has given her 50% relief. She continues to use tizanidine 4 mg at bedtime as well as Lyrica 50 mg at bedtime. She uses them sparingly. She is comfortable and happy. She is overall doing very well. At this time she is happy with the amount of relief she has gotten from the injections. She is able to do the things she wants to do. She is going to follow-up in 4 months. She will call the clinic sooner if necessary. Future Appointments Appointment Date:04/13/2022 03:15:00 PM Scheduled Provider:Altagracia Curtis PA-C Location:[facility] Appointment Type:Pain Management - Workmans Comp [facility]05-03-2022 Evaluation + Plan noteExtracted from: Title:Epidural Steroid Injec ion - LUMBAR - [place] Author:Clyde Alcantar MD Date:11/21/21 Patient: PRABHA LUNA Age: 31 years Sex: Female : 1990 Associated Diagnoses: None Author: Clyde Alcantar MD Procedure Procedure: Lumbar Epidural Steroid Injection with Fluoroscopic Guidance at L4/5 Diagnosis: Lumbar Disc Displacement without myelopathy Anesthesia: Local The patient was identified in the pre-op area. The procedure, including risks benefits and alternatives was discussed with the patient. The patient agreed to proceed. Informed consent was obtained and the site(s) marked. The patient was brought to the procedure room and placed in the prone position with padding under the abdomen to reduce lumbar lordosis. Time out was taken. The back was prepped and draped in sterile fashion. Skin and subcutaneous tissues were anesthetized with 6 mL of Lidocaine 2% through a 25G needle. An 18G Touhy needle was then advanced under fluoroscopic guidance (A/P and contralateral oblique views) onto the inferior lamina and then advanced cephalad into the L4/5 epidural space using loss of resistance technique with a plastic MELA syringe. Isovue 2mL was injected under live fluoroscopy which demonstrated appropriate epidural spread without vascular uptake. After confirmation of negative aspiration, 5mL of 0.5% PF lidocaine and 10mg of PF dexamethasone were injected. The needle was removed and a bandage applied. The patient was brought to the recovery area in stable condition and then monitored for an appropriate period of time. The patient was discharged home in good condition with post-procedure instructions. No apparent complications. Epidural injection procedure Physical Exam: vital signs Vital Signs 11/21/2021 9:39 EDT Heart Rate Monitored 78 bpm Systolic Blood Pressure 110 mmHg Diastolic Blood Pressure 88 mmHg SpO2 100 % 11/21/2021 9:06 EDT Temperature Oral 36.8 DegC Heart Rate Monitored 78 bpm Respiratory Rate 16 br/min Systolic Blood Pressure 110 mmHg Diastolic Blood Pressure 80 mmHg Mean Arterial Pressure, Monitered 90 mmHg SpO2 98 % . Addendum by Minh Alcantar MD on November 21, 2021 9:41 EDT Valium 10mg po prior to procedure for anxiolysis Future Appointments Appointment Date:12/08/2021 03:15:00 PM Scheduled Provider:Altagracia Curtis PA-C Location:.[facility] [place] Appointment Type:Pain Management - Follow Up ([facility]) [facility] Hospital Discharge instructions Patient Education 11/07/2021 14:27:38 Migraine Headache Migraine Headache A migraine headache is an intense, throbbing pain on one side or both sides of the head. Migraine headaches may also cause other symptoms, such as nausea, vomiting, and sensitivity to light and noise. A migraine headache can last from 4 hours to 3 days. Talk with your doctor about what things may bring on (trigger) your migraine headaches. What are the causes? The exact cause of this condition is not known. However, a migraine may be caused when nerves in the brain become irritated and release chemicals that cause inflammation of blood vessels. This inflammation causes pain. This condition may be triggered or caused by: Drinking alcohol. Smoking. Taking medicines, such as: ?Medicine used to treat chest pain (nitroglycerin). ? control pills. ?Estrogen. ?Certain blood pressure medicines. Eating or drinking products that contain nitrates, glutamate, aspartame, or tyramine. Aged cheeses,chocolate, or caffeine may also be triggers. Doing physical activity. Other things that may trigger a migraine headache include: Menstruation. . Hunger. Stress. Lack of sleep or too much sleep. Weather changes. Fatigue. What increases the risk? The following factors may make you more likely to experience migraine headaches: Being a certain age. This condition is more common in people who are 25 55 years old. Being female. Having a family history of migraine headaches. Being . Having a mental health condition, such as depression or anxiety. Being obese. What are the signs or symptoms? The main symptom of this condition is pulsating or throbbing pain. This pain may: Happen in any area of the head, such as on one side or both sides. Interfere with daily activities. Get worse with physical activity. Get worse with exposure to bright lights or loud noises. Other symptoms may include: Nausea. Vomiting. Dizziness. General sensitivity to bright lights, loud noises, or smells. Before you get a migraine headache, you may get warning signs (an aura). An aura may include: Seeing flashing lights or having blind spots. Seeing bright spots, halos, or zigzag lines. Having tunnel vision or blurred vision. Having numbness or a tingling feeling. Having trouble talking. Having muscle weakness. Some people have symptoms after a migraine headache (postdromal phase), such as: Feeling tired. Difficulty concentrating. How is this diagnosed? A migraine headache can be diagnosed based on: Your symptoms. A physical exam. Tests, such as: ?CT scan or an MRI of the head. These imaging tests can help rule out other causes of headaches. ?Taking fluid from the spine (lumbar puncture) and analyzing it (cerebrospinal fluid analysis, or CSF analysis). How is this treated? This condition may be treated with medicines that: Relieve pain. Relieve nausea. Prevent migraine headaches. Treatment for this condition may also include: Acupuncture. Lifestyle changes like avoiding foods that trigger migraine headaches. Biofeedback. Cognitive behavioral therapy. Follow these instructions at home: Medicines Take flqv-hcy-pyijmee and prescription medicines only as told by your health care provider. Ask your health care provider if the medicine prescribed to you: ?Requires you to avoid driving or using heavy machinery. ?Can cause constipation. You may need to take these actions to prevent or treat constipation: ?Drink enough fluid to keep your urine pale yellow. ?Take vsef-ihk-npttwgt or prescription medicines. ?Eat foods that are high in fiber, such as beans, whole grains, and fresh fruits and vegetables. ?Limit foods that are high in fat and processed sugars, such as fried or sweet foods. Lifestyle Do not drink alcohol. Do not use any products that contain nicotine or tobacco, such as cigarettes, e- cigarettes, and chewing tobacco. If you need help quitting, ask your health care provider. Get at least 8 hours of sleep every night. Find ways to manage stress, such as meditation, deep breathing, or yoga. General instructions Keep a journal to find out what may trigger your migraine headaches. For example, write down: ?What you eat and drink. ?How much sleep you get. ?Any change to your diet or medicines. If you have a migraine headache: ?Avoid things that make your symptoms worse, such as bright lights. ?It may help to lie down in a dark, quiet room. ?Do not drive or use heavy machinery. ?Ask your health care provider what activities are safe for you while you are experiencing symptoms. Keep all follow-up visits as told by your health care provider. This is important. Contact a health care provider if: You develop symptoms that are different or more severe than your usual migraine headache symptoms. You have more than 15 headache days in one month. Get help right away if: Your migraine headache becomes severe. Your migraine headache lasts longer than 72 hours. You have a fever. You have a stiff neck. You have vision loss. Your muscles feel weak or like you cannot control them. You start to lose your balance often. You have trouble walking. You faint. You have a seizure. Summary A migraine headache is an intense, throbbing pain on one side or both sides of the head. Migraines may also cause other symptoms, such as nausea, vomiting, and sensitivity to light and noise. This condition may be treated with medicines and lifestyle changes. You may also need to avoid certain things that trigger a migraine headache. Keep a journal to find out what may trigger your migraine headaches. Contact your health care provider if you have more than 15 headache days in a month or you develop symptoms that are different or more severe than your usual migraine headache symptoms. This information is not intended to replace advice given to you by your health care provider. Make sure you discuss any questions you have with your health care provider. Document Released: 07/08/2006 Document Revised: 10/30/2019 Document Reviewed: 08/20/2019 [employer] Patient Education 2020 [employer] Follow Up Care 11/07/2021 11:50:26 With:Jana ZABALA Address: [place] [address]- [facility] (1) When:11/10/2021 14:27:24 Comments:Call the office of your primary care doctor to arrange for follow-up within the above-stated timeframe. Follow-up with your primary care doctor about this ED visit. You should review your labs, imaging, and diagnoses from this ED visit with your primary care physician. If you were prescribed medications you should discuss possible side-effects and drug interactions with your pharmacist. Call 911 or go to the nearest Emergency Department if you develop any new or worsening symptoms.Seek immediate medical attention if you develop: worsening headache, nausea, vomiting, confusion, weakness, loss of motion in your arms or legs, loss of control of your urine or stool, difficulty waking from sleep, neck pain, fever, or any new or worsening symptoms. [facility] Evaluation + Plan noteExtracted from: Title:ED Note Author:Davonte Alonzo DO Date: Migraine (G43.909: Migraine, unspecified, not intractable, without status migrainosus) Orders: acetaminophen-butalbital, 1 tab(s), Oral, q4hr for headache, 6 tab(s), Refill(s) 0, [id number], 158, cm, 11/07/21 12:07:00 EDT, Height/Length Dosing, 68, kg, 11/07/21 12:07:00 EDT, Weight Dosing diphenhydrAMINE, 25 mg = 0.5 mL, Injection, IV Push, Once, Stop date 11/07/21 12:26:00 EDT, STAT, Start date 11/07/21 12:26:00 EDT, PUT IN BAG AND GIVE SLOWLY PER PATIENT, 11/07/21 12:26:00 EDT ketorolac, 30 mg = 1 mL, Injection, IV Push, Once, Stop date 11/07/21 13:59:00 EDT, STAT, Start date 11/07/21 13:59:00 EDT, 11/07/21 13:59:00 EDT ondansetron, 4 mg = 1 tab(s), Oral, q8hr, PRN Nausea/Vomiting, # 12 tab(s), Refills(s) 0, Pharmacy: [id number], 158, cm, 11/07/21 12:07:00 EDT, Height/Length Dosing, 68, kg, 11/07/21 12:07:00 EDT, Weight Dosing promethazine, 25 mg = 1 mL, Injection, IV Push, Once, Stop date 11/07/21 12:26:00 EDT, STAT, Start date 11/07/21 12:26:00 EDT, 11/07/21 12:26:00 EDT Sodium Chloride 0.9% intravenous solution, Soln-IV, Misc, Once, Stop date 11/07/21 13:17:34 EDT, Physician Stop, 11/07/21 13:17:34 EDT Sodium Chloride 0.9% intravenous solution, 250 mL, IV, Stop date 11/07/21 13:23:00 EDT, Start date 11/07/21 13:23:[address] Head or Brain w/o Contrast [facility]04[facility] Evaluation + Plan noteExtracted from: Title:Pain management follow-up Author:Altagracia uCrtis PA-C Date:10/27/21 Impression and Plan Patient is a 31 year old female with a past medical history significant for a [facility] claim. The approved codes are m51.26 and S39.012A. Lumbar annular tear and lumbar strain. She underwent previous L4-5 epidural steroid injection done on 06/26/2021 that she states gave her 50 to 75% relief. Unfortunately, it is beginning to return. She states she would like to get it taken care of sooner rather than later before it starts going down her legs like it did before. She is using Lyrica and intermittent tizanidine with some improvement but she states that the medications give her such significant relief. She had 3 months of relief with the most recent 1 and she would like to do this again. She rates her discomfort a 4/10. It is in the lower back and buttocks. Same as before. I discussed with patient repeating the L4-5 epidural steroid injection for both diagnostic and therapeutic purposes. Procedure was discussed. Risk and benefits were discussed. Patient is agreeable. She will follow up 2 weeks after the injection for reevaluation. Call the clinic sooner if necessary. [place] reviewed. She states that she does not need any refills at this time. She will call when she does. [facility] Future Appointments Appointment Date:04/13/2022 03:15:00 PM Scheduled Provider:Altagracia Curtis PA-C Location:[facility] [place] Appointment Type:[facility] Management - Workmans Comp [facility] Future Appointments Appointment Date:07/09/2022 07:30:00 AM Scheduled Provider:Altagracia Curtis PA-C Location:[facility] [place] Appointment Type:[facility] Future Appointments Appointment Date:01/04/2023 03:15:00 PM Scheduled Provider:Altagracia Curtis PA-C Location:[facility] [place] Appointment Type:Pain Management - Workmans Comp Follow [facility] + Plan note Future Appointments Appointment Date:02/04/2023 11:45:00 AM Scheduled Provider: Alysha:[facility] Appointment Type:Surgery FT Appointment Date:02/18/2023 10:30:00 AM Scheduled Provider:Altagracia Curtis PA-C Location:[facility] [place] Appointment Type:Pain Management - Follow Up (FT) [facility] noteNo assessment information available [facility] Work Phone: Evaluation noteNo InformationN[facility]Cl[facility] Other History general Narrative - Reported* Type Description Date Medical History gall bladder disease Medical History migraine headache Medical History thyroid disease Surgical History cholecystectomy Hospitalization History pneumonia [facility] Other Hospital course Narrative No data available for this section [facility] No data available for this section [facility] Additional Instructions Follow-up with your primary care doctor Return to the ED if you develop worsening symptoms or concerns Take the steroids as prescribed, take benadryl as needed for [facility] Work Phone: Progress note No data available for this section [facility] Summary Purpose Family History No Family History Records FoundNo Family History Records FoundNo Family History Records FoundNo Family History Records FoundNo Family History Records Found No data available for this section No Family History Records Found Advance Directives No Advanced Directives Records Found Advance Directive Response Recorded Date/ Time Advance Directives No March 11:08pm Advance Directive Response Recorded Date/ Time Advance Directives No March 10:08pm Chief Complaint and Reason for Visit Chief Complaint CHEST PAIN Chief Complaint CHEST PAIN migraine Chief Complaint Swelling Additional Source Comments INFORMATION SOURCE (unrecogn ized section and content) DATE CREATED AUTHOR 01/15/2018 [facility] DATE CREATED AUTHOR AUTHOR'S ORGANIZ ATION 08/06/[address] [facility] DATE CREATED AUTHOR AUTHOR'S ORGANIZ ATION 08/08/2021 [facility] DATE CREATED AUTHOR AUTHOR'S ORGANIZ ATION 09/06/2022 [facility] DATE CREATED AUTHOR AUTHOR'S ORGANIZ ATION 06/17/2023 [facility] dical [facility] DATE CREATED AUTHOR AUTHOR'S ORGANIZ ATION 06/27/2023 [facility] Source Comments (unrecognize d section and content) In the event this informatio n is protected by the Federal Confidentiality of Alcohol and Drug Abuse Patient Records regulations: The Federal rules restrict any use of the information to criminally investigate or prosecute any alcohol or drug abuse patient.[facility] the event this information is protected by the Federal Confidentiality of Alcohol and Drug Abuse Patient Records regulations: The Federal rules restrict any use of the information to criminally investigate or prosecute any alcohol or drug abuse patient.[facility] Reason for Visit (unrecogniz ed section and content) Reason Comments Refill Request <item><item><item> Privacy Markings (unrecogniz ed section and content) Section Author: Lena Lema PROHIBITION ON REDISCLOSURE OF CONFIDENTIAL INFORMATION This notice accompanies a disclosure of information concerning a client made to you with the consent of such client. Section Author: Lena Lema PROHIBITION ON REDISCLOSURE OF CONFIDENTIAL INFORMATION This notice accompanies a disclosure of information concerning a client made to you with the consent of such client. Section Author: Lena Lema PROHIBITION ON REDISCLOSURE OF CONFIDENTIAL INFORMATION This notice accompanies a disclosure of information concerning a client made to you with the consent of such client. Care Teams (unrecognized sec tion and content) Team Status: Inactive Member Role Status Dates Tony Hannon DO Emergency Provider Active Jana Zabala PA-C Primary Care Provider Active Team Status: Active Member Role Status Dates Jana Zabala PA-C Primary Care Provider Active Team Status: Inactive Member Role Status Dates Jana J Sagrario , PA-C Primary Care Provider Active Tony Hannon DO Emergency Provider Active Team Status: Inactive Member Role Status Dates Chaitanya Toure DO Emergency Provider Active SANJUANITA Nayak-C Primary Care Provider Active Goals (unrecognized section and content) Goals may be documented in a n alternate section FOR RECORDS PERTAINING TO PATIENTS WHO ARE OR HAVE BEEN ENROLLED IN A CHEMICAL DEPENDENCY/SUBSTANCEABUSE PROGRAM, SOME INFORMATION MAY BE OMITTED. This clinical summary was aggregated from multiple sources. Caution should be exercised in using it in the provision of clinical care. This summary normalizes information from multiple sources, and as a consequence, information in this document may materially change the coding, format and clinical context of patient data. In addition, data may be omitted in some cases. CLINICAL DECISIONS SHOULD BE BASED ON THE PRIMARY CLINICAL RECORDS. [employer] provides no warranty or guarantee of the accuracy or completeness of information in this document.
--- NOTE | 2023-09-02 14:30 | US_ITS ---
The [address] [address] Patient Name: DERICK LUNA MRN: [id number] date: 1990 Sex: F Assigned Patient Location: ER Current Patient Location: ER Accession/Order Number: [id number] Exam Date: 09/02/2023 15:20 Report Date: 09/02/2023 16:16 At the request of: ITALO ABE Procedure: US pelvis transvaginal EXAMINATION: US pelvis transvaginal HISTORY: pelvic pain COMPARISON: No relevant comparison available. FINDINGS: Transvaginal images The uterus is normal in size, contour and echotexture measuring 7.6 x 3.8 x 4.8 cm. No focal myometrial mass The endometrium measures 4.4 mm, within normal limits The right ovary measures 4.9 x 2.6 x 3.6 cm. Normal color Doppler flow in the ovary. Area of hypoechogenicity measuring 2 cm with no color flow. Functional cyst favored. Normal follicles The left ovary measures 3.7 x 2.2 x 2.3 cm. Normal color and Doppler flow. Normal follicles No free fluid US/US pelvis transvaginal IMPRESSION: 2 cm right ovarian complex cyst Electronically authenticated by: CHANG LAL Date: 09/02/2023 16:16
--- NOTE | 2023-09-02 14:37 | ED.PREGNANC1 ---
HPI - General Chief complaint: Vaginal Bleeding Stated complaint: Pelvic pain, Abnormal Vaginal Bleeding Time Seen by Provider: 09/02/23 14:26 Source: patient Mode of arrival: walk-in Limitations: no limitations History of Present Illness HPI Narrative: 33 year old female presents to the ED for pelvic pain, vaginal bleeding. Onset was 08/31/23. She is concerned she has a ruptured ovarian cyst. Also reports a [place], N/V since yesterday. Denies fever, chills, dizziness, weakness. Denies CP, SOB. Denies urinary sx. Rates her pain 02/28. Reports hx migraines. States she was sent by her [employer] office. Related Data Home Medications Medication Instructions Recorded Confirmed fremanezumab-vfrm 225 mg/1.5 mL 225 mg subcut .weekly 05/10/23 09/02/23 subcutaneous auto-injector (Ajovy) levothyroxine 25 mcg tablet 25 mcg PO DAILY 05/10/23 09/02/23 rimegepant 75 mg disintegrating 75 mg PO QDAY PRN migraine headache 05/10/23 09/02/23 tablet (Nurtec ODT) tizanidine 4 mg tablet 4 mg PO QPM 05/10/23 09/02/23 Previous Rx's Medication Instructions Recorded ibuprofen 800 mg tablet 800 mg PO TID PRN pain #12 tabs 09/02/23 ondansetron 4 mg disintegrating 4 mg PO Q8H PRN nausea and 09/02/23 tablet vomiting 4 days #12 tabs Allergies Allergy/AdvReac Type Severity Reaction Status Date / Time bee venom protein (honey bee) Allergy swelling Verified 05/24/23 07:26 chocolate flavor Allergy Migraine Verified 05/24/23 07:26 dicyclomine Allergy Hives Verified 05/24/23 07:26 galcanezumab-gnlm Allergy swelling Verified 05/24/23 07:26 [From Emgality Pen] metoclopramide [From Reglan] Allergy dystonia Verified 05/24/23 07:26 tomato Allergy Vomiting Verified 05/24/23 07:26 Review of Systems ROS Constitutional Denies: fever or chills Eyes Denies: change in vision, blurry vision or light sensitivity Cardiovascular Denies: chest pain Respiratory Denies: shortness of breath Gastrointestinal Reports: abdominal pain, nausea and vomiting; Denies: diarrhea Genitourinary Reports: vaginal bleeding; Denies: painful urination, urinary frequency, urinary urgency, urinary incontinence or blood in urine Musculoskeletal Denies: back pain or neck pain Integumentary/Breast Denies: rash Neurological Reports: headache; Denies: numbness in extremities, weakness in extremities, lack of coordination or dizziness [facility] Medical History (Updated 09/02/23 @ 17:00 by Constanza Felix) Back pain ?M54.9 - Dorsalgia, unspecified (ICD-10) Anemia ?D64.9 - Anemia, unspecified (ICD-10) Anxiety ?F41.9 - Anxiety disorder, unspecified (ICD-10) Electronic cigarette use ?Z78.9 - Other specified health status (ICD-10) COVID-19 ?U07.1 - COVID-19 (ICD-10) Migraine ?G43.909 - Migraine, unspecified, not intractable, without status migrainosus (ICD-10) Fallopian tube disorder ?N83.9 - Noninflammatory disorder of ovary, fallopian tube and broad ligament, unspecified (ICD-10) Ovarian cyst ?N83.209 - Unspecified ovarian cyst, unspecified side (ICD-10) Endometriosis ?N80.9 - Endometriosis, unspecified (ICD-10) Dysmenorrhea ?N94.6 - Dysmenorrhea, unspecified (ICD-10) Dyspareunia Pelvic pain ?R10.2 - Pelvic and perineal pain (ICD-10) GERD (gastroesophageal reflux disease) ?K21.9 - Gastro-esophageal reflux disease without esophagitis (ICD-10) Arrhythmia ?I49.9 - Cardiac arrhythmia, unspecified (ICD-10) Pneumonia ?J18.9 - Pneumonia, unspecified organism (ICD-10) Hypotension ?I95.9 - Hypotension, unspecified (ICD-10) Hypothyroidism ?E03.9 - Hypothyroidism, unspecified (ICD-10) Postoperative nausea and vomiting ?R11.2 - Nausea with vomiting, unspecified (ICD-10) ?Z98.890 - Other specified postprocedural states (ICD-10) Delayed recovery from anesthesia Surgical History (Updated 05/10/23 @ 11:20 by Astrid Tomlin NP) History of cholecystectomy ?Z90.49 - Acquired absence of other specified parts of digestive tract (ICD-10) Family History (Updated 05/10/23 @ 11:20 by Astrid Tomlin NP) Other Delayed recovery from anesthesia Family history of breast cancer Family history of diabetes mellitus Family history of stroke PONV (postoperative nausea and vomiting) Social History (Updated 05/10/23 @ 11:15 by Astrid Tomlin NP) Within the past year, how often did you have a drink containing alcohol: never Score interpretation: A score less than 3 is consistent with normal alcohol consumption. 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 Highest level of school completed/degree received: high school graduate Exam Constitutional Vital Signs, click to edit/add: Last Vital Signs Temp 98.2 F 09/02/23 14:12 Pulse 97 H 09/02/23 14:12 Resp 16 09/02/23 14:12 BP 111/80 09/02/23 14:12 Pulse Ox 98 09/02/23 14:12 O2 Del Method Room Air 09/02/23 14:12 Common normals: no apparent distress and oriented x3 General appearance: cooperative; not ill appearing HENMT Face and sinus: normal facial exam Mouth: lip normal Eye Common normals: conjunctivae normal and no scleral icterus Neck & C-Spine Common normals: supple Chest Chest: symmetrical chest wall rise Respiratory Common normals: normal respiratory effort Effort & inspection: able to speak in complete sentences and symmetric chest movement Cardio Common normals: regular rate and regular rhythm GI Common normals: Normal to inspection, nondistended, normoactive bowel sounds present and soft to palpation Palpation: tender Details: suprapubic Neuro Common normals: oriented x3 Sensorium/orientation: awake and alert Speech: speech normal Course Vital Signs Vital signs: Vital Signs Temperature 98.2 F 09/02/23 14:12 Pulse Rate 97 H 09/02/23 14:12 Respiratory Rate 16 09/02/23 14:12 Blood Pressure 111/80 09/02/23 14:12 Pulse Oximetry 98 09/02/23 14:12 Oxygen Delivery Method Room Air 09/02/23 14:12 Temperature 98.2 F 09/02/23 14:12 Pulse Rate 97 H 09/02/23 14:12 Respiratory Rate 16 09/02/23 14:12 Blood Pressure 111/80 09/02/23 14:12 Pulse Oximetry 98 09/02/23 14:12 Oxygen Delivery Method Room Air 09/02/23 14:12 MDM - OB/Uterine Contractions MDM Narrative Medical decision making narrative: CBC and BMP were unremarkable. Urine was negative. Ultrasound showed a 2 cm right ovarian complex cyst. Findings were discussed with the patient. I also spoke with Dr. Chance. The patient is to follow up in his office. OARRS was reviewed. Prescriptions were provided for Zofran, motrin, and norco. Return precautions were discussed. Medical Records Attestation: I reviewed the patient's medical records. Lab Data Attestation: I reviewed the patient's lab results. Labs: Lab Results 09/02/23 09/02/23 Range/Units 14:56 16:00 WBC 6.4 (4.0-11.0) 10^3/uL RBC 4.69 (4.20-5.40) 10^6/uL Hgb 13.8 (12.0-16.0) g/dL Hct 41.4 (36.0-48.0) % MCV 88.3 (81.0-99.0) fL MCH 29.4 (26.7-34.0) pg MCHC 33.3 (29.9-35.2) g/dL RDW 12.3 (11.0-15.0) % Plt Count 239 (150-450) 10^3/uL MPV 10.1 (9.5-13.5) fL Neut % (Auto) 53.2 (43.0-75.0) % Lymph % (Auto) 28.0 (20.5-60.0) % Bailey % (Auto) 10.8 (1.7-12.0) % Eos % (Auto) 6.3 (0.9-7.0) % Baso % (Auto) 1.4 (0.2-2.0) % Neut # (Auto) 3.4 (1.4-6.5) 10^3/uL Lymph # (Auto) 1.8 (1.2-3.8) 10^3/uL Bailey # (Auto) 0.7 (0.3-0.8) 10^3/uL Eos # (Auto) 0.4 (0.0-0.7) 10^3/uL Baso # (Auto) 0.1 (0.0-0.1) 10^3/uL Abs Immat Gran (auto) 0.02 (0.00-0.03) 10^3/uL Imm/Tot Granulo (auto) 0.3 (0.0-0.5) % Sodium 141 (136-145) mmol/L Potassium 3.4 L (3.5-5.1) mmol/L Chloride 105 (98-107) mmol/L Carbon Dioxide 25.3 (21.0-32.0) mmol/L Anion Gap 14.1 BUN 17.0 (7.0-18.0) mg/dL Creatinine 0.88 (0.55-1.02) mg/dL Est GFR ( Amer) >60 (>=60) Est GFR (Non-Af Amer) >60 (>=60) BUN/Creatinine Ratio 19.3 Glucose 88 (74-106) mg/dL Calcium 8.8 (8.5-10.1) mg/dL Urine Color Yellow (YELLOW) Urine Clarity Clear (CLEAR) Urine pH 6.0 (5.0-9.0) Ur Specific [place] 1.025 (1.005-1.025) Urine Protein Negative (NEG/TRACE) mg/dL Urine Glucose (UA) Negative (NEGATIVE) mg/dL Urine Ketones Trace A (NEGATIVE) mg/dL Urine Occult Blood Small A (NEGATIVE) Urine Nitrite Negative (NEGATIVE) Urine Bilirubin Negative (NEGATIVE) Urine Urobilinogen 1.0 (0.2-1.0) EU/dL Ur Leukocyte Esterase Negative (NEGATIVE) Urine RBC 2-5 A (0-2) #/HPF Urine WBC 0-2 A (NONE SEEN) #/HPF Ur Squamous Epith Cells Moderate A (NONE/RARE) #/LPF Urine Crystals None seen (None Seen) #/HPF Urine Bacteria Trace A (NONE SEEN) #/HPF Urine Casts None seen (NONE SEEN) #/LPF Urine Mucus Moderate A (NONE SEEN) Ur Culture Indicated? No Urine HCG, Qual Negative (NEGATIVE) Imaging Data US - abdomen: Attestation: I have reviewed the pertinent imaging results. Radiologist's impression: ITS Impressions Transvaginal US 02/12/24 14:30 IMPRESSION: 2 cm right ovarian complex cyst Electronically authenticated by: CHANG LAL Date: 09/02/2023 16:16 Procedure: US pelvis transvaginal EXAMINATION: US pelvis transvaginal HISTORY: pelvic pain COMPARISON: No relevant comparison available. FINDINGS: Transvaginal images The uterus is normal in size, contour and echotexture measuring 7.6 x 3.8 x 4.8 cm. No focal myometrial mass The endometrium measures 4.4 mm, within normal limits The right ovary measures 4.9 x 2.6 x 3.6 cm. Normal color Doppler flow in the ovary. Area of hypoechogenicity measuring 2 cm with no color flow. Functional cyst favored. Normal follicles The left ovary measures 3.7 x 2.2 x 2.3 cm. Normal color and Doppler flow. Normal follicles No free fluid US/US pelvis transvaginal IMPRESSION: 2 cm right ovarian complex cyst Electronically authenticated by: CHANG LAL Date: 09/02/2023 16:16 Discharge Plan Discharge Chief Complaint: Vaginal Bleeding Clinical Impression: Ovarian cyst, Vaginal bleeding Patient Disposition: Home, Self-Care Time of Disposition Decision: 16:46 Condition: Good Mode of Transportation: Private Vehicle Prescriptions / Home Meds: New ondansetron 4 mg tablet,disintegrating 4 mg PO Q8H PRN (Reason: nausea and vomiting) 4 Days Qty: 12 0RF ibuprofen 800 mg tablet 800 mg PO TID PRN (Reason: pain) Qty: 12 0RF No Action levothyroxine 25 mcg tablet 25 mcg PO DAILY Ajovy Autoinjector 225 mg/1.5 mL auto-injector 225 mg SUBCUT .weekly tizanidine 4 mg tablet 4 mg PO QPM Nurtec ODT 75 mg tablet,disintegrating 75 mg PO QDAY PRN (Reason: migraine headache) Instructions: Abnormal (Dysfunctional) Uterine Bleeding (ED), Ovarian Cyst (ED) Additional Instructions: Return to the ER if your condition worsens. Stand Alone Forms: Portal Instructions Referrals: Stoney Chance DO [Physician] - 1 week Physician,Non-Staff, MD [Primary Care Provider] - 1 week Discharge Date/Time: 09/02/23 17:12
[2023-09-02] MEDS: 0.9 % SODIUM CHLORIDE 1,000 ML 999 ML IV (15:01)
[2023-09-02 15:03] LABS: Basophils Absolute Auto 0.1 10^3/uL (0.0-0.1); Basophils Percent Auto 1.4 % (0.2-2.0); Eosinophils Absolute Auto 0.4 10^3/uL (0.0-0.7); Eosinophils Percent Auto 6.3 % (0.9-7.0); Hematocrit 41.4 % (36.0-48.0); Hemoglobin 13.8 g/dL (12.0-16.0); Immature Granulocytes Abs Auto 0.02 10^3/uL (0.00-0.03); Immature Granulocytes Pct Auto 0.3 % (0.0-0.5); Lymphocytes Absolute Auto 1.8 10^3/uL (1.2-3.8); Mean Corpuscular HGB Conc 33.3 g/dL (29.9-35.2); Mean Corpuscular Hemoglobin 29.4 pg (26.7-34.0); Mean Corpuscular Volume 88.3 fL (81.0-99.0); Mean Platelet Volume 10.1 fL (9.5-13.5); Monocytes Absolute Auto 0.7 10^3/uL (0.3-0.8); Monocytes Percent Auto 10.8 % (1.7-12.0); Neutrophils Absolute Auto 3.4 10^3/uL (1.4-6.5); Neutrophils Percent Auto 53.2 % (43.0-75.0); Platelet Count 239 10^3/uL (150-450); Red Blood Count 4.69 10^6/uL (4.20-5.40); Red Cell Distribution Width 12.3 % (11.0-15.0); White Blood Count 6.4 10^3/uL (4.0-11.0)
[2023-09-02] MEDS: DIPHENHYDRAMINE HCL 50 MG/ML (1ML) VIAL 25 MG IV (15:03)
[2023-09-02] MEDS: DEXAMETHASONE SOD PHOS 10 MG/ML VIAL IV (15:03)
[2023-09-02] MEDS: ONDANSETRON PF 4 MG/2 ML VIAL IV (15:03)
[2023-09-02 15:11] LABS: Anion Gap 14.1; BUN Creatinine Ratio 19.3; Calcium 8.8 mg/dL (8.5-10.1); Carbon Dioxide 25.3 mmol/L (21.0-32.0); Chloride 105 mmol/L (98-107); Estimated GFR (African America >60 (>=60); Estimated GFR (Non-African Ame >60 (>=60); Glucose 88 mg/dL (74-106); Potassium 3.4 mmol/L (3.5-5.1); Sodium 141 mmol/L (136-145)
[2023-09-02 16:38] LABS: Bilirubin Urine NEGATIVE (NEGATIVE); Blood Urine SMALL (NEGATIVE); Clarity Urine CLEAR (CLEAR); Color Urine YELLOW (YELLOW); Glucose Urine UA NEGATIVE (NEGATIVE); Ketones Urine TRACE mg/dL (NEGATIVE); Leukocyte Esterase Urine NEGATIVE (NEGATIVE); Nitrite Urine NEGATIVE (NEGATIVE); Protein Urine NEGATIVE (NEG/TRACE); Specific Gravity Urine 1.025 (1.005-1.025)
[2023-09-02 16:39] LABS: Urine Microscopic Indicated YES
[2023-09-02 16:42] LABS: HCG Qualitative Urine* NEGATIVE (NEGATIVE)
[2023-09-02 16:50] LABS: Bacteria Urine TRACE #/HPF (NONE SEEN); Mucus Urine MODERATE (NONE SEEN); WBC Urine 0-2 #/HPF (NONE SEEN)
[2023-09-02 16:51] LABS: Cast Seen? NONE SEEN #/LPF (NONE SEEN); Crystals Seen? None Seen #/HPF (None Seen); Squamous Epithelial Cell Urine MODERATE #/LPF (NONE/RARE); Urine Culture Indicated NO
== END 2023-09-02 17:12 | disposition home or self-care (01) ==
PROVIDERS: Nurse Practitioner Family; Emergency Provider Emergency Medicine
DX: N83.201 Unspecified ovarian cyst, right side (principal); N93.9 Abnormal uterine and vaginal bleeding, unspecified; K21.9 Gastro-esophageal reflux disease without esophagitis; E03.9 Hypothyroidism, unspecified; F41.9 Anxiety disorder, unspecified; Z87.01 Personal history of pneumonia (recurrent); Z79.899 Other long term (current) drug therapy; Z79.890 Hormone replacement therapy; Z86.16 Personal history of COVID-19; Z90.49 Acquired absence of other specified parts of digestive tract; Z87.891 Personal history of nicotine dependence
CPT/HCPCS: 36415; 76830; 80048; 81001; 84703; 85025; 96361; 96374; 96375; 99285; J1100; J1200; J2405

== ENCOUNTER 2024-08-20 11:49 | Outpatient (OUT) | payer OTHER, SELFPAY ==
--- OUTSIDE RECORDS SUMMARY | 2024-08-20 12:00 | XMS_ITS | CCD ---
Author Organization [facility] ion [facility] Care Team Providers Care Addiction Nurse Name Role Phone JENNTAYOHENNY Unavailable Unavailable HENNY STERN Unavailable Unavailable REQUEST, NONE LISTED Unavailable Unavailable HENNY STERN Unavailable Unavailable CHANG REVELES V Unavailable Unavailable November, Jacobo Parker Primary Care Provider [phone] Timo Rodriguez Unavailable Harshad Julien Unavailable Unavailable Stefany Pena Unavailable Unavailable Sol Conti Primary Care Physician [phone] Caren Hogue Unavailable Unavailable Jana ZABALA Primary Care Physician DO Tony Hannon Emergency Provider RUMA Zabala Primary Care Provider DO Chaitanya Toure Emergency Provider RUMA Zabala Primary Care Provider Chaitanya Toure Admitting Unavailable Chaitanya Toure Attending Unavailable Jana Zabala Primary Care Unavailable Tony Hannon Admitting Unavailable Tony Hannon Attending Unavailable Jana Zabala Primary Care Unavailable Tony Hannon Attending Unavailable Jana Zabala Primary Care Unavailable Tony Hannon Admitting Unavailable Christian Juárez Unavailable Jana Rodriguez Unavailable [phone] Sol Conti MD Primary Care Provider Timo Rodriguez MD Unavailable PRITESH NY Attending Unavailable STONEY CHANCE Attending Unavailable LUCRETIA GRAVES Attending Unavailable CONSTANCE HAIR Attending Unavailable JANA ZABALA Attending Unavailable LUCRETIA GRAVES Attending Unavailable Yovany Madrid Attending Unavailable Yovany Madrid Referring Unavailable Yovany Madrid Admitting Unavailable RUMA Curtis Admitting UnavailJana Diez Referring Unavailable Altagracia Crutis Attending Unavailable Jana ZABALA Referring Unavailable Clyde Alcantar Attending Unavailable MD Clyde Alcantar Admitting Unavailable Sanchez KESSLER Attending Unavailable Constance Hair NP Unavailable [phone] Allergies Allergy Classification Reported Allergen(s) Allergy Type Date of Onset Reaction(s) Facility Anticholinergics (3 sources) [facility] Drug All[facility]-20 [facility] DOPamine Antagonists (1 source) Metoclopramide Drug Allergy Other [facility] (3 sources) Dicyclomine; Translations: [Bentyl] Drug Allergy Hives/Urticari a [facility] (3 sources) Metoclopramide; Translations: [Reglan] Drug Allergy Other [facility] (20 sources) Bee/Wasp/Ant venom; Translations: [Bee Stings] Allergy to substance swollen at site [facility] (20 sources) Chocolate; Translations: [Chocolate] Propensity to adverse reactions to food 12-28-19 Headache [facility] (20 sources) Dicyclomine; Translations: [dicyclomine] Drug Allergy 02-16-20 13 hives, Rash [facility] (20 sources) Metoclopramide; Translations: [metoclopramide] Drug Allergy 11-30-19 20 Rash [facility] Comment on above: gives her shakes (20 sources) red sauces 1 Food allergy Migraine (disorder) [facility] Comment on above: migraines (1 source) Dicyclomine Drug Allergy 08-17-19 [facility] (1 source) Metoclopramide Drug Allergy 08-17-19 [facility] (2 sources) Honey bee venom Allergy to substance 12-28-19 [facility] Work Phone: (2 sources) Galcanezumab-[facility] Drug Allergy 12-28-19 [facility] (2 sources) Other Allergy to substance 12-28-19 Other [facility] (2 sources) Emgality; Translations: [galcanezumab] Drug allergy Other (qualifier value) [facility] (1 source) red sauces; Translations: [red sauces] Food allergy (disorder) [facility] (1 source) Dicyclomine Drug Allergy 02-16-20 13 Hives [facility] Medications Current Medications Medication Drug Class(es) Dates [...] Date: 09/11/21 Status: Ordered Excedrin Tension Headache (19 sources) Central Nervous System Stimulant, Methylxanthine Start: 02-18-2020 Excedrin Tension Headache Oral, q6hr, Refill(s) 0 Start Date: 02/18/20 Status: Ordered Excedrin Tension Headache Active acetaminophen 325 mg / HYDROcodone bitartrate 5 mg oral tablet (1 source) Opioid Agonist Start: 05-24-2023 take 1 tablet by mouth every four hours as needed HYDROcodone-acetaminophen (Agra) 5-325 MG tablet Take 1 tablet by mouth every 4 (four) hours if needed. 0 05/24/2023 Active azithromycin 250 mg oral tablet (3 [...] for cold symptoms, 200 mL, Refill(s) 0, [id number], 157, cm, 07/29/20 12:13:00 EST, Height/Length [...] (1 source) Emgality Active Emgality Prefilled Pen (11 sources) Start: 06-25-2022 Emgality Prefilled Pen SubCutaneous, qMonth, Refills(s) 0 Start Date: 06/25/22 Status: Ordered Flonase Allergy Relief (20 sources) Start: 07-11-2021 Flonase Allergy Relief = [...] 1.5 ml fremanezumab-vfrm 150 mg/ml prefilled syringe (4 sources) Start: 06-25-2023 Ajovy 225 mg/1.5 mL subcutaneous solution Refills(s) 0 Start Date: 06/25/23 Status: Ordered ibuprofen 800 mg oral tablet (1 source) Nonsteroidal Anti-inflammator y Drug Start: 05-24-2023 take 1 tablet by mouth every eight hours ibuprofen 800 MG tablet Take 800 mg by mouth every 8 (eight) hours. 0 05/24/2023 Active levothyroxine sodium 0.025 mg oral tablet (20 sources) l-Thyroxine Start: 12-19-2023 take 1 tablet by mouth once daily in the morning levothyroxine (Synthroid, Levoxyl) 25 MCG tablet Indications: Nontoxic goiter, unspecified (CMS/HCC) TAKE 1 TABLET BY MOUTH EVERY DAY IN THE MORNING ON EMPTY STOMACH FOR 30 DAYS 30 tablet 5 12/19/2023 Active Start: 06-10-2023 take 1 tablet by ronnie th once daily in the morning levothyroxine (Synthroid, Levoxyl) 25 MCG tablet Indications: Nontoxic goiter, unspecified (CMS/HCC) TAKE 1 TABLET BY MOUTH EVERY DAY IN THE MORNING ON EMPTY STOMACH FOR 30 DAYS 30 tablet 5 06/10/2023 Active Start: 04-13-2022 take 1 tablet by ronnie th once daily levothyroxine 25 mcg (0.025 mg) Tab 25 mcg = 1 tab(s), Oral, Daily, Refills(s) 0 Start Date: 04/13/22 Status: Ordered Start: 04-10-2022 take 25 ug by mouth once daily Levothyroxine Active 25 MCG PO Daily April 09, 2022 11:00pm Levothyroxine So dium Active Claritin (20 sources) Start: 06-07-2021 Claritin See Instructions, PRN allergies, Refills(s) 0 Start Date: 06/07/21 Status: Ordered meloxicam 7.5 mg oral tablet (1 source) Nonsteroidal Anti-inflammatory Drug Start: 03-15-2023 End: 03-14-2024 take 1 tablet by mouth in the morning meloxicam (Mobic) 7.5 MG tablet Indications: Intractable migraine without aura and without status migrainosus (CMS/HCC) Take 1 tablet (7.5 mg) by mouth in the morning. 30 tablet 03/15/2023 03/14/2024 Active naproxen 500 mg oral tablet (20 sources) [...] Sol Ross Status: Other Generic Substitution Allowed ondansetron 8 mg oral tablet (20 sources) Serotonin-3 Receptor Antagonist Start: 11-12-2023 take 1 tablet by mouth every eight hours for nausea ondansetron (Zofran) 8 MG tablet Indications: Cyclical vomiting associated with intractable migraine (CMS/HCC) Take 1 tablet (8 mg) by mouth every 8 (eight) hours if needed for nausea or vomiting 30 tablet 2 11/12/2023 Active Start: 01-19-2022 take 1 tablet by ronnie th every six hours as needed for nausea Zofran 4 mg Tab 4 mg = 1 tab(s), Oral, q6hr, PRN Nausea, Take one tab by mouth every six hours as needed for nausea, # 10 tab(s), Refills(s) 0, Pharmacy: [id number], 158, cm, 02/05/22 16:14:00 EDT, Height/Length Dosing, 68, kg, 02/05/22 16:14:00 EDT, Weight D... Start Date: 02/05/22 Status: Ordered take 1 tablet by ronnie th every eight hours as needed ondansetron ODT (Zofran-ODT) 4 MG disintegrating tablet Take 4 mg by mouth every 8 (eight) hours if needed. Active take 4 mg by mouth e very six hours as needed ondansetron (ZOFRAN) 4 mg/5 mL solution Take 4 mg by mouth every 6 hours as needed. 0 Active Comment on above: Take 4 mg by mouth e very 6 hours as needed. predniSONE 20 mg oral tablet (10 sources) [...] capsule (20 sources) Start: 02-05-20 End: 08-17-19 take 1 capsule by mouth once daily pregabalin 50 mg Cap 50 mg = 1 cap(s), Oral, Daily, X 30 day(s), # 30 cap(s), Refills(s) 5, Pharmacy: [facility]/pharmacy [id number], 158, cm, 02/18/23 10:35:00 EDT, Height/Length Dosing, 72.5, kg, 02/18/23 10:35:00 EDT, Weight Dosing Start Date: 02/18/23 Stop Date: 08/17/23 Status: Ordered Start: 07-11-2021 End: 11-07-2022 take 1 capsule by mouth once daily pregabalin 50 mg Cap 50 mg = 1 cap(s), Oral, Daily, X 30 day(s), # 30 cap(s), Refills(s) 5, Pharmacy: [id number], 158, cm, 05/11/22 14:58:00 EDT, Height/Length Dosing, 68.5, kg, 05/11/22 14:58:00 EDT, Weight Dosing Start Date: 05/11/22 Stop Date: 11/07/22 Status: Ordered take 1 capsule by [facility] every twelve hours Lyrica 50 MG 1 capsule Orally Twice a day Active promethazine hydrochloride 25 mg oral tablet (3 sources) Phenothiazine Start: 04-16-2017 take 25 mg by mouth every six hours Promethazine Active 25 MG PO Q6H April 15, 2017 11:51pm rimegepant 75 mg disintegrating oral tablet (17 sources) Start: 05-11-2022 End: 03-16-2025 Nurtec ODT 75 mg oral tablet, disintegrating Refills(s) 0 Start Date: 05/11/22 Status: Ordered tiZANidine 4 mg oral tablet (20 sources) Central alpha-2 Adrenergic Agonist Start: 02-18-2023 take 1 tablet by mouth three times daily tiZANidine 4 mg Tab 4 mg = 1 tab(s), Oral, TID, # 90 tab(s), Refills(s) 5, Pharmacy: [facility]/pharmacy #[id number], 158, cm, 02/18/23 10:35:00 EDT, Height/Length Dosing, 72.5, kg, 02/18/23 10:35:00 EDT, Weight Dosing Start Date: 02/18/23 Status: Ordered Start: 05-11-2022 take 1 tablet by ronnie th every six hours as needed tiZANidine (Zanaflex) 4 MG tablet Take 4 mg by mouth every 6 (six) hours if needed. 05/11/2022 Active Start: 01-19-2022 take 4 mg by mouth o nce daily at bedtime Tizanidine Active 4 MG PO Daily at bedtime January 18, 2022 11:00pm Start: 06-07-2021 take 1 tablet by ronnie th three times daily tiZANidine 4 mg Tab 4 mg = 1 tab(s), Oral, TID, # 90 tab(s), Refills(s) 5, Pharmacy: [facility]/pharmacy #[id number], 158, cm, 05/11/22 14:58:00 EDT, Height/Length Dosing, 68.5, kg, 05/11/22 14:58:00 EDT, Weight Dosing Start Date: 05/11/22 Status: Ordered take 2 capsules by m outh three times daily tiZANidine 4 mg oral capsule ; 2 cap(s) orally 3 times a day Quantity: 0 Refills: 0 Ordered: 28-Oct-2020 Ritz, Sol Generic Substitution Allowed traMADol hydrochloride 50 mg oral tablet (3 sources) Opioid Agonist take 1 tablet by mouth every six hours Ultram 50 mg oral tablet ; 1 tab(s) orally every 6 hours Quantity: 0 Refills: 0 Ordered: 28-Oct-2020 Sol Ross Status: Other Generic Substitution Allowed Zofran ODT 4 mg Tab-Dis (20 sources) Start: 12-12-2022 take 1 tablet by mouth every eight hours as needed for nausea Zofran ODT 4 mg Tab-Dis 4 mg = 1 tab(s), Oral, q8hr, PRN Nausea/Vomiting, # 20 tab(s), Refills(s) 0, Pharmacy: [facility]/pharmacy #[id number], 158, cm, 12/12/22 20:36:00 EDT, Height/Length Dosing, 74, kg, 12/12/22 20:36:00 EDT, Weight Dosing Start Date: 12/12/22 Status: Ordered Start: 11-07-2021 take 1 tablet by ronnie th every eight hours as needed for nausea Zofran ODT 4 mg Tab-Dis 4 mg = 1 tab(s), Oral, q8hr, PRN Nausea/Vomiting, # 12 tab(s), Refills(s) 0, Pharmacy: [facility]/pharmacy #[id number], 158, cm, 11/07/21 12:07:00 EDT, Height/Length Dosing, 68, kg, 11/07/21 12:07:00 EDT, Weight Dosing Start Date: 11/07/21 Status: Ordered Start: 09-11-2021 take 1 tablet by ronnie th three times daily Zofran ODT 4 mg Tab-Dis 4 mg = 1 tab(s), Oral, TID, # 15 tab(s), Refills(s) 0, Pharmacy: [facility]/pharmacy #[id number], 158, cm, 09/11/21 8:41:00 EST, Height/Length Dosing, 68, kg, 09/11/21 8:41:00 EST, Weight Dosing Start Date: 09/11/21 Status: Ordered Start: 12-29-2020 take 1 tablet by ronnie th three times daily Zofran ODT 4 mg Tab-Dis 4 mg = 1 tab(s), Oral, TID, # 15 tab(s), Refills(s) 0, Pharmacy: [facility]/pharmacy #[id number], 157.5, cm, 12/29/20 8:18:00 EDT, Height/Length Dosing, 75.4, kg, 12/29/20 8:18:00 EDT, Weight Dosing Start Date: 12/29/20 Status: Ordered Completed/Discontinued Medications Medication Drug Class(es) Dates Sig (Normalized) Sig (Original) [id number] 200 actuat albuterol 0.09 mg/actuat metered dose [...] oral solution (4 sources) alpha-Adrenergic Agonist, Uncompetitive T-gbanqc-V-aspartat e Receptor Antagonist, Sigma-1 Agonist Start: 07-04-2021 End: 07-13-2021 take 5 mL by mouth every four to six hours brompheniramine/p seudoephedrine/de xtromethorphan [id number]/5 mL oral syrup ; 5 milliliter(s) orally [...] every four to six hours brompheniramine/pseudoephedrine/dextrome thorphan [id number]/5 mL oral syrup ; 5 milliliter(s) orally [...] this medication. COMPOUNDED PRESCRIPTION (2 sources) Start: COMPOUNDED PRESCRIPTION Chest X ray PA and Lateral 1 Act 0 02/18/2013 Active Comment on above: Chest X ray PA and L ateral cyclobenzaprine hydrochloride 10 mg oral tablet (1 source) Muscle Relaxant Start: 016 take 1 tablet by mouth once daily [...] or discontinue unless directed by your doctor. potassium chloride 20 meq extended release oral tablet (1 source) Start: End: take 1 tablet by mouth once daily potassium chloride 20 mEq ER Tab 20 mEq = 1 tab(s), Oral, Daily, X 7 day(s), # 7 tab(s), Refills(s) 0, Pharmacy: [facility]/pharmacy #[id number], 158, cm, 02/05/22 16:14:00 EDT, Height/Length Dosing, 68, kg, 02/05/22 16:14:00 EDT, Weight Dosing Start Date: 02/05/22 Stop Date: 02/12/22 Status: Ordered triamcinolone acetonide 1 mg/ml topical cream (3 sources) Corticosteroid Start: End: triamcinolone 0.1% topical cream ; Apply topically to affected area 3 times a day Quantity: 1 Refills: 0 Ordered: 28-Oct-2020 Stefany Pena Start: 28-Oct-2020 End: 03-Nov-2020 Status: Other Generic Substitution Allowed Comments: For external use only. Comment on above: For external use onl y. Problems Active Problems Problem Classification Problem Date Documented Da te Episodic/Chronic Abdominal pain (4 sources) Pelvic and perineal pain; Translations: [PELVIC AND PERINEAL PAIN] Onset: 7 Anxiety disorders (20 sources) Anxiety; Translations: [Anxiety disorder, unspecified] Onset: 3 11-17-2019 Chronic Cardiac dysrhythmias (4 sources) Cardiac arrhythmia; Translations: [Cardiac arrhythmia, unspecified] Onset: 3 01-29-2023 Chronic Esophageal disorders (20 sources) Gastroesophageal reflux disease; Translations: [Gastroesophageal reflux disease without esophagitis] Onset: 3 11-17-2019 Chronic Fluid and electrolyte disorders (1 source) Hypokalemia; Translations: [Hypokalemia] Onset: 2 Episodic Headache; including migraine (20 sources) Migraine; Translations: [Migraine, unspecified, not intractable, without status migrainosus] Onset: 2 10-02-2013 Chronic Headache; including migraine (1 source) Headache; including migraine; Translations: [Headache, unspecified] Onset: 2 Immunizations and screening for infectious disease (2 sources) Contact with or exposure to other viral diseases 07-04-2021 Episodic Malaise and fatigue (2 sources) Fatigue; Translations: [Chronic fatigue, unspecified] Onset: 3 01-29-2023 Chronic Menstrual disorders (2 sources) Amenorrhea; Translations: [Amenorrhea, unspecified] Onset: 3 01-29-2023 Chronic Mood disorders (20 sources) Depression 10-02-2013 Chronic Other gastrointestinal disorders (2 sources) Chronic idiopathic constipation; Translations: [Chronic idiopathic constipation] Onset: 3 01-29-2023 Chronic Other nervous system disorders (1 source) Chronic pain; Translations: [Other chronic pain] Chronic Other nutritional; endocrine; and metabolic disorders (2 sources) Obesity; Translations: [Obesity, unspecified] Onset: 3 01-29-2023 Chronic Other screening for suspected conditions (not mental disorders or infectious disease) (1 source) Blood chemistry abnormal; Translations: [Other specified abnormal findings of blood chemistry] Onset: 2 Episodic Other upper respiratory disease (2 sources) Seasonal allergic rhinitis; Translations: [Other seasonal allergic rhinitis] Onset: 3 01-29-2023 Chronic Other upper respiratory disease (2 sources) Loss of voice 03-02-2021 Episodic Comment on above: LOSS OF VOICE Other upper respiratory infections (10 sources) Acute laryngitis; Translations: [Acute laryngitis without mention of obstruction] 03-02-2021 Episodic Comment on above: URI Pneumonia (except that caused by tuberculosis or sexually transmitted disease) (20 sources) Pneumonia 12-16-2013 Episodic Residual codes; unclassified (2 sources) Hypersomnia; Translations: [Hypersomnia, unspecified] Onset: 3 01-29-2023 Chronic Spondylosis; intervertebral disc disorders; other back problems (3 sources) Herniation of nucleus pulposus of lumbar intervertebral disc; Translations: [Other intervertebral disc displacement, lumbar region] Onset: 0 01-29-2023 Chronic Substance-related disorders (20 sources) Smoker; Translations: [Nicotine dependence] Onset: 3 02-15-2014 Chronic Comment on above: Added secondary to d ocumentation in Social History. Thyroid disorders (4 sources) Acquired hypothyroidism; Translations: [Hypothyroidism, unspecified] Onset: 3 12-27-2022 Chronic Unclassified (1 source) Exposure to COVID-19 virus 07-04-2021 Unclassified (2 sources) SOB, ST, DRAIANGE, COUGH X YESTERDAY 08-04-2021 Comment on above: SOB, ST, DRAIANGE, C OUGH X YESTERDAY Unclassified (1 source) Close exposure to COVID-19 virus 08-04-2021 Unclassified (1 source) Allergy, unspecified, initial encounter; Translations: [Allergy, unspecified, initial encounter] Onset: 3 Unclassified (1 source) R07.9 - Chest pain, unspecified; Translations: [R07.9 - Chest pain, unspecified] Onset: 2 Past or Other Problems Problem Classification Problem Date Documented Date Episodic/Chronic Allergic reactions (2 sources) Allergic reaction; Translations: [Allergy, unspecified, initial encounter] Onset: 11-18-2023 08-17-2022 Episodic Conditions associated with dizziness or vertigo (2 sources) Vertigo; Translations: [Dizziness and giddiness] Onset: 12-27-2022 12-27-2022 Episodic Deficiency and other anemia (20 sources) Anemia; Translations: [Anemia, unspecified] Onset: 01-29-2023 11-17-2019 Episodic Genitourinary symptoms and ill-defined conditions (1 source) Dysuria; Translations: [Dysuria] Onset: 11-12-2023 11-12-2023 Episodic Headache; including migraine (20 sources) Headache; Translations: [Headache] Onset: 01-29-2023 02-18-2020 Episodic Nausea and vomiting (20 sources) Vomiting; Translations: [Nausea] Onset: 02-05-2022 02-18-2020 Episodic Noninfectious gastroenteritis (2 sources) Acute gastroenteritis; Translations: [Noninfective gastroenteritis and colitis, unspecified] Onset: 12-27-2022 12-27-2022 Episodic Nonspecific chest pain (4 sources) Chest wall pain; Translations: [Other chest pain] Onset: 11-18-2023 01-19-2022 Episodic Other female genital disorders (2 sources) Vaginal discharge; Translations: [Other specified noninflammatory disorders of vagina] Onset: 01-29-2023 01-29-2023 Episodic Other lower respiratory disease (4 sources) Dyspnea; Translations: [Shortness of breath] Onset: 02-15-2013 01-29-2023 Episodic Other lower respiratory disease (2 sources) Snoring; Translations: [Snoring] Onset: 01-29-2023 01-29-2023 Episodic Other skin disorders (2 sources) Loss of hair; Translations: [Nonscarring hair loss, unspecified] Onset: 01-29-2023 01-29-2023 Episodic Residual codes; unclassified (1 source) Family history of Factor V Leiden mutation; Translations: [Family history of diseases of the blood and blood-forming organs and certain disorders involving the immune mechanism] Onset: 11-12-2023 11-12-2023 Episodic Sprains and strains (6 sources) Strain of neck muscle; Translations: [Strain of muscle, fascia and tendon at neck level, initial encounter] Onset: 11-18-2023 04-16-2017 Episodic Results Test Name Value Interpretation Reference Range Facility Consent for Treatmenton 09-20 Consent for Treatment [id number] Normal [facility] Consultation Noteon 10-18-19 Consultation Note Patient: PRABHA CORRIGAN Age: 33 years Sex: Female : 1990 Associated Diagnoses: None Author: Altagracia Curtis PA-C Subjective Chief complaint 10/18/2023 8:10 EDT Back Pain . Patient is a 33 year old female with a past medical history significant for a [facility] claim. The approved codes are M51.26 and S39.012A. Lumbar annular tear and lumbar strain. She presents today for a follow-up after undergoing repeat L4-5 epidural steroid injection. This was done on 10/02/2023. It has given her 85% relief. She is feeling well. She is doing well. She is comfortable. She is happy. She has some back pain that she rates a 1/10 but she states that things are going well. She is intermittently using tizanidine as needed but takes this very sparingly. She feels that things are overall going very well. At this time she is pleased with how she is feeling and doing. Health Status Allergies: Allergic Reactions (Selected) Severity Not Documented Bee Stings- Swollen at site. Bentyl- Hives. Chocolate- Migraine. Emgality- Other. Red sauces- Migraine....... Nonallergic Reactions (Selected) Severity Not Documented Reglan- Twitching., Allergies (6) Active Severity Reaction Bentyl Hives Chocolate Migraine red sauces Migraine...... Reglan twitching Bee Stings swollen at site Emgality Other Current medications: (Selected) Prescriptions Prescribed Zofran ODT 4 mg Tab-Dis: 4 mg = 1 tab(s), Oral, q8hr, PRN Nausea/Vomiting, # 20 tab(s), Refills(s) 0, Pharmacy: [facility]/pharmacy #[id number], 158, cm, 12/12/22 20:36:00 EDT, Height/Length Dosing, 74, kg, 12/12/22 20:36:00 EDT, Weight Dosing tiZANidine 4 mg Tab: 4 mg = 1 tab(s), Oral, TID, # 90 tab(s), Refills(s) 5, Pharmacy: [facility]/pharmacy #[id number], 158, cm, 02/18/23 10:35:00 EDT, Height/Length Dosing, 72.5, kg, 02/18/23 10:35:00 EDT, Weight Dosing Documented Medications Documented Ajovy 225 mg/1.5 mL subcutaneous solution: Refills(s) 0 Claritin: See Instructions, PRN allergies, Refills(s) 0 Flonase Allergy Relief: = 2 spray(s), Daily, Refills(s) 0 Nurtec ODT 75 mg oral tablet, disintegrating: Refills(s) 0 levothyroxine 25 mcg (0.025 mg) Tab: 25 mcg = 1 tab(s), Oral, Daily, Refills(s) 0 naproxen: 500 mg, Oral, BID, Refills(s) 0 omeprazole: 20 mg, Oral, Daily, Refills(s) 0 Problem list: All Problems Smoker 21-JAN-2014 12:37:00<$> / SNOMED CT [id number] / Confirmed Added secondary to documentation in Social History. Acid reflux / SNOMED CT 922554895 / Confirmed Anxiety / SNOMED CT 50917765 / Confirmed Anemia / SNOMED CT 871881834 / Confirmed Vomiting / SNOMED CT [id number] / Confirmed Headache / SNOMED CT 63974879 / Confirmed Resolved: Migraine / SNOMED CT 98860609 Resolved: Depression / SNOMED CT 976980204 Resolved: Pneumonia / SNOMED CT [id number] Canceled: Biliary dyskinesia / SNOMED CT [id number] Objective Vital Signs 10/18/2023 8:10 EDT Peripheral Pulse Rate 79 bpm Respiratory Rate 14 br/min Systolic Blood Pressure 113 mmHg Diastolic Blood Pressure 81 mmHg Mean Arterial Pressure, Cuff 92 mmHg General: Alert and oriented, No acute distress. Eye: Normal conjunctiva. HENT: Normocephalic, Normal hearing. Cardiovascular: No edema. Musculoskeletal Normal range of motion. Normal strength. 5/5 strength Integumentary: Warm, Dry, [place]. Injection site well-healed Neurologic: Alert, Oriented. Psychiatric: Cooperative, Appropriate mood & affect. 14 point review of systems was negative unless otherwise noted. Impression and Plan Patient is a 33 year old female with a past medical history significant for a [facility] claim. The approved codes are M51.26 and S39.012A. Lumbar annular tear and lumbar strain. She presents today for a follow-up after undergoing repeat L4-5 epidural steroid injection. This was done on 10/02/2023. It has given her 85% relief. At this time, she is doing well and feeling well. She is comfortable and happy. She does not have any pain. Does not have any complaints. Does not have any concerns. She is intermittently using tizanidine. She does not require refill. At this time she will call when she does and follow-up in December to discuss repeating the injection should it be necessary. MENDEL score: 26% Normal [facility] Comment on above: Result Comment: Elec tronically Signed By: Kirsten HENDRIX, Altagracia\.br\Date and Time Signed: 10/18/23 08:28 EDT Legal Correspondence Officeo n 10-18-2023 Legal Correspondence Office [id number] 27#1.00TIFF Normal [facility] Office/Clinic Note-Physician on 10-18-2023 Office/Clinic Note-Physician [id number] 70#1.00TIFF Normal [facility] Patient Correspondenceon Patient Correspondence [id number] 03 [id number] 40#1.00TIFF Normal [facility] Patient Correspondence [id number] 03 [id number] 71#1.00TIFF Normal [facility] Patient Correspondence [id number] 03 [id number] 09#1.00TIFF Normal [facility] Patient Correspondence [id number] 03 [id number] 89#1.00TIFF Normal [facility] Patient History Officeon Patient History Office [id number] 03 [id number] 45#1.00TIFF [facility] Prescriptions/Work Noteson 0 10-18-2023 Prescriptions/Work Notes [id number] 51#1.00TIFF Normal [facility] Consent for Procedure/Surger yon 10-02-2023 Consent for Procedure/Surgery [id number] 04#1.00TIFF Normal [facility] Consent for Treatmenton 09-19 Consent for Treatment [id number] 0 [id number] 494#1.00TIFF Normal [facility] Discharge Instructionson Discharge Instructions [id number] 03 [id number] 56#1.00TIFF [facility] IntraOperative Documentson 0 10-02-2023 IntraOperative Documents [id number] 70#1.00TIFF Gloria [facility] Main OR Intraoperative Recor don 10-02-2023 Main OR Intraoperative Record IntraOp Document Type FTPM Summary Primary Physician: Yovany Madrid DO Finalized Date/Time: 10/02/23 12:54:31 Pt. Name: DEZ CORRIGANDoc Watson/Sex: 1990 Female Med Rec #: [id number] Physician: Yovany Madrid DO Financial #: [id number] Pt. Type: P Room/Bed: / Admit/Disch: 10/02/23 12:06:59 - Institution: Case Times FTPM Entry 1 Patient Times In Room 10/02/23 12:49:00 Out Room 10/02/23 12:55:00 Procedure Times Start 10/02/23 12:52:00 Stop 10/02/23 12:54:00 Anesthesia Times Last Modified By: Beatriz Romero RN 10/02/23 12:54:26 Case Attendance FTPM Entry 1 Entry 2 Entry 3 Case Attendee Yovany Madrid DO, RN, Beatriz Benson RN, Steffany Shipman Role Performed Surgeon - Primary Luggage Repairer - Primary Scrub - Primary Time In 10/02/23 12:49:00 10/02/23 12:49:00 10/02/23 12:49:00 Time Out 10/02/23 12:55:00 10/02/23 12:55:00 10/02/23 12:55:00 Procedure LUMBAR EPIDURAL STEROID LUMBAR EPIDURAL STEROID LUMBAR EPIDURAL STEROID INJECTION(.) INJECTION(.) INJECTION(.) Comments Last Modified By: Nick STRINGER, Beatriz Romero RN, Beatriz Moran RN 10/02/23 12:54:27 10/02/23 12:54:27 10/02/23 12:54:27 Entry 4 Case Attendee Sade Dunaway (R) Role Performed Flare Breaker Time In 10/02/23 12:49:00 Time Out 10/02/23 12:55:00 Procedure LUMBAR EPIDURAL STEROID INJECTION(.) Comments Last Modified By: Beatriz Romero RN 10/02/23 12:54:27 Perioperative Protocols FTPM Pre-Care Text: Implements protective [...] X-ray Applicable) PreOp Antibiotic No Time Out Beatriz Romero RN, Given Participants Marcelino STRINGER, Julius Kelly DO, Bradford A., Jessica BALLARD(R), Sade Time Out Complete 10/02/23 12:49:00 Outcomes Met? Yes Last Modified By: Beatriz Roemro RN 10/02/23 12:51:21 Post-Care Text: The patient is free from signs and symptoms of injury caused by extraneous objects Allergy Information FTPM Pre-Care Text: Verifies allergies Entry 1 Allergies Reviewed? Yes Allergies Reviewed Self/Patient With Outcomes Met? Yes Last Modified By: Beatriz Romero RN 10/02/23 12:51:28 Post-Care Text: The patient received appropriate medication(s) safely administered during the perioperative period Surgical Procedures FTPM Entry 1 Procedure Description Procedure LUMBAR EPIDURAL STEROID Modifiers . INJECTION Surgeon Description L4/5 [facility]AC[facility] Primary Procedure Yes Primary Surgeon Yovany Madrid DO Start 10/02/23 12:52:00 Stop 10/02/23 12:54:00 Anesthesia Type None Surgical Service Pain Management Wound Class 1 - Clean Last Modified By: Beatriz Romero RN 10/02/23 12:54:29 General Case Data FTPM Pre-Care Text: Classifies surgical wound, implements aseptic technique, initiates traffic control Entry 1 Case Information OR Pain Proc Room Case Level Level 2 Wound Class 1 - Clean Specialty Pain Management Preop Diagnosis M51.26 Postop Same As Preop Yes Postop Diagnosis M51.26 Outcomes Met? Yes Last Modified By: Beatriz Romero RN 10/02/23 12:52:06 Post-Care Text: The patient is free from signs and symptoms of infection Skin Assessment (Pre Procedure) FTPM Pre-Care Text: Implements protective measures to prevent skin/ tissue injury due to thermal or mechanical sources Evaluates for signs and symptoms of physical injury to skin and tissue Entry 1 Skin Integrity Intact, [place], Warm, and Skin Abnormality No Dry Outcomes Met? Yes Last Modified By: Beatriz Romero RN 10/02/23 12:52:14 Post-Care Text: The patient is free from [...] Under Knees Press Points Checked Yes By Beatriz Romero RN Outcomes Met? Yes Last Modifie (more content not included)... Normal [facility] Main OR Preoperative Recordo n 10-02-2023 Main OR Preoperative Record Holding Area Document Type FTPM Summary Primary Physician: Yovany Madrid DO Finalized Date/Time: 10/02/23 12:17:10 Pt. Name: JEREMYPRABHA/Sex: 1990 Female Med Rec #: [id number] Physician: Yovany Madrid DO Financial #: [id number] Pt. Type: P Room/Bed: / Admit/Disch: 10/02/23 12:06:59 - Institution: Case Times Holding FTPM Pre-Care Text: Verifies consent for planned procedure, identifies individual values and wishes concerning care, includes family members in perioperative teaching Secures patient's records' belongings, and valuables, maintains patient's dignity and privacy, and maintains patient confidentiality Entry 1 In Holding 10/02/23 12:15:00 Outcomes Met? Yes Last Modified By: Leann Henriquez RN 10/02/23 12:15:57 Post-Care Text: The patient participates in decisions affecting his or her perioperative plan of care The patient's right to privacy is maintained Surgery Checklist FTPM Entry 1 Patient Birthday, ID Band Procedure History and Physical, Identification: Check, Patient Verification: Surgical Consent, With Participation Patient NPO after Midnight: Yes Date/Time: 10/02/23 12:16:00 Results Reviewed n/a Personal Items: Jewelry Comments: Personal Items x2 rings, Complaints of Pain: Yes Comment: Pain Comment: 01/28 low back Operative Site Yes Marking: Marked By: Dr Madrid Location: L4/5 [facility] Availability Equipment, X-Ray Verified: Does Patient Smoke Yes If Yes to Smoking. vape Cigars or Cigarettes. How much per day? Patient states Yes Comment - Adult Alie-mom postop adult Supervision supervision available Case Cancelled in No Holding Area see comments below for reason Last Modified By: Leann Henriquez RN 10/02/23 12:17:06 Finalized By: Leann Henriquez RN Document Signatures Signed By: Leann Henriquez RN 10/02/23 12:17 Normal [facility] Patient Correspondenceon Patient Correspondence [id number] 666#1.00TIFF [facility] Workers' Comp Officeon 08-15 Workers' Comp Office [id number] 854#1.00TIFF [facility] Consent for Treatmenton Consent for Treatment [id number] 2349#1.00TIFF [facility] Consultation Noteon 06-25-20 Consultation Note Patient: PRABHA CORRIGAN Age: 32 years Sex: Female : 1990 Associated Diagnoses: None Author: Clyde Alcantar MD Subjective Chief complaint 06/25/2023 7:58 EST Back [...] Nausea/Vomiting, # 20 tab(s), Refills(s) 0, Pharmacy: [facility]/pharmacy #[id number], 158, cm, 12/12/22 20:36:00 EDT, Height/Length Dosing, 74, kg, 12/12/22 20:36:00 EDT, Weight Dosing pregabalin 50 mg Cap: 50 mg = 1 cap(s), Oral, Daily, X 30 day(s), # 30 cap(s), Refills(s) 5, Pharmacy: [facility]/pharmacy #[id number], 158, cm, 02/18/23 10:35:00 EDT, Height/Length Dosing, 72.5, kg, 02/18/23 10:35:00 EDT, Weight Dosing tiZANidine 4 mg Tab: 4 mg = 1 tab(s), Oral, TID, # 90 tab(s), Refills(s) 5, Pharmacy: [facility]/pharmacy #[id number], 158, cm, 02/18/23 10:35:00 EDT, Height/Length [...] All Problems Acid reflux / SNOMED CT 903855366 / Confirmed Anemia / SNOMED CT 319143498 / Confirmed Anxiety / SNOMED CT 50916398 / Confirmed Headache / SNOMED CT 25344711 / Confirmed Smoker 21-JAN-2014 12:37:00<$> / SNOMED CT V486TH6Y-0243-28A3- [id number]-[id number] / Confirmed Added secondary to documentation in Social History. Vomiting / SNOMED CT 3287336271 / Confirmed Objective Vital Signs 06/25/2023 7:58 [...] Patient agrees with plan of care. [facility] Comment on above: Result Comment: Elec tronically Signed By: Ortiz CHEUNG, Clyde Weathers.ra\Date and Time Signed: 06/25/23 08:46 EST Office/Clinic Note-Physician on 06-25-2023 Office/Clinic Note-Physician [id number] 66#1.00TIFF [facility] Patient Correspondenceon Patient Correspondence [id number] 12 [id number] 21#1.00TIFF [facility] Patient Correspondence [id number] 12 [id number] 88#1.00TIFF [facility] Patient History Officeon Patient History Office [id number] 12 [id number] 44#1.00TIFF [facility] Prescriptions/Work Noteson 1 08-26-2022 Prescriptions/Work Notes [id number] 409#1.00TIFF [facility] CHEMISTRYOrdered By: Lab ROP User on 02-05-2022 Glucose [Mass/Vol] 91 mg/dL Normal 55 - 99 mg/dL [facility] POC Subsection Comment on above: Result Comment: Laura owens RN/ POC Device SN [id number] Invalid Interpretation Code [facility] POC Subsection POC User ID [id number] Invalid Interpretation Code [facility] POC Subsection POC Username FELY FOUNTAIN Invalid Interpretation Code [facility] POC Subsection CHEMISTRYOrdered By: SYSTEM SYSTEM on 02-05-2022 Albumin [Mass/Vol] 4.5 g/dL Normal 3.3 - 5.0 gm/dL [facility] Remisol Albumin/Globulin [Mass ratio] 1.5 {ratio} Normal 1.1 - 2.2 FT Remisol ALP [Catalytic activity/Vol] 41 [iU]/d Normal 21 - 98 Int._Unit/L [facility] Remisol ALT No additional P-5'-P [Catalytic activity/Vol] [...] MDRD (S/P/Bld) [Vol rate/Area] mL/min/1.73 m2 Normal >=59mL/min/1. 73 m2 [facility] Chem S GFR/1.73 sq M.predicted among non-blacks MDRD (S/P/Bld) [Vol rate/Area] mL/min/1.73 m2 Normal >=59mL/min/1. 73 m2 [facility] S Globulin (S) [Mass/Vol] 3.0 g/dL [...] 11.0 E9/L [facility] HemeAutoSS SEROLOGYOrdered By: Mari esposito on 02-05-2022 Beta hCG Ql Negative (02/05/22 [...] PM) Normal Negative [facility] UA Auto SS Ucon.plasma/Ucon .RBC (Bld) [Mass ratio] 0-3 /HPF Normal 0-3/HPF [facility] Auto SS Nitrite Ql (U) Negative (02/05/22 5:00 PM) Normal Negative [facility] UA Auto SS pH (U) 5.0 *NA* (02/05/22 5:00 PM) Invalid Interpretation Code 5.0 - 9.0 [facility] Auto SS Protein (U) [Mass/Vol] Negative (02/05/22 5:00 PM) Normal Negative [facility] UA Auto SS Specific gravity (U) [Rel density] 1.020 *NA* (02/05/22 5:00 PM) Invalid Interpretation Code 1.005 - 1.030 [facility] Auto SS UA Spec Desc Clean Catch (02/05/22 5:00 PM) Normal [facility] UA Auto SS Urobilinogen Qn (U) 0.7275350 {Lc'U}/dL Normal 0.0 - 1.0 EU/dL [facility] Auto SS WBC Auto Ql (U) Negative (02/05/22 5:00 PM) Normal Negative [facility] Auto SS WBC LM.HPF (Urine sed) [#/Area] 0-5 /HPF Normal 0-5/HPF [facility] UA Auto SS Activated partial thrombopla stin time (aPTT) in platelet poor plasma by coagulation aOrdered By: Tony Hannon on 01-19-2022 aPTT Coag (PPP) [Time] 34.8 s 25.1-36.5 [facility] B-Type Natriuretic Peptideon 01-19-2022 Natriuretic peptide B (Bld) [Mass/Vol] 13.0 pg/mL Normal 5-100 [facility] Comment on above: Result Comment: PERF ORMED BY: [facility] [place] [address] PATHOLOGIST BROKE BEATER OPERATOR MIKY WANG M.D. Performed By: #### H S TROP, CBC, PT, PTT, BMP, BNP #### [address] Basic Metabolic Panelon 07-0 Calcium [Mass/Vol] 9.7 mg/dL Normal 8.2-10.2 [facility] Comment on above: Performed By: #### H S TROP, CBC, PT, PTT, BMP, BNP #### [facility] [address] [place] [address] Chloride [Moles/Vol] 105 mmol/L Normal 95-114 [facility] Comment on above: Performed By: #### H S TROP, CBC, PT, PTT, BMP, BNP #### [address] CO2 [Moles/Vol] 23.2 mmol/L Normal 22.0-30.0 [facility] Comment on above: Performed By: #### H S TROP, CBC, PT, PTT, BMP, BNP #### [address] Creatinine [Mass/Vol] 1.00 mg/dL Normal 0.44-1.03 [facility] Comment on above: Performed By: #### H S TROP, CBC, PT, PTT, BMP, BNP #### [address] Creatinine Clr Calc Pharmacy 77.95 [facility] Comment on above: Result Comment: PERF ORMED BY: [place] [address] PATHOLOGIST BROKE BEATER OPERATOR MIKY WANG M.D. Performed By: #### H S TROP, CBC, PT, PTT, BMP, BNP #### [address] Estimated GFR ( [place] > 60 [facility] Comment on above: Result Comment: GFR estimated reference range: According to KDOQI guidelines, <60 ml/min/1.73m2 is sufficient to diagnose a patient with chronic kidney disease. Performed By: #### H S TROP, CBC, PT, PTT, BMP, BNP #### [address] Estimated GFR (Non- Am > 60 Normal [facility] Comment on above: Performed By: #### H S TROP, CBC, PT, PTT, BMP, BNP #### [facility] [address] Glucose [Mass/Vol] 101 mg/dL High 70-100 [facility] Comment on above: Result Comment: [facility] [place] Glucose Reference Range is dependent on time and content of last meal. Glucose of more than 200 mg/dL in a nonstressed, ambulatory subject supports the diagnosis of Diabetes Mellitus. ADA recommended reference range Performed By: #### H S TROP, CBC, PT, PTT, BMP, BNP #### [address] Potassium [Moles/Vol] 3.8 mmol/L Normal 3.5-5.1 [facility] Comment on above: Performed By: #### H S TROP, CBC, PT, PTT, BMP, BNP #### [address] Sodium [Moles/Vol] 137 mmol/L Normal 136-146 [facility] Comment on above: Performed By: #### H S TROP, CBC, PT, PTT, BMP, BNP #### [address] Urea nitrogen [Mass/Vol] 15 mg/dL Normal 9-23 [facility] Comment on above: Performed By: #### H S TROP, CBC, PT, PTT, BMP, BNP #### [address] Basophils Auto (Bld) [#/Vol] Ordered By: Tony Hannon on 01-19-2022 Basophils (Bld) [#/Vol] 0.1 10*3/uL 0.0-0.2 [facility] Basophils/100 WBC Auto (Bld) Ordered By: Tony Hannon on 01-19-2022 Basophils/100 WBC (Bld) 0.7 % . [facility] Blood hemoglobin measurement (mass/volume)Ordered By: Tony Hannon on 07-01-2022 Hemoglobin (Bld) [Mass/Vol] 14.9 g/dL 11.8-15.4 [facility] Blood leukocytes automated c ount (number/volume)Ordered By: Tony Hannon on 01-19-2022 WBC (Bld) [#/Vol] 8.3 10*3/uL 4.5-11.0 [facility] COVID-19 Antigenon 2 COVID-19 Antigen Healthcare Worker?: N Reference Range: [...] developed and its performance characteristic determined by [employer] and validated at [facility]. This test has not been FDA cleared [...] for SARS Antigen by OLIVA PERFORMED BY: [facility] [place] [address] PATHOLOGIST BROKE BEATER OPERATOR MIKY WANG M.D. Normal [facility] Comment on above: Performed By: #### C OVID-19 BRAD, SOFIANEG #### [address] COVID-19 SOFIAOrdered By: Cecilio Hannon on 01-19-2022 SARS-CoV+SARS-CoV-2 (COVID-19) Ag IA.rapid Ql (Resp) Negative Negative [facility] Comment on above: This is a duplicate Brad SARS Antigen (OLIVA) result to be used for statistical tracking purpose only. Complete Blood Count Auto Di ffon 01-19-2022 Basophils (Bld) [#/Vol] 0.1 10*3/uL Normal 0.0-0.2 [facility] Comment on above: Result Comment: PERF ORMED BY: [place] [address] PATHOLOGIST BROKE BEATER OPERATOR MIKY WANG M.D. Performed By: #### H S TROP, CBC, PT, PTT, BMP, BNP #### [address] Basophils/100 WBC (Bld) 0.7 % Normal . [facility] Comment on above: Performed By: #### H S TROP, CBC, PT, PTT, BMP, BNP #### [address] Eosinophils (Bld) [#/Vol] 0.3 10*3/uL Normal 0.0-0.45 [facility] Comment on above: Performed By: #### H S TROP, CBC, PT, PTT, BMP, BNP #### [address] Eosinophils/100 WBC (Bld) 3.3 % Normal . [facility] Comment on above: Performed By: #### H S TROP, CBC, PT, PTT, BMP, BNP #### [address] Erythrocyte distribution width (RBC) [Ratio] 13.4 % Normal 11.9-15.3 [facility] Comment on above: Performed By: #### H S TROP, CBC, PT, PTT, BMP, BNP #### [address] Hematocrit (Bld) [Volume fraction] 43.5 % Normal 34.0-46.4 [facility] Comment on above: Performed By: #### H S TROP, CBC, PT, PTT, BMP, BNP #### [address] Hemoglobin (Bld) [Mass/Vol] 14.9 g/dL Normal 11.8-15.4 [facility] Comment on above: Performed By: #### H S TROP, CBC, PT, PTT, BMP, BNP #### [address] Lymphocytes (Bld) [#/Vol] 1.5 10*3/uL Normal 1.00-4.8 [facility] Comment on above: Performed By: #### H S TROP, CBC, PT, PTT, BMP, BNP #### [address] Lymphocytes/100 WBC (Bld) 17.7 % Normal . [facility] Comment on above: Performed By: #### H S TROP, CBC, PT, PTT, BMP, BNP #### [address] MCH (RBC) [Entitic mass] 30.1 pg Normal 24.7-34.3 [facility] Comment on above: Performed By: #### H S TROP, CBC, PT, PTT, BMP, BNP #### [address] MCV (RBC) [Entitic vol] 88.2 fL Normal 80-100 [facility] Comment on above: Performed By: #### H S TROP, CBC, PT, PTT, BMP, BNP #### [address] Mean Corpuscular HGB Conc 34.2 g/dL Normal 32.0-35.0 [facility] Comment on above: Performed By: #### H S TROP, CBC, PT, PTT, BMP, BNP #### [address] Monocytes (Bld) [#/Vol] 0.6 10*3/uL Normal 0.0-0.8 [facility] Comment on above: Performed By: #### H S TROP, CBC, PT, PTT, BMP, BNP #### [address] Monocytes/100 WBC (Bld) 7.7 % Normal . [facility] Comment on above: Performed By: #### H S TROP, CBC, PT, PTT, BMP, BNP #### [address] Neutrophils (Bld) [#/Vol] 5.8 10*3/uL Normal 1.8-7.7 [facility] Comment on above: Performed By: #### H S TROP, CBC, PT, PTT, BMP, BNP #### [address] Neutrophils/100 WBC (Bld) 70.6 % Normal . [facility] Comment on above: Performed By: #### H S TROP, CBC, PT, PTT, BMP, BNP #### [address] Nucleated RBC/100 WBC (Bld) [Ratio] 0.0 % Normal 0-0.5 [facility] Comment on above: Performed By: #### H S TROP, CBC, PT, PTT, BMP, BNP #### [address] Platelet mean volume (Bld) [Entitic vol] 9.1 fL Normal 6.3-10.7 [facility] Comment on above: Performed By: #### H S TROP, CBC, PT, PTT, BMP, BNP #### [place] [address] [place] Platelets (Bld) [#/Vol] 227 10*3/uL Normal 150-450 [facility] Comment on above: Performed By: #### H S TROP, CBC, PT, PTT, BMP, BNP #### [facility] [address] RBC (Bld) [#/Vol] 4.93 10*6/uL Normal 3.60-5.00 [facility] Comment on above: Performed By: #### H S TROP, CBC, PT, PTT, BMP, BNP #### [facility] [address] WBC (Bld) [#/Vol] 8.3 10*3/uL Normal 4.5-11.0 [facility] Comment on above: Performed By: #### H S TROP, CBC, PT, PTT, BMP, BNP #### [facility] [address] Creatinine and Glomerular fi ltration rate.predicted panel (S/P/Bld)Ordered By: Tony Hannon on 01-19-2022 Creatinine [Mass/Vol] 1.00 mg/dL 0.44-1.03 [facility] ECG 12 lead ECGon 01-19-2022 ECG 12 lead ECG [facility] Main [place] [address] [place] [address] Electrocardiograph Report Signed Patient: Prabha Corrigan MR#: [id number] : 1990 Acct:[id number] Age/Sex: 31 / F ADM Date: 01/19/22 Loc: ER Room: Type: [facility] ER Attending Dr: Ordering Provider: Tony Hannon [...] was found Confirmed by TONY HANNON DO ([id number]) on 01/19/2022 4:07:17 PM Referred By: Electronically Signed By:TONY HANNON DO Transcribed By: MUS Signed By Tony Hannon DO 01/19 1607 Normal [facility] Eosinophils Auto (Bld) [#/Vo l]Ordered By: Tony Hannon on 01-19-2022 Eosinophils (Bld) [#/Vol] 0.3 10*3/uL 0.0-0.45 [facility] Eosinophils/100 WBC Auto (Bl d)Ordered By: Tony Hannon on 01-19-2022 Eosinophils/100 WBC (Bld) 3.3 % . [facility] Erythrocyte distribution wid th Auto (RBC) [Ratio]Ordered By: Tony Hannon on 01-19-2022 Erythrocyte distribution width (RBC) [Ratio] 13.4 % 11.9-15.3 [facility] Estimated glomerular filtrat ion rate (GFR) non- AmericanOrdered By: Tony Hannon on 01-19-2022 GFR/1.73 sq M.predicted among non-blacks MDRD (S/P/Bld) [Vol rate/Area] > 60 mL/Min [facility] Hematocrit Auto (Bld) [Volum e fraction]Ordered By: Tony Hannon on 01-19-2022 Hematocrit (Bld) [Volume fraction] 43.5 % 34.0-46.4 [facility] Laboratory - Chemistry and C hemistry - challengeOrdered By: Tony Hannon on 01-19-2022 Natriuretic peptide B (Bld) [Mass/Vol] 13.0 pg/mL 5-100 [facility] Laboratory - CoagulationOrde red By: Tony Hannon on 01-19-2022 PT Coag (PPP) [Time] 13.4 s 9.0-12.9 [facility] Laboratory - Hematology and Cell countsOrdered By: Tony Hannon on 01-19-2022 Nucleated RBC/100 WBC (Bld) [Ratio] 0.0 % 0-0.5 [facility] Lymphocytes Auto (Bld) [#/Vo l]Ordered By: Tony Hannon on 01-19-2022 Lymphocytes (Bld) [#/Vol] 1.5 10*3/uL 1.00-4.8 [facility] Lymphocytes/100 WBC Auto (Bl d)Ordered By: Tony Hannon on 01-19-2022 Lymphocytes/100 WBC (Bld) 17.7 % . [facility] MCH Auto (RBC) [Entitic mass ]Ordered By: Tony Hannon on 01-19-2022 MCH (RBC) [Entitic mass] 30.1 pg 24.7-34.3 [facility] MCHC Auto (RBC) [Mass/Vol]Or dered By: Tony Hannon on 01-19-2022 MCHC (RBC) [Mass/Vol] 34.2 g/dL 32.0-35.0 [facility] MCV Auto (RBC) [Entitic vol] Ordered By: Tony Hannon on 01-19-2022 MCV (RBC) [Entitic vol] 88.2 fL 80-100 [facility] Monocytes Auto (Bld) [#/Vol] Ordered By: Tony Hannon on 01-19-2022 Monocytes (Bld) [#/Vol] 0.6 10*3/uL 0.0-0.8 [facility] Monocytes/100 WBC Auto (Bld) Ordered By: Tony Hannon on 01-19-2022 Monocytes/100 WBC (Bld) 7.7 % . [facility] Neutrophils Auto (Bld) [#/Vo l]Ordered By: Tony Hannon on 01-19-2022 Neutrophils (Bld) [#/Vol] 5.8 10*3/uL 1.8-7.7 [facility] Neutrophils/100 WBC Auto (Bl d)Ordered By: Tony Hannon on 01-19-2022 Neutrophils/100 WBC (Bld) 70.6 % . [facility] No Panel InformationOrdered By: Tony Hannon on 01-19-2022 SARS Antigen (LFIA) [facility] Estimated GFR () > 60 mL/Min [facility] Comment on above: GFR estimated refere nce range: According to KDOQI guidelines, <60 ml/min/1.73m2 is sufficient to diagnose a patient with chronic kidney disease. Pharmacy Creatinine Clearance (Chem 77.95 [facility] SARS Antigen (LFIA) [facility] Partial Thromboplastin Timeo n 01-19-2022 aPTT Coag (Bld) [Time] 34.8 s Normal 25.1-36.5 [facility] Comment on above: Result Comment: PERF ORMED BY: [address] [place] [address] PATHOLOGIST BROKE BEATER OPERATOR MIKY WANG M.D. Performed By: #### H S TROP, CBC, PT, PTT, BMP, BNP #### [facility] [address] Platelet mean volume Auto (B ld) [Entitic vol]Ordered By: Tony Hannon on 01-19-2022 Platelet mean volume (Bld) [Entitic vol] 9.1 fL 6.3-10.7 [facility] Platelet poor plasma interna tional normalized ratio (INR) by coagulation assay (relatOrdered By: Tony Hannon on 01-19-2022 INR Coag (PPP) [Relative time] 1.2 {INR} [facility] Comment on above: INR Therapeutic Rang e [...] 01-19-2022 Platelets (Bld) [#/Vol] 227 10*3/uL 150-450 [facility] Prothrombin Time INRon 01-19 INR Coag (PPP) [Relative time] 1.2 {INR} Normal [facility] Comment on above: Result Comment: INR Therapeutic [...] TROP, CBC, PT, PTT, BMP, BNP #### [facility] [address] [place] [address] [place] PT Coag (PPP) [Time] 13.4 s High 9.0-12.9 [facility] Comment on above: Performed By: #### H S TROP, CBC, PT, PTT, BMP, BNP #### [facility] [address] [place] [address] [facility] RBC Auto (Bld) [#/Vol]Ordere d By: Tony Hannon on 01-19-2022 RBC (Bld) [#/Vol] 4.93 10*6/uL 3.60-5.00 [facility] Serum or plasma calcium ernesto urement (mass/volume)Ordered By: Tony Hannon on 01-19-2022 Calcium [Mass/Vol] 9.7 mg/dL 8.2-10.2 [facility] Serum or plasma chloride syl surement (moles/volume)Ordered By: Tony Hannon on 01-19-2022 Chloride [Moles/Vol] 105 mmol/L 95-114 [facility] Serum or plasma glucose ernesto urement (mass/volume)Ordered By: Tony Hannon on 01-19-2022 Glucose [Mass/Vol] 101 mg/dL 70-100 [facility] Comment on above: ADA recommended refe rence range Random Glucose Reference Range is dependent on time and content of last meal. Glucose of more than 200 mg/dL in a nonstressed, ambulatory subject supports the diagnosis of Diabetes Mellitus. Serum or plasma potassium me asurement (moles/volume)Ordered By: Tony Hannon on 01-19-2022 Potassium [Moles/Vol] 3.8 mmol/L 3.5-5.1 [facility] Serum or plasma sodium measu rement (moles/volume)Ordered By: Tony Hannon on 01-19-2022 Sodium [Moles/Vol] 137 mmol/L 136-146 [facility] Serum or plasma total carbon dioxide measurement (moles/volume)Ordered By: Tony Hannon on 01-19-2022 CO2 [Moles/Vol] 23.2 mmol/L 22.0-30.0 [facility] Serum or plasma urea nitroge n measurement (mass/volume)Ordered By: Tony Hannon on 01-19-2022 Urea nitrogen [Mass/Vol] 15 mg/dL 04-13 [facility] Brad Ag Negativeon 01-20-20 Brad Ag Negative Negative Normal Negative [facility] Comment on above: Result Comment: This is a duplicate Brad SARS Antigen (OLIVA) result to be used for statistical tracking purpose only. PERFORMED BY: [place] [address] PATHOLOGIST BROKE BEATER OPERATOR MIKY WANG M.D. Performed By: #### C OVID-19 BRAD, SOFIANEG #### [place] [address] [place] Troponin I High Sensitivityo n 01-19-2022 Troponin I High Sensitivity < 3 Normal [address] [place] [address] Comment on above: Result Comment: PERF ORMED BY: [place] [address] PATHOLOGIST BROKE BEATER OPERATOR MIKY WANG M.D. Performed By: #### H S TROP, CBC, PT, PTT, BMP, BNP #### [address] Troponin I High Sensitivity < 3 Normal [address] [place] [address] Comment on above: Result Comment: PERF ORMED BY: [place] [address] PATHOLOGIST BROKE BEATER OPERATOR MIKY WANG M.D. Performed By: #### H S TROP, CBC, PT, PTT, BMP, BNP #### [address] Troponin I.cardiac [Mass/vol ume] in Serum or Plasma by High sensitivity methodOrdered By: Tony Hannon on 01-19-2022 Troponin I.cardiac High sensitivity method [Mass/Vol] < 3 pg/mL 0-15 [facility] XR chest 2V*on 01-19-2022 XR chest 2V* [facility] [place] [address] [place], [place] [id number] XRay Report Signed Patient: Prabha Corrigan MR#: [id number] : 1990 Acct:[id number] Age/Sex: 31 / F ADM Date: 01/19/22 Loc: ER Room: Type: [facility] ER Attending Dr: Copies to: Tony Hannon [...] Sanchez Raza M.D.01/19/2022 8:11 AM Dictation Location: [place] [address] Transcribed By: [facility] 01/19/22810 Dictated By: Sanchez Raza DO 01/19/22810 Signed By: 01/19/22810 [facility] Covid 19 Resultson 2 SARS-CoV-2 (COVID-19) RNA [...] contacted by the [facility] to see if any of your [...] or Naproxen (Aleve) can also be used. Ticx-ojl-pbvxsfw cough and cold medicines can be used according to the instructions on the package. Some mlui-rdz-ueuhnnv medicines also contain acetaminophen. Make sure you [...] water are not available, use alcohol-based hand clinical consultant. Avoid touching your eyes, nose, and mouth [...] 24 arlette (more content not included)... Normal [facility] INFLUENZA A/B, COVID 2019 PC R,SYMPTOMATICon 08-05-2021 INFLUENZA A, PCR Not detected Normal Not Detected [facility] Comment on above: Result Comment: Resp iratory virus testing is performed routinely by PCR for Influenza A/B and RSV. If Influenza and RSV PCR are negative, testing for parainfluenza 1,2,3 viruses and adenovirus is routinely performed for oncology inpatients and intensive care unit patients at [facility] and is available on request on other patients by calling Laboratory Client Services at [phone]. Not Detected results do not preclude Influenza A/B or RSV infections since the adequacy of sample collection or low viral burden may impact the clinical sensitivity of this test method. Performed By: #### C OINP #### [facility] [address] [place] [address] INFLUENZA B, PCR Not detected Normal Not Detected [facility] Comment on above: Result Comment: Resp iratory virus testing is performed routinely by PCR for Influenza A/B and RSV. If Influenza and RSV PCR are negative, testing for parainfluenza 1,2,3 viruses and adenovirus is routinely performed for oncology inpatients and intensive care unit patients at [facility] and is available on request on other patients by calling Laboratory Client Services at [phone] Not Detected results do not preclude Influenza [...] by the Microbiology Laboratory, Department of Pathology, [facility], [place], [place]. It has not been cleared or approved by the US Food and Drug Administration; however, FDA clearance or approval is not currently required for clinical use. This test should not be regarded as investigational or for research purposes. Performed By: #### C OINP #### [facility] [address] [place] [address] SARS-CoV-2 (COVID-19) RNA MARIFER+probe Ql (Unsp spec) Detected Abnormal Not Detected [facility] Comment on above: Result Comment: . This [...] patient management decisions. Fact sheet for providers: https://www.fda.gov/media/204850/download Fact sheet for patients: https://www.fda.gov/media/878538/download This test has received FDA Emergency Use Authorization (EUA) and has been verified by [facility] ([facility]). This test is only authorized for the duration of time that circumstances exist to justify the authorization of the emergency use of in vitro diagnostic tests for the detection of SARS-CoV-2 virus and/or diagnosis of COVID-19 infection under section 564(b)(1) of the Act, 21 U.S.C. 360bbb-3(b)(1), unless the authorization is terminated or revoked sooner. [facility] is certified under CLIA-88 as qualified to perform high complexity testing. Testing is performed in the [facility] laboratories located at [address] [place] [address]. Performed By: #### C OINP #### [address] [place] [address] INFLUENZA A/B, COVID 2019 PC R,SYMPTOMATICon 08-04-2021 DATE OF SYMPTOM ONSET [YYYYMMDD]? [id number] Normal [facility] Comment on above: Performed By: #### C OINP #### [address] [place] [address] Lab Specimen Source Nasal, Nasopharyngeal Normal [facility] Comment on above: Performed By: #### C OINP #### [address] [place] [address] Provider Note - ED v3on 07-22 Provider Note - ED v3 Provider Note: Chart Review HISTORY OF PRESENTING ILLNESS PRABHA is a 31 year old Female and was seen by me at 04-Aug-2021 11:01 for a chief complaint of cold symptoms. The historian is the patient. Additional Details: Patient presents with 1-day history of cold symptoms, and exposure. Patient endorses cough, sinus congestion/drainage , sore throat, headache. Patient denies fever, chills, nausea, vomiting, diarrhea, chest pain, shortness of breath, body aches, loss of sense of smell/taste. She's taken bromfed and albuterol for s/s. Triage Information: Most recent Vital Sign Value Date PAST MEDICAL HISTORY ALLERGIES/INTOLERAN SAMI: Allergy Allergen: Bentyl Type: Drug Reaction: Hives/Urticaria [...] once a day (at bedtime) Drug Name: brompheniramine/pse udoephedrine/dextro methorphan 9ll-57vm-26os/5 mL oral syrup Instructions: 5 milliliter(s) orally every 4 to 6 hours, As Needed Drug Name: fluticasone 50 mcg/inh nasal spray Instructions: 1 spray(s) in each nostril once a day Drug Name: naproxen 500 mg oral tablet Instructions: null Drug Name: albuterol 90 mcg/inh inhalation aerosol Instructions: 2 puff(s) inhaled every 4 to 6 hours, As Needed Drug Name: brompheniramine/pse udoephedrine/dextro methorphan 0lt-99hk-51rn/5 mL oral syrup Instructions: 5 milliliter(s) orally every 4 to 6 hours, As Needed SIGNIFICANT EVENTS: Other Description:SMOKER Additional Notes:2-3 EACH A DAY Past Medical History Description:NO CHRONIC HEALTH ISSUE Additional Notes:02/2021 Past Surgical History Description:Cholecy stectomy REVIEW OF SYSTEMS CONSTITUTIONAL: POSITIVE for: malaise [...] SIGNS: T PRBP SpO2O2(LPM) %FiO2 Method 04-Aug-2021 10:50:[id number] /70 100 MDM MDM/ED COURSE: Differential Diagnosis: (URI, [...] worsening symptoms or any new concerns. DISPOSITION Diagnosis/Annotatio n: ED Dx Name:URI (upper respiratory infection) Code:J06.9 Name:Close exposure to COVID-19 virus Code:Z20.822 Disposition: discharged Type: home CONSULT CRITICAL CARE TIME Is this a critically ill patient: no Electronic Signatures for Addendum Section: Stefany Pena (HEALTH CARE MARKETING MANAGER-REPAIR MECHANIC) (Signed Addendum 08-Aug-2021 09:38) left voicemail for pt to c (more content not included)... Normal [facility] CORONAVIRUS 2019 BY PCRon DATE OF SYMPTOM ONSET [YYYYMMDD]? Canceled Normal [facility] Comment on above: Order Comment: TEST CORONAVIRUS 2019 BY PCR WAS CANCELLED, 07/05/2021 00:58 DUPLICATE ORDER SEE [id number]. Performed By: #### C OV19 #### [place] [address] SARS-CoV-2 (COVID-19) RNA MARIFER+probe Ql (Unsp spec) Canceled Normal [facility] Comment on above: Order Comment: TEST CORONAVIRUS 2019 BY PCR WAS CANCELLED, 07/05/2021 00:58 DUPLICATE ORDER SEE [id number]. Result Comment: . This assay is designed [...] patient management decisions. Fact sheet for providers: https://www.fda.gov/media/291531/download Fact sheet for patients: https://www.fda.gov/media/081711/download This test has received FDA Emergency Use Authorization (EUA) and has been verified by [facility] ([facility]). This test is only authorized for the duration of time that circumstances exist to justify the authorization of the emergency use of in vitro diagnostic tests for the detection of SARS-CoV-2 virus and/or diagnosis of COVID-19 infection under section 564(b)(1) of the Act, 21 U.S.C. 360bbb-3(b)(1), unless the authorization is terminated or revoked sooner. [facility] is certified under CLIA-88 as qualified to perform high complexity testing. Testing is performed in the [facility] laboratories located at [address] [place] [address]. Performed By: #### C OV19 #### [place] [address] Covid 19 Resultson 1 SARS-CoV-2 (COVID-19) RNA [...] contacted by the [facility] to see if any of your [...] or Naproxen (Aleve) can also be used. Ruzq-hpf-bdlqsxp cough and cold medicines can be used according to the instructions on the package. Some psph-fxi-yppfyss medicines also contain acetaminophen. Make sure you [...] water are not available, use alcohol-based hand clinical consultant. Avoid touching your eyes, nose, and mouth [...] 24 arlette (more content not included)... Normal [facility] INFLUENZA A/B, COVID 2019 PC R,SYMPTOMATICon 07-05-2021 INFLUENZA A, PCR Not detected Normal Not Detected [facility] Comment on above: Result Comment: Resp iratory virus testing is performed routinely by PCR for Influenza A/B and RSV. If Influenza and RSV PCR are negative, testing for parainfluenza 1,2,3 viruses and adenovirus is routinely performed for oncology inpatients and intensive care unit patients at [facility] and is available on request on other patients by calling Laboratory Client Services at [phone]. Not Detected results do not preclude Influenza A/B or RSV infections since the adequacy of sample collection or low viral burden may impact the clinical sensitivity of this test method. Performed By: #### C OINP #### [facility] [address] [place] [address] INFLUENZA B, PCR Not detected Normal Not Detected [facility] Comment on above: Result Comment: Resp iratory virus testing is performed routinely by PCR for Influenza A/B and RSV. If Influenza and RSV PCR are negative, testing for parainfluenza 1,2,3 viruses and adenovirus is routinely performed for oncology inpatients and intensive care unit patients at [facility] and is available on request on other patients by calling Laboratory Client Services at [phone] Not Detected results do not preclude Influenza [...] by the Microbiology Laboratory, Department of Pathology, [facility], [place], [place]. It has not been cleared or approved by the US Food and Drug Administration; however, FDA clearance or approval is not currently required for clinical use. This test should not be regarded as investigational or for research purposes. Performed By: #### C KEVON #### [place] [address] SARS-CoV-2 (COVID-19) RNA MARIFER+probe Ql (Unsp spec) Not detected Normal Not Detected [facility] Comment on above: Result Comment: . This [...] patient management decisions. Fact sheet for providers: https://www.fda.gov/media/655929/download Fact sheet for patients: https://www.fda.gov/media/390637/download This test has received FDA Emergency Use Authorization (EUA) and has been verified by [facility] ([facility]). This test is only authorized for the duration of time that circumstances exist to justify the authorization of the emergency use of in vitro diagnostic tests for the detection of SARS-CoV-2 virus and/or diagnosis of COVID-19 infection under section 564(b)(1) of the Act, 21 U.S.C. 360bbb-3(b)(1), unless the authorization is terminated or revoked sooner. [facility] is certified under CLIA-88 as qualified to perform high complexity testing. Testing is performed in the [facility] laboratories located at [address] [place] [address]. Performed By: #### C KEVON #### [place] [address] CORONAVIRUS 2019 BY PCRon Lab Specimen Source Nasal, Nasopharyngeal Normal [facility] Comment on above: Order Comment: TEST CORONAVIRUS 2019 BY PCR WAS CANCELLED, 07/05/2021 00:58 DUPLICATE ORDER SEE [id number]. Performed By: #### C OV19 #### [facility] [address] [place] [address] INFLUENZA A/B, COVID 2019 PC R,SYMPTOMATICon 07-04-2021 Lab Specimen Source Nasal, Nasopharyngeal Normal [facility] Comment on above: Performed By: #### C OINP #### [facility] [address] [place] [address] Provider Note - ED v3on 06-21 Provider Note - ED v3 Provider Note: Chart Review HISTORY OF PRESENTING ILLNESS PRABHA is a 30 year old Female and was seen by me at 04-Jul-2021 15:26 for a chief complaint of cold symptoms. The historian is the patient. Additional Details: Patient presents with 3-day history of cold symptoms, and Covid exposure. Patient endorses cough, sinus congestion/drainage , fatigue, headache. Patient denies fever, chills, nausea, vomiting, diarrhea, chest pain, shortness of breath, body aches, loss of sense of smell/taste. She's taken bromfed, allergy medication, and vitamins for her symptoms. She's been caring for COVID sick family members at home. Triage Information: Most recent Vital Sign Value Date PAST MEDICAL HISTORY ALLERGIES/INTOLERAN SAMI: Allergy Allergen: Bentyl Type: Drug Reaction: Hives/Urticaria [...] once a day (at bedtime) Drug Name: brompheniramine/pse udoephedrine/dextro methorphan 9jb-44vj-75lb/5 mL oral syrup Instructions: 5 milliliter(s) orally every 4 to 6 hours, As Needed Drug Name: fluticasone 50 mcg/inh nasal spray Instructions: 1 spray(s) in each nostril once a day Drug Name: naproxen 500 mg oral tablet Instructions: null Drug Name: albuterol 90 mcg/inh inhalation aerosol Instructions: 2 puff(s) inhaled every 4 to 6 hours, As Needed Drug Name: brompheniramine/pse udoephedrine/dextro methorphan 1ex-60nc-97mf/5 mL oral syrup Instructions: 5 milliliter(s) orally every 4 to 6 hours, As Needed SIGNIFICANT EVENTS: Other Description:SMOKER Additional Notes:2-3 EACH A DAY Past Medical History Description:NO CHRONIC HEALTH ISSUE Additional Notes:02/2021 Past Surgical History Description:Cholecy stectomy 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 DISPOSITION Diagnosis/Annotatio n: ED Dx Name:URI (upper respiratory infection) Code:J06.9 Name:Exposure to COVID-19 virus Code:Z20.822 Disposition: discharged Type: home CONSULT CRITICAL CARE TIME Is this a critically ill patient: no Electronic Signatures for Addendum Section: Stefany Pena (more content not included)... Normal [facility] CORONAVIRUS 2019 BY PCRon SARS-CoV-2 (COVID-19) RNA MARIFER+probe Ql (Unsp spec) Not detected Normal Not Detected [facility] Comment on above: Result Comment: . This [...] patient management decisions. Fact sheet for providers: https://www.fda.gov/media/802457/download Fact sheet for patients: https://www.fda.gov/media/658150/download This test has received FDA Emergency Use Authorization (EUA) and has been verified by [facility] ([facility]). This test is only authorized for the duration of time that circumstances exist to justify the authorization of the emergency use of in vitro diagnostic tests for the detection of SARS-CoV-2 virus and/or diagnosis of COVID-19 infection under section 564(b)(1) of the Act, 21 U.S.C. 360bbb-3(b)(1), unless the authorization is terminated or revoked sooner. [facility] is certified under CLIA-88 as qualified to perform high complexity testing. Testing is performed in the [facility] laboratories located at [address] [place] [address]. Performed By: #### C OV19 #### [facility] [id number] [place] [address]. [place] [address] Covid 19 Resultson 1 SARS-CoV-2 (COVID-19) RNA [...] or Naproxen (Aleve) can also be used. Ejfv-iqk-tpdwdzp cough and cold medicines can be used according to the instructions on the package. Some jzzb-eql-nphdsum medicines also contain acetaminophen. Make sure you [...] water are not available, use alcohol-based hand clinical consultant. Avoid touching your eyes, nose, and mouth [...] for 24 arlette (more content not included)... [facility] CORONAVIRUS 2019 BY PCRon DATE OF SYMPTOM ONSET [YYYYMMDD]? [id number] [facility] Comment on above: Performed By: #### C OV19 #### [facility] [address] [place] [address] Lab Specimen Source Nasal, Nasopharyngeal [facility] Comment on above: Performed By: #### C OV19 #### [facility] [address] [place] [address] Provider Note - ED v2on 03-23 Provider Note - ED v2 Provider Note - ED v2: Chart Review: HISTORY OF PRESENTING ILLNESS PRABHA is a 30 year old Female and was seen by me at 11-Apr-2021 12:34 for a chief complaint of cold symptoms. The historian is the patient. Additional Details: Patient presents with 4-day history of cold symptoms. Patient endorses sinus congestion/drainage , fatigue, headache, diarrhea, cough. She denies fever, chills, nausea, vomiting, body aches, chest pain, shortness of breath. She is taking Claritin for her symptoms. She is not vaccinated. Triage Information: Most recent Vital Sign Value Date PAST MEDICAL HISTORY ATTESTATION: I have reviewed and confirmed nurse's/medic's notes for patient's medications, allergies, and medical, surgical, family and social history ALLERGIES/INTOLERAN SAMI: Allergy Allergen: Bentyl Type: Drug Reaction: Hives/Urticaria [...] once a day (at bedtime) Drug Name: brompheniramine/pse udoephedrine/dextro methorphan 9ep-71by-53vz/5 mL oral syrup Instructions: 5 milliliter(s) orally every 4 to 6 hours, As Needed Drug Name: fluticasone 50 mcg/inh nasal spray Instructions: 1 spray(s) in each nostril once a day SIGNIFICANT EVENTS: Other Description:SMOKER Additional Notes:2-3 EACH A DAY Past Medical History Description:NO CHRONIC HEALTH ISSUE Additional Notes:02/2021 Past Surgical History Description:Cholecy stectomy 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 CLINICAL IMPRESSION Diagnosis/Annotatio n: ED Dx Name:URI (upper respiratory infection) Code:J06.9 Disposition: discharged Type: home ATTESTATION CRITICAL CARE TIME Is this a critically ill patient: no Electronic Signatures: Stefany Pena (HEALTH CARE MARKETING MANAGER-REPAIR MECHANIC) (Signed 11-Apr-2021 13:02) Authored: HPI, PMH, ROS, PE, Results/Vital Signs, MDM/ED Course, Clinical Impression, Attestation, Chart Review, Scores Last Updated: 11-Apr-2021 13:02 by Stefany Pena (HEALTH CARE MARKETING MANAGER-REPAIR MECHANIC) Normal [facility] CORONAVIRUS 2019 BY PCRon SARS-CoV-2 (COVID-19) RNA MARIFER+probe Ql (Unsp spec) Not detected Normal Not Detected [facility] Comment on above: Result Comment: . This [...] patient management decisions. Fact sheet for providers: https://www.fda.gov/media/565523/download Fact sheet for patients: https://www.fda.gov/media/503967/download This test has received FDA Emergency Use Authorization (EUA) and has been verified by [facility] ([facility]). This test is only authorized for the duration of time that circumstances exist to justify the authorization of the emergency use of in vitro diagnostic tests for the detection of SARS-CoV-2 virus and/or diagnosis of COVID-19 infection under section 564(b)(1) of the Act, 21 U.S.C. 360bbb-3(b)(1), unless the authorization is terminated or revoked sooner. [facility] is certified under CLIA-88 as qualified to perform high complexity testing. Testing is performed in the [facility] laboratories located at [address] [place] [address]. Performed By: #### C OV19 #### [address] [place] [address] Covid 19 Resultson 1 SARS-CoV-2 (COVID-19) RNA [...] or Naproxen (Aleve) can also be used. Hisc-uwn-ursqqxf cough and cold medicines can be used according to the instructions on the package. Some zifs-rnt-usuwzyl medicines also contain acetaminophen. Make sure you [...] water are not available, use alcohol-based hand clinical consultant. Avoid touching your eyes, nose, and mouth [...] for 24 arlette (more content not included)... [facility] CORONAVIRUS 2019 BY PCRon DATE OF SYMPTOM ONSET [YYYYMMDD]? [id number] [facility] Comment on above: Performed By: #### C OV19 #### [facility] [address] [place] [id number] Lab Specimen Source Nasal, Nasopharyngeal [facility] Comment on above: Performed By: #### C OV19 #### [facility] [address] [place] [address] Provider Note - ED v3on 02-19 Provider Note - ED v3 Provider Note: Chart Review: ED NOTES ED NOTES: Patient presents for evaluation of hoarseness, cough and sore throat has been present for 1 week. Sh denies any recent excessive voice use. 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 DISPOSITION Diagnosis/Annotatio n: ED Dx Name:Acute laryngitis Code:J04.0 Name:Acute pharyngitis Code:J02.9 Disposition: discharged Type: home CONSULT CRITICAL CARE TIME Is this a critically ill patient: no Electronic Signatures: Harshad Julien (HEALTH CARE MARKETING MANAGER-REPAIR MECHANIC) (Signed 02-Mar-2021 17:06) Authored: ED Notes, HPI, PMH, ROS, PE, MDM/ED Course, Clinical Impression, Attestation, Chart Review, Scores Last Updated: 02-Mar-2021 17:06 by Harshad Julien (HEALTH CARE MARKETING MANAGER-REPAIR MECHANIC) [facility] Provider Note - ED v2on 04-0 Provider [...] and medical, surgical, family and social history ALLERGIES/INTOLERAN SAMI: Allergy Allergen: Bentyl Type: Drug Reaction: Hives/Urticaria [...] a day SIGNIFICANT EVENTS: Past Surgical History Description:Cholecy stectomy DRIVER 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 CLINICAL IMPRESSION Diagnosis/Annotatio n: ED Dx Name:Insect bite Code:W57.XXXA Disposition: discharged Type: home ATTESTATION CRITICAL CARE TIME Is this a critically ill patient: no Electronic Signatures: Stefany Pena (HEALTH CARE MARKETING MANAGER-REPAIR MECHANIC) (Signed 28-Oct-2020 15:55) Authored: HPI, PMH, ROS, PE, Results/Vital Signs, MDM/ED Course, Clinical Impression, Attestation, Chart Review, Scores Last Updated: 28-Oct-2020 15:55 by Stefany Pena (HEALTH CARE MARKETING MANAGER-REPAIR MECHANIC) [facility] US PELVIS AND TRANSVAGon US PELVIS AND TRANSVAG [address] [place] [address] Patient: PRABHA CORRIGAN Exam Date: 04/09/2017DOB: 1990 Gender:F : DR HENNY STERN . Admission #: [id number] : Order #: [id number] HERE TO VIEW EXAM RADIOLOGY REPORT PROCEDURE: ULTRASOUND PELVIS AND TRANSVAGINAL COMPARISON: None. INDICATIONS: Chronic pelvic pain R10.2 TECHNIQUE: Transabdominal sonographic examination. Transvaginal sonographic examination.FINDING S: UTERUS: Normal size and appearance. Uterus: 7.6 [...] CONCLUSION: Normal examination. 1. Dictated by: Chang Reveles M.D. on 04/09/2017 at 13:31 Approved by: Chang Reveles M.D. on 04/09/2017 at 13:32 Normal [facility] Vital Signs Date Time Vital Sign Value Performing Clinician Facility 10-18-2023 08:10-0400 Diastolic blood pressure 81 mm[Hg] Altagracia Curtis [facility] 10-18-2023 08:10-0400 Heart rate 79 /min Altagracia [employer] [facility] 10-18-2023 08:10-0400 Mean blood pressure 92 mm[Hg] Altagracia Curtis [facility] 10-18-2023 08:10-0400 Respiratory rate 14 /min Altagracia Curtis [facility] 10-18-2023 08:10-0400 Systolic blood pressure 113 mm[Hg] Altagracia Curtis [facility] 10-02-2023 12:57-0400 Heart rate 81 /min Yovany Madrid [facility] 10-02-2023 12:57-0400 SaO2% (BldA) [Mass fraction] 97 % Yovany Madrid [facility] 10-02-2023 12:57-0400 Respiratory rate 16 /min Yovany Madrid [facility] 10-02-2023 12:56-0400 Diastolic blood pressure 69 mm[Hg] Yovany Madrid [facility] 10-02-2023 12:56-0400 Mean blood pressure 78 mm[Hg] Yovany Madrid [facility] 10-02-2023 12:56-0400 Systolic blood pressure 96 mm[Hg] Yovany Madrid [facility] 10-02-2023 12:53-0400 Diastolic blood pressure 65 mm[Hg] Yovany Madrid [facility] 10-02-2023 12:53-0400 Heart rate 83 /min Yovany Madrid [facility] 10-02-2023 12:53-0400 SaO2% (BldA) [Mass fraction] 99 % Yovany Madrid [facility] 10-02-2023 12:53-0400 Systolic blood pressure 91 mm[Hg] Yovany Madrid [facility] 10-02-2023 12:19-0400 Heart rate 82 /min Yovany Madrid [facility] 10-02-2023 12:19-0400 SaO2% (BldA) [Mass fraction] 98 % Yovany Madrid [facility] 10-02-2023 12:19-0400 Body temperature 98.06 [degF] Yovany Madrid [facility] 10-02-2023 12:18-0400 Diastolic blood pressure 71 mm[Hg] Pedroza Julius [facility] 10-02-2023 12:18-0400 Mean blood pressure 81 mm[Hg] Yovany Julius [facility] 10-02-2023 12:18-0400 Systolic blood pressure 102 mm[Hg] Yovany Madrid [facility] 10-02-2023 12:16-0400 Respiratory rate 14 /min Yovany Madrid [facility] 06-25-2023 07:58-0500 Diastolic blood pressure 88 mm[Hg] Clydedov Alcantar [facility] 06-25-2023 07:58-0500 Heart rate 88 /min Clydedov Alcantar [facility] 06-25-2023 07:58-0500 Mean blood pressure 98 mm[Hg] Clyde Ortiz [facility] 06-25-2023 07:58-0500 Respiratory rate 14 /min Clyde Alcantar [facility] 06-25-2023 07:58-0500 Systolic blood pressure 118 mm[Hg] Clydedov Alcantar [facility] 02-18-2023 10:29-0400 Diastolic blood pressure 78 mm[Hg] Altagracia Curtis [facility] 02-18-2023 10:29-0400 Heart rate 93 /min Altagraciahunter Curtis [facility] 02-18-2023 10:29-0400 Mean blood pressure 89 mm[Hg] Altagracia Curtis [facility] 02-18-2023 10:29-0400 Respiratory rate 16 /min Altagracia Curtis [facility] 02-18-2023 10:29-0400 Systolic blood pressure 111 mm[Hg] Altagraciahunter Curtis [facility] 01-27-2023 22:00-0400 Body temperature 97.88 [degF] Kenn Santaner [facility] 01-27-2023 22:00-0400 Diastolic blood pressure 69 mm[Hg] Kenn Yudith [facility] 01-27-2023 22:00-0400 Heart rate 78 /min Kenn Zurita [facility] 01-27-2023 22:00-0400 Respiratory rate 18 /min Kenn Yudith [facility] 01-27-2023 22:00-0400 SaO2% (BldA) [Mass fraction] 100 % Kenn Zurita [facility] 01-27-2023 22:00-0400 Systolic blood pressure 96 mm[Hg] Kenn Zurita [facility] 11-09-2022 15:27-0400 Diastolic blood pressure 73 mm[Hg] Altagracia Curtis [facility] 11-09-2022 15:27-0400 Heart rate 86 /min Altagracia Curtis [facility] 11-09-2022 15:27-0400 Mean blood pressure 83 mm[Hg] Altagracia Curtis [facility] 11-09-2022 15:27-0400 Respiratory rate 12 /min Altagracia Curtis [facility] 11-09-2022 15:27-0400 Systolic blood pressure 104 mm[Hg] Altagracia Curtis [facility] 10-15-2022 10:27-0400 Heart rate 76 /min Clydedov Piresner [facility] 10-15-2022 10:27-0400 SaO2% (BldA) [Mass fraction] 99 % Clydedov Alcantar [facility] 10-15-2022 10:27-0400 Diastolic blood pressure 67 mm[Hg] Clyde Alcantar [facility] 10-15-2022 10:27-0400 Mean blood pressure 77 mm[Hg] Clyde Ortiz [facility] 10-15-2022 10:27-0400 Systolic blood pressure 98 mm[Hg] Clyde Ortiz [facility] 10-15-2022 10:27-0400 Respiratory rate 14 /min Clyde Ortiz [facility] 10-15-2022 10:23-0400 Diastolic blood pressure 73 mm[Hg] Clyde Ortiz [facility] 10-15-2022 10:23-0400 Heart rate 69 /min Clyde Ortiz [facility] 10-15-2022 10:23-0400 Respiratory rate 14 /min Clyde Ortiz [facility] 10-15-2022 10:23-0400 SaO2% (BldA) [Mass fraction] 98 % Clyde Ortiz [facility] 10-15-2022 10:23-0400 Systolic blood pressure 100 mm[Hg] Clyde Ortiz [facility] 10-15-2022 09:41-0400 Heart rate 72 /min Clyde Ortiz [facility] 10-15-2022 09:41-0400 SaO2% (BldA) [Mass fraction] 98 % Clyde Ortiz [facility] 10-15-2022 09:41-0400 Diastolic blood pressure 65 mm[Hg] Clyde Ortiz [facility] 10-15-2022 09:41-0400 Mean blood pressure 75 mm[Hg] Clyde Ortiz [facility] 10-15-2022 09:41-0400 Systolic blood pressure 95 mm[Hg] Clyde Alcantar [facility] 10-15-2022 09:41-0400 Body temperature 97.88 [degF] Clyde Alcantar [facility] 10-15-2022 09:41-0400 Respiratory rate 12 /min Clyde Alcantar [facility] 08-20-2022 14:57-0500 Diastolic blood pressure 75 mm[Hg] Altagracia Curtis [facility] 08-20-2022 14:57-0500 Heart rate 79 /min Altagracia Curtis [facility] 08-20-2022 14:57-0500 Mean blood pressure 89 mm[Hg] Altagracia Curtis [facility] 08-20-2022 14:57-0500 Respiratory rate 14 /min Altagracia Curtis [facility] 08-20-2022 14:57-0500 Systolic blood pressure 118 mm[Hg] Altagracia Curtis [facility] 08-17-2022 11:51-0500 Diastolic blood pressure 66 mm[Hg] DO Chaitanya Tejal Work Phone: [facility] 08-17-2022 11:51-0500 Heart rate 68 /min DO Chaitanya Tejal Work Phone: [facility] 08-17-2022 11:51-0500 Respiratory rate 18 /min DO Chaitanya Tejal Work Phone: [facility] 08-17-2022 11:51-0500 SaO2% (BldA) [Mass fraction] 99 % DO Chaitanya Tejal Work Phone: [facility] 08-17-2022 11:51-0500 Systolic blood pressure 118 mm[Hg] DO Chaitanya Tejal Work Phone: [facility] 08-17-2022 10:40-0500 Body height 157.48 cm DO Chaitanya Tejal Work Phone: [facility] 08-17-2022 10:40-0500 Body temperature 98.2 [degF] DO Chaitanya Tejal Work Phone: [facility] 08-17-2022 10:40-0500 Body weight 73.4 kg DO Chaitanya Tejal Work Phone: [facility] 07-09-2022 07:44-0500 Diastolic blood pressure 72 mm[Hg] Altagracia Curtis [facility] 07-09-2022 07:44-0500 Heart rate 90 /min Altagracia Curtis [facility] 07-09-2022 07:44-0500 Mean blood pressure 87 mm[Hg] Altagracia Curtis [facility] 07-09-2022 07:44-0500 Respiratory rate 16 /min Altagracia [employer] [facility] 07-09-2022 07:44-0500 Systolic blood pressure 116 mm[Hg] Altagracia Curtis [facility] 06-25-2022 09:49-0500 Diastolic blood pressure 75 mm[Hg] Clyde Ortiz [facility] 06-25-2022 09:49-0500 Heart rate 75 /min Clyde Ortiz [facility] 06-25-2022 09:49-0500 Mean blood pressure 87 mm[Hg] Clyde Ortiz [facility] 06-25-2022 09:49-0500 SaO2% (BldA) [Mass fraction] 100 % Clyde Ortiz [facility] 06-25-2022 09:49-0500 Systolic blood pressure 110 mm[Hg] Clyde Ortiz [facility] 06-25-2022 09:44-0500 Diastolic blood pressure 79 mm[Hg] Clyde Ortiz [facility] 06-25-2022 09:44-0500 Heart rate 69 /min Clyde Ortiz [facility] 06-25-2022 09:44-0500 Respiratory rate 16 /min Clyde Ortiz [facility] 06-25-2022 09:44-0500 SaO2% (BldA) [Mass fraction] 98 % Clyde Ortiz [facility] 06-25-2022 09:44-0500 Systolic blood pressure 104 mm[Hg] Clyde Ortiz [facility] 06-25-2022 08:42-0500 Body temperature 98.24 [degF] Clyde Ortiz [facility] 06-25-2022 08:42-0500 Diastolic blood pressure 72 mm[Hg] Clyde Ortiz [facility] 06-25-2022 08:42-0500 Heart rate 85 /min Clyde Ortiz [facility] 06-25-2022 08:42-0500 Mean blood pressure 85 mm[Hg] Clyde Ortiz [facility] 06-25-2022 08:42-0500 Respiratory rate 14 /min Clyde Ortiz [facility] 06-25-2022 08:42-0500 SaO2% (BldA) [Mass fraction] 98 % Clyde Ortiz [facility] 06-25-2022 08:42-0500 Systolic blood pressure 111 mm[Hg] Clyde Ortiz [facility] 04-13-2022 15:21-0400 Diastolic blood pressure 76 mm[Hg] Altagracia Curtis [facility] 04-13-2022 15:21-0400 Heart rate 81 /min Altagracia Curtis [facility] 04-13-2022 15:21-0400 Mean blood pressure 90 mm[Hg] Altagracia Curtis [facility] 04-13-2022 15:21-0400 Respiratory rate 16 /min Altagracia Curtis [facility] 04-13-2022 15:21-0400 Systolic blood pressure 117 mm[Hg] Altagracia Curtis [facility] 04-10-2022 08:50-0400 Diastolic blood pressure 65 mm[Hg] DO Tony Hannon Work Phone: [facility] 04-10-2022 08:50-0400 Heart rate 89 /min DO Tony Hannon Work Phone: [facility] 04-10-2022 08:50-0400 Respiratory rate 20 /min DO Tony Hannon Work Phone: [facility] 04-10-2022 08:50-0400 SaO2% (BldA) [Mass fraction] 99 % DO Tony Hannon Work Phone: [facility] 04-10-2022 08:50-0400 Systolic blood pressure 109 mm[Hg] DO Tony Hannon Work Phone: [facility] 04-10-2022 06:38-0400 Body temperature 97.2 [degF] DO Tony Hannon Work Phone: [facility] 04-10-2022 06:37-0400 Body height 157.48 cm DO Tony Hannon Work Phone: [facility] 04-10-2022 06:37-0400 Body weight 71 kg DO Tony Hannon Work Phone: [facility] 02-05-2022 17:58-0400 Heart rate 73 /min Noel Acosta [facility] 02-05-2022 17:58-0400 Respiratory rate 16 /min Noel Choe [facility] 02-05-2022 17:47-0400 Diastolic blood pressure 77 mm[Hg] Noel Choe [facility] 02-05-2022 17:47-0400 Heart rate 70 /min Noel Choe [facility] 02-05-2022 17:47-0400 Mean blood pressure 90 mm[Hg] Noel Choe [facility] 02-05-2022 17:47-0400 Respiratory rate 16 /min Noel Choe [facility] 02-05-2022 17:47-0400 SaO2% (BldA) [Mass fraction] 100 % Noel Choe [facility] 02-05-2022 17:47-0400 Systolic blood pressure 115 mm[Hg] Noel Choe [facility] 02-05-2022 17:11-0400 Diastolic blood pressure 79 mm[Hg] Noel Choe [facility] 02-05-2022 17:11-0400 Heart rate 72 /min Noel Choe [facility] 02-05-2022 17:11-0400 Hourly Rounding Noel Acosta [facility] 02-05-2022 17:11-0400 Mean blood pressure 92 mm[Hg] Noel Dave [facility] 02-05-2022 17:11-0400 Promise to Return Noel Acosta [facility] 02-05-2022 17:11-0400 Respiratory rate 16 /min Noel Acosta [facility] 02-05-2022 17:11-0400 Respiratory rate 79 /min Noel Acosta [facility] 02-05-2022 17:11-0400 SaO2% (BldA) [Mass fraction] 97 % Noel Acosta [facility] 02-05-2022 17:11-0400 Systolic blood pressure 119 mm[Hg] Noel Acosta [facility] 02-05-2022 16:15-0400 gluc 91 mg/dL Noel Acosta [facility] 02-05-2022 16:15-0400 gluc Noel Acosta [facility] 02-05-2022 16:11-0400 Body temperature 98.6 [degF] Noel Acosta [facility] 02-05-2022 16:11-0400 Diastolic blood pressure 80 mm[Hg] Noel Acosta [facility] 02-05-2022 16:11-0400 Heart rate 83 /min Noel Acosta [facility] 02-05-2022 16:11-0400 SaO2% (BldA) [Mass fraction] 97 % Noel Choe [facility] 02-05-2022 16:11-0400 Systolic blood pressure 115 mm[Hg] Noel Choe [facility] 01-19-2022 10:30-0400 Diastolic blood pressure 63 mm[Hg] DO Tony Hannon Work Phone: [facility] 01-19-2022 10:30-0400 Heart rate 73 /min DO Tony Hannon Work Phone: [facility] 01-19-2022 10:30-0400 Respiratory rate 18 /min DO Tony Hannon Work Phone: [facility] 01-19-2022 10:30-0400 SaO2% (BldA) [Mass fraction] 98 % DO Tony Hannon Work Phone: [facility] 01-19-2022 10:30-0400 Systolic blood pressure 105 mm[Hg] DO Tony Hannon Work Phone: [facility] 01-19-2022 07:02-0400 Body temperature 98.2 [degF] DO Tony Hannon Work Phone: [facility] 01-19-2022 06:58-0400 Body height 157.48 cm DO Tony Hannon Work Phone: [facility] 01-19-2022 06:58-0400 Body mass index (BMI) [Ratio] 31.3 kg/m2 DO Tony Hannon Work Phone: [facility] 01-19-2022 06:58-0400 Body weight 77.7 kg DO Tony Hannon Work Phone: [facility] 12-08-2021 15:00-0400 Diastolic blood pressure 74 mm[Hg] Altagracia Curtis [facility] 12-08-2021 15:00-0400 Heart rate 96 /min Altagracia Curtis [facility] 12-08-2021 15:00-0400 Mean blood pressure 85 mm[Hg] Altagracia Curtis [facility] 12-08-2021 15:00-0400 Respiratory rate 16 /min Altagracia Curtis [facility] 12-08-2021 15:00-0400 Systolic blood pressure 106 mm[Hg] Altagraciahunter Curtis [facility] 11-21-2021 09:43-0400 Diastolic blood pressure 72 mm[Hg] Clyde Ortiz [facility] 11-21-2021 09:43-0400 Heart rate 82 /min Clyde Ortiz [facility] 11-21-2021 09:43-0400 Mean blood pressure 83 mm[Hg] Clyde Ortiz [facility] 11-21-2021 09:43-0400 SaO2% (BldA) [Mass fraction] 99 % Clyde Ortiz [facility] 11-21-2021 09:43-0400 Systolic blood pressure 106 mm[Hg] Clyde Ortiz [facility] 11-21-2021 09:39-0400 Diastolic blood pressure 88 mm[Hg] Clyde Ortiz [facility] 11-21-2021 09:39-0400 Heart rate 78 /min Clyde Ortiz [facility] 11-21-2021 09:39-0400 SaO2% (BldA) [Mass fraction] 100 % Clyde Ortiz [facility] 11-21-2021 09:39-0400 Systolic blood pressure 110 mm[Hg] Clyde Ortiz [facility] 11-21-2021 09:06-0400 Body temperature 98.24 [degF] Clyde Ortiz [facility] 11-21-2021 09:06-0400 Diastolic blood pressure 80 mm[Hg] Clyde Ortiz [facility] 11-21-2021 09:06-0400 Heart rate 78 /min Clyde Ortiz [facility] 11-21-2021 09:06-0400 Mean blood pressure 90 mm[Hg] Clyde Alcantar [facility] 11-21-2021 09:06-0400 Respiratory rate 16 /min Clyde Alcantar [facility] 11-21-2021 09:06-0400 SaO2% (BldA) [Mass fraction] 98 % Clyde Alcantar [facility] 11-21-2021 09:06-0400 Systolic blood pressure 110 mm[Hg] Clyde Alcantar [facility] 11-07-2021 14:32-0400 Diastolic blood pressure 65 mm[Hg] Davonte Alonzo [facility] 11-07-2021 14:32-0400 Heart rate 77 /min Davonte Clinton [facility] 11-07-2021 14:32-0400 Respiratory rate 16 /min Davonte Clinton [facility] 11-07-2021 14:32-0400 SaO2% (BldA) [Mass fraction] 100 % Davonte Clinton [facility] 11-07-2021 14:32-0400 Systolic blood pressure 95 mm[Hg] Davonte Clinton [facility] 11-07-2021 11:59-0400 Body temperature 98.06 [degF] Davonte Clinton [facility] 11-07-2021 11:59-0400 Diastolic blood pressure 68 mm[Hg] Davonte Clinton [facility] 11-07-2021 11:59-0400 Heart rate 78 /min Davonte Clinton [facility] 11-07-2021 11:59-0400 Respiratory rate 18 /min Davonte Clinton [facility] 11-07-2021 11:59-0400 SaO2% (BldA) [Mass fraction] 100 % Davonte Clinton [facility] 11-07-2021 11:59-0400 Systolic blood pressure 111 mm[Hg] Davonte Clinton [facility] 10-27-2021 11:16-0400 Diastolic blood pressure 73 mm[Hg] Altagracia Curtis [facility] 10-27-2021 11:16-0400 Heart rate 84 /min Altagracia Curtis [facility] 10-27-2021 11:16-0400 Mean blood pressure 89 mm[Hg] Altagracia Curtis [facility] 10-27-2021 11:16-0400 Respiratory rate 18 /min Altagracia Curtis [facility] 10-27-2021 11:16-0400 Systolic blood pressure 121 mm[Hg] Altagracia Curtis [facility] 08-04-2021 12:50-0500 Body height 157.4 cm Timo Rodriguez Other Phone: [facility] 08-04-2021 12:50-0500 Body temperature 98.06 [degF] Timo Rodriguez Other Phone: [facility] 08-04-2021 12:50-0500 Diastolic blood pressure 70 mm[Hg] Timo Rodriguez Other Phone: [facility] 08-04-2021 12:50-0500 Heart rate 105 /min Timo Rodriguez Other Phone: [facility] 08-04-2021 12:50-0500 SaO2% (BldA) [Mass fraction] 100 % Timo Rodriguez Other Phone: [facility] 08-04-2021 12:50-0500 Systolic blood pressure 103 mm[Hg] Timo Rodriguez Other Phone: [facility] 07-04-2021 17:05-0500 Body height 157.4 cm Timo Rodriguez Other Phone: [facility] 07-04-2021 17:05-0500 Body temperature 98.24 [degF] Timo Rodriguez Other Phone: [facility] 07-04-2021 17:05-0500 Diastolic blood pressure 64 mm[Hg] Timo Rodriguez Other Phone: [facility] 07-04-2021 17:05-0500 Heart rate 95 /min Timo Rodriguez Other Phone: [facility] 07-04-2021 17:05-0500 SaO2% (BldA) [Mass fraction] 98 % Timo Rodriguez Other Phone: [facility] 07-04-2021 17:05-0500 Systolic blood pressure 94 mm[Hg] Timo Rodriguez Other Phone: [facility] [facility]2021 18:47-0400 Body height 157.4 cm Timo Rodriguez Other Phone: [facility] 03-02-2021 18:47-0400 Body temperature 98.06 [degF] Timo Rodriguez Other Phone: [facility] 03-02-2021 18:47-0400 Diastolic blood pressure 78 mm[Hg] Timo Rodriguez Other Phone: [facility] 03-02-2021 18:47-0400 Heart rate 102 /min Timo Rodriguez Other Phone: [facility] 03-02-2021 18:47-0400 Respiratory rate 20 /min Timo Rodriguez Other Phone: [facility] 03-02-2021 18:47-0400 SaO2% (BldA) [Mass fraction] 97 % Timo Rodriguez Other Phone: [facility] 03-02-2021 18:47-0400 Systolic blood pressure 137 mm[Hg] Timo Rodriguez Other Phone: [facility] Encounters Encounter Date Encounter Type Care Provider Facility Start: 05-25-2024 End: 05-25-2024 ambulatory Sanchez KESSLER Facility:[facility] Start: 03-14-2024 End: 03-16-2024 Refill Lucretia Graves MD Work Phone: [facility] 210 Comment on above: 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) Start: 11-18-2023 End: 11-18-2023 ambulatory LUCRETIA GRAVES Not Available Start: 11-12-2023 End: 11-12-2023 ambulatory JANA ZABALA Not Available Start: 11-01-2023 End: 11-01-2023 ambulatory CONSTANCE HAIR Not Available Start: 10-18-2023 End: 10-18-2023 ambulatory RUMA Curtis Facility:[facility] Start: 10-18-2023 End: 10-18-2023 Pain Management Altagracia Curtis [facility] Start: 10-02-2023 End: 10-02-2023 ambulatory Yovany Madrid Facility:[facility] Start: 10-02-2023 End: 10-02-2023 Pain Management Yovany Madrid [facility] Start: 09-10-2023 End: 09-10-2023 ambulatory STONEY CHANCE Not Available Start: 09-02-2023 Telephone encounter Stoney morales DO Work Phone: [facility] Start: 06-25-2023 End: 06-25-2023 ambulatory Jana ZABALA Facility:[facility] Start: 06-25-2023 End: 06-25-2023 Pain Management Clyde Alcantar [facility] Start: 06-17-2023 End: 06-17-2023 ambulatory LUCRETIA GRAVES Not Available Start: 06-06-2023 End: 06-06-2023 ambulatory PRITESH [place] Not Available Start: 02-18-2023 End: 02-18-2023 Pain Management Altagracia Curtis [facility] Start: 01-31-2023 End: 01-31-2023 Patient encounter procedure Monika GAO [facility] Start: 01-27-2023 End: 01-27-2023 Emergency department patient visit Kenn Zurita [facility] Start: 11-21-2022 End: 11-22-2022 Pre-admission assessment Shannon Golden [facility] Start: 11-09-2022 End: 11-09-2022 Pain Management Altagracia Curtis [facility] Start: 10-15-2022 End: 10-15-2022 Pain Management Clyde Alcantar [facility] Start: 08-20-2022 End: 08-20-2022 Pain Management Altagracia Curtis [facility] Start: 08-17-2022 End: 08-17-2022 Emergency department patient visit Chaitanya Toure Facility:[facility] Start: 08-17-2022 End: 08-17-2022 Emergency department patient visit DO Chaitanya Toure Work Phone: [facility] Work Phone: Start: 08-06-2022 End: 08-06-2022 ambulatory Christian Juárez Other [facility] [employer] Other Start: 08-06-2022 Telephone encounter Christian Juárez [facility] Start: 07-31-2022 End: 07-31-2022 Patient encounter procedure Altagraciahunter Curtis [facility] Start: 07-09-2022 End: 07-09-2022 Pain Management Altagraciahunter Curtis [facility] Start: 06-25-2022 End: 06-25-2022 Pain Management Clyde Alcantar [facility] Start: 05-08-2022 End: 05-08-2022 Patient encounter procedure Altagraciahunter Curtis [facility] Start: 05-07-2022 End: 05-07-2022 Patient encounter procedure Altagraciahunter Curtis [facility] Start: 04-13-2022 End: 04-13-2022 Pain Management Altagraciahunter Curtis [facility] Start: 04-10-2022 End: 04-10-2022 Emergency department patient visit Tony Hannon Facility:[facility] Start: 04-10-2022 End: 04-10-2022 Emergency department patient visit DO Tony Hannon Work Phone: [facility] Start: 02-14-2022 End: 02-14-2022 Patient encounter procedure Jana ZABALA [facility] Start: 02-05-2022 End: 02-05-2022 Emergency department patient visit Noel Acosta [facility] Start: 01-19-2022 End: 01-19-2022 Emergency department patient visit Tony Hannon Facility:[facility] Start: 01-19-2022 End: 01-19-2022 Emergency department patient visit DO Tony Hannon Work Phone: [facility] Start: 12-08-2021 End: 12-08-2021 Pain Management Altagracia Curtis [facility] Start: 11-21-2021 End: 11-21-2021 Pain Management Clyde Alcantar [facility] Start: 11-07-2021 End: 11-07-2021 Emergency department patient visit Davonte Alonzo [facility] Start: 10-27-2021 End: 10-27-2021 Pain Management Altagracia Curtis [facility] Start: 08-04-2021 End: 08-04-2021 Emergency department patient visit Stefany Pena [facility] Start: 07-04-2021 End: 07-04-2021 Emergency department patient visit Stefany Pena [facility] 01 Start: 03-02-2021 End: 03-02-2021 Emergency department patient visit Harshad Cuellarabelardo [facility] Start: 04-09-2017 End: 04-10-2017 Ambulatory HENNY STERN Facility: Start: 02-19-2013 End: 02-19-2013 Telephone encounter Otilio Castillo Work Phone: Internal Medicine [facility] Comment on above: Refill Request Procedures Date Procedure Procedure Detail Performing Clinician Start: 10-02-2023 Epidural injection o f lumbar spine using fluoroscopic guidance [employer]racia [employer] Comment on above: 85% relief Start: 05-24-2023 Destructive procedure J daniela Alcantar Start: 02-04-2023 Lumbar epidural ster oid injection [employer] Comment on above: L4/5-70% relief. Start: 01-29-2023 Microscopic observat ion [Identifier] in Cervix by Cyto stain Stoney Meronjeet ZHANG Work Phone: Start: 06-25-2022 Epidural injection o f lumbar spine using fluoroscopic guidance [employer] Comment on above: L4-L5 80% relief Start: 01-19-2022 SARS Antigen (LFIA) DO Tony Hannon Work Phone: Start: 01-19-2022 Plain chest X-ray DO Cecilio Hannon Work Phone: Start: 11-21-2021 Epidural injection o f lumbar spine using fluoroscopic guidance [employer] Comment on above: L4/5 FLACO-50% relief Start: 06-26-2021 Epidural injection o f lumbar spine using fluoroscopic guidance Altagracia Curtis Comment on above: 50% relief Start: 12-26-2020 Epidural injection o f lumbar spine using fluoroscopic guidance [employer] Comment on above: 50% relief Start: 04-12-2020 Epidural injection o f lumbar spine using fluoroscopic guidance [employer] Comment on above: L4/5 50% relief Start: 12-08-2019 Epidural injection o f lumbar spine using fluoroscopic guidance [employer] Comment on above: 5% relief if any Start: 03-16-2014 Laparoscopic cholecystectomy Altagracia Curtis Cholecystectomy Altagracia quezada Epidural injection o f lumbar spine using fluoroscopic guidance Altagracia Curtis Comment on above: L4-L5 80% relief Plan of Treatment Date Care Activity Detail Author Start: 01-30-2028 Screening for malign ant neoplasm of cervix [facility] Start: 01-29-2026 Screening for malign ant neoplasm of cervix Pap Smear [facility] Start: 03-22-2024 Influenza vaccination Influenza Vacc ine (#1) [facility] Start: 11-18-2023 End: 11-18-2023 Patient encounter procedure 11/18/2023 8:50 AM EDT Office Visit [facility] [address] [place] [address] Nisreen Martinez APRN-REPAIR MECHANIC [address] [place] [address] [facility] Start: 10-03-2023 End: 10-03-2023 Patient encounter procedure 10/03/2023 3:40 PM EDT Office Visit [facility] [address] [place] [address] Lucretia Graves MD [id number] [facility] [address] [id number] [facility] Start: 03-22-2023 Influenza vaccination Influenza Vacc ine (#1) [facility] Patient Education [facility] Work Phone: Patient referral [facility] Work Phone: Immunizations Immunization Date Immunization Notes Care Provider Fa melany 11-29-2006 meningococcal polysaccharide (groups A, C, Y and W-135) diphtheria toxoid conjugate vaccine (MCV4P) Stoney Chance DO Work Phone: [facility] NEGATED: Highlighted row has not occurred!02-15-2013 pneumococcal polysaccharide vaccine, 23 valent Otilio Castillo Jr. Work Phone: [facility] Payers Date Payer Category Payer Unknown [id number] 2023 Worker's Compensation [id number] 2022 Medicaid [employer] [place] [id number] 2022-Present [address] [place] [address] [id number] 2022 Private Health Insurance [id number] 2022 Unknown 2022 Medicaid [id number] 2022 Self-pay [id number] 2020 Medicaid [id number] 1989 Unknown [id number] [id number] .1259 1989 Unknown [id number] 2.16.840.1.592346.3.579.2 .1259 1989 Unknown [id number] 2.16.840.1.776489.3.579.2 .1259 1989 Unknown [id number] 2.16.840.1.546113.3.579.2 .1259 1989 Unknown [id number] 2.16.840.1.388713.3.579.2 .1259 1989 Unknown [id number] 2.16.840.1.270747.3.579.2 .1259 1989 Unknown [id number] 2.16.840.1.033048.3.579.2 .727 1989 Unknown [id number] 2.16.840.1.400171.3.579.2 .727 1989 Unknown [id number] 2.16.840.1.800381.3.579.2 .727 1989 Unknown [id number] 2.16.840.1.103260.3.579.2 .727 1959 Private Health Insurance [id number] Unknown [id number] 2.16.840.1.322525.3.579.2 .531 Unknown [id number] 2.16.840.1.047843.3.579.2 .531 Unknown [id number] 2.16.840.1.650681.3.579.2 .531 Unknown [id number] [id number] Worker's Compensation [id number] Social History Date Type Detail Facility Start: 02-16-2013 End: 01-19-2022 Tobacco smoking status ORIS Never smoker [facility] Start: 02-16-2013 Alcohol intake 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) [facility] Start: 1990 Sex Assigned At Not on file [facility] Tobacco smoking consumption unknown [facility] Start: 09-11-2021 End: 05-11-2022 Tobacco smoking status Light tobacco smoker (finding) [facility] Start: 06-17-2023 End: 11-18-2023 Sex Assigned At Female [facility] Start: 1990 Sex Assigned At Female F [facility] Tobacco [facility] Comment on above: former smoker Start: 04-10-2022 End: 08-17-2022 Tobacco smoking status NHIS Smoker (finding) [facility] Tobacco smoking status No Smokin g Status Entered [facility] Start: 11-09-2022 Tobacco smoking status Heavy t obacco smoker (finding) [facility] Start: 12-27-2022 Tobacco smoking stat us ORIS Ex-smoker [facility] History of tobacco use Cigarette Smoker [facility] Start: 12-27-2022 End: 11-18-2023 Cigarettes smoked current (pack per day) - Reported 0.5 [facility] Start: 12-27-2022 Tobacco use and exposure Smokeless tobacco non-user [facility] Start: 06-17-2023 End: 11-18-2023 Alcohol intake Lifetime non-drinker (finding) [facility] Start: 06-05-2023 Alcohol Comment Caffeine intak e: 2-3 cups per day A pop a day, tea [facility] Functional Status Date Assessment Result Facility 10-18-2023 Functional Status N/A [facility] 10-02-2023 Functional Status N/A [facility] 06-25-2023 Functional Status N/A [facility] 02-18-2023 Functional Status N/A [facility] 01-27-2023 Functional Status N/A [facility] 11-09-2022 Functional Status N/A [facility] 10-15-2022 Functional Status N/A [facility] 08-20-2022 Functional Status N/A [facility] 07-09-2022 Functional Status N/A [facility] 06-25-2022 Functional Status N/A [facility] 04-13-2022 Functional Status N/A [facility] 02-05-2022 Functional Status N/A [facility] Clinical Notes 10-27-2021 to 10-18-2023 Note Date & Type Note Facility 10-18-2023 Evaluation + Plan note Extrac danyel from: Title:Pain Managment Follow up Author:Altagracia Kirby Date:10/18/23 Impression and Plan Patient is a 33 year old female with a past medical history significant for a [facility] claim. The approved codes are M51.26 and S39.012A. Lumbar annular tear and lumbar strain. She presents today for a follow-up after undergoing repeat L4-5 epidural steroid injection. This was done on 10/02/2023. It has given her 85% relief. At this time, she is doing well and feeling well. She is comfortable and happy. She does not have any pain. Does not have any complaints. Does not have any concerns. She is intermittently using tizanidine. She does not require refill. At this time she will call when she does and follow-up in December to discuss repeating the injection should it be necessary. MENDEL score: 26% Future Appointments Appointment Date:01/10/2024 08:00:00 AM Scheduled Provider:Altagracia Curtis PA-C Location:.[facility] Appointment Type:Pain Management - Workmans Comp Follow U [facility]03-13-2024 Evaluation + Plan noteExtracted from: Title:L4/5 interlaminar epid ural steroid injection Author:Yovany Madrid DO Date:10/02/23 Diagnosis: M51.26, lumbar an nular tear with discogenic lumbar pain Procedure: L4/5 lumbar interlaminar epidural steroid injection under fluoroscopic guidance Anesthesia: Local Complications: none After informed consent was obtained, the patient was brought to the procedure suite and placed in the prone position. Pulse oximetry and blood pressure were monitored throughout. Low back areas prepped and draped in the usual sterile fashion. Using fluoroscopic guidance, the skin and subcutaneous tissue overlying the needle trajectory were anesthetized with 2% lidocaine. A 17-gauge Touhy needle was inserted and directed by fluoroscopy. Entry into the epidural space was confirmed using the xtol-ad-ofqlywhhqx technique and 2 cc of air. Injection of contrast revealed appropriate spread without vascular uptake. 4 mL of normal saline plus 40 mg of methylprednisolone was then injected. The needle was removed and the patient was then transferred to the recovery room in stable condition. The patient tolerated the procedure well. There were no apparent complications. Follow-up: The patient will update us on the response to this procedure, and agrees to continue currently prescribed/recommended therapies. Future Appointments Appointment Date:10/18/2023 08:00:00 AM Scheduled Provider:Altagracia Curtis PA-C Location:.[facility] Appointment Type:Pain Management - Follow Up (FT) [facility]03-13-2024 Note [id number] [facility] 10-02-2023 NoteDiagnosis: M51.26, lumbar annular tear with discogenic lumbar pain Procedure: L4/5 lumbar interlaminar epidural steroid injection under fluoroscopic guidance Anesthesia: Local Complications: none After informed consent was obtained, the patient was brought to the procedure suite and placed in the prone position. Pulse oximetry and blood pressure were monitored throughout. Low back areas prepped and draped in the usual sterile fashion. Using fluoroscopic guidance, the skin and subcutaneous tissue overlying the needle trajectory were anesthetized with 2% lidocaine. A 17-gauge Touhy needle was inserted and directed by fluoroscopy. Entry into the epidural space was confirmed using the klfe-rn-pojkpoypkt technique and 2 cc of air. Injection of contrast revealed appropriate spread without vascular uptake. 4 mL of normal saline plus 40 mg of methylprednisolone was then injected. The needlewas removed and the patient was then transferred to the recovery room in stable condition. The patient tolerated the procedure well. There were no apparent complications. Follow-up: The patient will update us on the response to this procedure, and agrees to continue currently prescribed/recommended therapies.[facility] Comment on above:Result Comment: Electronically Signed By: Yovany Madrid DO.ra\Date and Time Signed: 10/02/23 12:56 [id number] Telephone encounter Note* Telephone Encounter - Emilia Rosenberg - 09/02/2023 1:10 PM EST Patient mother Ana Lilia called for daughter. She feels like she had a ruptured cyst on Saturday. Sheis having pain, bleeding with clots and feels weak. She states she had an ablation May 23, 2023. Per nurse, pt advised to be evaluated at hospital. Pt advised. 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 She feels like she had a ruptured cyst on Saturday. Sheis having pain, bleeding with clots and feels weak. She states she had an ablation May 23, 2023. Per nurse, pt advised to be evaluated at hospital. Pt advised. documented in this encounterKindred [id number] Evaluation + Plan note Extracted from: Title:FUV Author:Clyde Alcantar MD Date :06/25/23 [...] response. Patient agrees with plan of care. [facility]07-31-2023 Evaluation + Plan noteExtracted from: Title:Pain Managment Follow up Author:Altagracia Kirby Date:02/18/23 Impression and Plan Patient is a 32-year-old female with a past medical history significant for a [employer] claim. The approved codes are m51.26 and [...] services in the meantime. MENDEL score: 28% [facility]04-21-2023 Evaluation + Plan noteExtracted from: Title:Pain Managment Follow up Author:Altagracia Kirby Date:11/09/22 Impression and Plan Patient is a 32 year old female with a past medical history significant for a [employer] claim. 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 ([facility]) Appointment Date:01/04/2023 03:15:00 PM Scheduled Provider:Altagracia Curtis PA-C Location:.[facility] [place] Appointment Type:Pain Management - Workmans Comp Follow U [facility]03-27-2023 Evaluation + Plan noteExtracted from: Title:Epidural Steroid Injec ion - LUMBAR - [place] Author:Clyde Alcantar MD Date:10/15/22 Patient: PRABHA CORRIGAN Age: 32 years Sex: Female : 1990 [...] Date:11/09/2022 03:15:00 PM Scheduled Provider:Altagracia Curtis PA-C Location:[facility] Appointment Type:Pain Management - Workmans Comp Follow [facility]01-30-2023 Evaluation + Plan noteExtracted from: Title:Pain Managment Follow up Author:Altagracia Kirby Date:08/20/22 Impression and Plan Patient is a 32 year old female with a past medical history significant for a [facility] claim. The approved codes are m51.26 and [...] Date:11/09/2022 03:15:00 PM Scheduled Provider:Altagracia Curtis PA-C Location:[facility] Appointment Type:Pain Management - Workmans Comp Follow [facility]12-19-2022 Evaluation + Plan noteExtracted from: Title:Pain Managment Follow up Author:Altagracia Kirby Date:07/09/22 Impression and Plan Patient is a 31 year old female with a past medical history significant for a [facility] claim. The approved codes are m51.26 and [...] Date:10/08/2022 07:45:00 AM Scheduled Provider:Altagracia Curtis PA-C Location:[facility] Appointment Type:Pain Management - Workmans Comp Follow [facility]09-23-2022 Evaluation + Plan noteExtracted from: Title:Pain management follow-up Author:Altagracia Curtis PA-C Date:04/13/22 Impression and Plan Patient is a 31 year old female with a past medical history significant for a [facility] claim. The approved codes are m51.26 and [...] will call the clinic sooner if necessary. [facility]07-18-2022 Hospital Discharge instructions Patient Education 02/05/2022 [...] away. Follow these instructions at home: Take weoy-rgg-ncexxzl and prescription medicines only as told by [...] 07/08/2006 Document Revised: 06/20/2018 Document Reviewed: 06/18/2018 [employer] Patient Education 2020 [employer] 02/05/2022 18:02:35 Nausea, Adult, Wsva-xt-Caer Nausea, Adult Nausea is feeling sick to [...] fruit juice). ?Low-calorie sports drinks. Eat bland, csjd-fz-gclqaf foods in small amounts as you are able, such as: ?Bananas. ?Applesauce. ?Rice. ?Low-fat (lean) meats. ?[place]. ?Crackers. Avoid drinking fluids that have a lot of sugar or caffeine in them. This includes energy drinks, sports drinks, and soda. Avoid alcohol. Avoid spicy or fatty foods. General instructions Take dcot-jbx-zctggjv and prescription medicines only as told by your doctor. Rest at home while you get better. Drink enough fluid to keep your pee (urine) pale yellow. Take slow and deep breaths when you feel sick to your stomach. Avoid food or things that have strong smells. Wash your hands often with soap and water. If you cannot use soap and water, use hand clinical consultant. Make sure that all people in your [...] drink what your doctor tells you. Take ypzk-xkc-prhgggm and prescription medicines only as told by [...] 06/26/2012 Document Revised: 12/16/2018 Document Reviewed: 12/16/2018 [employer] Patient Education 2020 [employer] 02/05/2022 18:02:35 Hypokalemia Hypokalemia Hypokalemia means that [...] hospital. Follow these instructions at home: Take bjkk-pfp-pkykyng and prescription medicines only as told by [...] cantaloupe, kiwi, oranges, tomatoes, asparagus, and potatoes. ?[place] juice. ?Tomato juice. ?Red meats. ?Yogurt. Keep [...] 07/08/2006 Document Revised: 02/18/2019 Document Reviewed: 02/18/2019 [employer] Patient Education [employer]. Follow Up Care 02/05/2022 16:06:23 With:Jana ZABALA Address: [address] [place] [phone] (1) When:Within 3 Day(s) [facility]07-18-2022 Evaluation + Plan noteExtracted from: Title:ED Note Author:Noel Acosta DO Date:01/19 03/12 Abnormal thyroid blood test (R79.89: Other specified abnormal findings of blood chemistry) Hypokalemia (E87.6: Hypokalemia) Nausea (R11.0: Nausea) Orders: ondansetron, 4 mg = 1 tab(s), Oral, q6hr, PRN Nausea, Take one tab by mouth every six hours as needed for nausea, # 10 tab(s), Refills(s) 0, Pharmacy: [facility]/pharmacy #[id number], 158, cm, 02/05/22 16:14:00 EDT, Height/Length Dosing, 68, kg, 02/05/22 16:14:00 EDT, Weight D... ondansetron, 4 mg = 2 mL, Injection, IV Push, Once, Stop date 02/05/22 16:31:00 EDT, STAT, Start date 02/05/22 16:31:00 EDT, 02/05/22 16:31:00 EDT potassium chloride, 20 mEq = 1 tab(s), Oral, Daily, X 7 day(s), # 7 tab(s), Refills(s) 0, Pharmacy: [facility]/pharmacy #[id number], 158, cm, 02/05/22 16:14:00 EDT, Height/Length [...] PM Scheduled Provider:Altagracia Curtis PA-C Location:[facility] [place] Appointment Type:Pain Management - Workmans Comp Follow [facility]05-20-2022 Evaluation + Plan noteExtracted from: Title:Pain management follow-up Author:Altagracia Curtis PA-C Date:12/08/21 Impression and Plan Patient is a 31 year old female with a past medical history significant for a [facility] claim. The approved codes are m51.26 and [...] Date:04/13/2022 03:15:00 PM Scheduled Provider:Altagracia Curtis PA-C Location:[facility] Appointment Type:Pain Management - Workmans Comp Follow U [facility]05-03-2022 Evaluation + Plan noteExtracted from: Title:Epidural Steroid Injec ion - LUMBAR - [place] Author:Clyde Alcantar MD Date:11/21/21 Patient: PRABHA CORRIGAN Age: 31 years Sex: Female : 1990 [...] Date:12/08/2021 03:15:00 PM Scheduled Provider:Altagracia Curtis PA-C Location[facility] Appointment Type:Pain Management - Follow Up (FT) [facility]04-19-2022 Hospital Discharge instructions Patient Education 11/07/2021 [...] Follow these instructions at home: Medicines Take occf-swp-fjeywhh and prescription medicines only as told by your health care provider. Ask your health care provider if the medicine prescribed to you: ?Requires you to avoid driving or using heavy machinery. ?Can cause constipation. You may need to take these actions to prevent or treat constipation: ?Drink enough fluid to keep your urine pale yellow. ?Take amsj-kwj-wmqhrrj or prescription medicines. ?Eat foods that are [...] 07/08/2006 Document Revised: 10/30/2019 Document Reviewed: 08/20/2019 [employer] Patient Education 2020 Testif. Follow Up Care 11/07/2021 11:50:26 With:Jana ZABALA Address: [address] [place] [phone] Business (1) When:11/10/2021 14:27:24 Comments:Call the office of [...] fever, or any new or worsening symptoms. [facility]04-19-2022 Evaluation + Plan noteExtracted from: Title:ED Note Author:Davonte Alonzo DO Date: Migraine (G43.909: Migraine, unspecified, not intractable, without status migrainosus) Orders: acetaminophen-butalbital, 1 tab(s), Oral, q4hr for headache, 6 tab(s), Refill(s) 0, [facility]/pharmacy #[id number], 158, cm, 11/07/21 12:07:00 EDT, Height/Length [...] Nausea/Vomiting, # 12 tab(s), Refills(s) 0, Pharmacy: [facility]/pharmacy #[id number], 158, cm, 11/07/21 12:07:00 EDT, Height/Length [...] EDT CT Head or Brain w/o Contrast [facility]04-08-2022 Evaluation + Plan noteExtracted from: Title:Pain management follow-up Author:Altagracia Curtis PA-C Date:10/27/21 Impression and Plan Patient is a 31 year old female with a past medical history significant for a [facility] claim. The approved codes are m51.26 and [...] time. She will call when she does. [facility] Future Appointments Appointment Date:04/13/2022 03:15:00 PM Scheduled Provider:Altagracia Curtis PA-C Location:[facility] [place] Appointment Type:Pain Management - Workmans Comp [facility] Future Appointments Appointment Date:07/09/2022 07:30:00 AM Scheduled Provider:Altagracia Curtis PA-C Location:[facility] [place] Appointment Type:Pain Management - [facility] Future Appointments Appointment Date:01/04/2023 03:15:00 PM Scheduled Provider:Altagracia Curtis PA-C Location:[facility] [place] Appointment Type:Pain Management - Workmans Comp [facility] Future Appointments Appointment Date:02/04/2023 11:45:00 AM Scheduled Provider: Location:[facility] Appointment Type:Surgery FT Appointment Date:02/18/2023 10:30:00 AM Scheduled Provider:Altagracia Curtis PA-C Location:[facility] [place] Appointment Type:[facility] Management - [facility] Future Appointments Appointment Date:10/08/2022 07:45:00 AM Scheduled Provider:Altagracia Curtis PA-C Location:[facility] [place] Appointment Type:Pain Management - Workmans Comp [facility] noteNo assessment information available [facility] Work Phone: Evaluation noteNo InformationNortAdvanced Surgical Hospital [employer] Other evaluation note* Diagnosis Intractable menstrual migraine with status migrainosus (CMS/HCC)- Primary Menstrual migraine, with intractable migraine, so stated, with status migrainosus documented in this encounter [facility] N[facility]ative - Reported* Type Description Date Medical History gall bladder disease Medical History migraine headache Medical History thyroid disease Surgical History cholecystectomy Hospitalization History pneumonia [facility] [employer] Other Hospital course Narrative No data available for this section [facility] No data available for this section [facility] Additional Instructions Follow-up with your primary care doctor Return to the ED if you develop worsening symptoms or concerns Take the steroids as prescribed, take benadryl as needed for [facility]chingPro[facility] Work Phone: Progress note No data available for this section [facility] Summary Purpose Family History No Family History Records FoundNo Family History Records FoundNo Family History Records FoundNo Family History Records Found No data available for this section No data available for this section No data available for this section No Family History Records FoundNo Family History Records Found Advance Directives Advance Directive Response Recorded Date/ Time Advance [...] DATE CREATED AUTHOR AUTHOR'S ORGANIZ ATION 08/06/2021 [facility] DATE CREATED AUTHOR AUTHOR'S ORGANIZ ATION 08/08/2021 [facility] DATE CREATED AUTHOR AUTHOR'S ORGANIZ ATION 09/06/2022 [facility] DATE CREATED AUTHOR AUTHOR'S ORGANIZ ATION 11/19/2023 [facility] DATE CREATED AUTHOR AUTHOR'S ORGANIZ ATION 05/26/2024 [facility] Source Comments (unrecognize d section and content) In the event this informatio n is protected by the Federal Confidentiality of Alcohol and Drug Abuse Patient Records regulations: The Federal rules restrict any use of the information to criminally investigate or prosecute any alcohol or drug abuse patient.[facility] HealthIn the event this information is protected by the Federal Confidentiality of Alcohol and Drug Abuse Patient Records regulations: The Federal rules restrict any use of the information to criminally investigate or prosecute any alcohol or drug abuse patient.[facility] Reason for Visit (unrecogniz ed section and content) Reason Comments Refill Request Reason Comments Med Refill <item><item><item> Privacy Markings (unrecogniz ed section and [...] Care Teams (unrecognized sec tion and content) Personnel Name: SAGRARIO HENDRIX, Jana Zamora Address: Address: [address] [place] [id number] Name: Caren Gar Team Status: Inactive Member Role Status Dates Tony Hannon DO Emergency Provider Active Jana Zabala PA-C Primary Care Provider Active Team Status: Active Member Role Status Dates Jana Zabala PA-C Primary Care Provider Active Team Status: Inactive Member Role Status Dates Jana Zabala PA-C Primary Care Provider Active Tony Hannon DO Emergency Provider Active Team Status: Inactive Member Role Status Dates Chaitanya Toure , Emergency Provider Active Jana Zabala PA-C Primary Care Provider Active Addiction Nurse Relationship Specialty Start Date End Date Sol Conti MD [address] [place] [address] PCP - General Family Medicine 12/27/22 Timo Rodriguez MD [address] [place] [address] PCP - [facility] 10/20/22 Jana Zabala PA [address] [place] [address] Physician Manager [facility] [employer] [facility] 12/27/22 Addiction Nurse Relationship Specialty Start Date End Date Sol Conti MD [address] [place] [address] PCP - [facility] Medicine 12/27/22 Constance Hair NP [address] [place] [address] PCP - [facility] 12/21/23 Jana Zabala PA [address] [place] [address] Physician Manager [facility] 12/27/22 Goals (unrecognized section and content) Goals may [...] BE BASED ON THE PRIMARY CLINICAL RECORDS. [facility] [employer] [facility]. provides no warranty or guarantee of the accuracy or completeness of information in this document.
[2024-08-20 12:36] LABS: Basophils Absolute Auto 0.1 10^3/uL (0.0-0.1); Basophils Percent Auto 1.3 % (0.2-2.0); Eosinophils Absolute Auto 0.3 10^3/uL (0.0-0.7); Eosinophils Percent Auto 3.4 % (0.9-7.0); Hematocrit 43.9 % (36.0-48.0); Hemoglobin 15.1 g/dL (12.0-16.0); Immature Granulocytes Abs Auto 0.03 10^3/uL (0.00-0.03); Immature Granulocytes Pct Auto 0.4 % (0.0-0.5); Lymphocytes Absolute Auto 2.3 10^3/uL (1.2-3.8); Lymphocytes Percent Auto 26.3 % (20.5-60.0); Mean Corpuscular HGB Conc 34.4 g/dL (29.9-35.2); Mean Corpuscular Volume 87.3 fL (81.0-99.0); Mean Platelet Volume 10.9 fL (9.5-13.5); Monocytes Absolute Auto 0.6 10^3/uL (0.3-0.8); Monocytes Percent Auto 6.7 % (1.7-12.0); Neutrophils Absolute Auto 5.3 10^3/uL (1.4-6.5); Neutrophils Percent Auto 61.9 % (43.0-75.0); Platelet Count 220 10^3/uL (150-450); Red Blood Count 5.03 10^6/uL (4.20-5.40); Red Cell Distribution Width 12.4 % (11.0-15.0); White Blood Count 8.6 10^3/uL (4.0-11.0)
[2024-08-20 12:40] LABS: Estimated Average Glucose 94 mg/dL; Glycohemoglobin A1C 4.9 % (4.5-6.2)
[2024-08-20 13:31] LABS: HCG Quantitative <1 mIU/mL
[2024-08-20 13:43] LABS: Free T4 1.19 ng/dL (0.76-1.46)
[2024-08-21 08:13] LABS: DHEA-Sulfate 76.8 ug/dL (57.3-279.2); Luteinizing Hormone(LH) 9.3 mIU/mL (.)
[2024-08-26 01:06] LABS: Anti-Mullerian Hormone (AMH) 5.53 ng/mL (.)
== END 2024-08-20 11:50 | disposition home or self-care (01) ==
LOC: LAB 11:55
PROVIDERS: PCP Physician Assistant; Visit Provider Obstetrics & Gynecology
DX: N92.1 Excessive and frequent menstruation with irregular cycle (principal)
CPT/HCPCS: 36415; 82397; 82626; 82627; 83001; 83002; 83036; 84439; 84443; 84702; 85025

== ENCOUNTER 2024-08-27 08:04 | Outpatient (OUT) | payer OTHER, SELFPAY ==
--- NOTE | 2024-08-27 08:10 | US_ITS ---
Patient Name: DERICK LUNA MR#: [id number] : 1990 Exam Date: 08/27/2024 Ordering Doctor: DR Stoney Chance . RADIOLOGY REPORT PROCEDURE: MM TOMOSYNTHESIS DIAGNOSTIC BI, 08/27/2024, 08:56 US BREAST BI LIMITED, 08/27/2024, 09:33 COMPARISON: None. INDICATIONS: Bilateral Breast Lump, Breast Pain Calculator Name NCI Breast Cancer Risk Assessment Tool 5 Year Breast Cancer Risk Not Reported. Lifetime Breast Cancer Risk Not Reported. Personal Breast Cancer No Personal Ovarian Cancer No Treatments None Family Cancers None LOCATION: [facility] BREAST COMPOSITION: The breasts are extremely dense, which lowers the sensitivity of mammography. FINDINGS: DIAGNOSTIC CATEGORY 2--BENIGN FINDING: The breasts are extremely dense significantly limiting the exam. Scattered benign-appearing lymph nodes are present. No areas of architectural distortion or clustered microcalcifications. RIGHT BREAST: No significant suspicious finding. Ultrasound demonstrates multiple cysts the largest measuring 1.3 x 1.2 x 0.6 cm LEFT BREAST: No significant suspicious finding. Ultrasound demonstrates multiple cysts 1 with septations, the largest measuring 0.4 x 0.7 x 0.4 cm. RECOMMENDATIONS: CLINICAL EVALUATION. PLEASE NOTE: A NORMAL MAMMOGRAM DOES NOT EXCLUDE THE POSSIBILITY OF BREAST CANCER. A CLINICALLY SUSPICIOUS PALPABLE LUMP SHOULD BE BIOPSIED. Dictated by: Danyel Reveles MD on 08/27/2024 at 09:53 Approved by: Danyel Reveles MD on 08/27/2024 at 09:58
--- NOTE | 2024-08-27 08:10 | US_ITS ---
The [address] [address] Patient Name: DERICK LUNA MRN: [id number] date: 1990 Sex: F Assigned Patient Location: Current Patient Location: Accession/Order Number: [id number] Exam Date: 08/27/2024 08:15 Report Date: 08/28/2024 08:49 At the request of: CASSIE AMAYA Procedure: US pelvis w/ transvaginal EXAMINATION: US pelvis w/ transvaginal HISTORY: Menorrhagia With Irregular Cycle COMPARISON: No relevant comparison available. FINDINGS: The uterus is normal in size, contour and echotexture measuring 8.0 x 4.3 x 4.6 cm. No focal myometrial mass. The endometrium measures 11 mm, normal. The right ovary is normal measuring 4.5 x 2.3 x 3.1 cm. Normal color and Doppler flow. The left ovary is normal measuring 4.1 x 2.3 x 3.0 cm. Normal color and Doppler flow US/US pelvis w/ transvaginal IMPRESSION: Normal exam. Electronically authenticated by: CHANG LAL Date: 08/28/2024 08:49
--- OUTSIDE RECORDS SUMMARY | 2024-08-27 08:15 | XMS_ITS | CCD ---
Author Organization [facility] Care Team Providers Care Communications Strategist Name Role Phone HENNY STERN Unavailable Unavailable HENNY STERN Unavailable Unavailable REQUEST, NONE LISTED Unavailable Unavailable JENNTAYOHENNY Unavailable Unavailable CHANG LAL V Unavailable Unavailable NovemberJacobo Primary Care Provider Timo Rodriguez Unavailable Harshad Julien Unavailable Unavailable Stefany Pena Unavailable Unavailable Sol Conti Primary Care Physician Caren Hogue Unavailable Unavailable Jana ZABALA Primary Care Physician [phone] DO Tony Hannon Emergency Provider [phone] RUMA Zabala Primary Care Provider [phone] DO Chaitanya Toure Emergency Provider RUMA Zabala Primary Care Provider Chaitanya Toure Admitting Unavailable Chaitanya Toure Attending Unavailable Jana Zabala Primary Care Unavailable Tony Hannon Admitting Unavailable Tony Hannon Attending Unavailable Jana Zabala Primary Care Unavailable Tony Hannon Attending Unavailable Jana Zabala Primary Care Unavailable Tony Hannon Admitting Unavailable Christian Juárez Unavailable Jana Rodriguez Unavailable Sol Conti MD Primary Care Provider Timo Rodriguez MD Unavailable Yovany Madrid Attending Unavailable Yovany Madrid Referring Unavailable Yovany Madrid Admitting Unavailable RUMA Curtis Admitting Unavailabl e Jana ZABALA Referring Unavailable Altagracia Curtis Attending Unavailable Jana ZABALA Referring Unavailable Clyde Alcantar Attending Unavailable MD Clyde Alcantar Admitting Unavailable Sanchez KESSLER Attending Unavailable Constance Hair NP Unavailable STONEY CHANCE Attending Unavailable STONEY CHANCE Attending Unavailable CONSTANCE HAIR Attending Unavailable JANA ZABALA Attending Unavailable LUCRETIA GRAVES Attending Unavailable Allergies Allergy Classification Reported Allergen(s) Allergy Type Date of Onset Reaction(s) Facility Anticholinergics (3 sources) Dicyclomine Drug Allergy 02-16-[address] [facility] DOPamine Antagonists (1 source) Metoclopramide Drug Allergy Other [facility] (3 sources) Dicyclomine; Translations: [Bentyl] Drug Allergy Hives/Urticari a [facility] (3 sources) Metoclopramide; Translations: [Reglan] Drug Allergy Other [facility] (20 sources) Bee/Wasp/Ant venom; Translations: [Bee Stings] Allergy to substance swollen at site [facility] (20 sources) Chocolate; Translations: [Chocolate] Propensity to adverse reactions to food 12-28-19 Headache [facility] (20 sources) Dicyclomine; Translations: [dicyclomine] Drug Allergy 02-16-20 13 hives, Rash [facility] (20 sources) Metoclopramide; Translations: [metoclopramide] Drug Allergy 11-30-19 20 Rash [facility] Comment on above: gives her shakes (20 sources) red sauces 1 Food allergy Migraine (disorder) [facility] Comment on above: migraines (1 source) Dicyclomine Drug Allergy 08-17-19 [facility] Repository (1 source) Metoclopramide Drug Allergy 08-17-19 [facility] Repository (6 sources) Honey bee venom Allergy to substance 12-28-19 [facility] Healthcare Work Phone: (6 sources) Galcanezumab-Gnlm Drug Allergy 12-28-19 [facility] Healthcare (6 sources) Other Allergy to substance 12-28-19 23 Other [facility] (2 sources) Emgality; Translations: [galcanezumab] Drug allergy Other (qualifier value) [facility] (1 source) red sauces; Translations: [red sauces] Food allergy (disorder) [facility] Repository (5 sources) Dicyclomine Drug Allergy 02-16-20 13 Hives [facility] Medications Current Medications Medication Drug Class(es) Dates Sig (Normalized) Sig (Original) acetaminophen 325 mg / butalbital 50 mg oral tablet (8 sources) Barbiturate Start: 11-07-2021 acetaminophen-bu talbital 325 mg-50 mg oral tablet 1 tab(s), Oral, q4hr for headache, 6 tab(s), Refill(s) 0, [facility] #[id number], 158, cm, 11/07/21 12:07:00 EDT, Height/Length [...] mouth every four hours as needed HYDROcodone-acetaminophen ([place]) 5-325 MG tablet Take 1 tablet by [...] for cold symptoms, 200 mL, Refill(s) 0, [facility]/pharmacy #[id number], 157, cm, 07/29/20 12:13:00 EST, Height/Length [...] antibiotics Quantity: 2 Refills: 0 Ordered: 02-Mar-2021 PoloHarshad zhou Start: 02-Mar-2021 Status: Other Generic Substitution Allowed [...] by mouth in the morning. 30 tablet 11 03/15/2023 03/14/2024 Active naproxen 500 mg oral [...] nausea, # 10 tab(s), Refills(s) 0, Pharmacy: [facility] #[id number], 158, cm, 02/05/22 16:14:00 EDT, Height/Length [...] day(s), # 30 cap(s), Refills(s) 5, Pharmacy: [facility]/pharmacy #[id number], 158, cm, 02/18/23 10:35:00 EDT, Height/Length Dosing, 72.5, kg, 02/18/23 10:35:00 EDT, Weight Dosing Start Date: 02/18/23 Stop Date: 08/17/23 Status: Ordered Start: 07-11-2021 End: 11-07-2022 take 1 capsule by mouth once daily pregabalin 50 mg Cap 50 mg = 1 cap(s), Oral, Daily, X 30 day(s), # 30 cap(s), Refills(s) 5, Pharmacy: [facility]/pharm[facility] #[id number], 158, cm, 05/11/22 14:58:00 EDT, Height/Length [...] 11:51pm rimegepant 75 mg disintegrating oral tablet (20 sources) Start: 05-11-2022 End: 03-16-2025 take 1 tablet by mouth every other day Rimegepant Sulfate (Nurtec) 75 MG tablet dispersible Indications: Intractable menstrual migraine with status migrainosus (CMS/HCC) Take 1 tablet by mouth every other day 16 tablet 11 03/16/2024 03/16/2025 Active tiZANidine 4 mg oral tablet (20 sources) Central alpha-2 Adrenergic Agonist Start: 02-18-2023 take 1 tablet by mouth three times daily tiZANidine 4 mg Tab 4 mg = 1 tab(s), Oral, TID, # 90 tab(s), Refills(s) 5, Pharmacy: [facility] #[id number], 158, cm, 02/18/23 10:35:00 EDT, Height/Length [...] TID, # 90 tab(s), Refills(s) 5, Pharmacy: [facility] #[id number], 158, cm, 05/11/22 14:58:00 EDT, Height/Length [...] Nausea/Vomiting, # 20 tab(s), Refills(s) 0, Pharmacy: [facility] #[id number], 158, cm, 12/12/22 20:36:00 EDT, Height/Length Dosing, 74, kg, 12/12/22 20:36:00 EDT, Weight Dosing Start Date: 12/12/22 Status: Ordered Start: 11-07-2021 take 1 tablet by ronnie th every eight hours as needed for nausea Zofran ODT 4 mg Tab-Dis 4 mg = 1 tab(s), Oral, q8hr, PRN Nausea/Vomiting, # 12 tab(s), Refills(s) 0, Pharmacy: [facility] #[id number], 158, cm, 11/07/21 12:07:00 EDT, Height/Length Dosing, 68, kg, 11/07/21 12:07:00 EDT, Weight Dosing Start Date: 11/07/21 Status: Ordered Start: 09-11-2021 take 1 tablet by ronnie th three times daily Zofran ODT 4 mg Tab-Dis 4 mg = 1 tab(s), Oral, TID, # 15 tab(s), Refills(s) 0, Pharmacy: [facility] #[id number], 158, cm, 09/11/21 8:41:00 EST, Height/Length Dosing, 68, kg, 09/11/21 8:41:00 EST, Weight Dosing Start Date: 09/11/21 Status: Ordered Start: 12-29-2020 take 1 tablet by ronnie th three times daily Zofran ODT 4 mg Tab-Dis 4 mg = 1 tab(s), Oral, TID, # 15 tab(s), Refills(s) 0, Pharmacy: [facility] #[id number], 157.5, cm, 12/29/20 8:18:00 EDT, Height/Length Dosing, 75.4, kg, 12/29/20 8:18:00 EDT, Weight Dosing Start Date: 12/29/20 Status: Ordered Completed/Discontinued Medications Medication Drug Class(es) Dates Sig (Normalized) Sig (Original) [id number] 200 actuat albuterol 0.09 mg/actuat metered dose [...] oral solution (4 sources) alpha-Adrenergic Agonist, Uncompetitive X-ivmbhq-A-aspartat e Receptor Antagonist, Sigma-1 Agonist Start: 07-04-2021 End: 07-13-2021 take 5 mL by mouth every four to six hours brompheniramine/p seudoephedrine/de xtromethorphan [id number]/5 mL oral syrup ; 5 milliliter(s) orally [...] every four to six hours brompheniramine/pseudoephedrine/dextrome thorphan [id number]/5 mL oral syrup ; 5 milliliter(s) orally [...] dose nasal spray (2 sources) Corticosteroid Start: 021 End: take 1 spray(s) nasal route once [...] day(s), # 7 tab(s), Refills(s) 0, Pharmacy: [facility] #[id number], 158, cm, 02/05/22 16:14:00 EDT, Height/Length [...] unspecified] Onset: 3 11-17-2019 Chronic Cardiac dysrhythmias (8 sources) Cardiac arrhythmia; Translations: [Cardiac arrhythmia, unspecified] [...] viral diseases 07-04-2021 Episodic Malaise and fatigue (6 sources) Fatigue; Translations: [Chronic fatigue, unspecified] Onset: 3 01-29-2023 Chronic Menstrual disorders (11 sources) Amenorrhea; Translations: [Amenorrhea, unspecified] Onset: 3 01-29-2023 Chronic Mood disorders (20 sources) Depression 10-02-2013 Chronic Nonmalignant breast conditions (10 sources) Pain of breast; Translations: [Mastodynia] Onset: 5 08-20-2024 Episodic Other gastrointestinal disorders (6 sources) Chronic idiopathic constipation; Translations: [Chronic idiopathic constipation] Onset: 3 01-29-2023 Chronic Other nervous system disorders (1 source) Chronic pain; Translations: [Other chronic pain] Chronic Other nutritional; endocrine; and metabolic disorders (6 sources) Obesity; Translations: [Obesity, unspecified] Onset: 3 01-29-2023 Chronic Other screening for suspected conditions (not mental disorders or infectious disease) (1 source) Blood chemistry abnormal; Translations: [Other specified abnormal findings of blood chemistry] Onset: 2 Episodic Other upper respiratory disease (6 sources) Seasonal allergic rhinitis; Translations: [Other seasonal [...] sources) Pneumonia 12-16-2013 Episodic Residual codes; unclassified (6 sources) Hypersomnia; Translations: [Hypersomnia, unspecified] Onset: 3 01-29-2023 Chronic Spondylosis; intervertebral disc disorders; other back problems (7 sources) Herniation of nucleus pulposus of lumbar intervertebral disc; Translations: [Other intervertebral disc displacement, lumbar region] Onset: 0 01-29-2023 Chronic Substance-related disorders (20 sources) Smoker; Translations: [Nicotine dependence] Onset: 3 02-15-2014 Chronic Comment on above: Added secondary to d ocumentation in Social History. Thyroid disorders (12 sources) Acquired hypothyroidism; Translations: [Hypothyroidism, unspecified] Onset: [...] Problem Date Documented Date Episodic/Chronic Allergic reactions (6 sources) Allergic reaction; Translations: [Allergy, unspecified, initial encounter] Onset: 11-18-2023 08-17-2022 Episodic Conditions associated with dizziness or vertigo (6 sources) Vertigo; Translations: [Dizziness and giddiness] Onset: 12-27-2022 12-27-2022 Episodic Deficiency and other anemia (20 sources) Anemia; Translations: [Anemia, unspecified] Onset: 01-29-2023 11-17-2019 Episodic Genitourinary symptoms and ill-defined conditions (5 sources) Dysuria; Translations: [Dysuria] Onset: 11-12-2023 11-12-2023 Episodic Headache; including migraine (20 sources) Headache; Translations: [Headache] Onset: 01-29-2023 02-18-2020 Episodic Nausea and vomiting (20 sources) Vomiting; Translations: [Nausea] Onset: 02-05-2022 02-18-2020 Episodic Noninfectious gastroenteritis (6 sources) Acute gastroenteritis; Translations: [Noninfective gastroenteritis and colitis, unspecified] Onset: 12-27-2022 12-27-2022 Episodic Nonspecific chest pain (8 sources) Chest wall pain; Translations: [Other chest pain] Onset: 11-18-2023 01-19-2022 Episodic Other female genital disorders (6 sources) Vaginal discharge; Translations: [Other specified noninflammatory disorders of vagina] Onset: 01-29-2023 01-29-2023 Episodic Other lower respiratory disease (8 sources) Dyspnea; Translations: [Shortness of breath] Onset: 02-15-2013 01-29-2023 Episodic Other lower respiratory disease (6 sources) Snoring; Translations: [Snoring] Onset: 01-29-2023 01-29-2023 Episodic Other skin disorders (6 sources) Loss of hair; Translations: [Nonscarring hair loss, unspecified] Onset: 01-29-2023 01-29-2023 Episodic Residual codes; unclassified (5 sources) Family history of Factor V Leiden mutation; Translations: [Family history of diseases of the blood and blood-forming organs and certain disorders involving the immune mechanism] Onset: 11-12-2023 11-12-2023 Episodic Sprains and strains (10 sources) Strain of neck muscle; Translations: [Strain of muscle, fascia and tendon at neck level, initial encounter] Onset: 11-18-2023 04-16-2017 Episodic Results Test Name Value Interpretation Reference Range Facility ALL CBC WITH AUTO DIFFon BASOPHILS ABSOLUTE AUTO 0.1 [facility] Basophils/100 WBC (Bld) 1.3 % 0.2 - 2.0 % [facility] Eosinophils/100 WBC (Bld) 3.4 % 0.9 - 7.0 % [facility] Erythrocyte distribution width (RBC) [Ratio] 12.4 % 11.0 - 15.0 % [facility] Hematocrit (Bld) [Volume fraction] 43.9 % 36.0 - 48.0 % [facility] Hemoglobin (Bld) [Mass/Vol] 15.1 g/dL 12.0 - 16.0 g/dL [facility] IMMATURE GRANULOCYTES ABS AUTO 0.03 [facility] Immature granulocytes/100 WBC (Bld) 0.4 % 0.0 - 0.5 % [facility] LY[facility]OC[facility]TES [facility] Lymphocytes/100 WBC (Bld) 26.3 % 20.5 - 60.0 % [facility] MCH (RBC) [Entitic mass] 30 pg 26.7 - 34.0 pg [facility] MCHC (RBC) [Mass/Vol] 34.4 g/dL 29.9 - 35.2 g/dL [facility] MCV (RBC) [Entitic vol] 87.3 fL 81.0 - 99.0 fL [facility] MONOCYTES ABSOLUTE AUTO 0.6 [facility] Monocytes/100 WBC (Bld) 6.7 % 1.7 - 12.0 % [facility] NEUTROPHILS ABSOLUTE AUTO 5.3 [facility] Neutrophils/100 WBC (Bld) 61.9 % 43.0 - 75.0 % [facility] Platelet mean volume (Bld) [Entitic vol] 10.9 fL 9.5 - 13.5 fL [facility] TBH EO # 0.3 [facility] TBH PLT 220 [facility] TB RBC 5.03 [facility] WBC 8.6 [facility] Consent for Treatmenton 09-20 Consent for Treatment [id number] 632#1.00TIFF Normal [facility] Consultation Noteon 10-18-19 24 Consultation Note Patient: PRABHA LUNA Age: 33 years Sex: Female : 1990 Associated Diagnoses: None Author: Altagracia Curtis PA-C Subjective Chief complaint 10/18/2023 8:10 EDT Back Pain . Patient is a 33 year old female with a past medical history significant for a [facility] claim. The approved codes are M51.26 and [...] Nausea/Vomiting, # 20 tab(s), Refills(s) 0, Pharmacy: [facility]/pharm[facility] #[id number], 158, cm, 12/12/22 20:36:00 EDT, Height/Length Dosing, 74, kg, 12/12/22 20:36:00 EDT, Weight Dosing tiZANidine 4 mg Tab: 4 mg = 1 tab(s), Oral, TID, # 90 tab(s), Refills(s) 5, Pharmacy: [facility]/pharmacy #[id number], 158, cm, 02/18/23 10:35:00 EDT, Height/Length [...] Problems Smoker 21-JAN-2014 12:37:00<$> / SNOMED CT [id number]- [id number] / Confirmed Added secondary to documentation in Social History. Acid reflux / SNOMED CT 744758361 / Confirmed Anxiety / SNOMED CT 13694160 / Confirmed Anemia / SNOMED CT 122090477 / Confirmed Vomiting / SNOMED CT 0178624119 / Confirmed Headache / SNOMED CT 54204878 / Confirmed Resolved: Migraine / SNOMED CT 29260755 Resolved: Depression / SNOMED CT 860098713 Resolved: Pneumonia / SNOMED CT [id number]- [id number] Canceled: Biliary dyskinesia / SNOMED CT 459276395 Objective Vital Signs 10/18/2023 8:10 EDT Peripheral Pulse Rate 79 bpm Respiratory Rate 14 br/min Systolic Blood Pressure 113 mmHg Diastolic Blood Pressure 81 mmHg Mean Arterial Pressure, Cuff 92 mmHg General: Alert and oriented, No acute distress. Eye: Normal conjunctiva. HENT: Normocephalic, Normal hearing. Cardiovascular: No edema. Musculoskeletal Normal range of motion. Normal strength. 5/5 strength Integumentary: Warm, Dry, [place]. Injection site well-healed Neurologic: Alert, Oriented. Psychiatric: Cooperative, Appropriate mood & affect. 14 point review of systems was negative unless otherwise noted. Impression and Plan Patient is a 33 year old female with a past medical history significant for a [facility] claim. The approved codes are M51.26 and [...] it be necessary. MENDEL score: 26% Normal [facility] Comment on above: Result Comment: Elec tronically Signed By: Altagracia Curtis PA-C\.br\Date and Time Signed: 10/18/23 08:28 EDT Legal Correspondence Officeo n 10-18-2023 Legal Correspondence Office [id number] 27#1.00TIFF Normal [facility] Office/Clinic Note-Physician on 10-18-2023 Office/Clinic Note-Physician [id number] 70#1.00TIFF Normal [facility] Patient Correspondenceon Patient Correspondence [id number] 03 [id number] 40#1.00TIFF Normal [facility] Patient Correspondence [id number] 03 [id number] 71#1.00TIFF Normal [facility] Patient Correspondence [id number] 03 [id number] 09#1.00TIFF Normal [facility] Patient Correspondence [id number] 03 [id number] 89#1.00TIFF Normal [facility] Patient History Officeon Patient History Office [id number] 03 [id number] 45#1.00TIFF [facility] Prescriptions/Work Noteson 0 10-18-2023 Prescriptions/Work Notes [id number] 51#1.00TIFF [facility] Consent for Procedure/Surger yon 10-02-2023 Consent for Procedure/Surgery [id number] 04#1.00TIFF [facility] Consent for Treatmenton 09-19 Consent for Treatment [id number] 494#1.00TIFF [facility] Discharge Instructionson Discharge Instructions [id number] 03 [id number] 56#1.00TIFF [facility] IntraOperative Documentson 0 10-02-2023 IntraOperative Documents [id number] 70#1.00TIFF [facility] Main OR Intraoperative Recor don 10-02-2023 Main OR Intraoperative Record IntraOp Document Type FT[facility] Summary Primary Physician: Yovany Madrid DO Finalized Date/Time: 10/02/23 12:54:31 Pt. Name: PRABHA LUNA Walter/Sex: 1990 Female Med Rec #: [id number] Physician: Yovany Madrid DO Financial #: [id number] Pt. Type: P Room/Bed: / Admit/Disch: 10/02/23 [...] Steffany Shipman Role Performed Surgeon - Primary University Archivist - Primary Scrub - Primary Time In 10/02/23 12:49:00 10/02/23 12:49:00 10/02/23 12:49:00 Time Out 10/02/23 12:55:00 10/02/23 12:55:00 10/02/23 12:55:00 Procedure LUMBAR EPIDURAL STEROID LUMBAR EPIDURAL STEROID LUMBAR EPIDURAL STEROID INJECTION(.) INJECTION(.) INJECTION(.) Comments Last Modified By: Nick STRINGER, Beatriz Romero RN, Beatriz Moran RN 10/02/23 12:54:27 10/02/23 12:54:27 10/02/23 12:54:27 Entry 4 Case Attendee Sade Dunaway (R) Role Performed Inspector Fibrous Wallboard Time In 10/02/23 12:49:00 Time Out 10/02/23 [...] STRINGER, Julius Kelly DO, Bradford A., Jessica RT(R), Sade Time Out Complete 10/02/23 12:49:00 Outcomes Met? Yes Last Modified By: Beatriz Romero RN 10/02/23 12:51:21 Post-Care Text: The patient [...] and tissue Entry 1 Skin Integrity Intact, [place], Warm, and Skin Abnormality No Dry Outcomes [...] Last Modifie (more content not included)... Normal [facility] Main OR Preoperative Recordo n 10-02-2023 Main OR Preoperative Record Holding Area Document Type FT[facility] Summary Primary Physician: Yovany Madrid DO Finalized Date/Time: 10/02/23 12:17:10 Pt. Name: PRABHA LUNA/Sex: 1990 Female Med Rec #: [id number] Physician: Yovany Madrid DO Financial #: [id number] Pt. Type: P Room/Bed: / Admit/Disch: 10/02/23 [...] By: Leann Henriquez RN 10/02/23 12:17 Normal [facility] Patient Correspondenceon Patient Correspondence [id number] 666#1.00TIFF Normal [facility] Workers' Comp Officeon 08-15 Workers' Comp Office [id number] 854#1.00TIFF Normal [facility] Consent for Treatmenton Consent for Treatment [id number]#1.00TIFF Normal [facility] Consultation Noteon 06-25-20 Consultation Note Patient: PRABHA LUNA Age: 32 years Sex: Female : 1990 Associated Diagnoses: None Author: Ortiz CHEUNG, Clyde [place] Subjective Chief complaint 06/25/2023 [...] Nausea/Vomiting, # 20 tab(s), Refills(s) 0, Pharmacy: [facility]/pharm[facility] #[id number], 158, cm, 12/12/22 20:36:00 EDT, Height/Length Dosing, 74, kg, 12/12/22 20:36:00 EDT, Weight Dosing pregabalin 50 mg Cap: 50 mg = 1 cap(s), Oral, Daily, X 30 day(s), # 30 cap(s), Refills(s) 5, Pharmacy: [facility]/pharm[facility] #6173, 158, cm, 02/18/23 10:35:00 EDT, Height/Length Dosing, 72.5, kg, 02/18/23 10:35:00 EDT, Weight Dosing tiZANidine 4 mg Tab: 4 mg = 1 tab(s), Oral, TID, # 90 tab(s), Refills(s) 5, Pharmacy: [facility]/pharm[facility] #6173, 158, cm, 02/18/23 10:35:00 EDT, Height/Length [...] All Problems Acid reflux / SNOMED CT 657513492 / Confirmed Anemia / SNOMED CT 673981709 / Confirmed Anxiety / SNOMED CT 75148184 / Confirmed Headache / SNOMED CT 53556316 / Confirmed Smoker 21-JAN-2014 12:37:00<$> / SNOMED CT [id number]- [id number] / Confirmed Added secondary to documentation in Social History. Vomiting / SNOMED CT 0869470773 / Confirmed Objective Vital Signs 06/25/2023 7:58 [...] response. Patient agrees with plan of care. [facility] Comment on above: Result Comment: Elec tronically Signed By: Ortiz CHEUNG, Clyde Weathers.br\Date and Time Signed: 06/25/23 08:46 EST Office/Clinic Note-Physician on 06-25-2023 Office/Clinic Note-Physician [id number] 66#1.00TIFF [facility] Patient Correspondenceon Patient Correspondence [id number] 12 [id number] 21#1.00TIFF Normal [facility] Patient Correspondence [id number] 12 [id number] 88#1.00TIFF [facility] Patient History Officeon Patient History Office [id number] 12 [id number] 44#1.00TIFF [facility] Prescriptions/Work Noteson 1 08-26-2022 Prescriptions/Work Notes [id number] 409#1.00TIFF [facility] CHEMISTRYOrdered By: Lab ROP User on 02-05-2022 Glucose [Mass/Vol] 91 mg/dL Normal 55 - 99 mg/dL [facility] POC Subsection Comment on above: Result Comment: Laura owens RN/ POC Device SN [id number] Invalid Interpretation [place] [facility] [place] Sub[place] POC User ID [id number] Invalid Interpretation Code [facility] [place] Subsection POC Username FELY FOUNTAIN Invalid Interpretation Code [facility] [place] Subsection CHEMISTRYOrdered By: SYSTEM SYSTEM on 02-05-2022 Albumin [Mass/Vol] 4.5 g/dL Normal 3.3 - 5.0 gm/dL FT Remisol Albumin/Globulin [Mass ratio] 1.5 {ratio} Normal [...] Normal >=59mL/min/1. 73 m2 FT Chem S GFR/1.73 sq M.predicted among non-blacks [...] 10 - 20 [facility] Remisol HEMATOLOGYOrdered By: [email or web address] SYSTEM on 02-05-2022 Basophils/100 WBC (Bld) 0.9 [...] PM) Normal Negative [facility] UA Auto SS Nickerson.plasma/Nickerson .RBC (Bld) [Mass ratio] 0-3 /HPF Normal [...] Desc Clean Catch (02/05/22 5:00 PM) Normal [facility] UA Auto SS Urobilinogen Qn (U) 0.8310614 {Lc'U}/dL Normal 0.0 - 1.0 EU/dL [facility] UA Auto SS WBC Auto Ql (U) Negative (02/05/22 5:00 PM) Normal Negative [facility] UA Auto SS WBC LM.HPF (Urine sed) [#/Area] 0-5 /HPF Normal 0-5/HPF [facility] UA Auto SS Activated partial thrombopla stin time (aPTT) in platelet poor plasma by coagulation aOrdered By: Tony Hannon on 01-19-2022 aPTT Coag (PPP) [Time] 34.8 s 25.1-36.5 [facility] B-Type Natriuretic Peptideon 01-19-2022 Natriuretic peptide B (Bld) [Mass/Vol] 13.0 pg/mL Normal 5-100 [facility] Comment on above: Result Comment: PERF ORMED BY: [place] [address] PATHOLOGIST [employer]BLE MECHANIC HELPER MIKY WANG M.D. Performed By: #### H S TROP, CBC, PT, PTT, BMP, BNP #### [address] Basic Metabolic Panelon 07-0 Calcium [Mass/Vol] 9.7 mg/dL Normal 8.2-10.2 [facility] Comment on above: Performed By: #### H S TROP, CBC, PT, PTT, BMP, BNP #### [facility] [address] Chloride [Moles/Vol] 105 mmol/L Normal 95-114 [facility] Comment on above: Performed By: #### H S TROP, CBC, PT, PTT, BMP, BNP #### [facility] [address] CO2 [Moles/Vol] 23.2 mmol/L Normal 22.0-30.0 [facility] Comment on above: Performed By: #### H S TROP, CBC, PT, PTT, BMP, BNP #### [address] Creatinine [Mass/Vol] 1.00 mg/dL Normal 0.44-1.03 [facility] Comment on above: Performed By: #### H S TROP, CBC, PT, PTT, BMP, BNP #### [address] Creatinine Clr Calc Pharmacy 77.95 [facility] Comment on above: Result Comment: PERF ORMED BY: [place] [address] PATHOLOGIST [employer] HEL[employer] MIKY WANG M.D. Performed By: #### H S TROP, CBC, PT, PTT, BMP, BNP #### [address] Estimated GFR ( [place] > 60 [facility] Comment on above: Result Comment: GFR estimated reference range: According to KDOQI guidelines, <60 ml/min/1.73m2 is sufficient to diagnose a patient with chronic kidney disease. Performed By: #### H S TROP, CBC, PT, PTT, BMP, BNP #### [address] Estimated GFR (Non- Am > 60 [facility] Comment on above: Performed By: #### H S TROP, CBC, PT, PTT, BMP, BNP #### [facility] [address] Glucose [Mass/Vol] 101 mg/dL High 70-100 [facility] Comment on above: Result Comment: [facility] Glucose Reference Range is dependent on time and content of last meal. Glucose of more than 200 mg/dL in a nonstressed, ambulatory subject supports the diagnosis of Diabetes Mellitus. ADA recommended reference range Performed By: #### H S TROP, CBC, PT, PTT, BMP, BNP #### [facility] [address] Potassium [Moles/Vol] 3.8 mmol/L Normal 3.5-5.1 [facility] Comment on above: Performed By: #### H S TROP, CBC, PT, PTT, BMP, BNP #### [facility] [address] Sodium [Moles/Vol] 137 mmol/L Normal 136-146 [facility] Comment on above: Performed By: #### H S TROP, CBC, PT, PTT, BMP, BNP #### [facility] [address] Urea nitrogen [Mass/Vol] 15 mg/dL Normal 9-23 [facility] Comment on above: Performed By: #### H S TROP, CBC, PT, PTT, BMP, BNP #### [facility] [address] [place] [address] Basophils Auto (Bld) [#/Vol] Ordered By: Tony Hannon on 01-19-2022 Basophils (Bld) [#/Vol] 0.1 10*3/uL 0.0-0.2 [facility] Basophils/100 WBC Auto (Bld) Ordered By: Tony Hannon on 01-19-2022 Basophils/100 WBC (Bld) 0.7 % . [facility] Blood hemoglobin measurement (mass/volume)Ordered By: Tony Hannon on 01-19-2022 Hemoglobin (Bld) [Mass/Vol] 14.9 g/dL 11.8-15.4 [facility] Blood leukocytes automated c ount (number/volume)Ordered By: Tony Hannon on 01-19-2022 WBC (Bld) [#/Vol] 8.3 10*3/uL 4.5-11.0 [facility] COVID-19 Antigenon 2 COVID-19 Antigen Healthcare Worker?: [...] developed and its performance characteristic determined by [employer] and validated at [facility]. This test has not been FDA [...] for SARS Antigen by OLIVA PERFORMED BY: [facility] [address] [place] [address] PATHOLOGIST [employer]PER MIKY WANG M.D. Normal [facility] Comment on above: Performed By: #### C OVID-19 RUSTY SALINASEG #### [address] COVID-19 SOFIAOrdered By: Cecilio Hannon on 01-19-2022 SARS-CoV+SARS-CoV-2 (COVID-19) Ag IA.rapid Ql (Resp) Negative Negative [facility] Comment on above: This is a duplicate Brad SARS Antigen (OLIVA) result to be used for statistical tracking purpose only. Complete Blood Count Auto Di ffon 01-19-2022 Basophils (Bld) [#/Vol] 0.1 10*3/uL Normal 0.0-0.2 [facility] Comment on above: Result Comment: PERF ORMED BY: [place] [address] PATHOLOGIST [employer]CH[employer] HELPER MIKY WANG M.D. Performed By: #### H S TROP, CBC, PT, PTT, BMP, BNP #### [address] Basophils/100 WBC (Bld) 0.7 % Normal . [facility] Comment on above: Performed By: #### H S TROP, CBC, PT, PTT, BMP, BNP #### [address] Eosinophils (Bld) [#/Vol] 0.3 10*3/uL Normal 0.0-0.45 [facility] Comment on above: Performed By: #### H S TROP, CBC, PT, PTT, BMP, BNP #### [address] Eosinophils/100 WBC (Bld) 3.3 % Normal . [facility] Comment on above: Performed By: #### H S TROP, CBC, PT, PTT, BMP, BNP #### [address] Erythrocyte distribution width (RBC) [Ratio] 13.4 % Normal 11.9-15.3 [facility] Comment on above: Performed By: #### H S TROP, CBC, PT, PTT, BMP, BNP #### [address] Hematocrit (Bld) [Volume fraction] 43.5 % Normal 34.0-46.4 [facility] Comment on above: Performed By: #### H S TROP, CBC, PT, PTT, BMP, BNP #### [address] Hemoglobin (Bld) [Mass/Vol] 14.9 g/dL Normal 11.8-15.4 [facility] Comment on above: Performed By: #### H S TROP, CBC, PT, PTT, BMP, BNP #### [address] Lymphocytes (Bld) [#/Vol] 1.5 10*3/uL Normal 1.00-4.8 [facility] Comment on above: Performed By: #### H S TROP, CBC, PT, PTT, BMP, BNP #### [address] Lymphocytes/100 WBC (Bld) 17.7 % Normal . [facility] Comment on above: Performed By: #### H S TROP, CBC, PT, PTT, BMP, BNP #### [address] MCH (RBC) [Entitic mass] 30.1 pg Normal 24.7-34.3 [facility] Comment on above: Performed By: #### H S TROP, CBC, PT, PTT, BMP, BNP #### [address] MCV (RBC) [Entitic vol] 88.2 fL Normal 80-100 [facility] Comment on above: Performed By: #### H S TROP, CBC, PT, PTT, BMP, BNP #### [address] Mean Corpuscular HGB Conc 34.2 g/dL Normal 32.0-35.0 [facility] Comment on above: Performed By: #### H S TROP, CBC, PT, PTT, BMP, BNP #### [address] Monocytes (Bld) [#/Vol] 0.6 10*3/uL Normal 0.0-0.8 [facility] Comment on above: Performed By: #### H S TROP, CBC, PT, PTT, BMP, BNP #### [facility] [address] [place] [address] [place] Monocytes/100 WBC (Bld) 7.7 % Normal . [facility] Comment on above: Performed By: #### H S TROP, CBC, PT, PTT, BMP, BNP #### [place] [address] [place] Neutrophils (Bld) [#/Vol] 5.8 10*3/uL Normal 1.8-7.7 [facility] Comment on above: Performed By: #### H S TROP, CBC, PT, PTT, BMP, BNP #### [address] Neutrophils/100 WBC (Bld) 70.6 % Normal . [facility] Comment on above: Performed By: #### H S TROP, CBC, PT, PTT, BMP, BNP #### [place] [address] [place] Nucleated RBC/100 WBC (Bld) [Ratio] 0.0 % Normal 0-0.5 [facility] Comment on above: Performed By: #### H S TROP, CBC, PT, PTT, BMP, BNP #### [place] [address] [place] Platelet mean volume (Bld) [Entitic vol] 9.1 fL Normal 6.3-10.7 [facility] Comment on above: Performed By: #### H S TROP, CBC, PT, PTT, BMP, BNP #### [place] [address] [place] Platelets (Bld) [#/Vol] 227 10*3/uL Normal 150-450 [facility] Comment on above: Performed By: #### H S TROP, CBC, PT, PTT, BMP, BNP #### [place] [address] [place] RBC (Bld) [#/Vol] 4.93 10*6/uL Normal 3.60-5.00 [facility] Comment on above: Performed By: #### H S TROP, CBC, PT, PTT, BMP, BNP #### [facility] [address] WBC (Bld) [#/Vol] 8.3 10*3/uL Normal 4.5-11.0 [facility] Comment on above: Performed By: #### H S TROP, CBC, PT, PTT, BMP, BNP #### [facility] [address] Creatinine and Glomerular fi ltration rate.predicted panel (S/P/Bld)Ordered By: Tony Hannon on 01-19-2022 Creatinine [Mass/Vol] 1.00 mg/dL 0.44-1.03 [facility] ECG 12 lead ECGon 01-19-2022 ECG 12 lead ECG [facility] Main [address] [place] [address] Electrocardiograph Report Signed Patient: Prabha Luna MR#: [id number] : 1990 Acct:[id number] Age/Sex: 31 / F ADM Date: 01/19/22 Loc: ER Room: Type: [facility] ER Attending Dr: Ordering Provider: Tony [...] was found Confirmed by TONY HANNON DO ([id number]) on 01/19/2022 4:07:17 PM Referred By: Electronically Signed By:TONY HANNON DO Transcribed By: MUS Signed By Tony Hannon DO 01/19 1607 Normal [facility] Eosinophils Auto (Bld) [#/Vo l]Ordered By: Tony Hannon on 01-19-2022 Eosinophils (Bld) [#/Vol] 0.3 10*3/uL 0.0-0.45 [facility] Eosinophils/100 WBC Auto (Bl d)Ordered By: Tony Hannon on 01-19-2022 Eosinophils/100 WBC (Bld) 3.3 % . [facility] Erythrocyte distribution wid th Auto (RBC) [Ratio]Ordered By: Tony Hannon on 01-19-2022 Erythrocyte distribution width (RBC) [Ratio] 13.4 % 11.9-15.3 [facility] Estimated glomerular filtrat ion rate (GFR) non- AmericanOrdered By: Tony Hannon on 01-19-2022 GFR/1.73 sq M.predicted among non-blacks MDRD (S/P/Bld) [Vol rate/Area] > 60 mL/Min [facility] Hematocrit Auto (Bld) [Volum e fraction]Ordered By: Tony Hannon on 01-19-2022 Hematocrit (Bld) [Volume fraction] 43.5 % 34.0-46.4 [facility] Laboratory - Chemistry and C hemistry - challengeOrdered By: Tony Hannon on 01-19-2022 Natriuretic peptide B (Bld) [Mass/Vol] 13.0 pg/mL 5-100 [facility] Laboratory - CoagulationOrde red By: Tony Hannon on 01-19-2022 PT Coag (PPP) [Time] 13.4 s 9.0-12.9 [facility] Laboratory - Hematology and Cell countsOrdered By: Tony Hannon on 01-19-2022 Nucleated RBC/100 WBC (Bld) [Ratio] 0.0 % 0-0.5 [facility] Lymphocytes Auto (Bld) [#/Vo l]Ordered By: Tony Hannon on 01-19-2022 Lymphocytes (Bld) [#/Vol] 1.5 10*3/uL 1.00-4.8 [facility] Lymphocytes/100 WBC Auto (Bl d)Ordered By: Tony Hannon on 01-19-2022 Lymphocytes/100 WBC (Bld) 17.7 % . [facility] MCH Auto (RBC) [Entitic mass ]Ordered By: Tony Hannon on 01-19-2022 MCH (RBC) [Entitic mass] 30.1 pg 24.7-34.3 [facility] MCHC Auto (RBC) [Mass/Vol]Or dered By: Tony Hannon on 01-19-2022 MCHC (RBC) [Mass/Vol] 34.2 g/dL 32.0-35.0 [facility] MCV Auto (RBC) [Entitic vol] Ordered By: Tony Hannon on 01-19-2022 MCV (RBC) [Entitic vol] 88.2 fL 80-100 [facility] Monocytes Auto (Bld) [#/Vol] Ordered By: Tony Hannon on 01-19-2022 Monocytes (Bld) [#/Vol] 0.6 10*3/uL 0.0-0.8 [facility] Monocytes/100 WBC Auto (Bld) Ordered By: Tony Hannon on 01-19-2022 Monocytes/100 WBC (Bld) 7.7 % . [facility] Neutrophils Auto (Bld) [#/Vo l]Ordered By: Tony Hannon on 01-19-2022 Neutrophils (Bld) [#/Vol] 5.8 10*3/uL 1.8-7.7 [facility] Neutrophils/100 WBC Auto (Bl d)Ordered By: Tony Hannon on 01-19-2022 Neutrophils/100 WBC (Bld) 70.6 % . [facility] No Panel InformationOrdered By: Tony Hannon on 01-19-2022 SARS Antigen (LFIA) [facility] Estimated GFR () > 60 mL/Min [facility] Comment on above: GFR estimated refere nce range: According to KDOQI guidelines, <60 ml/min/1.73m2 is sufficient to diagnose a patient with chronic kidney disease. Pharmacy Creatinine Clearance (Chem 77.95 [facility] SARS Antigen (LFIA) [facility] Partial Thromboplastin Timeo n 01-19-2022 aPTT Coag (Bld) [Time] 34.8 s Normal 25.1-36.5 [facility] Comment on above: Result Comment: PERF ORMED BY: [facility] [address] [place] [address] PATHOLOGIST [employer] HELPER MIKY WANG M.D. Performed By: #### H S TROP, CBC, PT, PTT, BMP, BNP #### [facility] [address] Platelet mean volume Auto (B ld) [Entitic vol]Ordered By: Tony Hannon on 01-19-2022 Platelet mean volume (Bld) [Entitic vol] 9.1 fL 6.3-10.7 [facility] Platelet poor plasma interna tional normalized ratio (INR) by coagulation assay (relatOrdered By: Tony Hannon on 01-19-2022 INR Coag (PPP) [Relative time] 1.2 {INR} [facility] Comment on above: INR Therapeutic Rang [...] 01-19-2022 Platelets (Bld) [#/Vol] 227 10*3/uL 150-450 [facility] Prothrombin Time INRon 01-19 INR Coag (PPP) [Relative time] 1.2 {INR} Normal [facility] Comment on above: Result Comment: INR [...] TROP, CBC, PT, PTT, BMP, BNP #### [facility] [address] PT Coag (PPP) [Time] 13.4 s High 9.0-12.9 [facility] Comment on above: Performed By: #### H S TROP, CBC, PT, PTT, BMP, BNP #### [facility] [address] RBC Auto (Bld) [#/Vol]Ordere d By: Tony Hannon on 01-19-2022 RBC (Bld) [#/Vol] 4.93 10*6/uL 3.60-5.00 [facility] Serum or plasma calcium ernesto urement (mass/volume)Ordered By: Tony Hannon on 01-19-2022 Calcium [Mass/Vol] 9.7 mg/dL 8.2-10.2 [facility] Serum or plasma chloride syl surement (moles/volume)Ordered By: Tony Hannon on 01-19-2022 Chloride [Moles/Vol] 105 mmol/L 95-114 [facility] Serum or plasma glucose ernesto urement (mass/volume)Ordered By: Tony Hannon on 01-19-2022 Glucose [Mass/Vol] 101 mg/dL 70-100 [facility] Comment on above: ADA recommended refe rence range Random Glucose Reference Range is dependent on time and content of last meal. Glucose of more than 200 mg/dL in a nonstressed, ambulatory subject supports the diagnosis of Diabetes Mellitus. Serum or plasma potassium me asurement (moles/volume)Ordered By: Tony Hannon on 01-19-2022 Potassium [Moles/Vol] 3.8 mmol/L 3.5-5.1 [facility] Serum or plasma sodium measu rement (moles/volume)Ordered By: Tony Hannon on 01-19-2022 Sodium [Moles/Vol] 137 mmol/L 136-146 [facility] Serum or plasma total carbon dioxide measurement (moles/volume)Ordered By: Tony Hannon on 01-19-2022 CO2 [Moles/Vol] 23.2 mmol/L 22.0-30.0 [facility] Serum or plasma urea nitroge n measurement (mass/volume)Ordered By: Tony Hannon on 01-19-2022 Urea nitrogen [Mass/Vol] 15 mg/dL 9-23 [facility] Brad Ag Negativeon 01-20-20 Brad Ag Negative Negative Normal Negative [facility] Comment on above: Result Comment: This is a duplicate Brad SARS Antigen (OLIVA) result to be used for statistical tracking purpose only. PERFORMED BY: [place] [phone] PATHOLOGIST [employer]CH[employer] HELPER MIKY WANG M.D. Performed By: #### C OVID-19 BRAD, SOFIANEG #### [facility] [address] [place] [address] [place] Troponin I High Sensitivityo n 01-19-2022 Troponin I High Sensitivity < 3 Normal [address] [place] [address] Comment on above: Result Comment: PERF ORMED BY: [place] [phone] PATHOLOGIST [employer] MECH[employer] HELPER MIKY WANG M.D. Performed By: #### H S TROP, CBC, PT, PTT, BMP, BNP #### [place] [address] [place] Troponin I High Sensitivity < 3 Normal 0-15 [facility] Comment on above: Result Comment: PERF ORMED BY: [place] [address] PATHOLOGIST [employer] MECH[employer]IC HELPER MIKY WANG M.D. Performed By: #### H S TROP, CBC, PT, PTT, BMP, BNP #### [place] [address] [place] Troponin I.cardiac [Mass/vol ume] in Serum or Plasma by High sensitivity methodOrdered By: Tony Hannon on 01-19-2022 Troponin I.cardiac High sensitivity method [Mass/Vol] < 3 pg/mL 0-15 [facility] XR chest 2V*on 01-19-2022 XR chest 2V* [facility] [place] [address] XRay Report Signed Patient: Prabha Luna MR#: [id number] : 1990 Acct:[id number] Age/Sex: 31 / F ADM Date: 01/19/22 Loc: ER Room: Type: [facility] ER Attending Dr: Copies to: Tony [...] Sanchez Raza M.D.01/19/2022 8:11 AM Dictation Location: [place] [address] Transcribed By: [facility] 01/19/22810 Dictated By: Sanchez Raza DO 01/19/22810 Signed By: 01/19/22810 [facility] Covid 19 Resultson 2 SARS-CoV-2 (COVID-19) RNA [...] You may also be contacted by the [facility] to see if any of [...] or Naproxen (Aleve) can also be used. Iiwy-dsq-bkoenub cough and cold medicines can be used according to the instructions on the package. Some xmew-wrb-rxwjkpg medicines also contain acetaminophen. Make sure you [...] water are not available, use alcohol-based hand insulation helper. Avoid touching your eyes, nose, and mouth [...] 24 arlette (more content not included)... Normal [facility] INFLUENZA A/B, COVID 2019 PC R,SYMPTOMATICon 08-05-2021 INFLUENZA A, PCR Not detected Normal Not Detected [facility] Comment on above: Result Comment: Resp iratory virus testing is performed routinely by PCR for Influenza A/B and RSV. If Influenza and RSV PCR are negative, testing for parainfluenza 1,2,3 viruses and adenovirus is routinely performed for oncology inpatients and intensive care unit patients at [facility] and is available on request on other patients by calling Laboratory Client Services at [phone]. Not Detected results do not preclude Influenza A/B or RSV infections since the adequacy of sample collection or low viral burden may impact the clinical sensitivity of this test method. Performed By: #### C OIAMIRAH #### [facility] [address] [place] [address] INFLUENZA B, PCR Not detected Normal Not Detected [facility] Comment on above: Result Comment: Resp iratory virus testing is performed routinely by PCR for Influenza A/B and RSV. If Influenza and RSV PCR are negative, testing for parainfluenza 1,2,3 viruses and adenovirus is routinely performed for oncology inpatients and intensive care unit patients at [facility] and is available on request on other patients by calling Laboratory Client Services at [phone] Not Detected results do not preclude Influenza [...] by the Microbiology Laboratory, Department of Pathology, [facility], [place], [place]. It has not been cleared or approved by the US Food and Drug Administration; however, FDA clearance or approval is not currently required for clinical use. This test should not be regarded as investigational or for research purposes. Performed By: #### C OINP #### [facility] [address] [place] [address] SARS-CoV-2 (COVID-19) RNA MARIFER+probe Ql (Unsp spec) Detected Abnormal Not Detected [facility] Comment on above: Result Comment: . This [...] patient management decisions. Fact sheet for providers: https://www.fda.gov/media/683409/download Fact sheet for patients: https://www.fda.gov/media/671930/download This test has received FDA Emergency Use Authorization (EUA) and has been verified by [facility] ([facility]). This test is only authorized for the duration of time that circumstances exist to justify the authorization of the emergency use of in vitro diagnostic tests for the detection of SARS-CoV-2 virus and/or diagnosis of COVID-19 infection under section 564(b)(1) of the Act, 21 U.S.C. 360bbb-3(b)(1), unless the authorization is terminated or revoked sooner. [facility] is certified under CLIA-88 as qualified to perform high complexity testing. Testing is performed in the [facility] laboratories located at [address] [place] [address]. Performed By: #### C OINP #### [address] [place] [address] INFLUENZA A/B, COVID 2019 PC R,SYMPTOMATICon 08-04-2021 DATE OF SYMPTOM ONSET [YYYYMMDD]? [id number] Normal [facility] Comment on above: Performed By: #### C OINP #### [address] [place] [address] Lab Specimen Source Nasal, Nasopharyngeal Normal [facility] Comment on above: Performed By: #### C OINP #### [address] [place] [address] Provider Note - ED v3on 01- Provider Note - ED v3 Provider Note: [...] (at bedtime) Drug Name: brompheniramine/pse udoephedrine/dextro methorphan [id number]/5 mL oral syrup Instructions: 5 milliliter(s) orally every 4 to 6 hours, As Needed Drug Name: fluticasone 50 mcg/inh nasal spray Instructions: 1 spray(s) in each nostril once a day Drug Name: naproxen 500 mg oral tablet Instructions: null Drug Name: albuterol 90 mcg/inh inhalation aerosol Instructions: 2 puff(s) inhaled every 4 to 6 hours, As Needed Drug Name: brompheniramine/pse udoephedrine/dextro methorphan [id number]/5 mL oral syrup Instructions: 5 milliliter(s) orally [...] SIGNS: T PRBP SpO2O2(LPM) %FiO2 Method 04-Aug-2021 10:50:[id number] /70 100 MDM MDM/ED COURSE: Differential Diagnosis: [...] Electronic Signatures for Addendum Section: Stefany Pena (COTTON TIER-BAIT TIER) (Signed Addendum 08-Aug-2021 09:38) left voicemail for pt to c (more content not included)... Normal [facility] CORONAVIRUS 2019 BY PCRon DATE OF SYMPTOM ONSET [YYYYMMDD]? Canceled Normal [facility] Comment on above: Order Comment: TEST CORONAVIRUS 2019 BY PCR WAS CANCELLED, 07/05/2021 00:58 DUPLICATE ORDER SEE [id number]. Performed By: #### C OV19 #### [facility] [address] [facility] [place] [address] SARS-CoV-2 (COVID-19) RNA MARIFER+probe Ql (Unsp spec) Canceled Normal [facility] Comment on above: Order Comment: TEST CORONAVIRUS 2019 BY PCR WAS CANCELLED, 07/05/2021 00:58 DUPLICATE ORDER SEE [id number]. Result Comment: . This assay is designed [...] patient management decisions. Fact sheet for providers: https://www.fda.gov/media/731070/download Fact sheet for patients: https://www.fda.gov/media/245850/download This test has received FDA Emergency Use Authorization (EUA) and has been verified by [facility] ([facility]). This test is only authorized for the duration of time that circumstances exist to justify the authorization of the emergency use of in vitro diagnostic tests for the detection of SARS-CoV-2 virus and/or diagnosis of COVID-19 infection under section 564(b)(1) of the Act, 21 U.S.C. 360bbb-3(b)(1), unless the authorization is terminated or revoked sooner. [facility] is certified under CLIA-88 as qualified to perform high complexity testing. Testing is performed in the [facility] laboratories located at [id number] [place] [address]. Performed By: #### C OV19 #### [place] [address] Covid 19 Resultson 1 SARS-CoV-2 (COVID-19) RNA [...] You may also be contacted by the [facility] to see if any of your [...] or Naproxen (Aleve) can also be used. Jzje-bfy-rgwtmrb cough and cold medicines can be used according to the instructions on the package. Some qzgm-ipj-yjqasnt medicines also contain acetaminophen. Make sure you [...] water are not available, use alcohol-based hand insulation helper. Avoid touching your eyes, nose, and mouth [...] 24 arlette (more content not included)... Normal [facility] INFLUENZA A/B, COVID 2019 PC R,SYMPTOMATICon 07-05-2021 INFLUENZA A, PCR Not detected Normal Not Detected [facility] Comment on above: Result Comment: Resp iratory virus testing is performed routinely by PCR for Influenza A/B and RSV. If Influenza and RSV PCR are negative, testing for parainfluenza 1,2,3 viruses and adenovirus is routinely performed for oncology inpatients and intensive care unit patients at [facility] and is available on request on other patients by calling Laboratory Client Services at [phone]. Not Detected results do not preclude Influenza A/B or RSV infections since the adequacy of sample collection or low viral burden may impact the clinical sensitivity of this test method. Performed By: #### C OIAMIRAH #### [facility] [address] [place] [address] INFLUENZA B, PCR Not detected Normal Not Detected [facility] Comment on above: Result Comment: Resp iratory virus testing is performed routinely by PCR for Influenza A/B and RSV. If Influenza and RSV PCR are negative, testing for parainfluenza 1,2,3 viruses and adenovirus is routinely performed for oncology inpatients and intensive care unit patients at [facility] and is available on request on other patients by calling Laboratory Client Services at [phone] Not Detected results do not preclude Influenza [...] by the Microbiology Laboratory, Department of Pathology, [facility], [place], [place]. It has not been cleared or approved by the US Food and Drug Administration; however, FDA clearance or approval is not currently required for clinical use. This test should not be regarded as investigational or for research purposes. Performed By: #### C OINP #### [place] [address] SARS-CoV-2 (COVID-19) RNA MARIFER+probe Ql (Unsp spec) Not detected Normal Not Detected [facility] Comment on above: Result Comment: . This [...] patient management decisions. Fact sheet for providers: https://www.fda.gov/media/446516/download Fact sheet for patients: https://www.fda.gov/media/695882/download This test has received FDA Emergency Use Authorization (EUA) and has been verified by [facility] ([facility]). This test is only authorized for the duration of time that circumstances exist to justify the authorization of the emergency use of in vitro diagnostic tests for the detection of SARS-CoV-2 virus and/or diagnosis of COVID-19 infection under section 564(b)(1) of the Act, 21 U.S.C. 360bbb-3(b)(1), unless the authorization is terminated or revoked sooner. [facility] is certified under CLIA-88 as qualified to perform high complexity testing. Testing is performed in the [facility] laboratories located at [address] [place] [address]. Performed By: #### C OINP #### [place] [address] CORONAVIRUS 2019 BY PCRon Lab Specimen Source Nasal, Nasopharyngeal Normal [facility] Comment on above: Order Comment: TEST CORONAVIRUS 2019 BY PCR WAS CANCELLED, 07/05/2021 00:58 DUPLICATE ORDER SEE [id number]. Performed By: #### C OV19 #### [facility] [address] [place] [address] INFLUENZA A/B, COVID 2019 PC R,SYMPTOMATICon 07-04-2021 Lab Specimen Source Nasal, Nasopharyngeal Normal [facility] Comment on above: Performed By: #### C OINP #### [facility] [address] [place] [address] Provider Note - ED v3on 06-21 Provider [...] (at bedtime) Drug Name: brompheniramine/pse udoephedrine/dextro methorphan 7kt-10uo-24nb/5 mL oral syrup Instructions: 5 milliliter(s) orally every 4 to 6 hours, As Needed Drug Name: fluticasone 50 mcg/inh nasal spray Instructions: 1 spray(s) in each nostril once a day Drug Name: naproxen 500 mg oral tablet Instructions: null Drug Name: albuterol 90 mcg/inh inhalation aerosol Instructions: 2 puff(s) inhaled every 4 to 6 hours, As Needed Drug Name: brompheniramine/pse udoephedrine/dextro methorphan 7yd-43ot-34nj/5 mL oral syrup Instructions: 5 milliliter(s) orally every 4 to 6 hours, As Needed SIGNIFICANT EVENTS: Other Description:SMOKER Additional Notes:2-3 EACH A DAY Past Medical History Description:NO CHRONIC HEALTH ISSUE Additional Notes:02/2021 Past Surgical History Description:Cholecy stectomy 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 Normal [facility] CORONAVIRUS 2019 BY PCRon SARS-CoV-2 (COVID-19) RNA MARIFER+probe Ql (Unsp spec) Not detected Normal Not Detected [facility] Comment on above: Result Comment: . This [...] patient management decisions. Fact sheet for providers: https://www.fda.gov/media/438748/download Fact sheet for patients: https://www.fda.gov/media/676238/download This test has received FDA Emergency Use Authorization (EUA) and has been verified by [facility] ([facility]). This test is only authorized for the duration of time that circumstances exist to justify the authorization of the emergency use of in vitro diagnostic tests for the detection of SARS-CoV-2 virus and/or diagnosis of COVID-19 infection under section 564(b)(1) of the Act, 21 U.S.C. 360bbb-3(b)(1), unless the authorization is terminated or revoked sooner. [facility] is certified under CLIA-88 as qualified to perform high complexity testing. Testing is performed in the [facility] laboratories located at [id number] [place] [address]. Performed By: #### C OV19 #### [facility] [id number] [place] [address]. [place] [address] Covid 19 Resultson 1 SARS-CoV-2 (COVID-19) RNA [...] You may also be contacted by the [facility] to see if any of [...] or Naproxen (Aleve) can also be used. Kxyq-kte-fwdjitl cough and cold medicines can be used according to the instructions on the package. Some jnsw-pxf-vswzgad medicines also contain acetaminophen. Make sure you [...] water are not available, use alcohol-based hand insulation helper. Avoid touching your eyes, nose, and mouth [...] for 24 arlette (more content not included)... [facility] CORONAVIRUS 2019 BY PCRon DATE OF SYMPTOM ONSET [YYYYMMDD]? [id number] [facility] Comment on above: Performed By: #### C OV19 #### [facility] [address] [place] [id number] Lab Specimen Source Nasal, Nasopharyngeal [facility] Comment on above: Performed By: #### C OV19 #### [facility] [address] 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: Is : no Is : no REVIEW [...] SIGNS: T PRBP SpO2O2(LPM) %FiO2 Method 11-Apr-2021 12:27:[id number] 96 PHYSICAL EXAM CONSTITUTIONAL: Appearance: well appearing [...] ill patient: no Electronic Signatures: Stefany Pena (COTTON TIER-BAIT TIER) (Signed 11-Apr-2021 13:02) Authored: HPI, PMH, ROS, PE, Results/Vital Signs, MDM/ED Course, Clinical Impression, Attestation, Chart Review, Scores Last Updated: 11-Apr-2021 13:02 by Stefany Pena (COTTON TIER-BAIT TIER) Normal [facility] CORONAVIRUS 2019 BY PCRon SARS-CoV-2 (COVID-19) RNA MARIFER+probe Ql (Unsp spec) Not detected Normal Not Detected [facility] Comment on above: Result Comment: . This [...] patient management decisions. Fact sheet for providers: https://www.fda.gov/media/848309/download Fact sheet for patients: https://www.fda.gov/media/787235/download This test has received FDA Emergency Use Authorization (EUA) and has been verified by [facility] ([facility]). This test is only authorized for the duration of time that circumstances exist to justify the authorization of the emergency use of in vitro diagnostic tests for the detection of SARS-CoV-2 virus and/or diagnosis of COVID-19 infection under section 564(b)(1) of the Act, 21 U.S.C. 360bbb-3(b)(1), unless the authorization is terminated or revoked sooner. [facility] is certified under CLIA-88 as qualified to perform high complexity testing. Testing is performed in the [facility] laboratories located at [address] [place] [address]. Performed By: #### C OV19 #### [address] [place] [address] Covid 19 Resultson 1 SARS-CoV-2 (COVID-19) RNA [...] You may also be contacted by the [facility] to see if any of your [...] or Naproxen (Aleve) can also be used. Owhf-ych-nvbcdyg cough and cold medicines can be used according to the instructions on the package. Some pajl-euj-ywtxczb medicines also contain acetaminophen. Make sure you [...] water are not available, use alcohol-based hand insulation helper. Avoid touching your eyes, nose, and mouth [...] for 24 arlette (more content not included)... [facility] CORONAVIRUS 2019 BY PCRon DATE OF SYMPTOM ONSET [YYYYMMDD]? [id number] [facility] Comment on above: Performed By: #### C OV19 #### [facility] [address] [place] [id number] Lab Specimen Source Nasal, Nasopharyngeal [facility] Comment on above: Performed By: #### C OV19 #### [facility] [address] 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: Is : no Is : no REVIEW [...] ill patient: no Electronic Signatures: Harshad Julien (COTTON TIER-BAIT TIER) (Signed 02-Mar-2021 17:06) Authored: ED Notes, HPI, PMH, ROS, PE, MDM/ED Course, Clinical Impression, Attestation, Chart Review, Scores Last Updated: 02-Mar-2021 17:06 by Harshad Julien (COTTON TIER-BAIT TIER) [facility] Provider Note - ED v2on 04-0 Provider [...] SIGNIFICANT EVENTS: Past Surgical History Description:Cholecy stectomy 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: Is : no Is : no Order Test: no REVIEW OF SYSTEMS CONSTITUTIONAL: Negative for: chills and fever CARDIOVASCULAR: Negative for: chest pain RESPIRATORY: Negative for: dyspnea GASTROINTESTINAL: Negative for: nausea and vomiting; MUSCULOSKELETAL: Negative for: pain INTEGUMENTARY: POSITIVE for: hives (posterior thighs) and lesions; All other systems reviewed and are negative RESULTS/VITAL SIGNS VITAL SIGNS: T PRBP SpO2O2(LPM) %FiO2 Method 28-Oct-2020 15:20:[id number] /68 97 PHYSICAL EXAM CONSTITUTIONAL: Appearance: well [...] ill patient: no Electronic Signatures: Stefany Pena (COTTON TIER-BAIT TIER) (Signed 28-Oct-2020 15:55) Authored: HPI, PMH, ROS, PE, Results/Vital Signs, MDM/ED Course, Clinical Impression, Attestation, Chart Review, Scores Last Updated: 28-Oct-2020 15:55 by Stefany Pena (COTTON TIER-BAIT TIER) [facility] [address] [place] [address] Patient: PRABHA LUNA Exam Date: 04/09/2017DOB: 1990 Gender:F : DR HENNY STERN . Admission #: [id number] : Order #: [id number] HERE TO VIEW EXAM RADIOLOGY REPORT PROCEDURE: [...] Lal M.D. on 04/09/2017 at 13:32 Normal [facility] Vital Signs Date Time Vital Sign Value Performing Clinician Facility 08-20-2024 10:49-0500 Body mass index (BMI) [Ratio] 29.04 kg/m2 [employer] Work Phone: [facility] 08-20-2024 10:49-0500 Body weight 72.03 kg [employer] Work Phone: [facility] 08-20-2024 10:49-0500 Diastolic blood pressure 70 mm[Hg] [employer] [facility] [employer] Work Phone: [facility] 08-20-2024 10:49-0500 Systolic blood pressure 104 mm[Hg] [facility] [employer] Work Phone: [facility] 10-18-2023 08:10-0400 Diastolic blood pressure 81 mm[Hg] [facility] 10-18-2023 08:10-0400 Heart rate 79 /min [facility] 10-18-2023 08:10-0400 Mean blood pressure 92 mm[Hg] [facility]rac[facility] 10-18-2023 08:10-0400 Respiratory rate 14 /min [place] [facility] 10-18-2023 08:10-0400 Systolic blood pressure 113 mm[Hg] Altagracia [facility] 10-02-2023 12:57-0400 Heart rate 81 /min Pedroza [facility] 10-02-2023 12:57-0400 SaO2% (BldA) [Mass fraction] 97 % Yovany [facility] 10-02-2023 12:57-0400 Respiratory rate 16 /min Yovany [facility] 10-02-2023 12:56-0400 Diastolic blood pressure 69 mm[Hg] Yovany [facility] 10-02-2023 12:56-0400 Mean blood pressure 78 mm[Hg] Yovany [facility] 10-02-2023 12:56-0400 Systolic blood pressure 96 mm[Hg] Yovany [facility] 10-02-2023 12:53-0400 Diastolic blood pressure 65 mm[Hg] Yovany [facility] 10-02-2023 12:53-0400 Heart rate 83 /min Yovany [facility] 10-02-2023 12:53-0400 SaO2% (BldA) [Mass fraction] 99 % Yovany [facility] 10-02-2023 12:53-0400 Systolic blood pressure 91 mm[Hg] Yovany [facility] 10-02-2023 12:19-0400 Heart rate 82 /min Yovany [facility] 10-02-2023 12:19-0400 SaO2% (BldA) [Mass fraction] 98 % Yovany [facility] 10-02-2023 12:19-0400 Body temperature 98.06 [degF] Y[facility]any [facility] 10-02-2023 12:18-0400 Diastolic blood pressure 71 mm[Hg] Yovany [facility] 10-02-2023 12:18-0400 Mean blood pressure 81 mm[Hg] Yovany [facility] 10-02-2023 12:18-0400 Systolic blood pressure 102 mm[Hg] Yovany [facility] 10-02-2023 12:16-0400 Respiratory rate 14 /min Yovany [facility] 06-25-2023 07:58-0500 Diastolic blood pressure 88 mm[Hg] Clyde Ortiz [facility] 06-25-2023 07:58-0500 Heart rate 88 /min Clyde Ortiz [facility] 06-25-2023 07:58-0500 Mean blood pressure 98 mm[Hg] Clyde Ortiz [facility] 06-25-2023 07:58-0500 Respiratory rate 14 /min Clyde Ortiz [facility] 06-25-2023 07:58-0500 Systolic blood pressure 118 mm[Hg] Clyde Otriz [facility] 02-18-2023 10:29-0400 Diastolic blood pressure 78 mm[Hg] Altagracia Curtis [facility] 02-18-2023 10:29-0400 Heart rate 93 /min Altagracia Curtis [facility] 02-18-2023 10:29-0400 Mean blood pressure 89 mm[Hg] Altagracia Curtis [facility] 02-18-2023 10:29-0400 Respiratory rate 16 /min Altagracia Curtis [facility] 02-18-2023 10:29-0400 Systolic blood pressure 111 mm[Hg] Altagraciahunter Curtis [facility] 01-27-2023 22:00-0400 Body temperature 97.88 [degF] Kenn Yudith [facility] 01-27-2023 22:00-0400 Diastolic blood pressure 69 mm[Hg] Kenn Yudith [facility] 01-27-2023 22:00-0400 Heart rate 78 /min Kenn Yudith [facility] 01-27-2023 22:00-0400 Respiratory rate 18 /min Kenn Yudith [facility] 01-27-2023 22:00-0400 SaO2% (BldA) [Mass fraction] 100 % Kenn Yudith [facility] 01-27-2023 22:00-0400 Systolic blood pressure 96 mm[Hg] Kenn Yudith [facility] 11-09-2022 15:27-0400 Diastolic blood pressure 73 mm[Hg] Altagraciahunter Curtis [facility] 11-09-2022 15:27-0400 Heart rate 86 /min Altagraciahunter Curtis [facility] 11-09-2022 15:27-0400 Mean blood pressure 83 mm[Hg] Altagracia Curtis [facility] 11-09-2022 15:27-0400 Respiratory rate 12 /min Altagracia Curtis [facility] 11-09-2022 15:27-0400 Systolic blood pressure 104 mm[Hg] Altagracia Curtis [facility] 10-15-2022 10:27-0400 Heart rate 76 /min Clyde Ortiz [facility] 10-15-2022 10:27-0400 SaO2% (BldA) [Mass fraction] 99 % Clyde Ortiz [facility] 10-15-2022 10:27-0400 Diastolic blood pressure 67 mm[Hg] Clyde Ortiz [facility] 10-15-2022 10:27-0400 Mean blood pressure 77 mm[Hg] Clyde Ortiz [facility] 10-15-2022 10:27-0400 Systolic blood pressure 98 mm[Hg] Clyde Ortiz [facility] 10-15-2022 10:27-0400 Respiratory rate 14 /min Clyde Ortiz [facility] 10-15-2022 10:23-0400 Diastolic blood pressure 73 mm[Hg] Clyde Ortiz [facility] 10-15-2022 10:23-0400 Heart rate 69 /min Clyde Ortiz [facility] 10-15-2022 10:23-0400 Respiratory rate 14 /min Clyde Ortiz [facility] 10-15-2022 10:23-0400 SaO2% (BldA) [Mass fraction] 98 % Clyde Ortiz [facility] 10-15-2022 10:23-0400 Systolic blood pressure 100 mm[Hg] Clyde Ortiz [facility] 10-15-2022 09:41-0400 Heart rate 72 /min Clyde Ortiz [facility] 10-15-2022 09:41-0400 SaO2% (BldA) [Mass fraction] 98 % Clyde Alcantar [facility] 10-15-2022 09:41-0400 Diastolic blood pressure 65 mm[Hg] Clyde Alcantar [facility] 10-15-2022 09:41-0400 Mean blood pressure 75 mm[Hg] Clydedov Alcantar [facility] 10-15-2022 09:41-0400 Systolic blood pressure 95 mm[Hg] Clyde Alcantar [facility] 10-15-2022 09:41-0400 Body temperature 97.88 [degF] Clyde Alacntar [facility] 10-15-2022 09:41-0400 Respiratory rate 12 /min Clyde [facility]cant[facility] 08-20-2022 14:57-0500 Diastolic blood pressure 75 mm[Hg] Altagracia Curtis [facility] 08-20-2022 14:57-0500 Heart rate 79 /min Altagraciahunter [facility] 08-20-2022 14:57-0500 Mean blood pressure 89 mm[Hg] Altagracia Curtis [facility] 08-20-2022 14:57-0500 Respiratory rate 14 /min Altagraciahunter [facility] 08-20-2022 14:57-0500 Systolic blood pressure 118 mm[Hg] Altagracia [facility] 08-17-2022 11:51-0500 Diastolic blood pressure 66 mm[Hg] DO Chaitanya Tejal Work Phone: [facility] 08-17-2022 11:51-0500 Heart rate 68 /min DO Chaitanya Tejal Work Phone: [facility] 08-17-2022 11:51-0500 Respiratory rate 18 /min DO Chaitanya Tejal Work Phone: [facility] 08-17-2022 11:51-0500 SaO2% (BldA) [Mass fraction] 99 % DO Chaitanya Tejal Work Phone: [facility] 08-17-2022 11:51-0500 Systolic blood pressure 118 mm[Hg] DO Chaitanya Tejal Work Phone: [facility] 08-17-2022 10:40-0500 Body height 157.48 cm DO Chaitanya Tejal Work Phone: [facility] 08-17-2022 10:40-0500 Body temperature 98.2 [degF] DO Chaitanya Tejal Work Phone: [facility] 08-17-2022 10:40-0500 Body weight 73.4 kg DO Chaitanya Tejal Work Phone: [facility] 07-09-2022 07:44-0500 Diastolic blood pressure 72 mm[Hg] Altagraciahunter [facility] 07-09-2022 07:44-0500 Heart rate 90 /min Altagracia [facility] 07-09-2022 07:44-0500 Mean blood pressure 87 mm[Hg] Altagracia [facility] 07-09-2022 07:44-0500 Respiratory rate 16 /min Altagracia [facility] 07-09-2022 07:44-0500 Systolic blood pressure 116 mm[Hg] Altagracia [facility] 06-25-2022 09:49-0500 Diastolic blood pressure 75 mm[Hg] Clyde Alcantar [facility] 06-25-2022 09:49-0500 Heart rate 75 /min Clyde Ortiz [facility] 06-25-2022 09:49-0500 Mean blood pressure 87 mm[Hg] Clyde Ortiz [facility] 06-25-2022 09:49-0500 SaO2% (BldA) [Mass fraction] 100 % Clyde Ortiz [facility] 06-25-2022 09:49-0500 Systolic blood pressure 110 mm[Hg] Clyde Ortiz [facility] 06-25-2022 09:44-0500 Diastolic blood pressure 79 mm[Hg] Clyde Ortiz [facility] 06-25-2022 09:44-0500 Heart rate 69 /min Clyde Ortiz [facility] 06-25-2022 09:44-0500 Respiratory rate 16 /min Clyde Ortiz [facility] 06-25-2022 09:44-0500 SaO2% (BldA) [Mass fraction] 98 % Clyde Ortiz [facility] 06-25-2022 09:44-0500 Systolic blood pressure 104 mm[Hg] Clyde Ortiz [facility] 06-25-2022 08:42-0500 Body temperature 98.24 [degF] Clyde Ortiz [facility] 06-25-2022 08:42-0500 Diastolic blood pressure 72 mm[Hg] Clyde Ortiz [facility] 06-25-2022 08:42-0500 Heart rate 85 /min Clyde Ortiz [facility] 06-25-2022 08:42-0500 Mean blood pressure 85 mm[Hg] Clyde Alcantar [facility] 06-25-2022 08:42-0500 Respiratory rate 14 /min Clyde Alcantar [facility] 06-25-2022 08:42-0500 SaO2% (BldA) [Mass fraction] 98 % Clyde Alcantar [facility] 06-25-2022 08:42-0500 Systolic blood pressure 111 mm[Hg] Clyde Alcantar [facility] 04-13-2022 15:21-0400 Diastolic blood pressure 76 mm[Hg] Altagracia Curtis [facility] 04-13-2022 15:21-0400 Heart rate 81 /min Altagraciahunter [facility] 04-13-2022 15:21-0400 Mean blood pressure 90 mm[Hg] Altagracia [facility] 04-13-2022 15:21-0400 Respiratory rate 16 /min Altagracia Curtis [facility] 04-13-2022 15:21-0400 Systolic blood pressure 117 mm[Hg] Altagracia [facility] 04-10-2022 08:50-0400 Diastolic blood pressure 65 mm[Hg] DO Tony Hannon Work Phone: [facility] 04-10-2022 08:50-0400 Heart rate 89 /min DO Tony Hannon Work Phone: [facility] 04-10-2022 08:50-0400 Respiratory rate 20 /min DO Tony Hannon Work Phone: [facility] 04-10-2022 08:50-0400 SaO2% (BldA) [Mass fraction] 99 % DO Tony Hannon Work Phone: [facility] 04-10-2022 08:50-0400 Systolic blood pressure 109 mm[Hg] DO Tony Hannon Work Phone: [facility] 04-10-2022 06:38-0400 Body temperature 97.2 [degF] DO Tony Hannon Work Phone: [facility] 04-10-2022 06:37-0400 Body height 157.48 cm DO Tony Hannon Work Phone: [facility] 04-10-2022 06:37-0400 Body weight 71 kg DO Tony Hannon Work Phone: [facility] 02-05-2022 17:58-0400 Heart rate 73 /min Noel Acosta [facility] 02-05-2022 17:58-0400 Respiratory rate 16 /min Noel Acosta [facility] 02-05-2022 17:47-0400 Diastolic blood pressure 77 mm[Hg] Noel Choe [facility] 02-05-2022 17:47-0400 Heart rate 70 /min Noel Acosta [facility] 02-05-2022 17:47-0400 Mean blood pressure 90 mm[Hg] Noel Acosta [facility] 02-05-2022 17:47-0400 Respiratory rate 16 /min Noel Acosta [facility] 02-05-2022 17:47-0400 SaO2% (BldA) [Mass fraction] 100 % Noel Choe [facility] 02-05-2022 17:47-0400 Systolic blood pressure 115 mm[Hg] Noel Choe [facility] 02-05-2022 17:11-0400 Diastolic blood pressure 79 mm[Hg] Noel Dave [facility] 02-05-2022 17:11-0400 Heart rate 72 /min Noel Dave [facility] 02-05-2022 17:11-0400 Hourly Rounding Noel Choe [facility] 02-05-2022 17:11-0400 Mean blood pressure 92 mm[Hg] Noel Dave [facility] 02-05-2022 17:11-0400 Promise to Return Noel Dave [facility] 02-05-2022 17:11-0400 Respiratory rate 16 /min Noel Dave [facility] 02-05-2022 17:11-0400 Respiratory rate 79 /min Noel Choe [facility] 02-05-2022 17:11-0400 SaO2% (BldA) [Mass fraction] 97 % Noel Dave [facility] 02-05-2022 17:11-0400 Systolic blood pressure 119 mm[Hg] Noel Dave [facility] 02-05-2022 16:15-0400 gluc 91 mg/dL Noel Dave [facility] 02-05-2022 16:15-0400 gluc Noel Dave [facility] 02-05-2022 16:11-0400 Body temperature 98.6 [degF] Noel Dave [facility] 02-05-2022 16:11-0400 Diastolic blood pressure 80 mm[Hg] Noel Dave [facility] 02-05-2022 16:11-0400 Heart rate 83 /min Noel Dave [facility] 02-05-2022 16:11-0400 SaO2% (BldA) [Mass fraction] 97 % Noel Acosta [facility] 02-05-2022 16:11-0400 Systolic blood pressure 115 mm[Hg] Noel Acosta [facility] 01-19-2022 10:30-0400 Diastolic blood pressure 63 mm[Hg] DO Tony Hannon Work Phone: [facility] 01-19-2022 10:30-0400 Heart rate 73 /min DO Tony Hannon Work Phone: [facility] [facility] 01-19-2022 10:30-0400 Respiratory rate 18 /min DO Tony Hannon Work Phone: [facility] 01-19-2022 10:30-0400 SaO2% (BldA) [Mass fraction] 98 % DO Tony Hannon Work Phone: [facility] 01-19-2022 10:30-0400 Systolic blood pressure 105 mm[Hg] DO Tony Hannon Work Phone: [facility] 01-19-2022 07:02-0400 Body temperature 98.2 [degF] DO Tony Hannon Work Phone: [facility] 01-19-2022 06:58-0400 Body height 157.48 cm DO Tony Hannon Work Phone: [facility] 01-19-2022 06:58-0400 Body mass index (BMI) [Ratio] 31.3 kg/m2 DO Tony Hannon Work Phone: [facility] 01-19-2022 06:58-0400 Body weight 77.7 kg DO Tony Hannon Work Phone: [facility] 12-08-2021 15:00-0400 Diastolic blood pressure 74 mm[Hg] Altagracia Curtis [facility] 12-08-2021 15:00-0400 Heart rate 96 /min Altagracia Curtis [facility] 12-08-2021 15:00-0400 Mean blood pressure 85 mm[Hg] Altagracia Curtis [facility] 12-08-2021 15:00-0400 Respiratory rate 16 /min Altagracia Curtis [facility] 12-08-2021 15:00-0400 Systolic blood pressure 106 mm[Hg] Altagracia Curtis [facility] 11-21-2021 09:43-0400 Diastolic blood pressure 72 mm[Hg] Clyde Ortiz [facility] 11-21-2021 09:43-0400 Heart rate 82 /min Clyde Ortiz [facility] 11-21-2021 09:43-0400 Mean blood pressure 83 mm[Hg] Clyde Ortiz [facility] 11-21-2021 09:43-0400 SaO2% (BldA) [Mass fraction] 99 % Clyde Ortiz [facility] 11-21-2021 09:43-0400 Systolic blood pressure 106 mm[Hg] Clyde Ortiz [facility] 11-21-2021 09:39-0400 Diastolic blood pressure 88 mm[Hg] Clyde Ortiz [facility] 11-21-2021 09:39-0400 Heart rate 78 /min Clyde Ortiz [facility] 11-21-2021 09:39-0400 SaO2% (BldA) [Mass fraction] 100 % Clyde Ortiz [facility] 11-21-2021 09:39-0400 Systolic blood pressure 110 mm[Hg] Clyde Ortiz [facility] 11-21-2021 09:06-0400 Body temperature 98.24 [degF] Clyde Alcantar [facility] 11-21-2021 09:06-0400 Diastolic blood pressure 80 mm[Hg] Clyde Alcantar [facility] 11-21-2021 09:06-0400 Heart rate 78 /min Clyde Alcantar [facility] 11-21-2021 09:06-0400 Mean blood pressure 90 mm[Hg] Clyde Alcantar [facility] 11-21-2021 09:06-0400 Respiratory rate 16 /min Clyde Alcantar [facility] 11-21-2021 09:06-0400 SaO2% (BldA) [Mass fraction] 98 % Clyde Alcantar [facility] 11-21-2021 09:06-0400 Systolic blood pressure 110 mm[Hg] Clyde Alcantar [facility] 11-07-2021 14:32-0400 Diastolic blood pressure 65 mm[Hg] Davonte Alonzo [facility] 11-07-2021 14:32-0400 Heart rate 77 /min Davonte Alonzo [facility] 11-07-2021 14:32-0400 Respiratory rate 16 /min Davonte Alonzo [facility] 11-07-2021 14:32-0400 SaO2% (BldA) [Mass fraction] 100 % Davonte Alonzo [facility] 11-07-2021 14:32-0400 Systolic blood pressure 95 mm[Hg] Davonte Alonzo [facility] 11-07-2021 11:59-0400 Body temperature 98.06 [degF] Davonte Alonzo [facility] 11-07-2021 11:59-0400 Diastolic blood pressure 68 mm[Hg] Davonte Alonzo [facility] 11-07-2021 11:59-0400 Heart rate 78 /min Davonte Alonzo [facility] 11-07-2021 11:59-0400 Respiratory rate 18 /min Davonte Alonzo [facility] 11-07-2021 11:59-0400 SaO2% (BldA) [Mass fraction] 100 % Davonte Alonzo [facility] 11-07-2021 11:59-0400 Systolic blood pressure 111 mm[Hg] Davonte Alonzo [facility] 10-27-2021 11:16-0400 Diastolic blood pressure 73 mm[Hg] Altagracia Curtis [facility] 10-27-2021 11:16-0400 Heart rate 84 /min Altagracia Curtis [facility] 10-27-2021 11:16-0400 Mean blood pressure 89 mm[Hg] Altagracia Curtis [facility] 10-27-2021 11:16-0400 Respiratory rate 18 /min Altagracia Curtis [facility] 10-27-2021 11:16-0400 Systolic blood pressure 121 mm[Hg] Altagracia Curtis [facility] 08-04-2021 12:50-0500 Body height 157.4 cm Timo Rodriguez Other Phone: [facility] 08-04-2021 12:50-0500 Body temperature 98.06 [degF] Timo Rodriguez Other Phone: [facility] 08-04-2021 12:50-0500 Diastolic blood pressure 70 mm[Hg] Timo Rodriguez Other Phone: [facility] 08-04-2021 12:50-0500 Heart rate 105 /min Timo Rodriguez Other Phone: [facility] 08-04-2021 12:50-0500 SaO2% (BldA) [Mass fraction] 100 % Timo Rodriguez Other Phone: [facility] 08-04-2021 12:50-0500 Systolic blood pressure 103 mm[Hg] Timo Rodriguez Other Phone: [facility] 07-04-2021 17:05-0500 Body height 157.4 cm Timo Rodriguez Other Phone: [facility] 07-04-2021 17:05-0500 Body temperature 98.24 [degF] Timo Rodriguez Other Phone: [facility] 07-04-2021 17:05-0500 Diastolic blood pressure 64 mm[Hg] Timo Rodriguez Other Phone: [facility] 07-04-2021 17:05-0500 Heart rate 95 /min Timo Rodriguez Other Phone: [facility] 07-04-2021 17:05-0500 SaO2% (BldA) [Mass fraction] 98 % Timo Rodriguez Other Phone: [facility] 07-04-2021 17:05-0500 Systolic blood pressure 94 mm[Hg] Timo Rodriguez Other Phone: [facility] 03-02-2021 18:47-0400 Body height 157.4 cm Timo Rodriguez Other Phone: [facility] 03-02-2021 18:47-0400 Body temperature 98.06 [degF] Timo Rodriguez Other Phone: [facility] 03-02-2021 18:47-0400 Diastolic blood pressure 78 mm[Hg] Timo Rodriguez Other Phone: [facility] 03-02-2021 18:47-0400 Heart rate 102 /min Timo Rodriguez Other Phone: [facility] 03-02-2021 18:47-0400 Respiratory rate 20 /min Timo Rodriguez Other Phone: [facility] 03-02-2021 18:47-0400 SaO2% (BldA) [Mass fraction] 97 % Timo Rodriguez Other Phone: [facility] 03-02-2021 18:47-0400 Systolic blood pressure 137 mm[Hg] Timo Rodriguez Other Phone: [facility] Encounters Encounter Date Encounter Type Care Provider Facility Start: 08-20-2024 End: 08-20-2024 Bamboo flowsheet Stoney Meron DO Work Phone: [facility] Start: 08-20-2024 End: 08-20-2024 Bamboo flowsheet Stoney Meron DO Work Phone: [facility] Start: 08-20-2024 End: 08-20-2024 Clinisync Result Encounter Generic External Data Provider [facility] Department Unsolicited Start: 08-20-2024 End: 08-20-2024 Office outpatient visit 15 minutes Stoney Meron DO Work Phone: [facility] Comment on above: Menorrhagia with irr egular cycle; Breast pain in female; Bilateral breast lump Start: 08-20-2024 End: 08-20-2024 ambulatory STONEY MERON Not Available Start: 05-25-2024 End: 05-25-2024 ambulatory [facility] Facility[facility] Start: 03-14-2024 End: 03-16-2024 Refill Lucretia Graves MD Work Phone: [facility] 210 Comment on above: 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) Start: 11-18-2023 End: 11-18-2023 ambulatory LUCRETIA GRAVES Not Available Start: 11-12-2023 End: 11-12-2023 ambulatory JANA ZABALA Not Available Start: 11-01-2023 End: 11-01-2023 ambulatory CONSTANCE HAIR Not Available Start: 10-18-2023 End: 10-18-2023 ambulatory RUMA Curtis [place] Start: 10-18-2023 End: 10-18-2023 Pain Management Altagracia Curtis [facility] Start: 10-02-2023 End: 10-02-2023 ambulatory Yovany Madrid [place] Start: 10-02-2023 End: 10-02-2023 Pain Management Yovany Madrid [facility] Start: 09-10-2023 End: 09-10-2023 ambulatory STONEY CHANCE Not Available Start: 09-02-2023 Telephone encounter Stoney morales DO Work Phone: [facility] Start: 06-25-2023 End: 06-25-2023 ambulatory Jana ZABALA [place] Start: 06-25-2023 End: 06-25-2023 Pain Management Clyde Alcantar [facility] Start: 02-18-2023 End: 02-18-2023 Pain Management Altagracia Curtis [facility] Start: 01-31-2023 End: 01-31-2023 Patient encounter procedure Monika GAO [facility] Start: 01-27-2023 End: 01-27-2023 Emergency department patient visit Kenn GarciaThiago Yudith [facility] Start: 11-21-2022 End: 11-22-2022 Pre-admission assessment Shannon Golden [facility] Start: 11-09-2022 End: 11-09-2022 Pain Management Altagracia Curtis [facility] Start: 10-15-2022 End: 10-15-2022 Pain Management Clyde Alcantar [facility] Start: 08-20-2022 End: 08-20-2022 Pain Management Altagracia Curtis [facility] Start: 08-17-2022 End: 08-17-2022 Emergency department patient visit Chaitanyasaulo Oliveirazi Facility:[facility] Start: 08-17-2022 End: 08-17-2022 Emergency department patient visit DO Chaitanya Toure Work Phone: [facility] Work Phone: Start: 08-06-2022 End: 08-06-2022 ambulatory Christian Juárez Other [facility] [employer] Other Start: 08-06-2022 Telephone encounter Christian Juárez [facility] Neurosurgery Start: 07-31-2022 End: 07-31-2022 Patient encounter procedure Altagracia Curtis [facility] Start: 07-09-2022 End: 07-09-2022 Pain Management Altagracia Curtis [facility] Start: 06-25-2022 End: 06-25-2022 Pain Management Clyde Alcantar [facility] Start: 05-08-2022 End: 05-08-2022 Patient encounter procedure Altagracia Curtis [facility] Start: 05-07-2022 End: 05-07-2022 Patient encounter procedure Altagraciahunter Curtis [facility] Start: 04-13-2022 End: 04-13-2022 Pain Management Altagracia Curtis [facility] Start: 04-10-2022 End: 04-10-2022 Emergency department patient visit Tony Hannon Facility:[facility] Start: 04-10-2022 End: 04-10-2022 Emergency department patient visit DO Tony Hannon Work Phone: [facility] Start: 02-14-2022 End: 02-14-2022 Patient encounter procedure Jana ZABALA [facility] Start: 02-05-2022 End: 02-05-2022 Emergency department patient visit Noel Acosta [facility] Start: 01-19-2022 End: 01-19-2022 Emergency department patient visit Tony Hannon Facility:[facility] Start: 01-19-2022 End: 01-19-2022 Emergency department patient visit DO Tony Hannon Work Phone: [facility] Start: 12-08-2021 End: 12-08-2021 Pain Management Altagracia Curtis [facility] Start: 11-21-2021 End: 11-21-2021 Pain Management Clyde Alcantar [facility] Start: 11-07-2021 End: 11-07-2021 Emergency department patient visit Davonte AbbieThiago Alonzo [facility] Start: 10-27-2021 End: 10-27-2021 Pain Management Altagracia Curtis [facility] Start: 08-04-2021 End: 08-04-2021 Emergency department patient visit [facility] Start: 07-04-2021 End: 07-04-2021 Emergency department patient visit Stefany [facility] Start: 03-02-2021 End: 03-02-2021 Emergency department patient visit Harshad Julien [facility] Start: 04-09-2017 End: 04-10-2017 Ambulatory HENNY STERN Facility: Start: 02-19-2013 End: 02-19-2013 Telephone encounter Otilio Castillo Work Phone: Internal Medicine [facility] Comment on above: Refill Request Procedures Date Procedure Procedure Detail Performing Clinician Start: 08-20-2024 ALL CBC WITH AUTO DIFF Stoney Chance DO Work Phone: Start: 10-02-2023 Epidural injection o f lumbar spine using fluoroscopic guidance Altagracia [employer] Comment on above: 85% relief Start: 05-24-2023 Destructive procedure J daniela Alcantar Start: 02-04-2023 Lumbar epidural ster oid injection Altagracia [employer] Comment on above: L4/5-70% relief. Start: 01-29-2023 Microscopic observat ion [Identifier] in Cervix by Cyto stain Stoney Chance DO Work Phone: Start: 06-25-2022 Epidural injection o f lumbar spine using fluoroscopic guidance [employer] Comment on above: L4-L5 80% relief Start: 01-19-2022 SARS Antigen (LFIA) DO Tony Hannon Work Phone: Start: 01-19-2022 Plain chest X-ray DO Cecilio Hannon Work Phone: Start: 11-21-2021 Epidural injection o f lumbar spine using fluoroscopic guidance [employer] Comment on above: L4/5 FLACO-50% relief Start: 06-26-2021 Epidural injection o f lumbar spine using fluoroscopic guidance [employer] Comment on above: 50% relief Start: 12-26-2020 Epidural injection o f lumbar spine using fluoroscopic guidance [employer] Comment on above: 50% relief Start: 04-12-2020 Epidural injection o f lumbar spine using fluoroscopic guidance [employer] Comment on above: L4/5 50% relief Start: 12-08-2019 Epidural injection o f lumbar spine using fluoroscopic guidance [employer] Comment on above: 5% relief if any Start: 03-16-2014 Laparoscopic cholecystectomy Altagracia [employer] Cholecystectomy Altagracia Arcadio quezada Epidural injection o f lumbar spine using fluoroscopic guidance [employer] Comment on above: L4-L5 80% relief Plan of Treatment Date Care Activity Detail Author Start: 01-30-2028 Screening for malign ant neoplasm of cervix [facility] Start: 01-29-2026 Screening for malign ant neoplasm of cervix Pap Smear [facility] Start: 09-10-2024 End: 09-10-2024 Patient encounter procedure 09/10/2024 9:10 AM EST Office Visit [facility] [address] [place] [address] Stoney Chance, DO [address] [place] [address] [facility] Start: 08-20-2024 End: 08-20-2025 Antimullerian hormone (AMH) Antimullerian hormone (AMH) Lab Routine Menorrhagia with irregular cycle Expected: 08/20/2024 (Approximate), Expires: 08/20/2025 [facility] Comment on above: Expected: 08/20/2024 (Approximate), Expires: 08/20/2025 Start: 08-20-2024 End: 08-20-2025 DHEA DHEA Lab Routine Menorrhagia with irregular cycle Expected: 08/20/2024 (Approximate), Expires: 08/20/2025 [facility] Comment on above: Expected: 08/20/2024 (Approximate), Expires: 08/20/2025 Start: 08-20-2024 End: 10-18-2025 MG Breast - bilateral Diagnostic Bilateral diagnostic mammogram Imaging Routine Breast pain in female Bilateral breast lump Expected: 08/20/2024 (Approximate), Expires: 10/18/2025 [facility] Comment on above: Expected: 08/20/2024 (Approximate), Expires: 10/18/2025 Start: 08-20-2024 End: 08-20-2025 US Pelvis US Pelvis w/ TV Imaging Routine Menorrhagia with irregular cycle Expected: 08/20/2024, Expires: 08/20/2025 [facility] Comment on above: Expected: 08/20/2024 , Expires: 08/20/2025 Start: 08-20-2024 End: 08-20-2024 Patient encounter procedure 08/20/2024 10:50 AM EST Office Visit [facility] [address] [place] [id number] Stoney Chance, DO [address] [place] [address] Arrived [facility] Comment on above: Arrived Start: 03-22-2024 Influenza vaccination Influenza Vacc ine (#1) [facility] Start: 11-18-2023 End: 11-18-2023 Patient encounter procedure 11/18/2023 8:50 AM EDT Office Visit [facility] [address] [place] [address] Nisreen Martinez, [employer]IT TIER [address] [place] [address] [facility] Start: 10-03-2023 End: 10-03-2023 Patient encounter procedure 10/03/2023 3:40 PM EDT Office Visit [facility] [address] [place] [address] Lucretia Graves MD [address] [facility] [address] [address] [facility] Start: 03-22-2023 Influenza vaccination Influenza Vacc ine (#1) [facility] CBC W Auto Different ial panel - Blood CBC and differential Lab Routine Menorrhagia with irregular cycle Ordered: 08/20/2024 [facility] Comment on above: Ordered: 08/20/2024 DHEA-sulfate DHEA-sulfate Lab Routine Menorrhagia with irregular cycle Ordered: 08/20/2024 [facility] Comment on above: Ordered: 08/20/2024 Follicle stimulating hormone Follicle stimulating hormone Lab Routine Menorrhagia with irregular cycle Ordered: 08/20/2024 [facility] Comment on above: Ordered: 08/20/2024 hCG, quantitative, hCG, quantitative, Lab Routine Menorrhagia with irregular cycle Ordered: 08/20/2024 [facility] Work Phone: Comment on above: Ordered: 08/20/2024 Hemoglobin A1c/Hemoglobin.total in Blood Hemoglobin A1c Lab Routine Menorrhagia with irregular cycle Ordered: 08/20/2024 [facility] Comment on above: Ordered: 08/20/2024 Luteinizing hormone Luteinizing hormone Lab Routine Menorrhagia with irregular cycle Ordered: 08/20/2024 [facility] Comment on above: Ordered: 08/20/2024 Patient Education [facility] Work Phone: Patient referral [facility] Work Phone: Thyrotropin [Units/volume] in Serum or Plasma TSH Lab Routine Menorrhagia with irregular cycle Ordered: 08/20/2024 [facility] Comment on above: Ordered: 08/20/2024 Thyroxine (T4) free [Mass/volume] in Serum or Plasma T4, free Lab Routine Menorrhagia with irregular cycle Ordered: 08/20/2024 [facility] Comment on above: Ordered: 08/20/2024 Immunizations Immunization Date Immunization Notes Care Provider Daniel mosley 11-29-2006 meningococcal polysaccharide (groups A, C, Y and W-135) diphtheria toxoid conjugate vaccine (MCV4P) Stoney Chance Work Phone: [facility] NEGATED: Highlighted row has not occurred!02-15-2013 pneumococcal polysaccharide vaccine, 23 valent Otilio Castillo Jr. Work Phone: [facility] Payers Date Payer Category Payer Private Health Insurance JESSICA BRAVO [id number] 2024 Unknown [id number] 2023 Unknown [id number] 2023 Worker's Compensation [id number] 2022 Medicaid [employer] [place] [id number] 2022-Present [address] [place] [address] [id number] 2022 Private Health Insurance [id number] 2022 Unknown 2022 Medicaid [id number] 2022 Self-pay [id number] 2020 Medicaid [id number] 1989 Unknown [id number] 1989 Unknown [id number] 1989 Unknown [id number] 1989 Unknown [id number] 1989 Unknown [id number] .[id number] 1989 Unknown [id number] 1989 Unknown [id number] .[id number] 1989 Unknown [id number] .[id number] 1989 Unknown [id number] .[id number] 1959 Private Health Insurance [id number] Unknown [id number] Unknown [id number] .[id number] Unknown [id number] Unknown [id number] Worker's Compensation [id number] Social History Date Type Detail Facility Start: 02-16-2013 End: 01-19-2022 Tobacco smoking status NHIS Never smoker [facility] Start: 02-16-2013 Alcohol intake Current 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 Start: 1990 Sex Assigned At Not on file [facility] Tobacco smoking consumption unknown [facility] Start: 09-11-2021 End: 05-11-2022 Tobacco smoking status Light tobacco smoker (finding) [facility] Start: 06-17-2023 End: 11-18-2023 Sex Assigned At Female [facility] Start: 1990 Sex Assigned At Female F [facility] Tobacco [facility] Comment on above: former smoker Start: 04-10-2022 End: 08-17-2022 Tobacco smoking status NHIS Smoker (finding) [facility] Tobacco smoking status No Smokin g Status Entered [facility] Start: 11-09-2022 Tobacco smoking status Heavy t obacco smoker (finding) [facility] Start: 12-27-2022 Tobacco smoking stat us NCIS Ex-smoker [facility] History of tobacco use Cigarette Smoker [facility] Start: 12-27-2022 End: 11-18-2023 Cigarettes smoked current (pack per day) - Reported 0.5 [facility] Start: 12-27-2022 Tobacco use and exposure Smokeless tobacco non-user [facility] Start: 06-17-2023 End: 08-20-2024 Alcohol intake Lifetime non-drinker (finding) [facility] Start: 06-05-2023 Alcohol Comment Caffeine intak e: 2-3 cups per day A pop a day, tea [facility] Functional Status Date Assessment Result Facility 10-18-2023 Functional Status N/A [facility] 10-02-2023 Functional Status N/A [facility] 06-25-2023 Functional Status N/A [facility] 02-18-2023 Functional Status N/A [facility] 01-27-2023 Functional Status N/A [facility] 11-09-2022 Functional Status N/A [facility] 10-15-2022 Functional Status N/A [facility] 08-20-2022 Functional Status N/A [facility] 07-09-2022 Functional Status N/A [facility] 06-25-2022 Functional Status N/A [facility] 04-13-2022 Functional Status N/A [facility] 02-05-2022 Functional Status N/A [facility] Clinical Notes 10-27-2021 to 08-20-2024 Solange CamposLISSY haines - 08/20/2024 10:50 AM EST Note Date & Type Note Facility 08-20-2024 History of Presen t illness Narrative Reason for Appointment: Patient ID: Prabha Luna is a 34 y.o. female who presents for Menstrual Problem Patient presents today for Consult appointment. MEDICATIONS Current Outpatient Medications Medication Instructions levothyroxine (Synthroid, Levoxyl) 25 MCG tablet TAKE 1 TABLET BY MOUTH EVERY DAY IN THE MORNING ON EMPTY STOMACH FOR 30 DAYS naproxen (NAPROSYN) 500 mg, Oral, 2 times daily with meals ondansetron (ZOFRAN) 8 mg, Oral, Every 8 hours PRN ondansetron ODT (ZOFRAN-ODT) 4 mg, Oral, Every 8 hours PRN Rimegepant Sulfate (Nurtec) 75 MG tablet dispersible 1 tablet, Oral, Every other day tiZANidine (ZANAFLEX) 4 mg, Oral, Every 6 hours PRN ALLERGIES Allergies Allergen Reactions Bee Venom Other Reaction(s): swollen at site Chocolate Headache Dicyclomine Hcl Hives Galcanezumab-Gnlm Other Reaction(s): redness and swelling Other Other migraines Dicyclomine Hives and Rash Metoclopramide Rash Other Reaction(s): twitching gives her shakes PROBLEMS Active Ambulatory Problems Diagnosis Date Noted Acquired hypothyroidism ([facility]) 12/27/2022 Anxiety 12/27/2022 Gastroesophageal reflux disease without esophagitis 12/27/2022 Acute gastroenteritis 12/27/2022 Migraine without status migrainosus, not intractable (CMS/HCC) 12/27/2022 Vertigo 12/27/2022 Intractable migraine without aura and without status migrainosus ([facility]/HCC) 12/27/2022 Amenorrhea 01/29/2023 Anemia 01/29/2023 Arrhythmia 02/15/2013 Chronic fatigue 01/29/2023 Chronic idiopathic constipation 01/29/2023 Cigarette nicotine dependence without complication 01/29/2023 Current smoker 01/29/2023 Displacement of lumbar intervertebral disc without myelopathy 10/27/2019 Enlarged thyroid ([facility]/HCC) 01/29/2023 Hair thinning 01/29/2023 Headache 01/29/2023 Hypersomnia 01/29/2023 Obesity 01/29/2023 Seasonal allergic rhinitis 01/29/2023 Snoring 01/29/2023 SOB (shortness of breath) 02/15/2013 Vaginal discharge 01/29/2023 Vomiting 01/29/2023 Acid reflux 01/29/2023 Intractable menstrual migraine with status migrainosus ([facility]/HCC) 01/29/2023 Migraine without aura and with status migrainosus, not intractable ([facility]/HCC) 01/29/2023 Dysuria 11/12/2023 Family history of factor V Leiden mutation 11/12/2023 Chest wall pain 11/18/2023 Cervical myofascial strain 11/18/2023 Allergic reaction 11/18/2023 Resolved Ambulatory Problems Diagnosis Date Noted No Resolved Ambulatory Problems Past Medical History: Diagnosis Date Cyst, ovarian History of being hospitalized 02/05/2022 Migraine ([facility]) Papanicolaou smear 04/05/2017 HISTORY PAST MEDICAL HISTORY SOCIAL HISTORY Past Medical History: Diagnosis Date Cyst, ovarian [place] of being [place] [facility] [place]raine [place]) Papanicolaou smear 04/05/2017 neg Social History Tobacco Use Smoking status: Former Current packs/day: 0.50 Types: Cigarettes Smokeless tobacco: Never Vaping Use Vaping status: Some Days Substances: Nicotine, Flavoring Devices: Disposable Substance Use Topics Alcohol use: Never Comment: Caffeine intake: 2-3 cups per day A pop a day, tea Drug use: Never FAMILY HISTORY Family History Problem Relation Name Age of Onset Diabetes Mother Diabetes Father SURGICAL HISTORY Past Surgical History: Procedure Laterality Date CHOLECYSTECTOMY LAPAROSCOPY DIAGNOSTIC / BIOPSY / ASPIRATION / LYSIS 05/24/2023 REVIEW OF SYSTEMS Review of Systems: Review of Systems Genitourinary: Positive for menstrual problem and pelvic pain. All other systems reviewed and are negative. OBJECTIVE Objective: Physical Exam Constitutional: Appearance: Normal appearance. She is well-developed. Genitourinary: Breasts: Breasts are soft. Right: Tenderness present. Left: Tenderness present. Cardiovascular: Rate and Rhythm: Normal rate and regular rhythm. Pulmonary: Effort: Pulmonary effort is normal. Breath sounds: Normal breath sounds. Abdominal: General: Bowel sounds are normal. There is no distension. Palpations: Abdomen is soft. Tenderness: There is no abdominal tenderness. There is no guarding or rebound. Musculoskeletal: General: No swelling. Normal range of motion. Right lower leg: No edema. Left lower leg: No edema. Neurological: Mental Status: She is alert and oriented to person, place, and time. Skin: General: Skin is warm and dry. Psychiatric: Mood and Affect: Mood normal. Behavior: Behavior normal. Vitals and nursing note reviewed. Exam conducted with a cardiograph operator present. Vitals: Estimated body mass index is 29.04 kg/m as calculated from the following: Height as of 24: 5' 2 . Weight as of this encounter: 158 lb 12.8 oz. BP: 104/70 No LMP recorded. ASSESSMENT & PLAN ICD-10-CM 1. Menorrhagia with irregular cycle N92.1 hCG, quantitative, TSH T4, free CBC and differential Follicle stimulating hormone Luteinizing hormone Hemoglobin A1c DHEA-sulfate DHEA US Pelvis w/ TV DHEA 2. PCOS (polycystic ovarian syndrome) E28.2 Patient presents today to discuss breast pain. After exam patient will have diagnostic mammogram ordered. Patient given labs and ultrasound RTC in 2-3 weeks for fertility and follow up labs & Ultrasound. Patients spouse was given semen analysis order and collection items. Patients spouse is Mehul Ponce 05/04/1987, patient will aware to reach out to office once sample is taken to lab so then staff is able to obtain results. Patient to return to clinic in 2-3 weeks as directed. Documented by Solange Martin LPN on behalf of: Stoney Chance DO documented in this encounter [facility] 10-18-2023 Evaluation + Plan note Extrac danyel from: Title:Pain Managment Follow up Author:Altagracia Kirby Date:10/18/23 Impression and Plan Patient is a 33 year old female with a past medical history significant for a [facility] claim. The approved codes are M51.26 and [...] Date:01/10/2024 08:00:00 AM Scheduled Provider:Altagracia Curtis PA-C Location:[facility] Appointment Type:Pain Management - Workmans Comp Follow U [facility]03-13-2024 Evaluation + Plan noteExtracted from: Title:L4/5 [...] the epidural space was confirmed using the wjds-pc-pewtmsxwry technique and 2 cc of air. Injection [...] AM Scheduled Provider:Altagracia Curtis PA-C Location:.[facility] Appointment Type:Pain Management - Follow Up (FT) [facility]03-13-2024 Note [id number]#[id number]23 NoteDiagnosis: M51.26, lumbar [...] the epidural space was confirmed using the vaxq-po-gifjnusoes technique and 2 cc of air. Injection [...] procedure, and agrees to continue currently prescribed/recommended therapies.[facility] Comment on above:Result Comment: Electronically Signed By: Yovany Madrid DO\.br\Date and Time Signed: 10/02/23 12:56 [id number] Telephone encounter Note* Telephone Encounter - Emilia Rosenberg - 09/02/2023 1:10 PM EST Patient mother Ana Lilia called for daughter. She feels like she had a ruptured cyst on Saturday. Sheis having pain, bleeding with clots and feels weak. She states she had an ablation May 23, 2023. Per nurse, pt advised to be evaluated at hospital. [facility] advised. [id number] Miscellaneous Notes* Telephone Encounter - Emilia Rosenberg - 09/02/2023 1:10 PM EST Patient mother Ana Lilia called for daughter. She feels like she had a ruptured cyst on Saturday. Sheis having pain, bleeding with clots and feels weak. She states she had an ablation May 23, 2023. Per nurse, pt advised to be evaluated at hospital. Pt advised. documented [facility] encounter[facility] [id number] Evaluation + Plan note Extracted from: Title:FUV [...] response. Patient agrees with plan of care. [facility]07-31-2023 Evaluation + Plan noteExtracted from: Title:Pain Managment Follow up Author:Altagracia Kirby Date:02/18/23 Impression and Plan Patient is a 32-year-old female with a past medical history significant for a [facility] claim. The approved codes are m51.26 [...] services in the meantime. MENDEL score: 28% [facility]04-21-2023 Evaluation + Plan noteExtracted from: Title:Pain Managment Follow up Author:Altagracia Kirby Date:11/09/22 Impression and Plan Patient is a 32 year old female with a past medical history significant for a [facility] claim. The approved codes are m51.26 [...] 07:45:00 PM Scheduled Provider: Location:.SLEEP LAB_ Appointment Type:[facility] Sleep Study HST () Appointment Date:01/04/2023 03:15:00 PM Scheduled Provider:Altagracia Curtis PA-C Location:.[facility] Appointment Type:Pain Management - Workmans Comp Follow U [facility]03-27-2023 Evaluation + Plan noteExtracted from: Title:Epidural Steroid Injec ion - LUMBAR - Ortiz Author:Clyde Alcantar MD Date:10/15/22 Patient: PRABHA LUNA [...] Date:11/09/2022 03:15:00 PM Scheduled Provider:Altagracia Curtis PA-C Location:[facility] Appointment Type:Pain Management - Workmans Comp Follow [facility]01-30-2023 Evaluation + Plan noteExtracted from: Title:Pain Managment Follow up Author:Altagracia Kirby Date:08/20/22 Impression and Plan Patient is a 32 year old female with a past medical history significant for a [facility] claim. The approved codes are m51.26 [...] PM Scheduled Provider:Altagracia Curtis PA-C [facility] Appointment Type:Pain Management - Workmans Comp Follow U [facility]12-19-2022 Evaluation + Plan noteExtracted from: Title:Pain Managment Follow up Author:Altagracia Kirby Date:07/09/22 Impression and Plan Patient is a 31 year old female with a past medical history significant for a [facility] claim. The approved codes are m51.26 [...] Date:10/08/2022 07:45:00 AM Scheduled Provider:Altagracia Curtis PA-C Location:[facility] Appointment Type:Pain Management - Workmans Comp Follow [facility]09-23-2022 Evaluation + Plan noteExtracted from: Title:Pain management follow-up Author:Altagracia Curtis PA-C Date:04/13/22 Impression and Plan Patient is a 31 year old female with a past medical history significant for a [facility] claim. The approved codes are m51.26 [...] will call the clinic sooner if necessary. [facility]07-18-2022 Hospital Discharge instructions Patient Education 02/05/2022 [...] away. Follow these instructions at home: Take lfju-cze-ytuxoyp and prescription medicines only as told by [...] 07/08/2006 Document Revised: 06/20/2018 Document Reviewed: 06/18/2018 [employer] Patient Education 2020 [employer]. 02/05/2022 18:02:35 Nausea, Adult, Nlot-ek-Zdph Nausea, Adult Nausea is feeling sick to [...] fruit juice). ?Low-calorie sports drinks. Eat bland, xbjx-xz-vffbkk foods in small amounts as you are able, such as: ?Bananas. ?Applesauce. ?Rice. ?Low-fat (lean) meats. ?Kensal. ?Crackers. Avoid drinking fluids that have a lot of sugar or caffeine in them. This includes energy drinks, sports drinks, and soda. Avoid alcohol. Avoid spicy or fatty foods. General instructions Take qtxd-cdh-rfsyaxj and prescription medicines only as told by your doctor. Rest at home while you get better. Drink enough fluid to keep your pee (urine) pale yellow. Take slow and deep breaths when you feel sick to your stomach. Avoid food or things that have strong smells. Wash your hands often with soap and water. If you cannot use soap and water, use hand insulation helper. Make sure that all people in your [...] drink what your doctor tells you. Take tscl-oae-xtysojr and prescription medicines only as told by [...] 06/26/2012 Document Revised: 12/16/2018 Document Reviewed: 12/16/2018 [employer] Patient Education 2020 [employer]. 02/05/2022 18:02:35 Hypokalemia Hypokalemia Hypokalemia means that [...] hospital. Follow these instructions at home: Take wqsb-ugq-czcafok and prescription medicines only as told by [...] cantaloupe, kiwi, oranges, tomatoes, asparagus, and potatoes. ?Faulkner juice. ?Tomato juice. ?Red meats. ?Yogurt. Keep [...] 07/08/2006 Document Revised: 02/18/2019 Document Reviewed: 02/18/2019 [employer] Patient Education 2020 [employer]. Follow Up Care 02/05/2022 16:06:23 With:Jana ZABALA Address: [address] [place] [phone] Business (1) When:Within 3 Day(s) [facility]07-18-2022 Evaluation + Plan noteExtracted from: Title:ED Note Author:Noel Acosta DO Date:01/19 03/12 Abnormal thyroid blood test (R79.89: Other specified abnormal findings of blood chemistry) Hypokalemia (E87.6: Hypokalemia) Nausea (R11.0: Nausea) Orders: ondansetron, 4 mg = 1 tab(s), Oral, q6hr, PRN Nausea, Take one tab by mouth every six hours as needed for nausea, # 10 tab(s), Refills(s) 0, Pharmacy: [facility]/pharmacy #[id number], 158, cm, 02/05/22 16:14:00 EDT, Height/Length Dosing, 68, kg, 02/05/22 16:14:00 EDT, Weight D... ondansetron, 4 mg = 2 mL, Injection, IV Push, Once, Stop date 02/05/22 16:31:00 EDT, STAT, Start date 02/05/22 16:31:00 EDT, 02/05/22 16:31:00 EDT potassium chloride, 20 mEq = 1 tab(s), Oral, Daily, X 7 day(s), # 7 tab(s), Refills(s) 0, Pharmacy: [facility]/pharmacy #[id number], 158, cm, 02/05/22 16:14:00 EDT, Height/Length [...] PM Scheduled Provider:Altagracia Curtis PA-C Location:[facility] [place] Appointment Type:Pain Management - Workmans Comp Follow [facility]05-20-2022 Evaluation + Plan noteExtracted from: Title:Pain management follow-up Author:Altagracia Curtis PA-C Date:12/08/21 Impression and Plan Patient is a 31 year old female with a past medical history significant for a [facility] claim. The approved codes are m51.26 [...] Date:04/13/2022 03:15:00 PM Scheduled Provider:Altagracia Curtis PA-C Location:[facility] Appointment Type:Pain Management - Workmans Comp Follow [facility]05-03-2022 Evaluation + Plan noteExtracted from: Title:Epidural Steroid Injec ion - LUMBAR - Ortiz Author:Clyde Alcantar MD Date:11/21/21 Patient: PRABHA LUNA [...] mmHg SpO2 98 % . Addendum by Ortiz CHEUNG, Minh Montana on November 21, 2021 9:41 EDT Valium 10mg po prior to procedure for anxiolysis Future Appointments Appointment Date:12/08/2021 03:15:00 PM Scheduled Provider:Altagracia Curtis PA-C Location:.[facility] Appointment Type:Pain Management - Follow Up (FT) [facility]04-19-2022 Hospital Discharge instructions Patient Education 11/07/2021 [...] Follow these instructions at home: Medicines Take ixny-yql-ftmippi and prescription medicines only as told by your health care provider. Ask your health care provider if the medicine prescribed to you: ?Requires you to avoid driving or using heavy machinery. ?Can cause constipation. You may need to take these actions to prevent or treat constipation: ?Drink enough fluid to keep your urine pale yellow. ?Take pzna-obi-xyefixw or prescription medicines. ?Eat foods that are [...] 07/08/2006 Document Revised: 10/30/2019 Document Reviewed: 08/20/2019 [employer] Patient Education 2019 [employer]. Follow Up Care 11/07/2021 11:50:26 With:Jnaa ZABALA Address: [address] [place] [address] [place] [address] Business (1) When:11/10/2021 14:27:24 Comments:Call the office [...] fever, or any new or worsening symptoms. [facility]04-19-2022 Evaluation + Plan noteExtracted from: Title:ED [...] Nausea/Vomiting, # 12 tab(s), Refills(s) 0, Pharmacy: [facility]/pharmacy #[id number], 158, cm, 11/07/21 12:07:00 EDT, Height/Length [...] EDT CT Head or Brain w/o Contrast [facility]04-08-2022 Evaluation + Plan noteExtracted from: Title:Pain management follow-up Author:Altagracia Curtis PA-C Date:10/27/21 Impression and Plan Patient is a 31 year old female with a past medical history significant for a [facility] claim. The approved codes are m51.26 [...] time. She will call when she does. [facility] Future Appointments Appointment Date:04/13/2022 03:15:00 PM Scheduled Provider:Altagracia Curtis PA-C Location:[facility] [place] Appointment Type:Pain Management - Workmans Comp [facility] Future Appointments Appointment Date:07/09/2022 07:30:00 AM Scheduled Provider:Altagracia Curtis PA-C Location:[facility] [place] Appointment Type:[facility] Management - [facility] Future Appointments Appointment Date:01/04/2023 03:15:00 PM Scheduled Provider:Altagracia Curtis PA-C Location:[facility] [place] Appointment Type:Pain Management - Workmans Comp [facility] Future Appointments Appointment Date:02/04/2023 11:45:00 AM Scheduled Provider: Location:[facility] Appointment Type:Surgery FT Appointment Date:02/18/2023 10:30:00 AM Scheduled Provider:Altagracia Curtis PA-C Location:[facility] [place] Appointment Type:Pain Management - Follow Up [facility] Future Appointments Appointment Date:10/08/2022 07:45:00 AM Scheduled Provider:Altagracia Curtis PA-C Location:[facility] [place] Appointment Type:Pain Management - Workmans Comp [facility] noteNo assessment information available [facility] Work Phone: Evaluation noteNo InformationNortTitusville Area Hospital [employer] Other evaluation note* Diagnosis Intractable menstrual migraine with status migrainosus (CMS/HCC)- Primary Menstrual migraine, with intractable migraine, so stated, with status migrainosus documented [facility] Diagnosis Menorrhagia with irregular cycle Breast pain in female Mastodynia Bilateral breast lump documented in this encounter [facility] Narrative - Reported* Type Description Date Medical History gall bladder disease Medical History migraine headache Medical History thyroid disease Surgical History cholecystectomy Hospitalization History pneumonia [facility] [facility] [employer] Other Hospital course Narrative No data available for this section [facility] No data available for this section [facility] Additional Instructions Follow-up with your primary care doctor Return to the ED if you develop worsening symptoms or concerns Take the steroids as prescribed, take benadryl as needed for [facility]chingC[facility] Work Phone: Progress note No data available for this section [facility] Summary Purpose Family History No Family History Records FoundNo Family History Records FoundNo Family History Records FoundNo Family History Records Found No data available for this section No data available for this section No data available for this section No Family History Records FoundNo Family History Records Found Advance Directives No [...] and content) DATE CREATED AUTHOR 01/15/2018 [facility] DATE CREATED AUTHOR AUTHOR'S ORGANIZ ATION 08/06/2021 [facility] DATE CREATED AUTHOR AUTHOR'S ORGANIZ ATION 08/08/2021 [facility] DATE CREATED AUTHOR AUTHOR'S ORGANIZ ATION 09/06/2022 [facility] DATE CREATED AUTHOR AUTHOR'S ORGANIZ ATION 05/26/2024 [facility] DATE CREATED AUTHOR AUTHOR'S ORGANIZ ATION 08/22/2024 [facility] [employer] Source Comments (unrecognize d section and content) In the event this informatio n is protected by the Federal Confidentiality of Alcohol and Drug Abuse Patient Records regulations: The Federal rules restrict any use of the information to criminally investigate or prosecute any alcohol or drug abuse patient.[facility] the event this information is protected by the Federal Confidentiality of Alcohol and Drug Abuse Patient Records regulations: The Federal rules restrict any use of the information to criminally investigate or prosecute any alcohol or drug abuse patient.[facility] Reason for Visit (unrecogniz ed section and content) Reason Comments Refill Request Reason Comments Med Refill Reason Comments Menstrual Problem <item><item><item> Privacy Markings (unrecogniz ed section and [...] Dates Chaitanya Toure DO Emergency Provider Active Jana Zabala PA-C Primary Care Provider Active Communications Strategist Relationship Specialty Start Date End Date Sol Conti MD [address] [place] [address] PCP - General Family Medicine 12/27/22 Timo Rodriguez MD [address] [place] [address] PCP [facility] 10/20/22 Jana Zabala PA [address] [place] [address] Physician [employer] Preparer Family Medicine 12/27/22 Communications Strategist Relationship Specialty Start Date End Date Sol Conti MD [address] [place] [address] PCP - General Family Medicine 12/27/22 Constance Hair, ROLLER CHECKER [address] [place] [address] PCP - [place] [employer] 12/21/23 Jana Zabala PA [address] [place] [address] Physician [employer] Preparer Family Medicine 12/27/22 Communications Strategist Relationship Specialty Start Date End Date Sol Conti MD [address] [place] [address] PCP - General Family Medicine 12/27/22 Constance Hair NP [address] [place] [address] PCP - [place] [employer] 12/21/23 Jana Zabala PA [address] [place] [address] Physician [employer] Preparer Family Medicine 12/27/22 Communications Strategist Relationship Specialty Start Date End Date Sol Conti MD [address] [place] [address] PCP - General Family Medicine 12/27/22 Constance Hair NP [address] [place] [address] PCP - [place] [employer] 12/21/23 Jana Zabala PA [address] [place] [address] Physician [employer] Preparer Family Medicine 12/27/22 Goals (unrecognized section and [...] BE BASED ON THE PRIMARY CLINICAL RECORDS. [facility]. provides no warranty or guarantee of the accuracy or completeness of information in this document.
== END 2024-08-27 08:05 | disposition home or self-care (01) ==
LOC: US 08:04
PROVIDERS: PCP Physician Assistant; Visit Provider Obstetrics & Gynecology
DX: N92.1 Excessive and frequent menstruation with irregular cycle (principal); N64.4 Mastodynia; N63.10 Unspecified lump in the right breast, unspecified quadrant; N63.20 Unspecified lump in the left breast, unspecified quadrant
CPT/HCPCS: 76642; 76830; 76856; 77066; G0279

== ENCOUNTER 2024-09-24 12:12 | Outpatient (REF) | payer OTHER, SELFPAY | END 2024-09-24 12:13 | disposition home or self-care (01) | LOC: LAB 12:12 | PROVIDERS: PCP Physician Assistant; Visit Provider Obstetrics & Gynecology | DX: N92.0 Excessive and frequent menstruation with regular cycle (principal) | CPT/HCPCS: 88305 ==

== ENCOUNTER 2024-10-13 08:43 | Outpatient (OUT) | payer OTHER, SELFPAY ==
--- NOTE | 2024-10-13 09:34 | XR_ITS ---
[address] [address] Patient Name: DERICK LUNA MRN: [id number] date: 1990 Sex: F Assigned Patient Location: [facility] Current Patient Location: [facility] Accession/Order Number: [id number] Exam Date: 10/13/2024 10:41 Report Date: 10/13/2024 10:42 At the request of: CASSIE AMAYA DO Procedure: XR chest 2V Chest 2 views CLINICAL HISTORY: Preop exam COMPARISON: Chest 05/10/2023 FINDINGS: Heart normal in size. Lungs are clear. No free air. XR/XR chest 2V IMPRESSION: NO ACUTE CARDIOPULMONARY ABNORMALITY. Impression dictated by: Mago Diamond Jr.OThiago10/13/2024 10:42 AM Dictation Location: [place] [address] Electronically authenticated by: [id number] Y Date: 10/13/2024 10:42
== END 2024-10-13 08:44 | disposition home or self-care (01) ==
LOC: PST 08:43
PROVIDERS: PCP Physician Assistant; Visit Provider Obstetrics & Gynecology
DX: Z01.810 Encounter for preprocedural cardiovascular examination (principal); N92.0 Excessive and frequent menstruation with regular cycle; N93.9 Abnormal uterine and vaginal bleeding, unspecified; R10.2 Pelvic and perineal pain
CPT/HCPCS: 71046

== ENCOUNTER 2024-10-23 09:31 | Day surgery (SDC) | payer OTHER, SELFPAY ==
[2024-10-13 09:41] VITALS: BP 117/77; PULSE 91; TEMP 36.4; O2SAT 99; BMI 29.3
[2024-10-23] VITALS (12 sets, daily range): BP systolic 90–113; BP diastolic 49–83; PULSE 61–110; TEMP 36.3–36.5; O2SAT 98–100; BMI 29.3
[2024-10-23 09:50] LABS: Basophils Absolute Auto 0.1 10^3/uL (0.0-0.1); Basophils Percent Auto 1.1 % (0.2-2.0); Eosinophils Absolute Auto 0.3 10^3/uL (0.0-0.7); Eosinophils Percent Auto 4.2 % (0.9-7.0); Hematocrit 41.4 % (36.0-48.0); Hemoglobin 14.1 g/dL (12.0-16.0); Immature Granulocytes Abs Auto 0.01 10^3/uL (0.00-0.03); Immature Granulocytes Pct Auto 0.1 % (0.0-0.5); Lymphocytes Absolute Auto 1.7 10^3/uL (1.2-3.8); Lymphocytes Percent Auto 21.4 % (20.5-60.0); Mean Corpuscular HGB Conc 34.1 g/dL (29.9-35.2); Mean Corpuscular Hemoglobin 29.7 pg (26.7-34.0); Mean Corpuscular Volume 87.2 fL (81.0-99.0); Mean Platelet Volume 10.3 fL (9.5-13.5); Monocytes Absolute Auto 0.6 10^3/uL (0.3-0.8); Monocytes Percent Auto 6.8 % (1.7-12.0); Neutrophils Absolute Auto 5.4 10^3/uL (1.4-6.5); Neutrophils Percent Auto 66.4 % (43.0-75.0); Platelet Count 240 10^3/uL (150-450); Red Blood Count 4.75 10^6/uL (4.20-5.40); Red Cell Distribution Width 12.3 % (11.0-15.0); White Blood Count 8.1 10^3/uL (4.0-11.0)
[2024-10-23] MEDS: LACTATED RINGER'S SOLUTION 1,000 ML 50 ML IV ×2 (10:23→13:25)
[2024-10-23] MEDS: FAMOTIDINE/PF 20 MG/2 ML VIAL IV (10:25)
[2024-10-23] MEDS: SCOPOLAMINE 1 MG/3 DAYS TRANSDERM PATCH 1 PATCH TD (10:29)
[2024-10-23 10:59] LABS: HCG Quantitative <1 mIU/mL
--- NOTE | 2024-10-23 13:24 | P.ON_ITS ---
Brief Operative Note Date of procedure: 10/23/24 Pre-op diagnosis general: desires sterilization, menorrhagia Post-op diagnosis: same as pre-op Procedure: NAME OF PROCEDURE: robotic assisted Laparoscopic bilateral salpingectomy, lt endometrioma was excised with blunt dissection, with Angela endometrial ablation with hysteroscopy findings: lt endometrioma, significant adhesions posterior culdesac PROCEDURE: The patient was taken back to the OR where she was prepped and draped in the normal sterile fashion after being placed in the dorsal lithotomy position, after being placed under general anesthesia without difficulty. a weighted speculum was then placed into the vagina. Pap and endometrial bx were performed without difficultyThe anterior lip was grasped with a single tooth tenaculum. The patient was then sounded to approximatley 9cm. The patient was gently sounded using Hegar dilators and the hysteroscope was passed through the cervix into the uterus where both ostia were seen. No gross evidence of polyps, fibroids or malignancy. The cervical length was noted to be 4cm. The Angela ablation apparatus was set to approximately 5cm in length. This was placed in through the cervix and into the uterus. After the seal was tested, at that time the total ablation of 120 seconds was performed with the Angela without difficulty. All instruments were removed from the vagina. A wet sponge stick was placed into the patient's vagina. Attention was then turned to the patient's abdomen, where a scalpel was used to make a small infraumbilical incision. The S retractors were then used to dissect the u nderlying layers until the fascia could be seen. The fascia was then grasped with Von clamps and tented up. A knife was then used to make a small incision to the fascia. The muscle was identified, at that time two sutures of #0 Vicryl on a GI needlewas then used and placed through the fascia. The peritoneum was then identified and entered bluntly. The 10-4 Rj was then placed into the patient's abdomen. This was confirmed with direct visualization of the bowel, using the laparoscope. The patient's abdomen was then insufflated using approximately 4 liters of CO2 gas. Survey of the patient's abdomen demonstrated normal appearing ovaries, uterus and tubes. A second and third lateral robotic ports, which was 8mm in size, was then placed laterally after incision was made in the skin under direct visualization. the robotic arms were engaged. The patient's tube on the patient's right side was identified. The tube was then tented up using a grasper. The ligasure was used to transect and coagulate the mesosalpingx from the fimbriated end to the insertion at the uterus, the tube was amputated and removed in its entirety.? Excellent hemostasis was noted. ?This was performed on the contralateral sideas well. The lateral ports were then moved under direct visualization with excellent hemostasis. The abdomen was deinsufflated. All instruments were removed from the patient's abdomen. The fascia was closed using the #0 Vicryl on GI needle. The skin was closed using 4- 0 Vicryl subcuticularly. All instruments were removed from the patient's vagina as well. The patient was taken out of the dorsal lithotomy position and placed in the supine position and taken to recovery in stable condition. Sponge, lap and needle counts were correct x2. ???Please note lt endometrioma was excised with blunt dissection Anesthesia: RANDELL Surgeon: Stoney Chance [employer] Operations Manager: Syl Moreno Estimated blood loss (mL): 5 Pathology: other (tubes) Condition: stable Disposition: PACU Urinary Catheter Management Urinary Catheter Management Urethral: Cath placed during this visit: no
[2024-10-23] MEDS: HYDROMORPHONE HCL 0.5 MG/0.5 ML SYRINGE IV (14:16)
[2024-10-23] MEDS: PROMETHAZINE HCL 25 MG TABLET PO (14:33)
[2024-10-23] MEDS: HYDROCODONE/ACET 5-325 MG TABLET 1 TAB PO (14:33)
== END 2024-10-23 15:16 | disposition home or self-care (01) ==
PROVIDERS: PCP Physician Assistant; Visit Provider Obstetrics & Gynecology
PROC: (CPT 840; principal; 2024-10-23 10:50)
PROC: (CPT 840; 2024-10-23 10:50)
DX: Z30.2 Encounter for sterilization (principal); N92.0 Excessive and frequent menstruation with regular cycle; N93.9 Abnormal uterine and vaginal bleeding, unspecified; R10.2 Pelvic and perineal pain; N80.122 Deep endometriosis of left ovary; K66.0 Peritoneal adhesions (postprocedural) (postinfection); Z90.49 Acquired absence of other specified parts of digestive tract; F17.290 Nicotine dependence, other tobacco product, uncomplicated; K21.9 Gastro-esophageal reflux disease without esophagitis; E07.9 Disorder of thyroid, unspecified
CPT/HCPCS: 58563; 58661; 58662; 36415; 84702; 85025; 88302; J1100; J1171; J1885; J2250; J2405; J2704; J3010; J3490; Q0169

== ENCOUNTER 2024-10-29 14:12 | Emergency (ER) | payer OTHER, SELFPAY ==
[2024-10-29] VITALS (15 sets, daily range): BP systolic 97–119; BP diastolic 60–80; PULSE 64–87; TEMP 36.9; O2SAT 99; BMI 29.3
--- NOTE | 2024-10-29 14:30 | ECG_ITS ---
[facility] Test Date: 2024-10-29 Pat Name: DERICK LUNA Department: Room: - Gender: Female Network Support Engineer: : 1990 Requested By: [id number] Order Number: [id number] Reading MD: PAUL STAPLES M.D. Measurements Intervals Winnie Rate: 64 P: 60 NC: 120 QRS: 75 QRSD: 80 T: 65 QT: 412 QTc: 422 Interpretive Statements 1100 Sinus rhythm 9110 normal ECG Compared to ECG 05/10/2023 11:28:46 No significant changes Electronically Signed On 10-30-2024 5:21:07 EDT by PAUL STAPLES M.D.
--- NOTE | 2024-10-29 14:31 | ED.NAVMDI1 ---
HPI - Nausea/Vomiting/Diarrhea General Chief complaint: Nausea/Vomiting/Diarrhea Stated complaint: POST OP COMPLICATION Time Seen by Provider: 10/29/24 14:13 Source: patient Mode of arrival: walk-in History of Present Illness HPI Narrative: Patient is a 34-year-old female who presents to the emergency department for the evaluation of vomiting and diarrhea for the last day. She states she had gynecological procedure with her ACCOUNTING SYSTEMS MANAGER last Saturday, she had her fallopian tubes removed and adhesions removed from the uterus for history of endometriosis. She states she had an episode of vomiting earlier this week associated with a headache which she attributed to a migraine. She states she did feel mildly dizzy. She states today she has had multiple episodes of both vomiting and diarrhea and states while she was having a bowel movement on the toilet, she had a brief syncopal episode. She was seated for the syncopal episode and did not fall to the ground or injure herself. At this time she has mild abdominal cramping, she is ambulatory. She has not had any urinary symptoms or fevers. She has not had any significant vaginal bleeding since the procedure. Incisions have been healing well on the abdomen. Patient states her primary concern was that she was told a year ago during an exploratory laparoscopy for her endometriosis that the posterior aspect of her uterus is connected to her anus and she is concerned that the diarrhea may be related. She called the ACCOUNTING SYSTEMS MANAGER office to report the vomiting, diarrhea and syncopal episode and she was referred to the emergency department. Related Data Home Medications ?Medication ?Instructions ?Recorded ?Confirmed fremanezumab-vfrm 225 mg/1.5 mL 225 mg subcut .weekly 05/10/23 10/29/24 subcutaneous auto-injector (Ajovy) levothyroxine 25 mcg tablet 25 mcg PO DAILY 05/10/23 10/29/24 rimegepant 75 mg disintegrating 75 mg PO QDAY PRN migraine headache 05/10/23 10/29/24 tablet (Nurtec ODT) tizanidine 4 mg tablet 4 mg PO QPM PRN muscle spasticity 05/10/23 10/29/24 meloxicam 7.5 mg tablet 7.5 mg PO DAILY PRN migraine 10/13/24 10/29/24 headache naproxen 500 mg tablet 500 mg PO Q8H PRN pain 10/13/24 10/29/24 zavegepant 10 mg/actuation nasal 1 spray intranasal DAILY PRN 10/13/24 10/29/24 spray (Zavzpret) migraine headache Previous Rx's ?Medication ?Instructions ?Recorded ondansetron 4 mg disintegrating 4 mg PO Q8H PRN nausea and 09/02/23 tablet vomiting 4 days #12 tabs hydrocodone 5 mg-acetaminophen 325 1 tab PO Q4H PRN pain 4 days #16 10/23/24 mg tablet tabs ibuprofen 800 mg tablet 800 mg PO Q8H PRN pain 14 days #40 10/23/24 tabs ketorolac 10 mg tablet 10 mg PO TID PRN pain #6 tabs 10/29/24 ondansetron 4 mg disintegrating 4 mg PO Q6H PRN nausea and 10/29/24 tablet vomiting #12 tabs Allergies Allergy/AdvReac Type Severity Reaction Status Date / Time bee venom protein (honey bee) Allergy swelling Verified 10/29/24 14:18 chocolate Allergy Migraine Verified 10/29/24 14:18 chocolate flavor Allergy Migraine Verified 10/29/24 14:18 dicyclomine Allergy Hives Verified 10/29/24 14:18 galcanezumab-gnlm (From Allergy swelling Verified 10/29/24 14:18 Emgality Pen) metoclopramide (From Reglan) Allergy dystonia Verified 10/29/24 14:18 Review of Systems ROS Constitutional Denies: fever or chills Ears, nose, mouth, and throat Denies: throat pain or nasal congestion Cardiovascular Denies: chest pain Respiratory Denies: shortness of breath or cough Gastrointestinal Reports: abdominal pain, nausea, vomiting and diarrhea Musculoskeletal Denies: back pain Integumentary/Breast Denies: rash Neurological Denies: numbness in extremities or weakness in extremities Hematologic/Lymphatic Denies: easy bruising or easy bleeding [facility] Medical History (Updated 10/29/24 @ 16:21 by SANJUANITA Jacob) Abnormal uterine bleeding ?N93.9 - Abnormal uterine and vaginal bleeding, unspecified (ICD-10) Menorrhagia ?N92.0 - Excessive and frequent menstruation with regular cycle (ICD-10) Request for sterilization ?Z30.2 - Encounter for sterilization (ICD-10) Back pain ?M54.9 - Dorsalgia, unspecified (ICD-10) Anemia ?D64.9 - Anemia, unspecified (ICD-10) Anxiety ?F41.9 - Anxiety disorder, unspecified (ICD-10) Electronic cigarette use ?Z78.9 - Other specified health status (ICD-10) COVID-19 ?U07.1 - COVID-19 (ICD-10) Migraine ?G43.909 - Migraine, unspecified, not intractable, without status migrainosus (ICD-10) Fallopian tube disorder ?N83.9 - Noninflammatory disorder of ovary, fallopian tube and broad ligament, unspecified (ICD-10) Ovarian cyst ?N83.209 - Unspecified ovarian cyst, unspecified side (ICD-10) Endometriosis ?N80.9 - Endometriosis, unspecified (ICD-10) Dysmenorrhea ?N94.6 - Dysmenorrhea, unspecified (ICD-10) Dyspareunia Pelvic pain ?R10.2 - Pelvic and perineal pain (ICD-10) GERD (gastroesophageal reflux disease) ?K21.9 - Gastro-esophageal reflux disease without esophagitis (ICD-10) Arrhythmia ?I49.9 - Cardiac arrhythmia, unspecified (ICD-10) Pneumonia (2010) ?J18.9 - Pneumonia, unspecified organism (ICD-10) Hypotension ?I95.9 - Hypotension, unspecified (ICD-10) Hypothyroidism ?E03.9 - Hypothyroidism, unspecified (ICD-10) Postoperative nausea and vomiting ?R11.2 - Nausea with vomiting, unspecified (ICD-10) ?Z98.890 - Other specified postprocedural states (ICD-10) Delayed recovery from anesthesia Surgical History (Updated 10/08/24 @ 12:01 by Astrid Tomlin NP) H/O laparoscopy (05/24/23) ?Z98.890 - Other specified postprocedural states (ICD-10) History of cholecystectomy ?Z90.49 - Acquired absence of other specified parts of digestive tract (ICD-10) Family History (Updated 10/13/24 @ 09:31 by Astrid Tomlin NP) Other Delayed recovery from anesthesia Family history of breast cancer Family history of diabetes mellitus Family history of stroke PONV (postoperative nausea and vomiting) Von Willebrand disease Social History Within the past year, how often did you have a drink containing alcohol: never Score interpretation: A score less than 3 is consistent with normal alcohol consumption. 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 Highest level of school completed/degree received: high school graduate Little interest or pleasure in doing things: not at all Feeling down, depressed, or hopeless: not at all Exam Narrative Exam Narrative: Gen.: Awake, alert, in no distress Head: Normocephalic, atraumatic ENT: Moist mucous membranes Respiratory: No respiratory distress, lungs clear bilaterally Cardio: Regular rate and rhythm Gastrointestinal: Abdomen is soft, nondistended and tender to palpation in the suprapubic and right lower quadrant of the abdomen, well-healing surgical incisions from laparoscopy Extremities: Moves extremities equally Psych: Normal mood and affect Neuro: No focal neuro deficit Skin: Warm, dry, intact Constitutional Vital Signs, click to edit/add: Last Vital Signs Temp 98.5 F 10/29/24 14:18 Pulse 76 10/29/24 16:00 Resp 13 10/29/24 16:00 BP 106/67 10/29/24 16:00 Pulse Ox 99 10/29/24 14:58 O2 Del Method Room Air 10/29/24 14:58 Course Vital Signs Vital signs: Vital Signs Temperature 98.5 F 10/29/24 14:18 Pulse Rate 80 10/29/24 14:18 Respiratory Rate 18 10/29/24 14:18 Blood Pressure 117/80 10/29/24 14:18 Pulse Oximetry 99 10/29/24 14:18 Oxygen Delivery Method Room Air 10/29/24 14:18 Temperature 98.5 F 10/29/24 14:18 Pulse Rate 76 10/29/24 16:00 Respiratory Rate 13 10/29/24 16:00 Blood Pressure 106/67 10/29/24 16:00 Pulse Oximetry 99 10/29/24 14:58 Oxygen Delivery Method Room Air 10/29/24 14:58 MDM - Nausea/Vomiting/Diarrhea MDM Narrative Medical decision making narrative: Patient with an unremarkable EKG, laboratory studies showing mild leukocytosis although no significant electrolyte abnormalities and normal troponin. Patient had no episodes of vomiting or diarrhea in the emergency department. She was given IV fluids, Toradol, Zofran. Abdomen is soft and benign with no pain out of proportion on exam. CT of the abdomen and pelvis shows no evidence of acute process. There is fluid in the uterine canal, suspected to be secondary to surgical procedure. Patient instructed to follow-up with ACCOUNTING SYSTEMS MANAGER as scheduled, symptoms suspected to be due to gastroenteritis causing vasovagal syncope. She was strongly encouraged to return to the emergency department if symptoms change or worsen. SHARED APC VISIT, PHYSICIAN ATTESTATION: [id number] I performed a substantive part of the MDM during the patient?s E/M visit. I personally evaluated and examined the patient. I personally made or approved the documented management plan and acknowledge its risk of complications. Medical Records Attestation: I reviewed the patient's medical records. Lab Data Attestation: I reviewed the patient's lab results. Labs: Lab Results 10/29/24 10/29/24 Range/Units 14:33 14:44 WBC 14.8 H (4.0-11.0) 10^3/uL RBC 4.69 (4.20-5.40) 10^6/uL Hgb 13.9 (12.0-16.0) g/dL Hct 40.5 (36.0-48.0) % MCV 86.4 (81.0-99.0) fL MCH 29.6 (26.7-34.0) pg MCHC 34.3 (29.9-35.2) g/dL RDW 12.3 (11.0-15.0) % Plt Count 261 (150-450) 10^3/uL MPV 10.0 (9.5-13.5) fL Neut % (Auto) 85.5 H (43.0-75.0) % Lymph % (Auto) 7.5 L (20.5-60.0) % Hinds % (Auto) 5.3 (1.7-12.0) % Eos % (Auto) 0.7 L (0.9-7.0) % Baso % (Auto) 0.6 (0.2-2.0) % Neut # (Auto) 12.6 H (1.4-6.5) 10^3/uL Lymph # (Auto) 1.1 L (1.2-3.8) 10^3/uL Hinds # (Auto) 0.8 (0.3-0.8) 10^3/uL Eos # (Auto) 0.1 (0.0-0.7) 10^3/uL Baso # (Auto) 0.1 (0.0-0.1) 10^3/uL Abs Immat Gran (auto) 0.06 H (0.00-0.03) 10^3/uL Imm/Tot Granulo (auto) 0.4 (0.0-0.5) % PT 11.6 (9.0-11.6) sec INR 1.11 Sodium 137 (136-145) mmol/L Potassium 3.8 (3.5-5.1) mmol/L Chloride 104 (98-107) mmol/L Carbon Dioxide 25.0 (21.0-32.0) mmol/L Anion Gap 11.8 BUN 15.0 (7.0-18.0) mg/dL Creatinine 0.93 (0.55-1.02) mg/dL Est GFR ( Amer) >60 (>=60 mL/min/1.73m^2) Est GFR (Non-Af Amer) >60 (>=60 mL/min/1.73m^2) BUN/Creatinine Ratio 16.1 Glucose 97 (74-106) mg/dL Lactate 1.5 (0.4-2.0) mmol/L Calcium 9.1 (8.5-10.1) mg/dL Total Bilirubin 0.3 (0.2-1.0) mg/dL AST 11 L (15-37) U/L ALT 15 (14-59) U/L Alkaline Phosphatase 57 (46-116) U/L Troponin I High Sens <4.0 L (4.0-51.3) pg/mL Total Protein 7.2 (6.4-8.2) g/dL Albumin 3.7 (3.4-5.0) g/dL Globulin 3.5 g/dL Albumin/Globulin Ratio 1.1 TSH 1.301 (0.358-3.740) uIU/mL Urine Color Lt. yellow (YELLOW) Urine Clarity Clear (CLEAR) Urine pH 6.0 (5.0-9.0) Ur Specific [place] 1.015 (1.005-1.025) Urine Protein Negative (NEG/TRACE) mg/dL Urine Glucose (UA) Negative (NEGATIVE) mg/dL Urine Ketones Negative (NEGATIVE) mg/dL Urine Occult Blood Small A (NEGATIVE) Urine Nitrite Negative (NEGATIVE) Urine Bilirubin Negative (NEGATIVE) Urine Urobilinogen 0.2 (0.2-1.0) EU/dL Ur Leukocyte Esterase Negative (NEGATIVE) Urine RBC 2-5 A (0-2) #/HPF Urine WBC None seen (NONE SEEN) #/HPF Ur Squamous Epith Cells Few A (NONE/RARE) #/LPF Urine Crystals None seen (None Seen) #/HPF Urine Bacteria Trace A (NONE SEEN) #/HPF Urine Casts None seen (NONE SEEN) #/LPF Urine Mucus None seen (NONE SEEN) Ur Culture Indicated? No Imaging Data CT scan - abdomen: Attestation: I have reviewed the pertinent imaging results. ECG Data Attestation: I personally reviewed and interpreted this ECG as follows: (Normal sinus rhythm at a rate of 64, no acute ST elevation or ectopy. EKG reviewed by attending physician) Discharge Plan Discharge Chief Complaint: Nausea/Vomiting/Diarrhea Clinical Impression: Abdominal pain, vomiting, and diarrhea, Syncope Patient Disposition: Home, Self-Care Time of Disposition Decision: 16:21 Condition: Good Prescriptions / Home Meds: New ondansetron 4 mg tablet,disintegrating 4 mg PO Q6H PRN (Reason: nausea and vomiting) Qty: 12 0RF ketorolac 10 mg tablet 10 mg PO TID PRN (Reason: pain) Qty: 6 0RF No Action ondansetron 4 mg tablet,disintegrating 4 mg PO Q8H PRN (Reason: nausea and vomiting) 4 Days Qty: 12 0RF levothyroxine 25 mcg tablet 25 mcg PO DAILY Ajovy Autoinjector 225 mg/1.5 mL auto-injector 225 mg SUBCUT .weekly tizanidine 4 mg tablet 4 mg PO QPM PRN (Reason: muscle spasticity) Nurtec ODT 75 mg tablet,disintegrating 75 mg PO QDAY PRN (Reason: migraine headache) Zavzpret 10 mg/actuation spray,non-aerosol 1 spray INTRANASAL DAILY PRN (Reason: migraine headache) meloxicam 7.5 mg tablet 7.5 mg PO DAILY PRN (Reason: migraine headache) naproxen 500 mg tablet 500 mg PO Q8H PRN (Reason: pain) ibuprofen 800 mg tablet 800 mg PO Q8H PRN (Reason: pain) 14 Days Qty: 40 0RF hydrocodone-acetaminophen 5-325 mg tablet 1 tab PO Q4H PRN (Reason: pain) 4 Days Qty: 16 0RF Print Language: [place] Citizen Instructions: Syncope (ED), Acute Nausea and Vomiting (ED), Acute Diarrhea (ED) Referrals: Stoney Chance DO [Physician] - 1 week AMBER ZABALA [Primary Care Provider] - 1 week
[2024-10-29] MEDS: 0.9 % SODIUM CHLORIDE 1,000 ML 999 ML IV (14:45)
[2024-10-29] MEDS: ONDANSETRON PF 4 MG/2 ML VIAL IV (14:46)
[2024-10-29] MEDS: KETOROLAC TROMETHAMINE 30 MG/ML VIAL IVP (14:47)
[2024-10-29 14:50] LABS: Basophils Absolute Auto 0.1 10^3/uL (0.0-0.1); Basophils Percent Auto 0.6 % (0.2-2.0); Eosinophils Absolute Auto 0.1 10^3/uL (0.0-0.7); Eosinophils Percent Auto 0.7 % (0.9-7.0); Hematocrit 40.5 % (36.0-48.0); Hemoglobin 13.9 g/dL (12.0-16.0); Immature Granulocytes Abs Auto 0.06 10^3/uL (0.00-0.03); Immature Granulocytes Pct Auto 0.4 % (0.0-0.5); Lymphocytes Absolute Auto 1.1 10^3/uL (1.2-3.8); Lymphocytes Percent Auto 7.5 % (20.5-60.0); Mean Corpuscular HGB Conc 34.3 g/dL (29.9-35.2); Mean Corpuscular Hemoglobin 29.6 pg (26.7-34.0); Mean Corpuscular Volume 86.4 fL (81.0-99.0); Monocytes Absolute Auto 0.8 10^3/uL (0.3-0.8); Monocytes Percent Auto 5.3 % (1.7-12.0); Neutrophils Absolute Auto 12.6 10^3/uL (1.4-6.5); Neutrophils Percent Auto 85.5 % (43.0-75.0); Platelet Count 261 10^3/uL (150-450); Red Blood Count 4.69 10^6/uL (4.20-5.40); Red Cell Distribution Width 12.3 % (11.0-15.0); White Blood Count 14.8 10^3/uL (4.0-11.0)
[2024-10-29 14:51] LABS: Bilirubin Urine NEGATIVE (NEGATIVE); Blood Urine SMALL (NEGATIVE); Clarity Urine CLEAR (CLEAR); Color Urine LT. YELLOW (YELLOW); Glucose Urine UA NEGATIVE (NEGATIVE); Ketones Urine NEGATIVE (NEGATIVE); Leukocyte Esterase Urine NEGATIVE (NEGATIVE); Nitrite Urine NEGATIVE (NEGATIVE); Protein Urine NEGATIVE (NEG/TRACE); Specific Gravity Urine 1.015 (1.005-1.025); Urobilinogen Urine 0.2 EU/dL (0.2-1.0)
[2024-10-29 14:57] LABS: Bacteria Urine TRACE #/HPF (NONE SEEN); Cast Seen? NONE SEEN #/LPF (NONE SEEN); Crystals Seen? None Seen #/HPF (None Seen); Mucus Urine NONE SEEN (NONE SEEN); Squamous Epithelial Cell Urine FEW #/LPF (NONE/RARE); Urine Culture Indicated NO; WBC Urine NONE SEEN #/HPF (NONE SEEN)
[2024-10-29 15:03] LABS: INR 1.11; Prothrombin Time 11.6 sec (9.0-11.6)
[2024-10-29 15:09] LABS: Lactate/Lactic Acid 1.5 mmol/L (0.4-2.0)
[2024-10-29 15:16] LABS: Alanine Aminotransferase 15 U/L (14-59); Albumin Globulin Ratio 1.1; Albumin Level 3.7 g/dL (3.4-5.0); Alkaline Phosphatase 57 U/L (46-116); Anion Gap 11.8; Aspartate Amino Transferase 11 U/L (15-37); BUN Creatinine Ratio 16.1; Bilirubin Total 0.3 mg/dL (0.2-1.0); Calcium 9.1 mg/dL (8.5-10.1); Chloride 104 mmol/L (98-107); Estimated GFR (African America >60 (>=60 mL/min/1.73m^2); Estimated GFR (Non-African Ame >60 (>=60 mL/min/1.73m^2); Globulin 3.5 g/dL; Glucose 97 mg/dL (74-106); Potassium 3.8 mmol/L (3.5-5.1); Sodium 137 mmol/L (136-145); Thyroid Stimulating Hormone 1.301 uIU/mL (0.358-3.740); Total Protein 7.2 g/dL (6.4-8.2); Troponin I High Sensitivity <4.0 pg/mL (4.0-51.3)
== END 2024-10-29 16:37 | disposition home or self-care (01) ==
PROVIDERS: Physician Assistant; Emergency Provider Emergency Medicine; PCP Physician Assistant
DX: R10.9 Unspecified abdominal pain (principal); R11.10 Vomiting, unspecified; R55 Syncope and collapse; R19.7 Diarrhea, unspecified; Z98.890 Other specified postprocedural states; Z90.49 Acquired absence of other specified parts of digestive tract; Z87.891 Personal history of nicotine dependence
CPT/HCPCS: 36415; 74177; 80053; 81001; 83605; 84443; 84484; 85025; 85610; 93005; 96361; 96374; 96375; 99285; J1885; J2405; Q9967